=== PATIENT | female | born 1940 | race Caucasian/White ===

== ENCOUNTER 2016-10-01 05:34 | Emergency (ER) | payer MEDICARE, OTHER ==
[2016-10-01 05:39] VITALS: BP 172/95; PULSE 90; RESP 17; TEMP 98.2
[2016-10-01] MEDS ORDERED: DIPH,PERTUS(ACELL)TETVAC-LF 0.5 ML VIAL IM ONE (05:50)
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
== END 2016-10-01 06:23 | disposition home or self-care (01) ==
LOC: EC 05:34
DX: S01.01XA Laceration without foreign body of scalp, initial encounter (principal); E78.5 Hyperlipidemia, unspecified; I10 Essential (primary) hypertension; M19.90 Unspecified osteoarthritis, unspecified site; F17.200 Nicotine dependence, unspecified, uncomplicated; Z79.891 Long term (current) use of opiate analgesic; Z79.899 Other long term (current) drug therapy; Z23 Encounter for immunization; Y04.2XXA Assault by strike against or bumped into by another person, initial encounter
CPT/HCPCS: 12002; 90471; 90715; 99283

== ENCOUNTER → 2016-10-01 | Outpatient (CLI) | payer MEDICARE, OTHER ==
--- NOTE | 2016-10-01 14:20 | MR ---
EXAMINATION TYPE: MR lumbar spine wo con DATE OF EXAM: 10/01/2016 COMPARISON: 06/30/2013 HISTORY: radiculopathy lsp lumbago TECHNIQUE: T1 and T2 axial and sagittal images of the lumbar spine are submitted. FINDINGS: There is no abnormal signal seen within the visualized spinal cord or paraspinal soft tissu es. Incidental note made of gallstones. Simple appearing bilateral renal cysts are incidentally noted and there is ectasia of the distal thoracic aorta thickening or nodularity to both adrenal glands ar e also noted. At T11-T12 there is a vacuum disc with severe chronic compression fracture of T12. Area is not includ ed on the axial scanning. Does appear to be bilateral foraminal encroachment but no definite canal st enosis. At T12-L1 there is severe compression deformities of both T12 and L1 which appear chronic. There is l eft paracentral disc bulging but no canal stenosis. Moderate bilateral foraminal encroachment. No Can al stenosis. At L1-2 there is moderate compression fracture which appears chronic of L2. Circumferential disc bulg ing and facet arthropathy noted. Moderate bilateral foraminal encroachment. No Canal stenosis. At L2-3 there is severe compression chronic fracture of L3. There is broad-based central disc bulging with mild effacement of thecal sac. Facet arthropathy and ligamentum flavum hypertrophy contributes to borderline canal stenosis and moderate bilateral foraminal encroachment. At L3-4 there is mild superior endplate compression deformity appears chronic of L4. There is degener ative disc disease and more marked facet arthropathy. No Canal stenosis. Mild to moderate bilateral f oraminal encroachment. At L4-5 there is severe chronic appearing compression fracture of L5. There is more marked facet arth ropathy and ligamentum flavum hypertrophy with circumferential disc bulging. Moderate bilateral tomas inal encroachment with borderline to mild canal stenosis. At L5-S1 there is severe hypertrophic change of the ligament of flavum and there is productive facet arthropathy resulting in lateral thecal sac compression. Central disc bulging contributes to mild to moderate canal stenosis and bilateral foraminal encroachment. Lateral recess stenosis noted bilateral ly. IMPRESSION: 1. There are numerous chronic compression fractures throughout the visualized vertebral column with a reas of vacuum disc involving the thoracolumbar junction compatible severe multilevel degenerative di sc disease which appears stable from the previous exam. 2. Multilevel hypertrophic change of the facets and ligamentum flavum resulting in mild to moderate c anal stenosis at L5-S1 and borderline to mild canal stenosis L4-L5. 3. Left paracentral disc bulging T12-L1 appears stable. 4. Cholelithiasis.
== END | disposition home or self-care (01) ==
LOC: RADMRIMAIN 09:28
PROVIDERS: ATTEND Psychiatry & Neurology Neurology
DX: S32.020A Wedge compression fracture of second lumbar vertebra, initial encounter for closed fracture (principal); M48.06 Spinal stenosis, lumbar region; M51.15 Intervertebral disc disorders with radiculopathy, thoracolumbar region; M46.06 Spinal enthesopathy, lumbar region
CPT/HCPCS: 72148

== ENCOUNTER 2016-11-15 12:30 | Inpatient (IN) | payer MEDICARE, OTHER ==
[2016-11-15] MEDS ORDERED: IPRATROPIUM 0.5 MG/2.5 ML NEBU INHALATION STA (13:31)
[2016-11-15] MEDS ORDERED: ALBUTEROL NEBULIZED 2.5 MG/3 ML INHALATION STA (13:31)
[2016-11-15] MEDS ORDERED: methylPREDNISolone SOD SUCCI 125 MG/2 ML VIAL IV STA (13:31)
--- NOTE | 2016-11-15 13:36 | ED ---
General Adult HPI - General Chief complaint: Upper Respiratory Infection Stated complaint: Difficulty Breathing Time Seen by Provider: 11/15/16 13:00 Source: patient, RN notes reviewed Mode of arrival: ambulatory Limitations: no limitations - History of Present Illness Initial comments: This a 76-year-old female who presents emergency department with past medical history significant for COPD. Patient states the last couple days she's had difficulty breathing is getting progressively worse per patient states she also has a cough and positive sputum production. Patient has positive smoking history. Patient denies any chest pain or palpitations. Patient denies any fever chills. Patient states the difficulty breathing gets worse with exertion. Patient states her inhalers are not helping her. Patient denies any abdominal pain patient denies nausea vomiting diarrhea per patient denies any leg swelling or calf pain. Patient denies any recent trips or travel. Patient denies being lightheaded dizzy or having any near syncopal episodes. - Related Data Home Medications Medication Instructions Recorded Confirmed Albuterol Sulfate [Proair Hfa] 2 puff INHALATION RT-Q6H PRN 06/16/13 11/15/16 Tiotropium 18 Mcg/Puff [Spiriva] 1 puff INHALATION RT-DAILY 06/16/13 11/15/16 Hydrocodone/Acetaminophen [[place] 1 tab PO TID PRN 05/18/14 11/15/16 7.5-325] Ibuprofen [Ibuprofen] 400 mg PO TID 11/15/16 11/15/16 Metoprolol Succinate [Toprol XL] 50 mg PO HS 11/15/16 11/15/16 Modafinil [Provigil] 100 mg PO DAILY 11/15/16 11/15/16 Simvastatin [Zocor] 10 mg PO HS 11/15/16 11/15/16 Allergies Allergy/AdvReac Type Severity Reaction Status Date / Time No Known Allergies Allergy Verified 11/15/16 13:58 Review of Systems ROS Statement: Those systems with pertinent positive or pertinent negative responses have been documented in the HPI. ROS Other: All systems not noted in ROS Statement are negative. Past Medical History Past Medical History: COPD, Hyperlipidemia, Hypertension, Osteoarthritis (OA) Additional Past Medical History / Comment(s): sciatica, narcolepsy History of Any Multi-Drug Resistant Organisms: None Reported Past Surgical History: Orthopedic Surgery Past Psychological History: No Psychological Hx Reported Smoking Status: Current every day smoker Past Alcohol Use History: None Reported Past Drug Use History: None Reported General Exam - General Exam Comments Initial Comments: GENERAL: Patient is well-developed and well-nourished. Patient is nontoxic and well- hydrated and is in moderate distress. ENT: Neck is soft and supple. No significant lymphadenopathy is noted. Oropharynx is clear. Moist mucous membranes. Neck has full range of motion without eliciting any pain. EYES: The sclera were anicteric and conjunctiva were pink and moist. Extraocular movements were intact and pupils were equal round and reactive to light. Eyelids were unremarkable. PULMONARY: Patient is a very wheezing throughout diminished breath sounds throughout. CARDIOVASCULAR: There is a regular rate and rhythm without any murmurs gallops or rubs. Femoral pulses are equal bilaterally ABDOMEN: Soft and nontender with normal bowel sounds. No palpable organomegaly was noted. There is no palpable pulsatile mass. SKIN: Skin is clear with no lesions or rashes and otherwise unremarkable. NEUROLOGIC: Patient is alert and oriented x3. Cranial nerves II through XII are grossly intact. Motor and sensory are also intact. Normal speech, volume and content. Symmetrical smile. MUSCULOSKELETAL: Normal extremities with adequate strength and full range of motion. No lower extremity swelling or edema. No calf tenderness. LYMPHATICS: No significant lymphadenopathy is noted PSYCHIATRIC: Normal psychiatric evaluation. Limitations: no limitations Course Vital Signs 11/15/16 11/15/16 11/15/16 13:03 13:35 13:53 Temperature 98.1 F Pulse Rate 95 92 Respiratory 22 21 16 Rate Blood Pressure 147/77 O2 Sat by Pulse 92 L Oximetry 11/15/16 11/15/16 14:03 14:06 Temperature Pulse Rate 92 96 Respiratory 16 19 Rate Blood Pressure 150/91 O2 Sat by Pulse 99 Oximetry Medical Decision Making - Medical Decision Making EKG shows normal sinus rhythm at 71 bpm KS interval is 182 QRS is 74 Q-T intervals 374 QTC is 46 per patient's EKG shows no ST segment elevation or depression or T wave abnormalities are noted. Patient's chest x-ray shows COPD. Patient had multiple treatments and steroids in the emergency department continued to wheeze though feeling better she did not feel as though she could go home. I spoke with Dr. Eckert he agreed to admit the patient I admitted the patient I wrote admitting orders. - Lab Data Result diagrams: 11/15/16 14:00 11/15/16 14:00 Lab Results 11/15/16 11/15/16 11/15/16 Range/Units 14:00 14:00 14:00 WBC 7.4 (3.8-10.6) k/uL RBC 4.84 (3.80-5.40) m/uL Hgb 14.7 (11.4-16.0) gm/dL Hct 45.2 (34.0-46.0) % MCV 93.3 (80.0-100.0) fL MCH 30.3 (25.0-35.0) pg MCHC 32.4 (31.0-37.0) g/dL RDW 13.9 (11.5-15.5) % Plt Count 167 (150-450) k/uL Neutrophils % 73 % Lymphocytes % 18 % Monocytes % 6 % Eosinophils % 2 % Basophils % 0 % Neutrophils # 5.4 (1.3-7.7) k/uL Lymphocytes # 1.3 (1.0-4.8) k/uL Monocytes # 0.4 (0-1.0) k/uL Eosinophils # 0.2 (0-0.7) k/uL Basophils # 0.0 (0-0.2) k/uL PT (9.0-12.0) sec INR (<1.2) APTT (22.0-30.0) sec Sodium 139 (137-145) mmol/L Potassium 4.5 (3.5-5.1) mmol/L Chloride 105 (98-107) mmol/L Carbon Dioxide 26 (22-30) mmol/L Anion Gap 8 mmol/L BUN 13 (7-17) mg/dL Creatinine 0.61 (0.52-1.04) mg/dL Est GFR (MDRD) Af Amer >60 (>60 ml/min/1.73 sqM) Est GFR (MDRD) Non-Af >60 (>60 ml/min/1.73 sqM) Glucose 118 H (74-99) mg/dL Calcium 9.3 (8.4-10.2) mg/dL Magnesium 1.8 (1.6-2.3) mg/dL Total Bilirubin 0.6 (0.2-1.3) mg/dL AST 23 (14-36) U/L ALT 28 (9-52) U/L Alkaline Phosphatase 72 (38-126) U/L Total Creatine Kinase 71 (30-135) U/L CK-MB (CK-2) 2.3 (0.0-2.4) ng/mL CK-MB (CK-2) Rel Index 3.2 Troponin I <0.012 (0.000-0.034) ng/mL Total Protein 6.7 (6.3-8.2) g/dL Albumin 3.9 (3.5-5.0) g/dL 11/15/16 Range/Units 14:00 WBC (3.8-10.6) k/uL RBC (3.80-5.40) m/uL Hgb (11.4-16.0) gm/dL Hct (34.0-46.0) % MCV (80.0-100.0) fL MCH (25.0-35.0) pg MCHC (31.0-37.0) g/dL RDW (11.5-15.5) % Plt Count (150-450) k/uL Neutrophils % % Lymphocytes % % Monocytes % % Eosinophils % % Basophils % % Neutrophils # (1.3-7.7) k/uL Lymphocytes # (1.0-4.8) k/uL Monocytes # (0-1.0) k/uL Eosinophils # (0-0.7) k/uL Basophils # (0-0.2) k/uL PT 9.9 (9.0-12.0) sec INR 1.0 (<1.2) APTT 23.8 (22.0-30.0) sec Sodium (137-145) mmol/L Potassium (3.5-5.1) mmol/L Chloride (98-107) mmol/L Carbon Dioxide (22-30) mmol/L Anion Gap mmol/L BUN (7-17) mg/dL Creatinine (0.52-1.04) mg/dL Est GFR (MDRD) Af Amer (>60 ml/min/1.73 sqM) Est GFR (MDRD) Non-Af (>60 ml/min/1.73 sqM) Glucose (74-99) mg/dL Calcium (8.4-10.2) mg/dL Magnesium (1.6-2.3) mg/dL Total Bilirubin (0.2-1.3) mg/dL AST (14-36) U/L ALT (9-52) U/L Alkaline Phosphatase (38-126) U/L Total Creatine Kinase (30-135) U/L CK-MB (CK-2) (0.0-2.4) ng/mL CK-MB (CK-2) Rel Index Troponin I (0.000-0.034) ng/mL Total Protein (6.3-8.2) g/dL Albumin (3.5-5.0) g/dL Critical Care Time Critical Care Time: Yes Total Critical Care Time: 35 Disposition Clinical Impression: Acute exacerbation of chronic obstructive pulmonary disease (COPD) Disposition: ADMITTED IP TO THIS HOSP Referrals: Mat Eckert MD [Primary Care Provider] - 1-2 days Time of Disposition: 16:09
[2016-11-15 14:25] LABS: Basophils % (A) 0 %; CH 31.7; CHCM 34.1; Eosinophils # (A) 0.2 k/uL (0-0.7); Eosinophils % (A) 2 %; HCT 45.2 % (34.0-46.0); HDW 2.58; HGB 14.7 gm/dL (11.4-16.0); Luc # (Auto) 0.09; Luc % (Auto) 1; Lymphocytes # (A) 1.3 k/uL (1.0-4.8); Lymphocytes % (A) 18 %; MCH 30.3 pg (25.0-35.0); MCHC 32.4 g/dL (31.0-37.0); MCV 93.3 fL (80.0-100.0); Mean Platelet Volume 8.1; Monocytes # (A) 0.4 k/uL (0-1.0); Monocytes % (A) 6 %; Neutrophils # (A) 5.4 k/uL (1.3-7.7); Neutrophils % (A) 73 %; RBC 4.84 m/uL (3.80-5.40); RDW 13.9 % (11.5-15.5); WBC 7.4 k/uL (3.8-10.6); WBC (Perox) 7.25
[2016-11-15 14:30] LABS: ALT 28 U/L (9-52); AST 23 U/L (14-36); Alkaline Phosphatase 72 U/L (38-126); Anion Gap 8 mmol/L; Blood Urea Nitrogen 13 mg/dL (7-17); Calcium 9.3 mg/dL (8.4-10.2); Carbon Dioxide 26 mmol/L (22-30); Chloride 105 mmol/L (98-107); Glucose 118 mg/dL (74-99); Magnesium 1.8 mg/dL (1.6-2.3); Non-African American GFR(MDRD) >60 (>60 ml/min/1.73 sqM); Partial Thromboplastin Time 23.8 sec (22.0-30.0); Potassium 4.5 mmol/L (3.5-5.1); Prothrombin Time 9.9 sec (9.0-12.0); Sodium 139 mmol/L (137-145); Total Bilirubin 0.6 mg/dL (0.2-1.3); Total Protein 6.7 g/dL (6.3-8.2)
[2016-11-15 14:52] LABS: Creatine Kinase 71 U/L (30-135)
--- NOTE | 2016-11-15 14:58 | XR ---
EXAMINATION TYPE: XR chest 2V DATE OF EXAM: 11/15/2016 COMPARISON: Prior chest x-ray 05/18/2014 HISTORY: Difficulty breathing, cough TECHNIQUE: Frontal and lateral views of the chest are obtained on 3 images. FINDINGS: Patient is rotated. There may be underlying scoliosis. There are overlying cardiac leads. There is no focal air space opacity, pleural effusion, or pneumothorax seen. The cardiac silhouette size is within normal limits. The osseous structures are remarkable for multilevel osteoporotic com pression fractures, multiple vertebral bodies show loss of height, bone mineralization is reduced. Pr ominent lung volumes suggest COPD.. IMPRESSION: No acute cardiopulmonary process. Additional findings above.
[2016-11-15 15:05] LABS: Creatine Kinase MB 2.3 ng/mL (0.0-2.4); Troponin I <0.012 ng/mL (0.000-0.034)
[2016-11-15] MEDS ORDERED: ALBUTEROL INHALER 60 PUFF/8 GM INHALER INHALATION PRN (18:55)
[2016-11-15] MEDS: ATORVASTATIN 10 MG TAB PO SCH (20:00)
[2016-11-15] MEDS: HYDROcodone/APAP 7.5-325MG 1 EACH TAB PO PRN (20:00)
[2016-11-15] MEDS: METOPROLOL SUCCINATE (ER) 50 MG TAB.ER.24H PO SCH (20:00)
[2016-11-15 20:54] LABS: Glucose,Whole Blood 188 mg/dL (75-99)
[2016-11-15] MEDS: INSULIN LISPRO (humaLOG) 300 UNIT/3 ML VIAL SQ SCH (21:01)
[2016-11-15 23:09] LABS: Hemoglobin A1C 5.9 % (4.2-6.1)
[2016-11-15] MEDS: IBUPROFEN 400 MG TAB PO SCH (23:55)
[2016-11-16] MEDS: methylPREDNISolone SOD SUCCI 125 MG/2 ML VIAL IV SCH ×5 (00:18→23:34)
[2016-11-16] MEDS: HYDROcodone/APAP 7.5-325MG 1 EACH TAB PO PRN ×3 (02:08→16:53)
[2016-11-16] MEDS: IBUPROFEN 400 MG TAB PO SCH ×3 (06:29→22:39)
[2016-11-16] MEDS: IPRATROPIUM-ALBUTEROL 3 ML NEB INHALATION PRN ×3 (07:17→19:58)
[2016-11-16] MEDS: IPRATROPIUM 0.5 MG/2.5 ML NEBU INHALATION SCH ×4 (07:18→19:58)
[2016-11-16 07:27] LABS: Glucose,Whole Blood 175 mg/dL (75-99)
--- NOTE | 2016-11-16 08:29 | P.HPIM ---
History of Present Illness H&P Date: 11/16/16 Review of Systems Constitutional: Denies chills, Denies fever Eyes: denies blurred vision, denies pain Respiratory: Reports cough, Reports cough with sputum, Reports dyspnea, Reports pleurisy, Reports wheezing Gastrointestinal: Denies abdominal pain, Denies diarrhea, Denies nausea, Denies vomiting Past Medical History Past Medical History: COPD, Hyperlipidemia, Hypertension, Osteoarthritis (OA) Additional Past Medical History / Comment(s): sciatica, narcolepsy History of Any Multi-Drug Resistant Organisms: None Reported Past Surgical History: Orthopedic Surgery Past Anesthesia/Blood Transfusion Reactions: No Reported Reaction Past Psychological History: No Psychological Hx Reported Smoking Status: Current every day smoker Past Alcohol Use History: None Reported Past Drug Use History: None Reported - Past Family History Father History Unknown: Yes Mother History Unknown: Yes Medications and Allergies Home Medications Medication Instructions Recorded Confirmed Type Albuterol Sulfate [Proair Hfa] 2 puff INHALATION RT-Q6H PRN 06/16/13 11/15/16 History Tiotropium 18 Mcg/Puff [Spiriva] 1 puff INHALATION RT-DAILY 06/16/13 11/15/16 History Hydrocodone/Acetaminophen [[place] 1 tab PO TID PRN 05/18/14 11/15/16 History 7.5-325] Ibuprofen [Ibuprofen] 400 mg PO TID 11/15/16 11/15/16 History Metoprolol Succinate [Toprol XL] 50 mg PO HS 11/15/16 11/15/16 History Modafinil [Provigil] 100 mg PO DAILY 11/15/16 11/15/16 History Simvastatin [Zocor] 10 mg PO HS 11/15/16 11/15/16 History Allergies Allergy/AdvReac Type Severity Reaction Status Date / Time No Known Allergies Allergy Verified 11/15/16 13:58 Physical Exam Vitals: Vital Signs Temp Pulse Pulse Resp BP BP Pulse Ox 11/16/16 07:29 80 11/16/16 07:20 76 11/16/16 03:47 16 11/15/16 23:52 16 11/15/16 23:46 97.8 F 73 16 105/75 99 11/15/16 20:00 18 11/15/16 18:42 18 11/15/16 18:20 97.8 F 93 18 166/89 93 L 11/15/16 17:13 98.5 F 81 18 164/97 95 11/15/16 16:09 89 19 149/90 96 11/15/16 14:06 96 19 150/91 99 11/15/16 14:03 92 16 11/15/16 13:53 92 16 11/15/16 13:35 21 11/15/16 13:03 98.1 F 95 22 147/77 92 L Intake and Output 11/15/16 11/16/16 11/16/16 22:59 06:59 14:59 Other: Voiding Method Toilet Toilet Weight 61.1 kg - Constitutional General appearance: mild distress - EENT Eyes: EOMI - Neck Neck: no lymphadenopathy - Respiratory Respiratory: bilateral: wheezing, prolonged expiration - Cardiovascular Rhythm: regular Heart sounds: normal: S1, S2 - Gastrointestinal General gastrointestinal: soft, no tenderness - Psychiatric Psychiatric: A&O x's 3, appropriate affect, intact judgment & insight Results CBC & Chem 7: 11/15/16 14:00 11/15/16 14:00 Labs: Abnormal Lab Results - Last 24 Hours (Table) 11/15/16 11/15/16 11/16/16 Range/Units 14:00 20:51 07:26 Glucose 118 H (74-99) mg/dL POC Glucose (mg/dL) 188 H 175 H (75-99) mg/dL Thrombosis Risk Factor Assmnt - Choose All That Apply Any of the Below Risk Factors Present?: Yes Each Factor Represents 1 point: Serious lung disease incl. pneumonia (< 1month) Each Risk Factor Represents 2 Points: Age 61-74 years Thrombosis Risk Factor Assessment Total Risk Factor Score: 3 Thrombosis Risk Factor Assessment Level: Moderate Risk Assessment and Plan (1) Essential (primary) hypertension Status: Acute (2) Acute exacerbation of chronic obstructive pulmonary disease (COPD) Status: Acute Plan: We'll go ahead and empirically treat for chronic bronchitis/COPD. Reconcile medications. At this time, she is full code. Consult pulmonology if necessary. See orders otherwise. Dr. Galaviz's group covering for the weekend.
[2016-11-16] MEDS: INSULIN LISPRO (humaLOG) 300 UNIT/3 ML VIAL SQ SCH ×4 (09:03→21:24)
[2016-11-16] MEDS: MODAFINIL 100 MG TAB PO SCH (09:06)
[2016-11-16] MEDS ORDERED: SODIUM CHLORIDE 0.65% NASAL SPRAY 44 ML BTL NASAL PRN (11:46)
[2016-11-16 11:59] LABS: Glucose,Whole Blood 115 mg/dL (75-99)
[2016-11-16] MEDS: PROMETHAZ-COD 6.25-10 MG/5 ML 5 ML CUP PO PRN (12:28)
[2016-11-16] MEDS: NICOTINE 14MG/24HR PATCH TRANSDERM SCH (12:29)
[2016-11-16 14:59] VITALS: BMI 23.8
[2016-11-16 16:45] LABS: Glucose,Whole Blood 153 mg/dL (75-99)
[2016-11-16 20:48] LABS: Glucose,Whole Blood 183 mg/dL (75-99)
[2016-11-16] MEDS: METOPROLOL SUCCINATE (ER) 50 MG TAB.ER.24H PO SCH (21:24)
[2016-11-16] MEDS: ATORVASTATIN 10 MG TAB PO SCH (21:24)
[2016-11-17] MEDS: PROMETHAZ-COD 6.25-10 MG/5 ML 5 ML CUP PO PRN ×3 (03:11→15:12)
[2016-11-17] MEDS: HYDROcodone/APAP 7.5-325MG 1 EACH TAB PO PRN ×3 (03:13→20:42)
[2016-11-17] MEDS: methylPREDNISolone SOD SUCCI 125 MG/2 ML VIAL IV SCH ×4 (05:40→23:45)
[2016-11-17 07:07] LABS: Glucose,Whole Blood 160 mg/dL (75-99)
[2016-11-17] MEDS: IBUPROFEN 400 MG TAB PO SCH ×2 (07:29→17:45)
[2016-11-17] MEDS: NICOTINE 14MG/24HR PATCH TRANSDERM SCH (07:30)
[2016-11-17] MEDS: INSULIN LISPRO (humaLOG) 300 UNIT/3 ML VIAL SQ SCH ×4 (07:32→20:41)
[2016-11-17] MEDS: IPRATROPIUM 0.5 MG/2.5 ML NEBU INHALATION SCH ×4 (08:45→19:58)
[2016-11-17] MEDS: MODAFINIL 100 MG TAB PO SCH (10:00)
[2016-11-17 11:33] LABS: Glucose,Whole Blood 155 mg/dL (75-99)
[2016-11-17] MEDS: LEVOFLOXACIN 500MG-D5W PMX 500 MG in DEXTROSE/WATER 1 100ML.BAG IVPB SCH (15:22)
[2016-11-17] MEDS: IPRATROPIUM-ALBUTEROL 3 ML NEB INHALATION PRN ×2 (15:56→19:58)
[2016-11-17 17:16] LABS: Glucose,Whole Blood 146 mg/dL (75-99)
--- NOTE | 2016-11-17 17:25 | PN ---
PROGRESS NOTE DATE OF SERVICE: 11/17/2016 I am covering for Dr. Eckert. INTERVAL HISTORY: This 76-year-old woman who was admitted with COPD acute exacerbation also has history of hypertension. The patient is complaining of greenish sputum at this time. The most recent chest x-ray done on 11/15/2006 which was reviewed personally by me showed no acute abnormality. Multilevel osteoporotic compression fractures are noted. PAST MEDICAL HISTORY: Reviewed. REVIEW OF SYSTEMS: Cardiovascular: No angina. Respiration: As mentioned earlier. GI As mentioned earlier. : As mentioned earlier. Central nervous system: No numbness/weakness. CURRENT MEDICATIONS: Reviewed and include: 1. Colon 7.5 mg Q t.i.d. p.r.n. 2. DuoNeb q.i.d. and p.r.n. 3. Lipitor 10 mg q.h.s. 4. Motrin 400 mg daily. 5. Humalog scale. 6. Levaquin 500 mg IV daily. 7. Solu-Medrol 60 IV q.6 hours. 8. Toprol-XL 50 mg q.h.s. 9. Provigil 100 mg. 10.Habitrol 14 daily. PHYSICAL EXAM: Patient is alert, oriented x3. Pulse 67, blood pressure 135/83, , respirations 16, temperature 97.2, pulse ox 97% on 2 L. HEENT: Conjunctivae normal. Oral mucosa moist. Neck is no jugular venous distention. No carotid bruit. No lymph node enlargement. Cardiovascular system: S1, S2 muffled. Respiratory: Breath sounds diminished at the bases. Bilateral scattered rhonchi and expiratory wheezing and breathing efforts are markedly increased. ABDOMEN: Soft, nontender. Legs are no edema. No focal deficits. LABORATORY DATA: Glucose 188. ASSESSMENT: 1. Chronic obstructive pulmonary disease exacerbation, acute purulent tracheobronchitis. 2. Hypertension. 3. Osteoporosis and multilevel fractures. 4. Increased random blood sugar. 5. Hypertension. 6. Hyperlipidemia. 7. History of nicotine dependence. Continued ongoing. RECOMMENDATIONS AND DISCUSSION: Recommend continue current medications. Continue to monitor. Symptomatic treatment. Otherwise at this time I recommend continue with bronchodilators and I would recommend intensive bronchodilators at this time. Empiric antibiotics recommended. DVT prophylaxis. I would also recommend smoking cessation advised. IV steroids. Monitor blood sugars closely. Otherwise I would also recommend repeat labs. Overall prognosis is guarded because of multiple complex medical issues and further recommendations to follow. MMODL / IJN: [id number] /
[2016-11-17] MEDS: FORMOTEROL FUMARATE 20 MCG/2 ML NEBU INHALATION SCH (19:59)
[2016-11-17] MEDS: BUDESONIDE 1 MG/2 ML NEBU INHALATION SCH (19:59)
[2016-11-17] MEDS: ATORVASTATIN 10 MG TAB PO SCH (20:41)
[2016-11-17] MEDS: METOPROLOL SUCCINATE (ER) 50 MG TAB.ER.24H PO SCH (20:41)
[2016-11-17] MEDS: HEPARIN SODIUM,PORCINE 5,000 UNIT/ML 1 ML VIAL SQ SCH (20:42)
[2016-11-17 20:44] LABS: Glucose,Whole Blood 148 mg/dL (75-99)
[2016-11-18] MEDS: IBUPROFEN 400 MG TAB PO SCH ×3 (01:59→20:04)
[2016-11-18] MEDS: methylPREDNISolone SOD SUCCI 125 MG/2 ML VIAL IV SCH ×2 (06:07→18:20)
[2016-11-18] MEDS: HYDROcodone/APAP 7.5-325MG 1 EACH TAB PO PRN ×3 (06:14→23:45)
[2016-11-18 06:49] LABS: Basophils % (A) 0 %; CH 30.9; CHCM 32.7; Eosinophils % (A) 0 %; HCT 46.4 % (34.0-46.0); HDW 2.48; HGB 14.5 gm/dL (11.4-16.0); Luc # (Auto) 0.07; Luc % (Auto) 1; Lymphocytes # (A) 1.3 k/uL (1.0-4.8); Lymphocytes % (A) 11 %; MCH 29.6 pg (25.0-35.0); MCHC 31.1 g/dL (31.0-37.0); MCV 95.1 fL (80.0-100.0); Mean Platelet Volume 7.8; Monocytes # (A) 0.6 k/uL (0-1.0); Monocytes % (A) 6 %; Neutrophils # (A) 9.3 k/uL (1.3-7.7); Neutrophils % (A) 83 %; RBC 4.88 m/uL (3.80-5.40); RDW 13.4 % (11.5-15.5); WBC 11.2 k/uL (3.8-10.6); WBC (Perox) 9.54
[2016-11-18 07:06] LABS: Anion Gap 8 mmol/L; Blood Urea Nitrogen 25 mg/dL (7-17); Calcium 9.6 mg/dL (8.4-10.2); Carbon Dioxide 31 mmol/L (22-30); Chloride 100 mmol/L (98-107); Glucose 117 mg/dL (74-99); Non-African American GFR(MDRD) >60 (>60 ml/min/1.73 sqM); Potassium 4.7 mmol/L (3.5-5.1); Sodium 139 mmol/L (137-145)
[2016-11-18] MEDS: IPRATROPIUM-ALBUTEROL 3 ML NEB INHALATION PRN ×3 (07:11→19:36)
[2016-11-18] MEDS: BUDESONIDE 1 MG/2 ML NEBU INHALATION SCH ×2 (07:24→19:36)
[2016-11-18] MEDS: FORMOTEROL FUMARATE 20 MCG/2 ML NEBU INHALATION SCH ×2 (07:24→19:36)
[2016-11-18] MEDS: IPRATROPIUM 0.5 MG/2.5 ML NEBU INHALATION SCH ×4 (07:25→19:36)
[2016-11-18] MEDS: INSULIN LISPRO (humaLOG) 300 UNIT/3 ML VIAL SQ SCH ×4 (08:00→20:05)
[2016-11-18] MEDS: MODAFINIL 100 MG TAB PO SCH (08:01)
[2016-11-18] MEDS: NICOTINE 14MG/24HR PATCH TRANSDERM SCH (08:05)
[2016-11-18] MEDS: HEPARIN SODIUM,PORCINE 5,000 UNIT/ML 1 ML VIAL SQ SCH ×3 (08:05→20:05)
[2016-11-18 08:19] LABS: Glucose,Whole Blood 225 mg/dL (75-99)
[2016-11-18 11:41] LABS: Glucose,Whole Blood 121 mg/dL (75-99)
[2016-11-18] MEDS: LEVOFLOXACIN 500MG-D5W PMX 500 MG in DEXTROSE/WATER 1 100ML.BAG IVPB SCH (13:28)
[2016-11-18] MEDS: predniSONE 10 MG TAB PO SCH (16:03)
[2016-11-18 17:47] LABS: Glucose,Whole Blood 127 mg/dL (75-99)
--- NOTE | 2016-11-18 18:47 | PN ---
PROGRESS NOTE DATE OF SERVICE: 11/18/2016 I am covering for Dr. Eckert. INTERVAL HISTORY: This 76-year-old woman was admitted with COPD exacerbation is being closely monitored. Patient on bronchodilators also. The patient is reporting intolerance to steroids. No fever. Cough is reported. PHYSICAL EXAMINATION: On exam, alert, oriented x3. Pulse is 71, blood pressure 159/77, respiratory rate 17, temperature 98 degrees, pulse ox normal. HEENT: Conjunctivae normal. NECK: No jugular venous distention. CARDIOVASCULAR: S1, S2 muffled. RESPIRATORY: Breath sounds diminished in the bases. Bilateral scattered rhonchi and expiratory wheezing also present. Some crackles. Abdomen is soft, nontender. Legs are no edema. No swelling. Central nervous system: No focal deficits. LABORATORY DATA: WBC 7.2, hemoglobin 14.6. Accu-Cheks are noted. ASSESSMENT: 1. Chronic obstructive pulmonary disease acute exacerbation with acute purulent tracheobronchitis. 2. Hypertension. 3. Osteoporosis multilevel fractures. 4. Increased random blood sugar. 5. Hypertension. 6. Hyperlipidemia. 7. History of nicotine dependence. RECOMMENDATIONS AND DISCUSSION: Recommend to continue current medications, management and continue symptomatic treatment. Otherwise taper the steroids. Bronchodilators and Dr. Eckert will follow antibiotics. MMODL / IJN: [id number] /
[2016-11-18] MEDS: METOPROLOL SUCCINATE (ER) 50 MG TAB.ER.24H PO SCH (20:04)
[2016-11-18] MEDS: ATORVASTATIN 10 MG TAB PO SCH (20:04)
[2016-11-18 20:10] LABS: Glucose,Whole Blood 178 mg/dL (75-99)
[2016-11-19] MEDS: PROMETHAZ-COD 6.25-10 MG/5 ML 5 ML CUP PO PRN ×2 (02:06→07:43)
[2016-11-19] MEDS: IBUPROFEN 400 MG TAB PO SCH ×3 (04:54→15:46)
[2016-11-19 07:31] LABS: Glucose,Whole Blood 110 mg/dL (75-99)
[2016-11-19] MEDS: INSULIN LISPRO (humaLOG) 300 UNIT/3 ML VIAL SQ SCH ×2 (07:40→12:13)
--- NOTE | 2016-11-19 07:40 | P.DS ---
Providers Date of admission: 11/16/16 11:11 Attending physician: Mat Eckert Primary care physician: Mat Eckert - Discharge Diagnosis(es) (1) Essential (primary) hypertension Current Visit: Yes Status: Acute (2) Acute exacerbation of chronic obstructive pulmonary disease (COPD) Current Visit: Yes Status: Acute Hospital Course: This is a discharge summary a 76-year-old white female essentially admitted for acute exacerbation of COPD. The patient was stabilized with appropriate steroid treatment. She is voiding without difficulties and walking the halls almost close to her "baseline.". She is discharged in stable condition to follow-up with me in about 3-4 days. Patient Condition at Discharge: Stable Plan - Discharge Summary New Discharge Prescriptions: New Formoterol Fumarate [Perforomist] 20 mcg INHALATION RT-BID #60 neb Levofloxacin [Levaquin] 500 mg PO DAILY #7 tab Nicotine 14Mg/24Hr Patch [Habitrol] 1 patch TRANSDERM DAILY #30 patch predniSONE 0 mg PO DIRECTED #18 tab Continue Albuterol Sulfate [Proair Hfa] 2 puff INHALATION RT-Q6H PRN PRN Reason: Shortness Of Breath Tiotropium 18 Mcg/Puff [Spiriva] 1 puff INHALATION RT-DAILY Hydrocodone/Acetaminophen [[place] 7.5-325] 1 tab PO TID PRN PRN Reason: Pain Modafinil [Provigil] 100 mg PO DAILY Metoprolol Succinate [Toprol XL] 50 mg PO HS Ibuprofen 400 mg PO TID Simvastatin [Zocor] 10 mg PO HS Discharge Medication List Albuterol Sulfate [Proair Hfa] 2 puff INHALATION RT-Q6H PRN 06/16/13 [History] Tiotropium 18 Mcg/Puff [Spiriva] 1 puff INHALATION RT-DAILY 06/16/13 [History] Hydrocodone/Acetaminophen [[place] 7.5-325] 1 tab PO TID PRN 05/18/14 [History] Ibuprofen 400 mg PO TID 11/15/16 [History] Metoprolol Succinate [Toprol XL] 50 mg PO HS 11/15/16 [History] Modafinil [Provigil] 100 mg PO DAILY 11/15/16 [History] Simvastatin [Zocor] 10 mg PO HS 11/15/16 [History] Formoterol Fumarate [Perforomist] 20 mcg INHALATION RT-BID #60 neb 11/19/16 [Rx] Levofloxacin [Levaquin] 500 mg PO DAILY #7 tab 11/19/16 [Rx] Nicotine 14Mg/24Hr Patch [Habitrol] 1 patch TRANSDERM DAILY #30 patch 11/19/16 [ Rx] predniSONE 0 mg PO DIRECTED #18 tab 11/19/16 [Rx] Follow up Appointment(s)/Referral(s): Mat Eckert MD [Primary Care Provider] - 3 Days Patient Instructions/Handouts: COPD (Chronic Obstructive Pulmonary Disease) ( GEN)
[2016-11-19] MEDS: HEPARIN SODIUM,PORCINE 5,000 UNIT/ML 1 ML VIAL SQ SCH (07:44)
[2016-11-19] MEDS: NICOTINE 14MG/24HR PATCH TRANSDERM SCH (07:44)
[2016-11-19] MEDS: predniSONE 10 MG TAB PO SCH (07:45)
[2016-11-19] MEDS: MODAFINIL 100 MG TAB PO SCH (07:51)
[2016-11-19] MEDS: HYDROcodone/APAP 7.5-325MG 1 EACH TAB PO PRN ×2 (07:51→15:46)
[2016-11-19 08:29] LABS: Anion Gap 9 mmol/L; Blood Urea Nitrogen 19 mg/dL (7-17); Calcium 9.6 mg/dL (8.4-10.2); Carbon Dioxide 28 mmol/L (22-30); Chloride 101 mmol/L (98-107); Glucose 90 mg/dL (74-99); Non-African American GFR(MDRD) >60 (>60 ml/min/1.73 sqM); Potassium 4.6 mmol/L (3.5-5.1); Sodium 138 mmol/L (137-145)
[2016-11-19 08:31] VITALS: BP 144/81; RESP 16; TEMP 97.5
[2016-11-19 08:33] LABS: Basophils % (A) 0 %; CH 30.2; CHCM 31.7; Eosinophils % (A) 0 %; HCT 48.2 % (34.0-46.0); HDW 2.48; HGB 15.4 gm/dL (11.4-16.0); Luc # (Auto) 0.12; Luc % (Auto) 1; Lymphocytes # (A) 1.8 k/uL (1.0-4.8); Lymphocytes % (A) 21 %; MCH 30.6 pg (25.0-35.0); MCHC 31.9 g/dL (31.0-37.0); MCV 95.9 fL (80.0-100.0); Mean Platelet Volume 7.4; Monocytes # (A) 0.5 k/uL (0-1.0); Monocytes % (A) 6 %; Neutrophils # (A) 6.2 k/uL (1.3-7.7); Neutrophils % (A) 71 %; RBC 5.03 m/uL (3.80-5.40); RDW 12.8 % (11.5-15.5); WBC 8.7 k/uL (3.8-10.6); WBC (Perox) 9.08
[2016-11-19] MEDS: FORMOTEROL FUMARATE 20 MCG/2 ML NEBU INHALATION SCH ×2 (08:37→09:12)
[2016-11-19] MEDS: BUDESONIDE 1 MG/2 ML NEBU INHALATION SCH ×2 (08:37→09:12)
[2016-11-19] MEDS: IPRATROPIUM 0.5 MG/2.5 ML NEBU INHALATION SCH ×4 (08:37→16:17)
[2016-11-19 11:44] LABS: Glucose,Whole Blood 100 mg/dL (75-99)
[2016-11-19 12:35] VITALS: PULSE 74
[2016-11-19] MEDS ORDERED: LEVOFLOXACIN 500 MG TAB PO SCH (14:00)
== END 2016-11-19 16:50 | disposition home or self-care (01) | DRG 191 ==
LOC: EC 12:30 → 3OBS 16:11 → OBSVTOIN 11-16 11:11 → 5MS5E 11-16 16:40
PROVIDERS: ADMIT Family Medicine; ATTEND Family Medicine
DX: J44.1 Chronic obstructive pulmonary disease with (acute) exacerbation (principal); M80.00XA Age-related osteoporosis with current pathological fracture, unspecified site, initial encounter for fracture; I10 Essential (primary) hypertension; E78.5 Hyperlipidemia, unspecified; M19.91 Primary osteoarthritis, unspecified site; G47.419 Narcolepsy without cataplexy; F17.200 Nicotine dependence, unspecified, uncomplicated; Z79.899 Other long term (current) drug therapy
CPT/HCPCS: 36415; 71020; 80048; 80053; 82550; 82553; 83036; 83735; 84484; 85025; 85610; 85730; 87070; 87205; 93005; 94640; 94760; 96374; 99285

== ENCOUNTER 2017-03-22 09:26 | Emergency (ER) | payer MEDICARE, OTHER ==
--- NOTE | 2017-03-22 10:21 | ED ---
General Adult HPI - General Chief complaint: Upper Respiratory Infection Stated complaint: Sinus infection Time Seen by Provider: 03/22/17 10:05 Source: patient, RN notes reviewed Mode of arrival: ambulatory Limitations: no limitations - History of Present Illness Initial comments: 76-year-old female presenting with nasal congestion, sneezing, and cough. Patient has history of COPD, she states she has a baseline productive cough which is basically unchanged. She has had nasal congestion and sneezing for the past 3 days. She is currently staying at a [facility] and is concerned that she might be contagious. She denies any worsening dyspnea. Denies chest pain. Denies nausea vomiting. Denies myalgias. Denies fever or chills. - Related Data Home Medications Medication Instructions Recorded Confirmed Tiotropium 18 Mcg/Puff [Spiriva] 1 puff INHALATION RT-DAILY 06/16/13 03/22/17 Hydrocodone/Acetaminophen [[place] 1 tab PO TID PRN 05/18/14 03/22/17 7.5-325] Ibuprofen 400 mg PO TID 11/15/16 03/22/17 Metoprolol Succinate [Toprol XL] 50 mg PO HS 11/15/16 03/22/17 Modafinil [Provigil] 100 mg PO DAILY 11/15/16 03/22/17 Simvastatin [Zocor] 10 mg PO HS 11/15/16 03/22/17 Furosemide [Lasix] 40 mg PO Q48H 03/22/17 03/22/17 Potassium Chloride [Klor-Con 20] 10 meq PO Q48H 03/22/17 03/22/17 Previous Rx's Medication Instructions Recorded Albuterol Inhaler [Ventolin Hfa 1 - 2 puff INHALATION Q4HR PRN #1 03/22/17 Inhaler] inhaler Azithromycin [Zithromax Z-pack] 0 mg PO DIRECTED #6 tab 03/22/17 predniSONE 50 mg PO DAILY #5 tab 03/22/17 Allergies Allergy/AdvReac Type Severity Reaction Status Date / Time No Known Allergies Allergy Verified 03/22/17 10:10 Review of Systems ROS Statement: Those systems with pertinent positive or pertinent negative responses have been documented in the HPI. ROS Other: All systems not noted in ROS Statement are negative. Past Medical History Past Medical History: COPD, Hyperlipidemia, Hypertension, Osteoarthritis (OA) Additional Past Medical History / Comment(s): sciatica, narcolepsy History of Any Multi-Drug Resistant Organisms: None Reported Past Surgical History: Orthopedic Surgery Past Anesthesia/Blood Transfusion Reactions: No Reported Reaction Past Psychological History: No Psychological Hx Reported Smoking Status: Current every day smoker Past Alcohol Use History: None Reported Past Drug Use History: None Reported - Past Family History Father History Unknown: Yes Mother History Unknown: Yes General Exam Limitations: no limitations General appearance: alert, in no apparent distress Head exam: Present: atraumatic, normocephalic Eye exam: Present: normal appearance, PERRL ENT exam: Present: normal oropharynx, other (Bilateral nasal congestion and rhinorrhea) Neck exam: Present: normal inspection. Absent: tenderness, meningismus Respiratory exam: Present: normal lung sounds bilaterally. Absent: respiratory distress, wheezes Cardiovascular Exam: Present: regular rate, normal rhythm GI/Abdominal exam: Present: soft. Absent: distended, tenderness Extremities exam: Present: normal inspection, normal capillary refill. Absent: pedal edema Back exam: Present: normal inspection, full ROM Neurological exam: Present: alert, oriented X3, CN II-XII intact. Absent: motor sensory deficit Psychiatric exam: Present: normal affect, normal mood Skin exam: Present: warm, dry, intact. Absent: cyanosis, diaphoretic Course Vital Signs 03/22/17 09:50 Temperature 98.7 F Pulse Rate 105 H Respiratory 16 Rate Blood Pressure 139/89 O2 Sat by Pulse 95 Oximetry Medical Decision Making - Medical Decision Making 76-year-old female presenting with URI symptoms, and chronic cough consistent with COPD. Chest x-rays obtained, negative for focal pneumonia, there is hyperinflation consistent with COPD. Influenza is negative. Patient is prescribed short course of steroids, albuterol, and his azithromycin for COPD and upper respiratory tract infection. She is otherwise well-appearing, she will follow-up with her primary care physician. She will return with any worsening or changing symptoms. Disposition Clinical Impression: Sinusitis, Upper respiratory infection Disposition: HOME SELF-CARE Instructions: Sinusitis (ED), Chronic Bronchitis (ED) Prescriptions: Albuterol Inhaler [Ventolin Hfa Inhaler] 1 - 2 puff INHALATION Q4HR PRN #1 inhaler PRN Reason: Shortness Of Breath Azithromycin [Zithromax Z-pack] 0 mg PO DIRECTED #6 tab predniSONE 50 mg PO DAILY #5 tab Referrals: Mat Eckert MD [Primary Care Provider] - 1-2 days Time of Disposition: 10:47
--- NOTE | 2017-03-22 10:36 | XR ---
EXAMINATION TYPE: XR chest 2V DATE OF EXAM: 03/22/2017 COMPARISON: 11/15/2016 INDICATION: Pain saphenous TECHNIQUE: Frontal and lateral views of the chest are obtained. FINDINGS: The heart size is normal. The pulmonary vasculature is normal. The lungs are clear. There is some flattening of the diaphragms and increased AP diameter compatible some mild emphysematous change. Mild scoliosis. Multilevel mild compression deformities are present. These appear present previously. IMPRESSION: 1. No acute pulmonary process.
[2017-03-22 11:13] VITALS: BP 182/88; PULSE 90; RESP 18; TEMP 97.9
== END 2017-03-22 11:11 | disposition home or self-care (01) ==
LOC: EC 09:26
DX: J32.9 Chronic sinusitis, unspecified (principal); J06.9 Acute upper respiratory infection, unspecified; J44.9 Chronic obstructive pulmonary disease, unspecified; E78.5 Hyperlipidemia, unspecified; I10 Essential (primary) hypertension; M19.90 Unspecified osteoarthritis, unspecified site; G47.419 Narcolepsy without cataplexy; F17.200 Nicotine dependence, unspecified, uncomplicated; Z79.1 Long term (current) use of non-steroidal anti-inflammatories (NSAID); Z79.899 Other long term (current) drug therapy
CPT/HCPCS: 71046; 87502; 99283

== ENCOUNTER 2017-03-30 09:57 | Observation (INO) | payer MEDICARE, OTHER ==
[2017-03-30] MEDS ORDERED: SODIUM CHLORIDE 0.9% 1,000 ML IV STA (11:10)
[2017-03-30] MEDS ORDERED: IPRATROPIUM-ALBUTEROL 3 ML NEB INHALATION STA ×2 (11:10→16:51)
[2017-03-30] MEDS ORDERED: methylPREDNISolone SOD SUCCI 125 MG/2 ML VIAL IV STA (11:10)
--- NOTE | 2017-03-30 11:31 | ED ---
General Adult HPI - General Chief complaint: Shortness of Breath Stated complaint: hernan Time Seen by Provider: 03/30/17 10:59 Source: patient, RN notes reviewed Mode of arrival: wheelchair Limitations: no limitations - History of Present Illness Initial comments: Patient 76-year-old female who presents emergency room today with a chief complaint of increased cough congestion over the last week per she does admit to coughing hard 2 days ago felt increased pain in her back. She states is worse when she coughs and with certain movements. Patient omits that the cough congestion is not been improving. Was treated for sinus infection approximately a week ago placed on steroids and antibiotics. States no improvement. Does admit to spin production it's been green in color. Patient does admit to being a daily smoker. Denies any complaints or symptoms. Patient denies any recent fever, chills, chest pain, abdominal pain, nausea or vomiting , numbness or tingling, headaches or visual changes, or any other complaints. - Related Data Home Medications Medication Instructions Recorded Confirmed Tiotropium 18 Mcg/Puff [Spiriva] 1 puff INHALATION RT-DAILY 06/16/13 03/30/17 Hydrocodone/Acetaminophen [[place] 1 tab PO TID PRN 05/18/14 03/30/17 7.5-325] Ibuprofen 400 mg PO TID 11/15/16 03/30/17 Metoprolol Succinate [Toprol XL] 50 mg PO HS 11/15/16 03/30/17 Modafinil [Provigil] 100 mg PO DAILY 11/15/16 03/30/17 Simvastatin [Zocor] 10 mg PO HS 11/15/16 03/30/17 Furosemide [Lasix] 40 mg PO Q48H PRN 03/22/17 03/30/17 Potassium Chloride [Klor-Con 20] 10 meq PO Q48H PRN 03/22/17 03/30/17 Albuterol Inhaler [Ventolin Hfa 1 - 2 puff INHALATION RT-Q4H PRN 03/30/17 Inhaler] Allergies Allergy/AdvReac Type Severity Reaction Status Date / Time No Known Allergies Allergy Verified 03/30/17 12:32 Review of Systems ROS Statement: Those systems with pertinent positive or pertinent negative responses have been documented in the HPI. ROS Other: All systems not noted in ROS Statement are negative. Past Medical History Past Medical History: COPD, Hyperlipidemia, Hypertension, Osteoarthritis (OA) Additional Past Medical History / Comment(s): sciatica, narcolepsy History of Any Multi-Drug Resistant Organisms: None Reported Past Surgical History: Orthopedic Surgery Past Anesthesia/Blood Transfusion Reactions: No Reported Reaction Past Psychological History: No Psychological Hx Reported Smoking Status: Current every day smoker Past Alcohol Use History: None Reported Past Drug Use History: None Reported - Past Family History Father History Unknown: Yes Mother History Unknown: Yes General Exam - General Exam Comments Initial Comments: General: The patient is awake and alert, in no distress, and does not appear acutely ill. Eye: Pupils are equal, round and reactive to light, extra-ocular movements are intact. No nystagmus. There is normal conjunctiva bilaterally. No signs of icterus. Ears, nose, mouth and throat: There are moist mucous membranes and no oral lesions. Neck: The neck is supple, there is no tenderness or JVD. Cardiovascular: There is a regular rate and rhythm. No murmur, rub or gallop is appreciated. Respiratory: Decreased lung sounds bilaterally. respirations are non-labored, breath sounds are equal. No wheezes, stridor, rales, or rhonchi. Musculoskeletal: Normal ROM, no tenderness. Strength 5/5. Sensation intact. Pulses equal bilaterally 2+. Neurological: A&O x 3. CN II-XII intact, There are no obvious motor or sensory deficits. Coordination appears grossly intact. Speech is normal. Skin: Skin is warm and dry and no rashes or lesions are noted. Psychiatric: Cooperative, appropriate mood & affect, normal judgment. Limitations: no limitations Course Vital Signs 03/30/17 03/30/17 03/30/17 10:43 12:38 12:45 Temperature 98.1 F Pulse Rate 82 87 89 Respiratory 16 Rate Blood Pressure 133/78 O2 Sat by Pulse 93 L Oximetry EKG Findings - EKG Comments: EKG Findings:: EKG performed at 1135: Shows normal sinus rhythm at 79 bpm. [place] interval 182. QRS is 78. QT/QTC 362/415. No acute ST changes. Medical Decision Making - Medical Decision Making Patient's labs been reviewed unremarkable. Chest x-rays negative. Patient currently 91% on room air on reevaluation. Patient be admitted for COPD exacerbation cannot breathing treatments and steroids. - Lab Data Result diagrams: 03/30/17 11:47 03/30/17 11:47 Lab Results 03/30/17 03/30/17 03/30/17 Range/Units 11:47 11:47 11:47 WBC 8.0 (3.8-10.6) k/uL RBC 4.82 (3.80-5.40) m/uL Hgb 13.8 (11.4-16.0) gm/dL Hct 44.7 (34.0-46.0) % MCV 92.6 (80.0-100.0) fL MCH 28.7 (25.0-35.0) pg MCHC 31.0 (31.0-37.0) g/dL RDW 12.9 (11.5-15.5) % Plt Count 191 (150-450) k/uL Neutrophils % 76 % Lymphocytes % 16 % Monocytes % 4 % Eosinophils % 3 % Basophils % 0 % Neutrophils # 6.1 (1.3-7.7) k/uL Lymphocytes # 1.3 (1.0-4.8) k/uL Monocytes # 0.4 (0-1.0) k/uL Eosinophils # 0.2 (0-0.7) k/uL Basophils # 0.0 (0-0.2) k/uL PT (9.0-12.0) sec INR (<1.2) APTT (22.0-30.0) sec Sodium 137 (137-145) mmol/L Potassium 4.7 (3.5-5.1) mmol/L Chloride 102 (98-107) mmol/L Carbon Dioxide 26 (22-30) mmol/L Anion Gap 9 mmol/L BUN 20 H (7-17) mg/dL Creatinine 0.70 (0.52-1.04) mg/dL Est GFR (MDRD) Af Amer >60 (>60 ml/min/1.73 sqM) Est GFR (MDRD) Non-Af >60 (>60 ml/min/1.73 sqM) Glucose 125 H (74-99) mg/dL Calcium 9.5 (8.4-10.2) mg/dL Total Bilirubin 0.9 (0.2-1.3) mg/dL AST 22 (14-36) U/L ALT 24 (9-52) U/L Alkaline Phosphatase 69 (38-126) U/L Total Creatine Kinase 42 (30-135) U/L CK-MB (CK-2) 1.1 (0.0-2.4) ng/mL CK-MB (CK-2) Rel Index 2.6 Troponin I <0.012 (0.000-0.034) ng/mL Total Protein 6.7 (6.3-8.2) g/dL Albumin 3.9 (3.5-5.0) g/dL 03/30/17 Range/Units 11:47 WBC (3.8-10.6) k/uL RBC (3.80-5.40) m/uL Hgb (11.4-16.0) gm/dL Hct (34.0-46.0) % MCV (80.0-100.0) fL MCH (25.0-35.0) pg MCHC (31.0-37.0) g/dL RDW (11.5-15.5) % Plt Count (150-450) k/uL Neutrophils % % Lymphocytes % % Monocytes % % Eosinophils % % Basophils % % Neutrophils # (1.3-7.7) k/uL Lymphocytes # (1.0-4.8) k/uL Monocytes # (0-1.0) k/uL Eosinophils # (0-0.7) k/uL Basophils # (0-0.2) k/uL PT 9.4 (9.0-12.0) sec INR 0.9 (<1.2) APTT 22.0 (22.0-30.0) sec Sodium (137-145) mmol/L Potassium (3.5-5.1) mmol/L Chloride (98-107) mmol/L Carbon Dioxide (22-30) mmol/L Anion Gap mmol/L BUN (7-17) mg/dL Creatinine (0.52-1.04) mg/dL Est GFR (MDRD) Af Amer (>60 ml/min/1.73 sqM) Est GFR (MDRD) Non-Af (>60 ml/min/1.73 sqM) Glucose (74-99) mg/dL Calcium (8.4-10.2) mg/dL Total Bilirubin (0.2-1.3) mg/dL AST (14-36) U/L ALT (9-52) U/L Alkaline Phosphatase (38-126) U/L Total Creatine Kinase (30-135) U/L CK-MB (CK-2) (0.0-2.4) ng/mL CK-MB (CK-2) Rel Index Troponin I (0.000-0.034) ng/mL Total Protein (6.3-8.2) g/dL Albumin (3.5-5.0) g/dL Disposition Clinical Impression: COPD exacerbation Disposition: ADMITTED IP TO THIS HOSP Condition: Stable Referrals: Mat Eckert MD [Primary Care Provider] - 1-2 days Time of Disposition: 13:31
[2017-03-30 12:01] LABS: Basophils % (A) 0 %; Eosinophils # (A) 0.2 k/uL (0-0.7); Eosinophils % (A) 3 %; HCT 44.7 % (34.0-46.0); HGB 13.8 gm/dL (11.4-16.0); Lymphocytes # (A) 1.3 k/uL (1.0-4.8); Lymphocytes % (A) 16 %; MCH 28.7 pg (25.0-35.0); MCV 92.6 fL (80.0-100.0); Mean Platelet Volume 7.3; Monocytes # (A) 0.4 k/uL (0-1.0); Monocytes % (A) 4 %; Neutrophils # (A) 6.1 k/uL (1.3-7.7); Neutrophils % (A) 76 %; Platelet Count 191 k/uL (150-450); RBC 4.82 m/uL (3.80-5.40); RDW 12.9 % (11.5-15.5)
[2017-03-30 12:12] LABS: INR 0.9 (<1.2); Prothrombin Time 9.4 sec (9.0-12.0)
[2017-03-30 12:18] LABS: ALT 24 U/L (9-52); AST 22 U/L (14-36); Albumin 3.9 g/dL (3.5-5.0); Alkaline Phosphatase 69 U/L (38-126); Anion Gap 9 mmol/L; Blood Urea Nitrogen 20 mg/dL (7-17); Calcium 9.5 mg/dL (8.4-10.2); Carbon Dioxide 26 mmol/L (22-30); Chloride 102 mmol/L (98-107); Glucose 125 mg/dL (74-99); Potassium 4.7 mmol/L (3.5-5.1); Sodium 137 mmol/L (137-145); Total Bilirubin 0.9 mg/dL (0.2-1.3); Total Protein 6.7 g/dL (6.3-8.2)
[2017-03-30 12:30] LABS: Creatine Kinase 42 U/L (30-135)
--- NOTE | 2017-03-30 12:37 | XR ---
EXAMINATION TYPE: XR chest 2V DATE OF EXAM: 03/30/2017 HISTORY: difficulty breathing. REFERENCE: Previous study dated 03/22/2017. FINDINGS: The lungs are overinflated. The heart is not enlarged. The lungs are clear. Pleural spaces are clear. IMPRESSION: COPD.
[2017-03-30 12:44] LABS: Creatine Kinase MB 1.1 ng/mL (0.0-2.4); Troponin I <0.012 ng/mL (0.000-0.034)
[2017-03-30] MEDS ORDERED: IPRATROPIUM-ALBUTEROL 3 ML NEB INHALATION PRN (13:31)
[2017-03-30] MEDS ORDERED: HYDROcodone/APAP 7.5-325MG 1 EACH TAB PO ONE (13:51)
[2017-03-30] MEDS ORDERED: FUROSEMIDE 40 MG TAB PO PRN (13:51)
[2017-03-30] MEDS ORDERED: NICOTINE 21MG/24HR PATCH TRANSDERM STA (17:19)
[2017-03-30 17:28] VITALS: RESP 16
[2017-03-30] MEDS ORDERED: ACETAMINOPHEN TAB 500 MG TAB PO PRN (18:25)
[2017-03-30] MEDS ORDERED: ALPRAZolam 0.25 MG TAB PO PRN (18:25)
[2017-03-30] MEDS ORDERED: TEMAZEPAM 15 MG CAP PO PRN (18:25)
[2017-03-30] MEDS ORDERED: POTASSIUM CHLORIDE ER 10 MEQ TAB.ER.PRT PO PRN (18:26)
[2017-03-30] MEDS ORDERED: LEVOFLOXACIN 500MG-D5W PMX 500 MG in DEXTROSE/WATER 1 100ML.BAG IVPB SCH (19:00)
--- NOTE | 2017-03-30 19:07 | HP ---
HISTORY AND PHYSICAL CHIEF COMPLAINT: Shortness with cough and sputum. HISTORY OF PRESENT ILLNESS: This 76-year-old woman with a past history of COPD, hypertension, hypertension, DJD, history of sciatica, being followed by Dr. Eckert. The patient was recently admitted COPD acute exacerbation. Patient improved significantly. The patient was discharged. The patient apparently was living in a [facility] and was arranging different living arrangements at this time. Currently the patient apparently smokes occasionally and is complaining of increasing shortness of breath, increasing cough, and mucopurulent sputum and the patient came to [facility] and was admitted for further evaluation and treatment. Chest x-ray revealed chronic obstructive pulmonary disease. There is no history of fever, rigors or chills at this time. PAST MEDICAL HISTORY: COPD, hypertension, hyperlipidemia, DJD, sciatica and narcolepsy. MEDICATIONS PRIOR TO ADMISSION: Home medications are: 1. Spiriva 1 puff daily. 2. Zocor 10 mg q.h.s. 3. Klor-Con 20 mEq q.48h. 5. Toprol-XL 50 mg q.h.s. 6. Ibuprofen 400 mg t.i.d. 7. [place] 1 tab t.i.d. p.r.n. 8. Lasix 40 mg daily. 9. Ventolin inhaler 1-2 puffs q.4h p.r.n. ALLERGIES: None. FAMILY HISTORY: No history of heart disease or strokes in the family. SOCIAL HISTORY: Occasional smoking as mentioned. REVIEW OF SYSTEMS: ENT: No diminished vision. No diminished hearing. Cardiovascular: As mentioned earlier. Respiratory: As mentioned earlier. GI no nausea or vomiting. no dysuria. Nervous system: No numbness, weakness. Allergy/Immunology: No asthma or hayfever. Musculoskeletal: As mentioned earlier. Hematology/Oncology: No history of anemia. Endocrine: No history of diabetes, hypothyroidism. Constitutional: As mentioned earlier. Dermatology: Negative. Rheumatology: Negative. Psychiatric: As mentioned earlier. PHYSICAL EXAMINATION: The patient is alert and oriented times three. Pulse 72. Blood pressure 120/76, respirations 16, temperature 98.1, pulse ox 93% on room air. HEENT is conjunctivae normal. Oral mucosa moist. Neck is no jugular venous distention. No carotid bruit. No lymph node enlargement. Cardiovascular: S1-S2 muffled. No S3, no S4. Respiratory: Breath sounds diminished in the bases. Bilateral scattered rhonchi and expiratory wheezing and crackles. ABDOMEN: Soft, nontender. No mass palpable. Legs no edema and no swelling. NERVOUS SYSTEM: Higher functions as mentioned earlier, moves all 4 limbs, no focal motor or sensory deficits. Lymphatics: No lymph nodes palpable in the neck, axillae or groin. SKIN: No ulcer, rash or bleeding. LABS: CBC within normal limits and BUN is 20, influenza negative. ASSESSMENT: 1. Chronic obstructive pulmonary disease acute exacerbation with acute purulent tracheobronchitis. 2. Continued ongoing nicotine dependence. 3. Hypertension. 4. Hyperlipidemia. 5. Osteoporosis with multilevel fractures. 6. History of sciatica. 7. History of narcolepsy. RECOMMENDATIONS AND DISCUSSION: In this 76-year-old woman who presented with multiple complex medical issues, we will monitor the patient closely. Continue the current medications and management and symptomatic treatment, optimize bronchodilator treatment, empiric antibiotics. IV steroids. Closely monitor. Guarded prognosis. Further recommendations to follow. MMODL / IJN: [id number] / NED
[2017-03-30] MEDS: IPRATROPIUM-ALBUTEROL 3 ML NEB INHALATION SCH (19:12)
[2017-03-30] MEDS: SYMBICORT 160-4.5 MCG INHALER INHALATION SCH (19:12)
[2017-03-30] MEDS: NICOTINE 14MG/24HR PATCH TRANSDERM SCH (20:00)
[2017-03-30] MEDS: methylPREDNISolone SOD SUCCI 125 MG/2 ML VIAL IV SCH ×2 (20:01→23:27)
[2017-03-30] MEDS: IBUPROFEN 400 MG TAB PO SCH ×2 (20:01→23:25)
[2017-03-30] MEDS: HEPARIN SODIUM,PORCINE 5,000 UNIT/ML 1 ML VIAL SQ SCH (20:02)
[2017-03-30] MEDS ORDERED: METOPROLOL SUCCINATE (ER) 50 MG TAB.ER.24H PO SCH (21:00)
[2017-03-30] MEDS: HYDROcodone/APAP 7.5-325MG 1 EACH TAB PO PRN (23:28)
[2017-03-30] MEDS: ATORVASTATIN 10 MG TAB PO SCH (23:28)
[2017-03-31] MEDS: ATORVASTATIN 10 MG TAB PO SCH (04:25)
[2017-03-31] MEDS: IBUPROFEN 400 MG TAB PO SCH ×2 (04:28→12:25)
[2017-03-31] MEDS: methylPREDNISolone SOD SUCCI 125 MG/2 ML VIAL IV SCH ×2 (05:22→12:24)
[2017-03-31 07:19] LABS: Basophils % (A) 0 %; Eosinophils % (A) 0 %; HCT 44.2 % (34.0-46.0); HGB 13.9 gm/dL (11.4-16.0); Lymphocytes # (A) 0.6 k/uL (1.0-4.8); Lymphocytes % (A) 8 %; MCH 28.7 pg (25.0-35.0); MCHC 31.4 g/dL (31.0-37.0); MCV 91.4 fL (80.0-100.0); Mean Platelet Volume 7.4; Monocytes # (A) 0.2 k/uL (0-1.0); Monocytes % (A) 3 %; Neutrophils # (A) 6.3 k/uL (1.3-7.7); Neutrophils % (A) 89 %; Platelet Count 194 k/uL (150-450); RBC 4.84 m/uL (3.80-5.40); RDW 12.7 % (11.5-15.5); WBC 7.1 k/uL (3.8-10.6)
[2017-03-31 07:34] LABS: ALT 16 U/L (9-52); AST 17 U/L (14-36); Albumin 3.6 g/dL (3.5-5.0); Alkaline Phosphatase 65 U/L (38-126); Anion Gap 12 mmol/L; Blood Urea Nitrogen 22 mg/dL (7-17); Calcium 9.5 mg/dL (8.4-10.2); Carbon Dioxide 23 mmol/L (22-30); Chloride 103 mmol/L (98-107); Glucose 177 mg/dL (74-99); Potassium 4.5 mmol/L (3.5-5.1); Sodium 138 mmol/L (137-145); Total Bilirubin 0.4 mg/dL (0.2-1.3); Total Protein 6.3 g/dL (6.3-8.2)
[2017-03-31] MEDS: PANTOPRAZOLE 40 MG TABLET PO SCH ×2 (07:55→13:10)
[2017-03-31] MEDS: HEPARIN SODIUM,PORCINE 5,000 UNIT/ML 1 ML VIAL SQ SCH (07:55)
[2017-03-31] MEDS: NICOTINE 14MG/24HR PATCH TRANSDERM SCH (07:55)
[2017-03-31] MEDS: HYDROcodone/APAP 7.5-325MG 1 EACH TAB PO PRN ×2 (07:56→16:15)
[2017-03-31] MEDS: IPRATROPIUM-ALBUTEROL 3 ML NEB INHALATION SCH ×2 (08:24→11:50)
[2017-03-31] MEDS: SYMBICORT 160-4.5 MCG INHALER INHALATION SCH ×2 (08:25→08:26)
[2017-03-31 08:36] VITALS: PULSE 88
[2017-03-31] MEDS ORDERED: MODAFINIL 100 MG TAB PO SCH (09:00)
--- NOTE | 2017-03-31 13:33 | DS ---
DISCHARGE SUMMARY FINAL DIAGNOSES: 1. Chronic obstructive pulmonary disease acute exacerbation with acute purulent tracheobronchitis. 2. Continued ongoing nicotine dependence. 3. Hypertension. 4. Hyperlipidemia. 5. Osteoporosis, multilevel fractures. 6. History of sciatica. 7. History of narcolepsy. DISCHARGE DISPOSITION: The patient is being discharged in stable condition with guarded prognosis. HISTORY OF PRESENT ILLNESS: This 76-year-old woman with a past medical history of multiple medical problems is being followed by Dr. Eckert's in the outpatient setting, admitted with COPD acute exacerbation. Patient received IV steroids and bronchodilators. Patient improved significantly. Patient will be discharged in stable condition with guarded prognosis. The patient is also making some changes for living arrangements at this time. PHYSICAL EXAMINATION: On exam, vitals are stable. Cardiovascular: S1, S2 muffled. Respirations: A few rhonchi. Abdomen soft. Nervous system: No focal deficits. DISCHARGE ADVICE AND MEDICATIONS: 1. Diet is cardiac diet. 2. Activity limited until followup. 3. Follow up with Dr. Eckert in 1-2 days. MEDICATIONS: 1. Albuterol p.r.n. 2. Symbicort 160/4.5 two puffs b.i.d. 3. Lasix 40 mg every 48 hours p.r.n. 4. Hydrocodone p.r.n. as before. 5. Ibuprofen 400 mg p.o. t.i.d. 6. DuoNeb q.i.d. and p.r.n. 7. Levaquin 500 mg p.o. daily for 5 days. 8. Toprol-XL 50 mg q.h.s. 9. Provigil 100 mg p.o. daily. 10.Klor-Con 10 mEq p.o. q.48 hours. 11.Prednisone taper that is 40 mg daily for 3 days, 30 for 3 days, 20 for 3 days, 10 for 3 days and then stop. 12.Zocor 10 mg q.h.s. Once again, the patient is being discharged in stable condition with guarded prognosis. MMODL / IJN: [id number] /
[2017-03-31 16:04] VITALS: BP 125/77; TEMP 98.2
[2017-03-31] MEDS ORDERED: LEVOFLOXACIN 500 MG TAB PO SCH (19:00)
== END 2017-03-31 16:50 | disposition home or self-care (01) ==
LOC: EC 09:57 → 3OBS 14:04
PROVIDERS: ADMIT Family Medicine; ATTEND Family Medicine
DX: J44.1 Chronic obstructive pulmonary disease with (acute) exacerbation (principal); J20.9 Acute bronchitis, unspecified; J44.0 Chronic obstructive pulmonary disease with (acute) lower respiratory infection; F17.200 Nicotine dependence, unspecified, uncomplicated; I10 Essential (primary) hypertension; E78.5 Hyperlipidemia, unspecified; M81.0 Age-related osteoporosis without current pathological fracture; M54.30 Sciatica, unspecified side; G47.419 Narcolepsy without cataplexy; M19.90 Unspecified osteoarthritis, unspecified site; Z79.899 Other long term (current) drug therapy; Z79.1 Long term (current) use of non-steroidal anti-inflammatories (NSAID)
CPT/HCPCS: 99285; 96375 ×2; 96361 ×7; 96365; 96376; 36415; 94640 ×4; 93005; 80053 ×2; 82550; 82553; 84484; 85025 ×2; 85610; 85730; 87040; 87086; 87205; 87502; 71046; G0378 ×2; S4990 ×2; J2930; J1956; 87070

== ENCOUNTER 2017-04-08 17:29 | Emergency (ER) | payer MEDICARE, OTHER ==
[2017-04-08] MEDS ORDERED: methylPREDNISolone SOD SUCCI 125 MG/2 ML VIAL IV STA (18:06)
[2017-04-08] MEDS ORDERED: SODIUM CHLORIDE 0.9% 1,000 ML IV STA (18:06)
[2017-04-08] MEDS ORDERED: ALBUTEROL NEBULIZED 2.5 MG/3 ML INHALATION STA (18:06)
[2017-04-08] MEDS ORDERED: IPRATROPIUM 0.5 MG/2.5 ML NEBU INHALATION STA (18:06)
[2017-04-08] MEDS ORDERED: LEVOFLOXACIN 750 MG TAB PO STA (18:06)
--- NOTE | 2017-04-08 18:09 | ED ---
SOB HPI - General Chief Complaint: Shortness of Breath Stated Complaint: MARLO Time Seen by Provider: 04/08/17 17:59 Source: patient Mode of arrival: ambulatory Limitations: no limitations - History of Present Illness Initial Comments: Or less of breath for about 2-3 weeks now today she felt like she would stop breathing she denies any chest pain denies any pleuritic chest pain has some cough fever chills been spitting up lots of phlegm she smoked about 45 years. She denies any headaches no neck stiffness no chest pain no abdominal pain no frequency urgency dysuria no symptoms of TIA or CVA - Related Data Home Medications Medication Instructions Recorded Confirmed Hydrocodone/Acetaminophen [[place] 1 tab PO TID PRN 05/18/14 04/08/17 7.5-325] Ibuprofen 400 mg PO TID 11/15/16 04/08/17 Metoprolol Succinate [Toprol XL] 50 mg PO HS 11/15/16 04/08/17 Modafinil [Provigil] 100 mg PO DAILY 11/15/16 04/08/17 Simvastatin [Zocor] 10 mg PO HS 11/15/16 04/08/17 Furosemide [Lasix] 20 mg PO Q48H PRN 03/22/17 04/08/17 Potassium Chloride [Klor-Con 20] 10 meq PO Q48H PRN 03/22/17 04/08/17 Albuterol Inhaler [Ventolin Hfa 1 - 2 puff INHALATION RT-Q4H PRN 03/30/17 Inhaler] Psyllium Husk [Metamucil] 0.8 gm PO DAILY 04/08/17 04/08/17 Sodium Chloride [[place]] 1 spray EA NOSTRIL Q6H PRN 04/08/17 04/08/17 guaiFENesin-DM 100-10MG/5ML 10 ml PO Q8H PRN 04/08/17 04/08/17 [Robitussin DM] Previous Rx's Medication Instructions Recorded Budesonide-Formot 160-4.5 Mcg 2 puff INHALATION RT-BID #1 puff 03/31/17 [Symbicort 160-4.5 Mcg Inhaler] Ipratropium-Albuterol Nebulize 3 ml INHALATION RT-QID #120 03/31/17 [Duoneb 0.5 mg-3 mg/3 ml Soln] ampul.neb predniSONE 10 mg PO DIRECTED #30 tab 03/31/17 Levofloxacin [Levaquin] 500 mg PO DAILY #5 tab 04/08/17 predniSONE 50 mg PO DAILY #5 tablet 04/08/17 Allergies Allergy/AdvReac Type Severity Reaction Status Date / Time No Known Allergies Allergy Verified 04/08/17 18:19 Review of Systems ROS Statement: Those systems with pertinent positive or pertinent negative responses have been documented in the HPI. ROS Other: All systems not noted in ROS Statement are negative. Past Medical History Past Medical History: COPD, Hyperlipidemia, Hypertension, Osteoarthritis (OA) Additional Past Medical History / Comment(s): sciatica, narcolepsy, osteoporosis History of Any Multi-Drug Resistant Organisms: None Reported Past Surgical History: Orthopedic Surgery Additional Past Surgical History / Comment(s): bunion surgery Past Anesthesia/Blood Transfusion Reactions: No Reported Reaction Past Psychological History: No Psychological Hx Reported Smoking Status: Current every day smoker Past Alcohol Use History: None Reported Past Drug Use History: None Reported - Past Family History Father History Unknown: Yes Mother History Unknown: Yes General Exam - General Exam Comments Initial Comments: General: The patient is awake and alert, in no distress, and does not appear acutely ill. Skin: Skin is warm and dry and no rashes or lesions are noted. Eye: Pupils are equal, round and reactive to light, extra-ocular movements are intact; there is normal conjunctiva bilaterally. Ears, nose, mouth and throat: There are moist mucous membranes and no oral lesions. Neck: The neck is supple, there is no tenderness or JVD. Cardiovascular: There is a regular rate and rhythm. No murmur, rub or gallop is appreciated. Respiratory: To auscultation bilateral, poor air exchange bilaterally is not using any accessory muscles Gastrointestinal: Soft, non-distended, non-tender abdomen without masses or organomegaly noted. There is no rebound or guarding present. Bowel sounds are unremarkable. Back: There is no tenderness to palpation in the midline. There is no obvious deformity. Musculoskeletal: Normal ROM, no tenderness, There is no pedal edema. There is no calf tenderness or swelling. No cords were appreciated. Neurological: CN II-XII intact, Cranial nerves III through XII are intact. There are no obvious motor or sensory deficits. Coordination appears grossly intact. Speech is normal. Psychiatric: Cooperative, appropriate mood & affect, normal judgment. Limitations: no limitations Course Vital Signs 04/08/17 04/08/17 04/08/17 17:37 18:30 18:49 Temperature 98.4 F Pulse Rate 103 H 87 91 Respiratory 20 18 Rate Blood Pressure 158/88 148/86 O2 Sat by Pulse 97 98 Oximetry 04/08/17 19:12 Temperature Pulse Rate 87 Respiratory Rate Blood Pressure O2 Sat by Pulse Oximetry EKG is normal sinus rhythm medical rate is 94 ND interval is 164 QRS duration is 80 QT/QTc is 332/417 and review of this EKG does not reveal any ST elevation or ST depression she is reassessed at 191, CBC, INR, troponin normal the stretcher confirm pneumonia she feels better here in April, Medical Decision Making - Lab Data Result diagrams: 04/08/17 17:45 04/08/17 17:45 Lab Results 04/08/17 04/08/17 04/08/17 Range/Units 17:45 17:45 17:45 WBC 6.9 (3.8-10.6) k/uL RBC 4.69 (3.80-5.40) m/uL Hgb 13.7 (11.4-16.0) gm/dL Hct 42.3 (34.0-46.0) % MCV 90.2 (80.0-100.0) fL MCH 29.2 (25.0-35.0) pg MCHC 32.4 (31.0-37.0) g/dL RDW 13.2 (11.5-15.5) % Plt Count 207 (150-450) k/uL Neutrophils % 64 % Lymphocytes % 28 % Monocytes % 5 % Eosinophils % 3 % Basophils % 0 % Neutrophils # 4.4 (1.3-7.7) k/uL Lymphocytes # 1.9 (1.0-4.8) k/uL Monocytes # 0.3 (0-1.0) k/uL Eosinophils # 0.2 (0-0.7) k/uL Basophils # 0.0 (0-0.2) k/uL PT (9.0-12.0) sec INR (<1.2) APTT (22.0-30.0) sec Sodium 134 L (137-145) mmol/L Potassium 4.3 (3.5-5.1) mmol/L Chloride 97 L (98-107) mmol/L Carbon Dioxide 27 (22-30) mmol/L Anion Gap 10 mmol/L BUN 17 (7-17) mg/dL Creatinine 0.61 (0.52-1.04) mg/dL Est GFR (MDRD) Af Amer >60 (>60 ml/min/1.73 sqM) Est GFR (MDRD) Non-Af >60 (>60 ml/min/1.73 sqM) Glucose 107 H (74-99) mg/dL Calcium 9.3 (8.4-10.2) mg/dL Total Bilirubin 0.6 (0.2-1.3) mg/dL AST 20 (14-36) U/L ALT 25 (9-52) U/L Alkaline Phosphatase 57 (38-126) U/L Total Creatine Kinase 41 (30-135) U/L CK-MB (CK-2) 1.6 (0.0-2.4) ng/mL CK-MB (CK-2) Rel Index 3.9 Troponin I <0.012 (0.000-0.034) ng/mL Total Protein 6.3 (6.3-8.2) g/dL Albumin 3.8 (3.5-5.0) g/dL 04/08/17 Range/Units 17:45 WBC (3.8-10.6) k/uL RBC (3.80-5.40) m/uL Hgb (11.4-16.0) gm/dL Hct (34.0-46.0) % MCV (80.0-100.0) fL MCH (25.0-35.0) pg MCHC (31.0-37.0) g/dL RDW (11.5-15.5) % Plt Count (150-450) k/uL Neutrophils % % Lymphocytes % % Monocytes % % Eosinophils % % Basophils % % Neutrophils # (1.3-7.7) k/uL Lymphocytes # (1.0-4.8) k/uL Monocytes # (0-1.0) k/uL Eosinophils # (0-0.7) k/uL Basophils # (0-0.2) k/uL PT 9.8 (9.0-12.0) sec INR 1.0 (<1.2) APTT 21.2 L (22.0-30.0) sec Sodium (137-145) mmol/L Potassium (3.5-5.1) mmol/L Chloride (98-107) mmol/L Carbon Dioxide (22-30) mmol/L Anion Gap mmol/L BUN (7-17) mg/dL Creatinine (0.52-1.04) mg/dL Est GFR (MDRD) Af Amer (>60 ml/min/1.73 sqM) Est GFR (MDRD) Non-Af (>60 ml/min/1.73 sqM) Glucose (74-99) mg/dL Calcium (8.4-10.2) mg/dL Total Bilirubin (0.2-1.3) mg/dL AST (14-36) U/L ALT (9-52) U/L Alkaline Phosphatase (38-126) U/L Total Creatine Kinase (30-135) U/L CK-MB (CK-2) (0.0-2.4) ng/mL CK-MB (CK-2) Rel Index Troponin I (0.000-0.034) ng/mL Total Protein (6.3-8.2) g/dL Albumin (3.5-5.0) g/dL Disposition Clinical Impression: Acute exacerbation of COPD with asthma, Pneumonia Disposition: HOME SELF-CARE Condition: Good Instructions: Chronic Bronchitis (ED) Prescriptions: Levofloxacin [Levaquin] 500 mg PO DAILY #5 tab predniSONE 50 mg PO DAILY #5 tablet Referrals: Mat Eckert MD [Primary Care Provider] - 1-2 days
[2017-04-08 18:36] LABS: Basophils % (A) 0 %; Eosinophils # (A) 0.2 k/uL (0-0.7); Eosinophils % (A) 3 %; HCT 42.3 % (34.0-46.0); HGB 13.7 gm/dL (11.4-16.0); Lymphocytes # (A) 1.9 k/uL (1.0-4.8); Lymphocytes % (A) 28 %; MCH 29.2 pg (25.0-35.0); MCHC 32.4 g/dL (31.0-37.0); MCV 90.2 fL (80.0-100.0); Mean Platelet Volume 7.8; Monocytes # (A) 0.3 k/uL (0-1.0); Monocytes % (A) 5 %; Neutrophils # (A) 4.4 k/uL (1.3-7.7); Neutrophils % (A) 64 %; Platelet Count 207 k/uL (150-450); RBC 4.69 m/uL (3.80-5.40); RDW 13.2 % (11.5-15.5); WBC 6.9 k/uL (3.8-10.6)
--- NOTE | 2017-04-08 18:37 | XR ---
EXAMINATION TYPE: XR chest 2V DATE OF EXAM: 04/08/2017 COMPARISON: 03/30/2017 HISTORY: Short of breath TECHNIQUE: Frontal and lateral views of the chest are obtained. FINDINGS: Heart is normal. Lungs are clear of consolidation. There is slight increased density behin d the heart in the left lower lobe. There is no pleural effusion. There is osteopenia and anterior we dging of multiple thoracic vertebra. IMPRESSION: Possible new minimal infiltrate behind the heart in the left lower lobe compared to old exam.. Multiple thoracic mild compression fractures. No heart failure.
[2017-04-08 18:48] LABS: ALT 25 U/L (9-52); AST 20 U/L (14-36); Albumin 3.8 g/dL (3.5-5.0); Alkaline Phosphatase 57 U/L (38-126); Anion Gap 10 mmol/L; Blood Urea Nitrogen 17 mg/dL (7-17); Calcium 9.3 mg/dL (8.4-10.2); Carbon Dioxide 27 mmol/L (22-30); Chloride 97 mmol/L (98-107); Glucose 107 mg/dL (74-99); Potassium 4.3 mmol/L (3.5-5.1); Sodium 134 mmol/L (137-145); Total Bilirubin 0.6 mg/dL (0.2-1.3); Total Protein 6.3 g/dL (6.3-8.2)
[2017-04-08 18:52] LABS: Prothrombin Time 9.8 sec (9.0-12.0)
[2017-04-08 18:58] LABS: Partial Thromboplastin Time 21.2 sec (22.0-30.0)
[2017-04-08 18:59] LABS: Creatine Kinase 41 U/L (30-135)
[2017-04-08 19:12] LABS: Creatine Kinase MB 1.6 ng/mL (0.0-2.4); Troponin I <0.012 ng/mL (0.000-0.034)
[2017-04-08 19:44] VITALS: BP 122/71; PULSE 99; RESP 17; TEMP 97.9
[2017-04-08] MEDS ORDERED: HYDROcodone/APAP 5-325MG 1 EACH TAB PO STA (19:49)
== END 2017-04-08 20:21 | disposition home or self-care (01) ==
LOC: EC 17:29
DX: J44.0 Chronic obstructive pulmonary disease with (acute) lower respiratory infection (principal); J18.9 Pneumonia, unspecified organism; J44.1 Chronic obstructive pulmonary disease with (acute) exacerbation; E78.5 Hyperlipidemia, unspecified; I10 Essential (primary) hypertension; M19.90 Unspecified osteoarthritis, unspecified site; F17.200 Nicotine dependence, unspecified, uncomplicated; Z79.1 Long term (current) use of non-steroidal anti-inflammatories (NSAID); Z79.899 Other long term (current) drug therapy
CPT/HCPCS: 99285; 96374; 96361; 36415; 94645; 93005; 80053; 82550; 82553; 84484; 85025; 85610; 85730; 71046; J2930

== ENCOUNTER → 2018-04-16 | Outpatient (CLI) | payer MEDICARE, OTHER ==
--- NOTE | 2018-04-17 11:09 | MM ---
Reason for exam: screening (asymptomatic). Last mammogram was performed 5 years and 10 months ago. History: Patient is postmenopausal. Physical Findings: A clinical breast exam by your physician is recommended on an annual basis and results should be correlated with mammographic findings. MG 3D Screening Mammo W/Cad Bilateral CC and MLO view(s) were taken. Prior study comparison: June 11, 2012, left diagnostic mammogram w/CAD. December 12, 2011, bilateral digital screening mammo w/CAD. The breast tissue is extremely dense which could obscure a lesion on mammography. Benign appearing bilateral calcifications, similar to the prior. No suspicious abnormality. No significant changes when compared with prior studies. ASSESSMENT: Benign, BI-RAD 2 RECOMMENDATION: Routine screening mammogram of both breasts in 1 year.
--- NOTE | 2018-04-17 11:52 | BD ---
EXAMINATION TYPE: Axial Bone Density DATE OF EXAM: 04/16/2018 COMPARISON: 2013 CLINICAL HISTORY: osteoporosis. Postmenopausal female. Height: 5' Weight: 156 FRAX RISK QUESTIONS: History of Fracture in Adulthood: y Secondary Osteoporosis: Current Tobacco Use: y RISK FACTORS HISTORY OF: Spine Fracture: l sp When: 1980 Active: n Postmenopausal woman: y Lost more than 2 inches in height since high school: y MEDICATIONS: Additional Medications: blood pressure, cholesterol, pain, sleep disorder Additional History: EXAM MEASUREMENTS: Bone mineral densitometry was performed using the [employer]. Bone mineral density about the R hip (g/cm2): 0.711 Bone mineral density about the L hip (g/cm2): 0.670 T Score values are as follows: -----R Neck: -2.4 -----L Neck: -2.6 -----R Total: -2.9 -----L Total: -2.6 Bone mineral density has: Decreased -6.1% since study of: 07/16/2013 Bone mineral density about the L Wrist (g/cm2): 0.448 T Score values are as follows: -----Dist. R+U: -4.2 -----Prox. R+U: -3.0 -----Radius total: -3.7 IMPRESSION: Osteoporosis (T Score less than -2.5). There is increased fracture risk and therapy is usually indicated based on age. Re-Screen 1-2 years. NOTE: T-SCORE=SD OF THE YOUNG ADULT MEAN.
== END ==
LOC: RADMAMWWP 15:12
PROVIDERS: ATTEND Family Medicine
DX: Z12.31 Encounter for screening mammogram for malignant neoplasm of breast (principal); M81.0 Age-related osteoporosis without current pathological fracture
CPT/HCPCS: 77063; 77067; 77080

== ENCOUNTER → 2019-03-10 | Outpatient (CLI) | payer MEDICARE, OTHER ==
[2019-03-10 11:32] LABS: Basophils % (A) 0 %; Eosinophils # (A) 0.2 k/uL (0-0.7); Eosinophils % (A) 4 %; HCT 43.3 % (34.0-46.0); HGB 13.7 gm/dL (11.4-16.0); Lymphocytes # (A) 1.5 k/uL (1.0-4.8); Lymphocytes % (A) 27 %; MCH 28.5 pg (25.0-35.0); MCHC 31.7 g/dL (31.0-37.0); MCV 89.9 fL (80.0-100.0); Mean Platelet Volume 8.7; Monocytes # (A) 0.3 k/uL (0-1.0); Monocytes % (A) 6 %; Neutrophils # (A) 3.3 k/uL (1.3-7.7); Neutrophils % (A) 61 %; Platelet Count 207 k/uL (150-450); RBC 4.81 m/uL (3.80-5.40); RDW 13.2 % (11.5-15.5); WBC 5.5 k/uL (3.8-10.6)
[2019-03-10 18:16] LABS: BUN/Creat Ratio 28.75 Ratio (12.00-20.00); Calcium 9.2 mg/dL (8.7-10.3); Chol/HDL Ratio 3.27; LDL Cholesterol,Calculated 100.4 mg/dL (0.0-131.0); Non-African American GFR(CKD) 71.6 (60.0-200.0); Potassium 4.6 mmol/L (3.5-5.5); VLDL Calculation 24.6 mg/dL (5.00-40.00)
== END | disposition home or self-care (01) ==
LOC: LABWHC1 10:15
PROVIDERS: ATTEND Nurse Practitioner Adult Health
DX: I10 Essential (primary) hypertension (principal); J44.9 Chronic obstructive pulmonary disease, unspecified; E78.5 Hyperlipidemia, unspecified; G47.419 Narcolepsy without cataplexy
CPT/HCPCS: 36415; 80048; 80061; 82306; 84443; 85025

== ENCOUNTER 2019-08-16 23:42 | Inpatient (IN) | payer MEDICARE, OTHER ==
[2019-08-17] MEDS ORDERED: HYDROcodone/APAP 7.5-325MG 1 EACH TAB PO ONE (00:17)
--- NOTE | 2019-08-17 00:21 | ED ---
Abdominal Pain HPI - General Chief Complaint: Abdominal Pain Stated Complaint: R Sd Abdominal Pain Time Seen by Provider: 08/16/19 23:52 Source: patient Mode of arrival: wheelchair Limitations: no limitations - History of Present Illness Initial Comments: This patient is a 78-year-old woman who presents to have evaluation for right lower quadrant pain. She states this is been coming intermittently for over 2 months. She states the pain as sharp and cramping, and will last from a number of minutes to an hour. She has not noted any associated symptoms. She has had some relief with taking her home [place]. She has not noted worsening factors. She states she was seen previously and one point had been told she may have a kidney stone. MD Complaint: abdominal pain Onset/Timin -: month(s) Location: RLQ Radiation: none Severity: moderate Quality: cramping, stabbing Consistency: intermittent Improves With: medication Worsens With: nothing Associated Symptoms: denies other symptoms Treatments Prior to Arrival: prescription analgesics - Related Data Home Medications Medication Instructions Recorded Confirmed Hydrocodone/Acetaminophen [[place] 1 tab PO TID PRN 05/18/14 04/08/17 7.5-325] Ibuprofen 400 mg PO TID 11/15/16 04/08/17 Metoprolol Succinate [Toprol XL] 50 mg PO HS 11/15/16 04/08/17 Modafinil [Provigil] 100 mg PO DAILY 11/15/16 04/08/17 Simvastatin [Zocor] 10 mg PO HS 11/15/16 04/08/17 Furosemide [Lasix] 20 mg PO Q48H PRN 03/22/17 04/08/17 Potassium Chloride [Klor-Con 20] 10 meq PO Q48H PRN 03/22/17 04/08/17 Albuterol Inhaler (Mhu) [Ventolin 1 - 2 puff INHALATION RT-Q4H PRN 03/30/17 04/08/17 Hfa Inhaler (Mhu)] Psyllium Husk [Metamucil] 0.8 gm PO DAILY 04/08/17 04/08/17 Sodium Chloride [[place]] 1 spray EA NOSTRIL Q6H PRN 04/08/17 04/08/17 guaiFENesin-DM 100-10MG/5ML 10 ml PO Q8H PRN 04/08/17 04/08/17 [Robitussin DM] Previous Rx's Medication Instructions Recorded Budesonide-Formot 160-4.5 Mcg 2 puff INHALATION RT-BID #1 puff 03/31/17 [Symbicort 160-4.5 Mcg Inhaler] Ipratropium-Albuterol Nebulize 3 ml INHALATION RT-QID #120 03/31/17 [Duoneb 0.5 mg-3 mg/3 ml Soln] ampul.neb predniSONE 10 mg PO DIRECTED #30 tab 03/31/17 Levofloxacin [Levaquin] 500 mg PO DAILY #5 tab 04/08/17 predniSONE 50 mg PO DAILY #5 tablet 04/08/17 Allergies Allergy/AdvReac Type Severity Reaction Status Date / Time No Known Allergies Allergy Verified 08/16/19 23:48 Review of Systems ROS Statement: Those systems with pertinent positive or pertinent negative responses have been documented in the HPI. ROS Other: All systems not noted in ROS Statement are negative. Constitutional: Denies: fever, chills Respiratory: Denies: cough, dyspnea Cardiovascular: Denies: chest pain, palpitations, edema Gastrointestinal: Reports: as per HPI, abdominal pain. Denies: nausea, vomiting, diarrhea, constipation, melena, hematochezia Genitourinary: Denies: dysuria, frequency, hematuria Musculoskeletal: Denies: back pain Skin: Denies: rash Neurological: Denies: headache, weakness, numbness Past Medical History Past Medical History: COPD, Hyperlipidemia, Hypertension, Osteoarthritis (OA) Additional Past Medical History / Comment(s): sciatica, narcolepsy, osteoporosis History of Any Multi-Drug Resistant Organisms: None Reported Past Surgical History: Orthopedic Surgery Additional Past Surgical History / Comment(s): bunion surgery Past Anesthesia/Blood Transfusion Reactions: No Reported Reaction Past Psychological History: No Psychological Hx Reported Smoking Status: Current every day smoker Past Alcohol Use History: None Reported Past Drug Use History: Marijuana - Past Family History Father History Unknown: Yes Mother History Unknown: Yes General Exam Limitations: no limitations General appearance: alert, in no apparent distress Head exam: Present: atraumatic, normocephalic Eye exam: Present: normal appearance. Absent: scleral icterus, conjunctival injection ENT exam: Present: normal oropharynx Neck exam: Present: normal inspection Respiratory exam: Present: normal lung sounds bilaterally. Absent: respiratory distress, wheezes, rales, rhonchi, stridor Cardiovascular Exam: Present: regular rate, normal rhythm, normal heart sounds. Absent: systolic murmur, diastolic murmur, rubs, gallop GI/Abdominal exam: Present: soft, normal bowel sounds. Absent: distended, tenderness, guarding, rebound, rigid, mass, pulsatile mass, hernia Extremities exam: Present: normal inspection, normal capillary refill. Absent: pedal edema, calf tenderness Back exam: Present: normal inspection. Absent: CVA tenderness (R), CVA tenderness (L) Neurological exam: Present: alert Skin exam: Present: warm, dry, intact, normal color. Absent: rash Course Vital Signs 08/16/19 23:43 Temperature 97.6 F Pulse Rate 91 Respiratory 20 Rate Blood Pressure 154/86 O2 Sat by Pulse 95 Oximetry Medical Decision Making - Lab Data Result diagrams: 08/17/19 00:57 08/17/19 00:57 Lab Results 08/17/19 08/17/19 Range/Units 00:57 00:57 WBC 9.2 (3.8-10.6) k/uL RBC 4.51 (3.80-5.40) m/uL Hgb 12.6 (11.4-16.0) gm/dL Hct 39.1 (34.0-46.0) % MCV 86.7 (80.0-100.0) fL MCH 28.0 (25.0-35.0) pg MCHC 32.3 (31.0-37.0) g/dL RDW 14.1 (11.5-15.5) % Plt Count 321 (150-450) k/uL Neutrophils % 82 % Lymphocytes % 12 % Monocytes % 4 % Eosinophils % 1 % Basophils % 0 % Neutrophils # 7.5 (1.3-7.7) k/uL Lymphocytes # 1.1 (1.0-4.8) k/uL Monocytes # 0.4 (0-1.0) k/uL Eosinophils # 0.1 (0-0.7) k/uL Basophils # 0.0 (0-0.2) k/uL Hypochromasia Slight Sodium 136 L (137-145) mmol/L Potassium 4.5 (3.5-5.1) mmol/L Chloride 103 (98-107) mmol/L Carbon Dioxide 24 (22-30) mmol/L Anion Gap 9 mmol/L BUN 17 (7-17) mg/dL Creatinine 0.53 (0.52-1.04) mg/dL Est GFR (CKD-EPI)AfAm >90 (>60 ml/min/1.73 sqM) Est GFR (CKD-EPI)NonAf >90 (>60 ml/min/1.73 sqM) Glucose 140 H (74-99) mg/dL Calcium 9.5 (8.4-10.2) mg/dL Total Bilirubin 0.6 (0.2-1.3) mg/dL AST 24 (14-36) U/L ALT 17 (4-34) U/L Alkaline Phosphatase 107 (38-126) U/L C-Reactive Protein 56.1 H (<10.0) mg/L Total Protein 6.8 (6.3-8.2) g/dL Albumin 3.8 (3.5-5.0) g/dL Amylase 54 (30-110) U/L Lipase 56 (23-300) U/L Disposition Clinical Impression: Abdominal pain Narrative: Possible ruptured appendicitis Disposition: ADMITTED IP TO THIS [facility] Condition: Serious Instructions (If sedation given, give patient instructions): Abdominal Pain (ED) Is patient prescribed a controlled substance at d/c from ED?: No Referrals: Guillermo Jim MD [Primary Care Provider] - 1-2 days
[2019-08-17 01:09] LABS: Basophils % (A) 0 %; Eosinophils # (A) 0.1 k/uL (0-0.7); Eosinophils % (A) 1 %; HCT 39.1 % (34.0-46.0); HGB 12.6 gm/dL (11.4-16.0); Hypochromasia Slight; Lymphocytes # (A) 1.1 k/uL (1.0-4.8); Lymphocytes % (A) 12 %; MCHC 32.3 g/dL (31.0-37.0); MCV 86.7 fL (80.0-100.0); Mean Platelet Volume 7.5; Monocytes # (A) 0.4 k/uL (0-1.0); Monocytes % (A) 4 %; Neutrophils # (A) 7.5 k/uL (1.3-7.7); Neutrophils % (A) 82 %; Platelet Count 321 k/uL (150-450); RBC 4.51 m/uL (3.80-5.40); RDW 14.1 % (11.5-15.5); WBC 9.2 k/uL (3.8-10.6)
--- NOTE | 2019-08-17 01:09 | XR ---
EXAMINATION TYPE: XR KUB DATE OF EXAM: 08/17/2019 COMPARISON: NONE HISTORY: Right upper quadrant pain TECHNIQUE: 2 views upright FINDINGS: There is no sign of intestinal obstruction or pneumoperitoneum. Fecal pattern is normal. Em ng bases are clear. There are no pathologic calcifications over the kidneys. Abdominal aorta is ather omatous. There is no sign of a mass. There is gas down to the rectum. IMPRESSION: Nonacute abdomen.
[2019-08-17 01:21] LABS: ALT 17 U/L (4-34); AST 24 U/L (14-36); African American GFR (CKD) >90 (>60 ml/min/1.73 sqM); Albumin 3.8 g/dL (3.5-5.0); Alkaline Phosphatase 107 U/L (38-126); Amylase 54 U/L (30-110); Anion Gap 9 mmol/L; Blood Urea Nitrogen 17 mg/dL (7-17); C Reactive Protein 56.1 mg/L (<10.0); Calcium 9.5 mg/dL (8.4-10.2); Carbon Dioxide 24 mmol/L (22-30); Chloride 103 mmol/L (98-107); Glucose 140 mg/dL (74-99); Non-African American GFR(CKD) >90 (>60 ml/min/1.73 sqM); Potassium 4.5 mmol/L (3.5-5.1); Sodium 136 mmol/L (137-145); Total Bilirubin 0.6 mg/dL (0.2-1.3); Total Protein 6.8 g/dL (6.3-8.2)
[2019-08-17] MEDS ORDERED: LEVOFLOXACIN 750MG-D5W PMX 750 MG in DEXTROSE/WATER 1 150ML.BAG IVPB STA (02:21)
[2019-08-17] MEDS ORDERED: AMPICILLIN-SULBACTAM 3 GM in SODIUM CHLORIDE 0.9% 100 ML IVPB STA (02:21)
--- NOTE | 2019-08-17 02:37 | CT ---
EXAMINATION TYPE: CT abdomen pelvis wo con DATE OF EXAM: 08/17/2019 COMPARISON: None HISTORY: right side abd pain CT DLP: 656.7 mGycm Automated exposure control for dose reduction was used. Exam performed from the diaphragm to the floor the pelvis with no contrast. There is some mild subsegmental atelectasis lateral right lung base. There is no pleural effusion. He art size is normal. There is no pericardial effusion. Abdominal aorta is atheromatous. There are multiple calcified gallstones. Liver shows no focal defect . The bile ducts are not dilated. Spleen is intact. The stomach is intact. There is no evidence of pa ncreatic mass. Gallbladder is distended and measures 4.1 cm in diameter. There are small bilateral low density adrenal masses consistent with benign disease. Largest measures 2 cm. Kidneys have normal size and contour. There is no hydronephrosis. Ureters are not dilated. There is n o retroperitoneal adenopathy. Abdominal aorta is atheromatous. Bladder distends smoothly. There are m ultiple sigmoid diverticula. There is some free fluid in the right paracolic gutter with extensive fat stranding inferior to the c ecum. Cecum appears dilated up to 9cm. There are dilated distal loops of small bowel in the lower abd omen. Small bowel measures up to 3.5 cm in diameter. The proximal small bowel is not dilated. I see n o definite free air. Appendix is not identified. ==G area shows fat stranding. The terminal ileum at the valve measures 4 cm in diameter. There is biconcave deformity of multiple lumbar vertebra with 50% loss of height. Vertebra have juan antonio l alignment. Bony pelvis is intact. IMPRESSION: Extensive inflammatory changes in the right lower quadrant with fat stranding and fluid around the ce cum. Dilated distal small bowel. Obstructing mass not seen. This could relate to ileus. Cecum dilated up to 9 cm. No definite wall thickening. No free air. I would consider possibilities of inflammatory bowel disease, ischemic enteritis, ruptured appendix with abscess. Follow-up recommended. Cholelithiasis. No dilated ducts.
[2019-08-17] MEDS ORDERED: NALOXONE 0.4 MG/ML 1 ML VIAL IV PRN (02:50)
[2019-08-17] MEDS ORDERED: ONDANSETRON 4 MG/2 ML VIAL IVP PRN (02:50)
[2019-08-17] MEDS: SODIUM CHLORIDE 0.9% 1,000 ML IV SCH ×3 (03:21→20:04)
[2019-08-17] MEDS: FAMOTIDINE 20 MG/2 ML VIAL IV SCH ×2 (03:21→16:30)
[2019-08-17 03:50] LABS: Glucose,Whole Blood 148 mg/dL (75-99)
--- NOTE | 2019-08-17 04:50 | P.HPIM ---
History of Present Illness H&P Date: 08/17/19 The patient is a 78-year-old female with a PMH of COPD, hypertension, hyperkalemia, and tobacco abuse who presented to the ED with complaints of right-sided abdominal pain. The patient reports that her pain initially started roughly 2 months ago, and has been gradually worsening. The pain is inter mittent, occurring every 10-15 minutes, lasting 1-2 minutes at a time, 9 out of 10 in intensity, aching in nature, nonradiating, with no associated symptoms and no alleviating or exacerbating features. The patient reports taking Motrin at home to alleviate her pain. She denied fever, chills, nausea, vomiting, or diarrhea. In the emergency room, the patient underwent a CT abdomen and pelvis without contrast which revealed extensive inflammatory changes in the right lower quadrant with fluid and fat stranding with no free air, with differential as per the radiologist including ischemic enteritis, IBD, or ruptured appendicitis. Laboratory evaluation revealed a WBC count of 9.2, hemoglobin 1 2.6, platelets 321, sodium 136, potassium 4.5, BUN 17, creatinine 0.53, glucose 140, and CRP 56. As per the ED physician, case was discussed with surgeon risk and insurance consultant who recommended IV antibiotics and admission to medicine with surgery on consult. Review of Systems Pertinent positives and negatives as discussed in HPI, a complete review of systems was performed and all other systems are negative. Past Medical History Past Medical History: COPD, Hyperlipidemia, Hypertension, Osteoarthritis (OA) Additional Past Medical History / Comment(s): sciatica, narcolepsy, osteoporosis History of Any Multi-Drug Resistant Organisms: None Reported Past Surgical History: Orthopedic Surgery Additional Past Surgical History / Comment(s): bunion surgery Past Anesthesia/Blood Transfusion Reactions: No Reported Reaction Past Psychological History: No Psychological Hx Reported Smoking Status: Current every day smoker Past Alcohol Use History: None Reported Past Drug Use History: Marijuana - Past Family History Father History Unknown: Yes Mother History Unknown: Yes Medications and Allergies Home Medications Medication Instructions Recorded Confirmed Type Hydrocodone/Acetaminophen [[place] 1 tab PO TID PRN 05/18/14 04/08/17 History 7.5-325] Ibuprofen 400 mg PO TID 11/15/16 04/08/17 History Metoprolol Succinate [Toprol XL] 50 mg PO HS 11/15/16 04/08/17 History Modafinil [Provigil] 100 mg PO DAILY 11/15/16 04/08/17 History Simvastatin [Zocor] 10 mg PO HS 11/15/16 04/08/17 History Furosemide [Lasix] 20 mg PO Q48H PRN 03/22/17 04/08/17 History Potassium Chloride [Klor-Con 20] 10 meq PO Q48H PRN 03/22/17 04/08/17 History Albuterol Inhaler (Mhu) [Ventolin 1 - 2 puff INHALATION RT-Q4H PRN 03/30/17 04/08/17 History Hfa Inhaler (u)] Budesonide-Formot 160-4.5 Mcg 2 puff INHALATION RT-BID #1 puff 03/31/17 04/08/17 Rx [Symbicort 160-4.5 Mcg Inhaler] Ipratropium-Albuterol Nebulize 3 ml INHALATION RT-QID #120 03/31/17 04/08/17 Rx [Duoneb 0.5 mg-3 mg/3 ml Soln] ampul.neb predniSONE 10 mg PO DIRECTED #30 tab 03/31/17 04/08/17 Rx Levofloxacin [Levaquin] 500 mg PO DAILY #5 tab 04/08/17 Rx Psyllium Husk [Metamucil] 0.8 gm PO DAILY 04/08/17 04/08/17 History Sodium Chloride [[place]] 1 spray EA NOSTRIL Q6H PRN 04/08/17 04/08/17 History guaiFENesin-DM 100-10MG/5ML 10 ml PO Q8H PRN 04/08/17 04/08/17 History [Robitussin DM] predniSONE 50 mg PO DAILY #5 tablet 04/08/17 Rx Allergies Allergy/AdvReac Type Severity Reaction Status Date / Time No Known Allergies Allergy Verified 08/16/19 23:48 Physical Exam Vitals: Vital Signs Temp Pulse Resp BP Pulse Ox 08/16/19 23:43 97.6 F 91 20 154/86 95 Intake and Output 08/16/19 08/16/19 08/17/19 14:59 22:59 06:59 Other: Weight 71.577 kg General: non toxic, no distress, appears at stated age, overweight Derm: no unusual rashes/lesions no unusual ecchymoses, warm, dry Head: atraumatic, normocephalic, symmetric Eyes: EOMI, no lid lag, anicteric sclera, pupils equal round reactive to light ENT: Nose and ears atraumatic, no thrush, no pharyngeal erythema Neck: No thyromegaly, no cervical lymphadenopathy, trachea midline, supple Mouth: no lip lesion, mucus membranes moist Cardiovascular: S1S2 reg, no murmur, positive posterior tibial pulse bilateral, 1+ right lower extremity pitting edema, capillary refill less than 2 seconds Lungs: CTA bilateral, no rhonchi, no rales , no accessory muscle use Abdominal: soft, right lower quadrant tenderness on palpation, minimal rebound, no guarding, no appreciable organomegaly, normal bowel sounds Ext: no gross muscle atrophy, muscle strength 5 out of 5 in all 4 extremities grossly, no contractures, Neuro: CN II-XI grossly intact, light touch intact all 4 extremities, finger to nose within normal limits, Psych: Alert, oriented, appropriate affect Results CBC & Chem 7: 08/17/19 00:57 08/17/19 00:57 Labs: Abnormal Lab Results - Last 24 Hours (Table) 08/17/19 Range/Units 00:57 Sodium 136 L (137-145) mmol/L Glucose 140 H (74-99) mg/dL C-Reactive Protein 56.1 H (<10.0) mg/L Assessment and Plan Plan: Right lower quadrant abdominal pain, likely secondary to ruptured appendicitis -Unlikely IBD since patient denying diarrhea -Continue with antibiotics with Unasyn and Levaquin -Continue with IV fluids NS 125 cc/hr -Pain control with morphine when necessary -Surgery consult -Obtain EKG -Nothing by mouth for now Right lower extremity pitting edema -Patient reports is chronic, has been present for several decades -No calf tenderness noted COPD -Continue with home inhalers Hypertension -Continue with home meds Hyperglycemia -Check A1c DVT prophylaxis -Heparin subq The patient is admitted with an anticipated greater than 2 midnight stay for evaluation of RLQ abdominal pain CODE STATUS: Full Code Discussed with: Patient Anticipated discharge date: 3-[address]: Home A total of 40 minutes was spent on the care of this complex patient more than 50% of the time was spent in counseling and care coordination.
[2019-08-17] MEDS: MORPHINE SULFATE 4 MG/ML SYRINGE IV PRN ×2 (05:32→10:07)
[2019-08-17 05:39] LABS: Basophils % (A) 0 %; Eosinophils # (A) 0.1 k/uL (0-0.7); Eosinophils % (A) 1 %; HCT 37.7 % (34.0-46.0); HGB 11.7 gm/dL (11.4-16.0); Hypochromasia Moderate; Lymphocytes # (A) 0.8 k/uL (1.0-4.8); Lymphocytes % (A) 9 %; MCHC 30.9 g/dL (31.0-37.0); MCV 87.3 fL (80.0-100.0); Mean Platelet Volume 7.3; Monocytes # (A) 0.3 k/uL (0-1.0); Monocytes % (A) 4 %; Neutrophils # (A) 6.8 k/uL (1.3-7.7); Neutrophils % (A) 84 %; Platelet Count 240 k/uL (150-450); RBC 4.32 m/uL (3.80-5.40); RDW 14.3 % (11.5-15.5)
[2019-08-17 05:47] LABS: African American GFR (CKD) >90 (>60 ml/min/1.73 sqM); Anion Gap 8 mmol/L; Blood Urea Nitrogen 18 mg/dL (7-17); Calcium 8.7 mg/dL (8.4-10.2); Carbon Dioxide 22 mmol/L (22-30); Chloride 105 mmol/L (98-107); Glucose 150 mg/dL (74-99); Non-African American GFR(CKD) >90 (>60 ml/min/1.73 sqM); Potassium 4.1 mmol/L (3.5-5.1); Sodium 135 mmol/L (137-145)
[2019-08-17 06:49] LABS: Appearance,Urine Clear (Clear); Bilirubin,Urine Negative (Negative); Blood,Urine Negative (Negative); Color,Urine Yellow; Glucose,Urine (UA) Negative (Negative); Hyaline Casts,Urine 4 /lpf (0-2); Ketones,Urine Trace (Negative); Leukocyte Esterase,Urine Negative (Negative); Mucus,Urine Occasional /hpf; Nitrite,Urine Negative (Negative); PH, Urine 6.5 (5.0-8.0); Protein,Urine 1+ (Negative); RBC,Urine 9 /hpf (0-5); Specific Gravity,Urine 1.035 (1.001-1.035); Squamous Epithelial Cell,Urine 7 /hpf (0-4); WBC,Urine 1 /hpf (0-5)
[2019-08-17] MEDS: SYMBICORT 160-4.5 MCG INHALER INHALATION SCH ×2 (07:42→19:32)
[2019-08-17] MEDS: IPRATROPIUM-ALBUTEROL 3 ML NEB INHALATION SCH ×4 (07:42→19:31)
[2019-08-17] MEDS: HEPARIN SODIUM,PORCINE 5,000 UNIT/ML 1 ML VIAL SQ SCH ×3 (08:13→23:11)
[2019-08-17] MEDS: AMPICILLIN-SULBACTAM 3 GM in SODIUM CHLORIDE 0.9% 100 ML IVPB SCH ×3 (08:21→20:04)
[2019-08-17] MEDS: HYDROmorphone 0.5 MG/0.5 ML SYRINGE IVP PRN ×5 (08:21→23:12)
[2019-08-17] MEDS: IOPAMIDOL CONTRAST (ORAL USE) VIAL PO PRN ×2 (10:02→11:14)
--- NOTE | 2019-08-17 10:45 | P.GSCN ---
<Funmilayo Cowart - Last Filed: 08/17/19 10:42> History of Present Illness Consult date: 08/17/19 Reason for Consult: abdominal pain Requesting physician: Uvaldo Newman History of present illness: CHIEF COMPLAINT: Abdominal pain HISTORY OF PRESENT ILLNESS: 78-year-old female who presented to the emergency room with chief complaint of abdominal pain. General surgery was consulted for further evaluation. Patient examined at the bedside this morning with Dr. Felix. Patient is a poor historian. She states she has been having abdominal pain over the last 2-3 months. She states she has not been evaluated by her primary care physician for her abdominal pain until last week. Patient unable to recall what her physician did for her at that time. She reports her last colonoscopy was greater than 5 years ago. She reports passing flatus this morning. She reports having a bowel movement yesterday and the day before. She reports feeling bloated which has also been present for the past 2-3 months. PAST MEDICAL HISTORY: See list. PAST SURGICAL HISTORY: See list. MEDICATIONS: See list. ALLERGIES: See list. SOCIAL HISTORY: Current cigarette smoker. REVIEW OF SYSTEMS: CONSTITUTIONAL: Denies fever or chills. HEENT: Denies blurred vision, vision changes, or eye pain. Denies hemoptysis ENDOCRINE: Denies heat or cold intolerance. CARDIOVASCULAR: Denies chest pain or pressure. History of hypertension and hyperlipidemia RESPIRATORY: No shortness of breath. History of COPD GASTROINTESTINAL: See HPI for pertinent findings NEURO: Denies history of seizures. PSYCH: No depression or suicidal ideation HEMATOLOGIC: Denies bleeding disorders. LYMPHATIC: The patient denies any lumps and bumps around the neck. GENITOURINARY: Denies any blood in urine or increased urinary frequency. MUSCULOSKELETAL: Denies myalgias. Denies joint swelling. Denies decreased range of motion beyond patients baseline. SKIN: Denies pruitis. Denies rash. PHYSICAL EXAM: VITAL SIGNS: Reviewed GENERAL: Well-developed in no acute distress. HEENT: No sclera icterus. Extraocular movements grossly intact. Moist buccal mucosa. Head is atraumatic, normocephalic. Hears conversational speech. No nasal drainage. NECK: Supple without lymphadenopathy. CHEST: Non-labored respirations and equal bilateral excursions. CARDIOVASCULAR: Regular rate with regular rhythm. Palpable 2+ radial pulses. ABDOMEN: Soft. Distended. Tenderness upon palpation of right upper and lower quadrants. No peritonitis. MUSCULOSKELETAL: No clubbing or cyanosis. NEUROLOGIC: No focal or lateralizing signs. Cranial nerves II through XII grossly intact. PSYCH: Appropriate affect. Alert and oriented to person, place and time. Slightly slow to respond to questions. SKIN: Well perfused. Good skin turgor. LABORATORY DATA: WBC 8.0. Hemoglobin 11.7. Platelet count 1 and 40. Sodium 135. Potassium 4.1. BUN 18. Creatinine 0.47. Bilirubin 0.6. AST 24. ALT 17. C-reactive protein 56.1. IMAGING: CT abdomen and pelvis: Per radiology dictation-extensive inflammatory changes in the right lower quadrant with patchy stranding and fluid around the cecum. Dilated distal small bowel. Obstructing mass not seen. This could relate to ileus. Cecum dilation up to 9 cm. No definite wall thickening. No free air. Cholelithiasis. No dilated ducts. ASSESSMENT: 1. Abdominal pain x 2-3 months PLAN: -Clear liquid diet -Continue antibiotics -Repeat CT abdomen pelvis with IV and oral contrast. Further recommendations pending CT results Nurse practitioner note has been reviewed by physician. Signing provider agrees with the documented findings, assessment, and plan of care. Past Medical History Past Medical History: COPD, Hyperlipidemia, Hypertension, Osteoarthritis (OA) Additional Past Medical History / Comment(s): sciatica, narcolepsy, osteoporosis History of Any Multi-Drug Resistant Organisms: None Reported Past Surgical History: Orthopedic Surgery Additional Past Surgical History / Comment(s): bunion surgery Past Anesthesia/Blood Transfusion Reactions: No Reported Reaction Past Psychological History: No Psychological Hx Reported Smoking Status: Current every day smoker Past Alcohol Use History: None Reported Past Drug Use History: Marijuana - Past Family History Father History Unknown: Yes Mother History Unknown: Yes Medications and Allergies Home Medications Medication Instructions Recorded Confirmed Type Hydrocodone/Acetaminophen [[place] 1 tab PO TID PRN 05/18/14 08/17/19 History 7.5-325] Metoprolol Succinate [Toprol XL] 50 mg PO HS 11/15/16 08/17/19 History Simvastatin [Zocor] 10 mg PO HS 11/15/16 08/17/19 History Potassium Chloride [Klor-Con 20] 10 meq PO Q48H PRN 03/22/17 08/17/19 History Albuterol Inhaler (Mhu) [Ventolin 1 - 2 puff INHALATION RT-QID PRN 03/30/17 08/17/19 History Hfa Inhaler (Mhu)] Budesonide-Formot 160-4.5 Mcg 2 puff INHALATION RT-BID #1 puff 03/31/17 08/17/19 Rx [Symbicort 160-4.5 Mcg Inhaler] Sodium Chloride [[place]] 1 spray EA NOSTRIL Q6H PRN 04/08/17 08/17/19 History Ergocalciferol (Vitamin D2) 50,000 unit PO Q7D 08/17/19 08/17/19 History [Vitamin D2] Ibuprofen [Motrin] 600 mg PO TID 08/17/19 08/17/19 History Modafinil [Provigil] 200 mg PO DAILY 08/17/19 08/17/19 History Tiotropium 18 Mcg/Puff [Spiriva] 1 puff INHALATION RT-DAILY 08/17/19 08/17/19 History Isosorbide Mononitrate ER [Imdur] 30 mg PO DAILY 30 Days tab.er.24h 08/26/19 Rx Lisinopril [Zestril] 10 mg PO DAILY 30 Days tab 08/26/19 Rx Pantoprazole [Protonix] 40 mg PO AC-BRKFST 30 Days 08/26/19 Rx tablet. Allergies Allergy/AdvReac Type Severity Reaction Status Date / Time No Known Allergies Allergy Verified 08/17/19 09:00 Surgical - Exam Vital Signs Temp Pulse Resp BP Pulse Ox 97.6 F 91 20 154/86 95 08/16/19 23:43 08/16/19 23:43 08/16/19 23:43 08/16/19 23:43 08/16/19 23:43 Results - Labs 08/17/19 05:14 08/17/19 05:14 Abnormal Lab Results - Last 24 Hours (Table) 08/17/19 08/17/19 08/17/19 Range/Units 00:57 03:49 05:14 MCHC 30.9 L (31.0-37.0) g/dL Lymphocytes # 0.8 L (1.0-4.8) k/uL Sodium 136 L (137-145) mmol/L BUN (7-17) mg/dL Creatinine (0.52-1.04) mg/dL Glucose 140 H (74-99) mg/dL POC Glucose (mg/dL) 148 H (75-99) mg/dL C-Reactive Protein 56.1 H (<10.0) mg/L Urine Protein (Negative) Urine Ketones (Negative) Urine RBC (0-5) /hpf Ur Squamous Epith Cells (0-4) /hpf Hyaline Casts (0-2) /lpf Urine Mucus (None) /hpf 08/17/19 08/17/19 Range/Units 05:14 06:34 MCHC (31.0-37.0) g/dL Lymphocytes # (1.0-4.8) k/uL Sodium 135 L (137-145) mmol/L BUN 18 H (7-17) mg/dL Creatinine 0.47 L (0.52-1.04) mg/dL Glucose 150 H (74-99) mg/dL POC Glucose (mg/dL) (75-99) mg/dL C-Reactive Protein (<10.0) mg/L Urine Protein 1+ H (Negative) Urine Ketones Trace H (Negative) Urine RBC 9 H (0-5) /hpf Ur Squamous Epith Cells 7 H (0-4) /hpf Hyaline Casts 4 H (0-2) /lpf Urine Mucus Occasional H (None) /hpf Diabetes panel 08/17/19 08/17/19 Range/Units 00:57 05:14 Sodium 136 L 135 L (137-145) mmol/L Potassium 4.5 4.1 (3.5-5.1) mmol/L Chloride 103 105 (98-107) mmol/L Carbon Dioxide 24 22 (22-30) mmol/L BUN 17 18 H (7-17) mg/dL Creatinine 0.53 0.47 L (0.52-1.04) mg/dL Glucose 140 H 150 H (74-99) mg/dL Calcium 9.5 8.7 (8.4-10.2) mg/dL AST 24 (14-36) U/L ALT 17 (4-34) U/L Alkaline Phosphatase 107 (38-126) U/L Total Protein 6.8 (6.3-8.2) g/dL Albumin 3.8 (3.5-5.0) g/dL Calcium panel 08/17/19 08/17/19 Range/Units 00:57 05:14 Calcium 9.5 8.7 (8.4-10.2) mg/dL Albumin 3.8 (3.5-5.0) g/dL Pituitary panel 08/17/19 08/17/19 Range/Units 00:57 05:14 Sodium 136 L 135 L (137-145) mmol/L Potassium 4.5 4.1 (3.5-5.1) mmol/L Chloride 103 105 (98-107) mmol/L Carbon Dioxide 24 22 (22-30) mmol/L BUN 17 18 H (7-17) mg/dL Creatinine 0.53 0.47 L (0.52-1.04) mg/dL Glucose 140 H 150 H (74-99) mg/dL Calcium 9.5 8.7 (8.4-10.2) mg/dL Adrenal panel 08/17/19 08/17/19 Range/Units 00:57 05:14 Sodium 136 L 135 L (137-145) mmol/L Potassium 4.5 4.1 (3.5-5.1) mmol/L Chloride 103 105 (98-107) mmol/L Carbon Dioxide 24 22 (22-30) mmol/L BUN 17 18 H (7-17) mg/dL Creatinine 0.53 0.47 L (0.52-1.04) mg/dL Glucose 140 H 150 H (74-99) mg/dL Calcium 9.5 8.7 (8.4-10.2) mg/dL Total Bilirubin 0.6 (0.2-1.3) mg/dL AST 24 (14-36) U/L ALT 17 (4-34) U/L Alkaline Phosphatase 107 (38-126) U/L Total Protein 6.8 (6.3-8.2) g/dL Albumin 3.8 (3.5-5.0) g/dL <Nichelle Felix - Last Filed: 08/27/19 07:49> History of Present Illness History of present illness: Patient seen and evaluated with above. Please see additional findings below. HISTORY OF PRESENT ILLNESS: The patient is a 78 year old female who presents with chronic abdominal pain beyond 3 months. Patient reports pain grew worse in the last day or 2 came to the emergency room. She is passing flatus and having bowel movements even yesterday at least twice. She reports increased abdominal girth. Patient's last colonoscopy was over 5-10 years ago. No reports of blood in stools. No reports of constipation. She reports persistent right lower quadrant abdominal pain. No prior history of abdominal surgery such as appendectomy. PAST MEDICAL HISTORY: See list and reviewed PAST SURGICAL HISTORY: See list and reviewed MEDICATIONS: See list and reviewed ALLERGIES: See list and reviewed SOCIAL HISTORY: See list and reviewed FAMILY HISTORY: See list and reviewed REVIEW OF ORGAN SYSTEMS: CONSTITUTIONAL: No fevers or chills. EYES: Denies any trouble with vision. No glasses. HEENT: No difficulties with hearing. No nosebleeds. No difficulty swallowing. RESPIRATORY: Denies pneumonia. History of COPD and tobacco use CARDIOVASCULAR: Denies active chest pain, palpitations, or recent heart a ttacks. GASTROINTESTINAL: Denies fatty food intolerance. Denies change in bowel habits and gas bloat. GENITOURINARY: Denies any blood in urine or increased urinary frequency. NEUROLOGICAL: Denies any numbness or tingling along the distal extremities. No seizure disorders or headaches. MUSCULOSKELETAL: Has back pain, stiffness or joint arthritis. SKIN: No current skin cancer. No rash. PSYCHIATRIC: Denies current depression or suicidal thoughts. ENDOCRINE: Denies current thyroid disorders. Denies any blood sugar glucose intolerance. HEME/LYMPHATIC: Denies any lumps and bumps around the neck. No recent deep venous thrombosis. ALLERGY/IMMUNOLOGY: No immunoglobulin therapy. No immune deficiencies. BREAST: Denies current breast lumps, pain or nipple discharge. PHYSICAL EXAM: VITALS: Reviewed CONSTITUTIONAL: Well developed and in no acute distress. EYES: Conjuctivae without sclera icterus. Pupils are equally round and reactive to light. Extraocular movements grossly intact. HEAD, EARS, NOSE, THROAT: Moist buccal mucosa. Head is atraumatic, normocephalic. Hears conversational speech. No nasal drainage. NECK: Supple. No JV distention. No thyroidomegaly. RESPIRATORY: Non-labored respirations and equal bilateral excursions. No gross wheezes. CARDIOVASCULAR: Regular rate and rhythm. Extremities without moderate edema. Palpable 2+ radial pulses. ABDOMEN: Soft. Distended. No peritonitis. Tender right lower quadrant. LYMPH: No neck lymphadenopathy. MUSCULOSKELETAL: Nail and fingers with good capillary refill. No clubbing cyanosis. SKIN: Warm and well perfused with good skin turgor. NEUROLOGIC: Cranial nerves II through XII grossly intact. Sensation upper and extremities intact. No focal or lateralizing signs. PSYCH: Alert and oriented to person, place and time. Mild confusion on exam. CLINCAL LABS: Reviewed. White blood cell count normal. IMAGING: Independently reviewed. Previous computed tomography scan inadequate without oral or IV contrast limiting appropriate visualization of the right lower quadrant including of the appendix. No free air identified. No bowel obstruction identified. This is my independent interpretation. RADIOLOGY: Report reviewed with appendix not identified on CT of the abdomen and pelvis. Cecum dilated to 9 cm. Free fluid identified. ASSESSMENT: 1. Abnormal computed tomography scan right lower quadrant inflammatory changes 2. Abdominal pain, right lower quadrant 3. Inflammatory bowel disease, cannot be excluded PLAN: 1. Will repeat CT of the abdomen and pelvis with IV and oral contrast. 2. Likely findings consistent with inflammatory process however ruptured appendicitis cannot be excluded. Patient still has appendix. 3. Will obtain additional diagnostic studies. 4. Continue IV antibiotics in the interim. Thank you for this kind consultation. Surgical - Exam Vital Signs Temp Pulse Resp BP Pulse Ox 97.6 F 91 20 154/86 95 08/16/19 23:43 08/16/19 23:43 08/16/19 23:43 08/16/19 23:43 08/16/19 23:43 Results - Labs 08/26/19 05:55 08/26/19 05:55 Assessment and Plan (1) Neoplasm of cecum Current Visit: Yes Status: Acute Code(s): D49.0 - NEOPLASM OF UNSPECIFIED BEHAVIOR OF DIGESTIVE SYSTEM SNOMED Code(s): 043480873 (2) Right lower quadrant pain Current Visit: Yes Status: Acute Code(s): R10.31 - RIGHT LOWER QUADRANT PAIN SNOMED Code(s): 617238449 (3) Ventricular tachyarrhythmia Current Visit: Yes Status: Acute Code(s): I47.2 - VENTRICULAR TACHYCARDIA SNOMED Code(s): 61573813 (4) Adenoma of transverse colon Current Visit: Yes Status: Acute Code(s): D12.3 - BENIGN NEOPLASM OF TRANSVERSE COLON SNOMED Code(s): 691400459 (5) Sigmoid diverticulosis Current Visit: Yes Status: Acute Code(s): K57.30 - DVRTCLOS OF LG INT W/O PERFORATION OR ABSCESS W/O BLEEDING SNOMED Code(s): 268051234 (6) COPD exacerbation Current Visit: No Status: Acute Code(s): J44.1 - CHRONIC OBSTRUCTIVE PULMONARY DISEASE W (ACUTE) EXACERBATION SNOMED Code(s): 265057163 (7) Iron deficiency anemia Current Visit: Yes Status: Acute Code(s): D50.9 - IRON DEFICIENCY ANEMIA, UNSPECIFIED SNOMED Code(s): 09935462 (8) Ischemic cardiomyopathy Current Visit: Yes Status: Acute Code(s): I25.5 - ISCHEMIC CARDIOMYOPATHY SNOMED Code(s): 156558116
--- NOTE | 2019-08-17 12:46 | CT ---
EXAMINATION TYPE: CT abdomen pelvis w con DATE OF EXAM: 08/17/2019 COMPARISON: Prior CT 08/17/2019 and earlier time HISTORY: Pain, abn CT abd pelvis without CT DLP: 1109.1 mGycm Automated exposure control for dose reduction was used. TECHNIQUE: Helical acquisition of images from the lung bases through the pelvis have been completed. CONTRAST: Performed with Oral Contrast and with IV Contrast, patient injected with 100 mL of Isovue 300. FINDINGS: LUNG BASES: No significant change is appreciated. AORTA: No significant abnormality is appreciated. LIVER/GB: No significant abnormality is appreciated within the liver, gallbladder is distended and sh ows a luminal stone. PANCREAS: No significant abnormality is seen. SPLEEN: No significant abnormality is seen. ADRENALS: No significant table change is seen, some mild prominence, low density involving the right adrenal gland as compared to left. KIDNEYS: No significant abnormality is seen. REPRODUCTIVE ORGANS: No significant abnormality is seen BOWEL: Findings are similar. Inflammatory changes are present in the right lower quadrant, is increa sed attenuation within the mesenteric fat. The appendix shows luminal air and shows no abnormal thick ening. The terminal ileum shows a distended appearance, cecum shows a focal area of soft tissue atten uation within annular appearance, coronal image 51, axial image #41. Small bowel loops show fluid-melvin led appearance suspicion the right lower quadrant with some distention. Focus of increased attenuatio n in the mesenteric fat on axial image 49, coronal image 52 is noted, there may be some secondary inv olvement of the mesentery tumor, adhesive disease, partial obstruction. Small nodes are present withi n the mesentery the right lower quadrant. FREE AIR: No Free Air visible. ASCITES: There is some free fluid present along the right paracolic gutter, liver within the pelvis. PELVIC ADENOPATHY: None visualized. RETROPERITONEAL ADENOPATHY: No Retroperitoneal Adenopathy visible. URINARY BLADDER: No significant abnormality is seen. OSSEOUS STRUCTURES: No significant abnormality is seen. IMPRESSION: RECOMMEND ENDOSCOPIC CORRELATION, LIKELY THERE IS A MASS WITHIN THE CECUM, PROXIMAL ASCENDING COLON W ITH ADDITIONAL FINDINGS ABOVE INVOLVING THE SMALL BOWEL. CHOLELITHIASIS WITH DISTENDED GALLBLADDER, A SCITES. FINDINGS IN THE RIGHT ADRENAL GLAND MAY REPRESENT ADENOMA.. A Yellow level critical message alert has been initiated for Nichelle Felix MD via the [facility] Critical Results System on 08/17/2019 12:43 PM. This message alert has been sent to Nichelle Daniel MD via the preferences provided by the clinician for the receipt of Radiology Critical Findi ngs. Message ID [id number].
[2019-08-17 15:20] LABS: Hemoglobin A1C 6.4 % (4.0-6.0)
[2019-08-17] MEDS: METOPROLOL SUCCINATE (ER) 50 MG TAB.ER.24H PO SCH (20:20)
[2019-08-18] MEDS: SODIUM CHLORIDE 0.9% 1,000 ML IV SCH ×3 (02:32→20:29)
[2019-08-18] MEDS: AMPICILLIN-SULBACTAM 3 GM in SODIUM CHLORIDE 0.9% 100 ML IVPB SCH ×4 (02:32→20:28)
[2019-08-18] MEDS: LEVOFLOXACIN 750MG-D5W PMX 750 MG in DEXTROSE/WATER 1 150ML.BAG IVPB SCH (02:32)
[2019-08-18] MEDS: FAMOTIDINE 20 MG/2 ML VIAL IV SCH ×2 (02:33→15:42)
[2019-08-18] MEDS: HYDROmorphone 0.5 MG/0.5 ML SYRINGE IVP PRN ×5 (02:38→14:31)
[2019-08-18] MEDS: ALBUTEROL NEBULIZED 2.5 MG/3 ML INHALATION PRN (03:00)
[2019-08-18 05:25] LABS: Basophils % (A) 0 %; Eosinophils # (A) 0.1 k/uL (0-0.7); Eosinophils % (A) 2 %; HCT 32.3 % (34.0-46.0); Hypochromasia Moderate; Lymphocytes # (A) 0.9 k/uL (1.0-4.8); Lymphocytes % (A) 19 %; MCH 27.2 pg (25.0-35.0); MCHC 30.9 g/dL (31.0-37.0); MCV 88.1 fL (80.0-100.0); Mean Platelet Volume 8.3; Monocytes # (A) 0.3 k/uL (0-1.0); Monocytes % (A) 6 %; Neutrophils # (A) 3.3 k/uL (1.3-7.7); Neutrophils % (A) 71 %; Platelet Count 201 k/uL (150-450); RBC 3.67 m/uL (3.80-5.40); RDW 14.6 % (11.5-15.5); WBC 4.6 k/uL (3.8-10.6)
[2019-08-18 05:26] LABS: ALT 11 U/L (4-34); AST 17 U/L (14-36); African American GFR (CKD) >90 (>60 ml/min/1.73 sqM); Albumin 2.5 g/dL (3.5-5.0); Alkaline Phosphatase 66 U/L (38-126); Anion Gap 7 mmol/L; Blood Urea Nitrogen 12 mg/dL (7-17); Calcium 7.8 mg/dL (8.4-10.2); Carbon Dioxide 24 mmol/L (22-30); Chloride 104 mmol/L (98-107); Glucose 153 mg/dL (74-99); Non-African American GFR(CKD) >90 (>60 ml/min/1.73 sqM); Potassium 3.9 mmol/L (3.5-5.1); Sodium 135 mmol/L (137-145); Total Bilirubin 0.5 mg/dL (0.2-1.3); Total Protein 4.9 g/dL (6.3-8.2)
[2019-08-18] MEDS ORDERED: POTASSIUM CHLORIDE ER 20 MEQ TAB.ER PO SCH (08:00)
[2019-08-18] MEDS: SYMBICORT 160-4.5 MCG INHALER INHALATION SCH ×2 (08:05→20:32)
[2019-08-18] MEDS: IPRATROPIUM-ALBUTEROL 3 ML NEB INHALATION SCH ×4 (08:05→20:32)
[2019-08-18] MEDS: HEPARIN SODIUM,PORCINE 5,000 UNIT/ML 1 ML VIAL SQ SCH ×2 (08:36→15:42)
[2019-08-18] MEDS ORDERED: POLYETHYLENE GLYCOL LYTES SOLN 4,000 ML SOLN.RECON PO ONE (09:30)
--- NOTE | 2019-08-18 10:44 | P.PN ---
Subjective Progress Note Date: 08/18/19 Patient is doing slightly better today. Abdominal pain is improving. She is still having pain in the right abdomen mostly right upper quadrant. She denies any nausea. She is tolerating liquid diet with no difficulty. She is passing gas. Was having diarrhea yesterday. Objective - Vital Signs Vital signs: Vital Signs Temp 98.5 F 08/18/19 07:30 Pulse 94 08/18/19 08:17 Resp 22 08/18/19 07:30 BP 134/96 08/18/19 07:30 Pulse Ox 97 08/18/19 04:00 Intake & Output 08/17/19 08/18/19 08/18/19 18:59 06:59 18:59 Intake Total 1250 1500 1000 Output Total 500 Balance 750 1500 1000 Weight 79.5 kg Intake: IV 1250 1500 500 Sodium Chloride 0.9% 1, 1250 1500 500 000 ml @ 125 mls/hr IV . Q8H [facility] Rx#:[id number] Oral 500 Output: Urine 500 Other: Voiding Method Toilet Toilet Toilet # Voids 1 1 1 # Bowel Movements 1 1 - Exam General: The patient is awake and alert, in no distress Eye: there is normal conjunctiva bilaterally. Neck: The neck is supple, there is no JVD. Cardiovascular: Normal S1-S2, no S3-S4, no murmurs. Respiratory: Lungs clear to auscultation bilaterally Gastrointestinal: Abdomen is soft, nontender Musculoskeletal: There is no pedal edema. Neurological:. Speech is normal. Skin: Skin is warm and dry - Labs CBC & Chem 7: 08/18/19 04:09 08/18/19 04:09 Labs: Abnormal Lab Results - Last 24 Hours (Table) 08/17/19 08/18/19 08/18/19 Range/Units 05:14 04:09 04:09 RBC 3.67 L (3.80-5.40) m/uL Hgb 10.0 L D (11.4-16.0) gm/dL Hct 32.3 L (34.0-46.0) % MCHC 30.9 L (31.0-37.0) g/dL Lymphocytes # 0.9 L (1.0-4.8) k/uL Sodium 135 L (137-145) mmol/L Creatinine 0.51 L (0.52-1.04) mg/dL Glucose 153 H (74-99) mg/dL Hemoglobin A1c 6.4 H (4.0-6.0) % Calcium 7.8 L (8.4-10.2) mg/dL Total Protein 4.9 L (6.3-8.2) g/dL Albumin 2.5 L (3.5-5.0) g/dL Microbiology - Last 24 Hours (Table) 08/17/19 02:44 Blood Culture - Preliminary Blood No Growth after 24 hours Assessment and Plan Assessment: 1. Abdominal pain, exact etiology unclear. Patient had 2 computed tomography scan of the abdomen showed findings concerning for inflammatory bowel changes with a questionable cecal mass. Seen and evaluated by general surgery. Currently on antibiotic with Unasyn and Levaquin. Plan for colonoscopy in the morning. 2. Underlying COPD, with no evidence of exacerbation 3. Prediabetes, A1c 6.4. Counseled regarding lifestyle modification 4. Essential hypertension: Blood pressure within acceptable range 5. DVT prophylaxis with subcu heparin
--- NOTE | 2019-08-18 11:42 | P.PN ---
<Funmilayo Cowart - Last Filed: 08/18/19 11:38> Subjective Progress Note Date: 08/18/19 CHIEF COMPLAINT: Abdominal pain HISTORY OF PRESENT ILLNESS: Patient examined this morning at the bedside with Dr. Felix. Patient reports improvement in abdominal pain. Tolerating liquid diet. No nausea or vomiting. Reports episode of diarrhea this morning. CT scan performed yesterday reveals possible cecal mass. PHYSICAL EXAM: VITAL SIGNS: Reviewed GENERAL: Well-developed in no acute distress. HEENT: No sclera icterus. Extraocular movements grossly intact. Moist buccal mucosa. Head is atraumatic, normocephalic. Hears conversational speech. No nasal drai nage. NECK: Supple without lymphadenopathy. CHEST: Non-labored respirations and equal bilateral excursions. CARDIOVASCULAR: Regular rate with regular rhythm. Palpable 2+ radial pulses. ABDOMEN: Soft. Mild tenderness upon palpation of right upper and lower quadrants. No peritonitis. MUSCULOSKELETAL: No clubbing or cyanosis. NEUROLOGIC: No focal or lateralizing signs. Cranial nerves II through XII grossly intact. PSYCH: Appropriate affect. Alert and oriented to person, place and time. Slightly slow to respond to questions. SKIN: Well perfused. Good skin turgor. ASSESSMENT: 1. Abdominal pain x 2-3 months PLAN: -Clear liquid diet. NPO at midnight -Obtain tumor markers -2L bowel prep today -Will undergo colonoscopy tomorrow with Dr. Felix Nurse practitioner note has been reviewed by physician. Signing provider agrees with the documented findings, assessment, and plan of care. Objective - Vital Signs Vital signs: Vital Signs Temp 98.5 F 08/18/19 07:30 Pulse 94 08/18/19 11:32 Resp 22 08/18/19 07:30 BP 134/96 08/18/19 07:30 Pulse Ox 97 08/18/19 04:00 Intake & Output 08/17/19 08/18/19 08/18/19 18:59 06:59 18:59 Intake Total 1250 1500 1000 Output Total 500 Balance 750 1500 1000 Weight 79.5 kg Intake: IV 1250 1500 500 Sodium Chloride 0.9% 1, 1250 1500 500 000 ml @ 125 mls/hr IV . Q8H [facility] Rx#:[id number] Oral 500 Output: Urine 500 Other: Voiding Method Toilet Toilet Toilet # Voids 1 1 1 # Bowel Movements 1 1 - Labs CBC & Chem 7: 08/18/19 04:09 08/18/19 04:09 Labs: Abnormal Lab Results - Last 24 Hours (Table) 08/17/19 08/18/19 08/18/19 Range/Units 05:14 04:09 04:09 RBC 3.67 L (3.80-5.40) m/uL Hgb 10.0 L D (11.4-16.0) gm/dL Hct 32.3 L (34.0-46.0) % MCHC 30.9 L (31.0-37.0) g/dL Lymphocytes # 0.9 L (1.0-4.8) k/uL Sodium 135 L (137-145) mmol/L Creatinine 0.51 L (0.52-1.04) mg/dL Glucose 153 H (74-99) mg/dL Hemoglobin A1c 6.4 H (4.0-6.0) % Calcium 7.8 L (8.4-10.2) mg/dL Total Protein 4.9 L (6.3-8.2) g/dL Albumin 2.5 L (3.5-5.0) g/dL Microbiology - Last 24 Hours (Table) 08/17/19 02:44 Blood Culture - Preliminary Blood No Growth after 24 hours <Nichelle Felix - Last Filed: 08/27/19 07:55> Subjective Patient seen and evaluated with nurse practitioner. Please see additional findings. HISTORY OF PRESENT ILLNESS: The patient is a 78-year-old female who presented with persistent right lower quadrant abdominal pain ongoing for over 2-3 months. Additional diagnostic studies were obtained. She reports mild improvement of her right lower quadrant abdominal pain. She is currently being treated with IV antibiotics. She is passing flatus. ROS: No reports of vomiting. No fevers or chills. Denies chest pain. PHYSICAL EXAM: VITAL SIGNS: Reviewed CONSTITUTIONAL: Well developed and in no acute distress. EYES: Conjuctivae without sclera icterus. Extraocular movements grossly intact. HEAD, EARS, NOSE, THROAT: Moist buccal mucosa. Head is atraumatic, normocephalic. Hears conversational speech. No nasal drainage. NECK: Supple. No thyroidomegaly. RESPIRATORY: Non-labored respirations and equal bilateral excursions. CARDIOVASCULAR: Palpable 2+ radial pulses. ABDOMEN: Soft. No peritonitis. Minimal tenderness right upper quadrant. MUSCULOSKELETAL: No gross deformity of the lower extremities noted. No clubbing. No cyanosis. SKIN: Good skin turgor. Well perfused. NEUROLOGIC: Cranial nerves II through XII grossly intact. No focal or lateralizing signs. PSYCH: Appropriate affect. Alert and oriented to person, place and time. CLINICAL LABS: White blood cell count normal STUDIES: Repeat CT of the abdomen and pelvis with contrast confirms moderately dilated cecum including neoplasm involving the cecum. No free air. Presence of gallstones also identified. This is my independent interpretation. ASSESSMENT: 1. Right lower quadrant colon neoplasm PLAN: 1. Recommend additional workup with tumor markers for high suspicion of malignant neoplasm with patient's clinical history 2. Will proceed with colonoscopy for evaluation of neoplasm 3. Recommend GoLYTELY 2 L prep 4. Clear liquid diet in the interim 5. Also recommend cardiac workup for preoperative cardiac risk assessment Objective - Vital Signs Vital signs: Vital Signs Temp 98.3 F 08/27/19 04:00 Pulse 76 08/27/19 07:15 Resp 16 08/27/19 04:00 BP 114/66 08/27/19 04:00 Pulse Ox 94 L 08/27/19 06:59 Intake & Output 08/26/19 08/27/19 08/27/19 18:59 06:59 18:59 Intake Total 860 Output Total 1300 1350 Balance -440 -1350 Weight 76.5 kg 76.9 kg Intake: Oral 860 Output: Urine 1300 1350 Other: Voiding Method Toilet Toilet # Voids 1 3 # Bowel Movements 1 - Labs CBC & Chem 7: 08/26/19 05:55 08/26/19 05:55 Assessment and Plan (1) Neoplasm of cecum Current Visit: Yes Status: Acute Code(s): D49.0 - NEOPLASM OF UNSPECIFIED BEHAVIOR OF DIGESTIVE SYSTEM SNOMED Code(s): 219956947 (2) Right lower quadrant pain Current Visit: Yes Status: Acute Code(s): R10.31 - RIGHT LOWER QUADRANT PAIN SNOMED Code(s): 141665405 (3) Ventricular tachyarrhythmia Current Visit: Yes Status: Acute Code(s): I47.2 - VENTRICULAR TACHYCARDIA SNOMED Code(s): 09167220 (4) Adenoma of transverse colon Current Visit: Yes Status: Acute Code(s): D12.3 - BENIGN NEOPLASM OF TRANSVERSE COLON SNOMED Code(s): 695077149 (5) Sigmoid diverticulosis Current Visit: Yes Status: Acute Code(s): K57.30 - DVRTCLOS OF LG INT W/O PERFORATION OR ABSCESS W/O BLEEDING SNOMED Code(s): 878725535 (6) COPD exacerbation Current Visit: No Status: Acute Code(s): J44.1 - CHRONIC OBSTRUCTIVE PULMONARY DISEASE W (ACUTE) EXACERBATION SNOMED Code(s): 400589673 (7) Iron deficiency anemia Current Visit: Yes Status: Acute Code(s): D50.9 - IRON DEFICIENCY ANEMIA, UNSPECIFIED SNOMED Code(s): 59479765 (8) Ischemic cardiomyopathy Current Visit: Yes Status: Acute Code(s): I25.5 - ISCHEMIC CARDIOMYOPATHY SNOMED Code(s): 430288342
[2019-08-18] MEDS: MORPHINE SULFATE 4 MG/ML SYRINGE IV PRN ×2 (17:59→21:36)
[2019-08-18] MEDS: METOPROLOL SUCCINATE (ER) 50 MG TAB.ER.24H PO SCH (20:08)
[2019-08-18 20:31] LABS: Carcinoembryonic Antigen 2.7 ng/mL (0.0-4.9)
[2019-08-18 21:00] LABS: Cancer Antigen 19-9 16.2 U/mL (0.0-34.9)
[2019-08-18] MEDS ORDERED: NICOTINE 14MG/24HR PATCH TRANSDERM STA (21:12)
[2019-08-19] MEDS: SODIUM CHLORIDE 0.9% 1,000 ML IV SCH ×3 (03:12→18:54)
[2019-08-19] MEDS: HEPARIN SODIUM,PORCINE 5,000 UNIT/ML 1 ML VIAL SQ SCH ×3 (03:13→15:34)
[2019-08-19] MEDS: FAMOTIDINE 20 MG/2 ML VIAL IV SCH ×2 (03:13→15:34)
[2019-08-19] MEDS: AMPICILLIN-SULBACTAM 3 GM in SODIUM CHLORIDE 0.9% 100 ML IVPB SCH ×4 (03:14→20:18)
[2019-08-19] MEDS: MORPHINE SULFATE 4 MG/ML SYRINGE IV PRN ×4 (03:14→18:30)
[2019-08-19] MEDS: LEVOFLOXACIN 750MG-D5W PMX 750 MG in DEXTROSE/WATER 1 150ML.BAG IVPB SCH (03:14)
[2019-08-19] MEDS: ALBUTEROL NEBULIZED 2.5 MG/3 ML INHALATION PRN (03:19)
[2019-08-19] MEDS: IPRATROPIUM-ALBUTEROL 3 ML NEB INHALATION SCH ×4 (08:22→19:55)
[2019-08-19] MEDS: SYMBICORT 160-4.5 MCG INHALER INHALATION SCH ×2 (08:24→20:03)
[2019-08-19] MEDS ORDERED: PROPOFOL 10 MG/ML 20 ML VIAL IV ONE (11:34)
[2019-08-19] MEDS ORDERED: LIDOCAINE 1% INJ 10MG/ML (20 ML MDV) ONE (11:34)
[2019-08-19] MEDS ORDERED: Antibiotics per Pharmacy 1 EACH MISC MISCELLANE PRN (12:21)
[2019-08-19] MEDS ORDERED: metroNIDAZOLE 500 MG TAB ONE (14:31)
[2019-08-19] MEDS ORDERED: MORPHINE SULFATE 4 MG/ML SYRINGE ONE ×2 (14:31)
[2019-08-19] MEDS ORDERED: IPRATROPIUM-ALBUTEROL 3 ML NEB ONE ×3 (14:31)
[2019-08-19] MEDS ORDERED: NEOMYCIN 500 MG TAB ONE (14:31)
[2019-08-19] MEDS ORDERED: SYMBICORT 160-4.5 MCG INHALER INHALATION ONE (14:31)
--- NOTE | 2019-08-19 14:38 | P.PN ---
Subjective Progress Note Date: 08/19/19 Principal diagnosis: abdominal pain Patient is a 78 yo CF with COPD, HTN, chronic pain, and tobacco abuse who presented with complaints of right sided abdominal pain of 2 months duration. Her pain had been gradually worsening and she had seen pain management and was to have an MRI on 08/19/2019 but the pain became to severe to manage at home and she presented to the emergency department. On arrival to the ED she underwent an extensive evaluation. She was slightly hypertensive, Lab work showed an elevated CRP at 56.1 but was otherwise unremarkable. Her initial CT abdomen and pelvis showed extensive inflammatory changes in the right lower quadrant with fat stranding and fluid around the cecum, dilated distal small bowel, and dilated cecum. Concerns for a possible inflammatory bowel disease, enteritis, or ruptured appendix with abscess. She was subsequently admitted and started on IV fluids, pain medication, antibiotics. Surgery was consulted. She was able to have bowel movements and pass gas after admission. She had a repeat CT abdomen and pelvis performed on 08/16 which showed inflammatory changes in the right lower quadrant, distended terminal ileum, cecum with focal area of soft tissue attenuation, small bowel loops with fluid filled. He had some distention, possible cecal mass with some involvement in the mesentery tumor, adhesive disease, and partial obstruction. They recommended endoscopic correlation. Patient underwent bowel prep on 08/17. Colonoscopy on 08/18 showed cecal mass at the origin of the appendix. Case discussed with Dr. Coker and plan is for robotic versus open partial colectomy with removal of the mass. Patient seen and examined at bedside. She continues to have abdominal pain that is mostly in the right lower quadrant but does radiate. She is continuing to require IV pain medications ordered make her pain tolerable around the clock. She has a chronic cough which is unchanged. She states she always is productive of sputum. She denies any significant past cardiac history including prior MR coronary infarction, open heart surgery, stent placement, or known history of congestive heart failure. She doesn't feel like her abdominal distention has improved somewhat during her hospital stay. She is still able to produce gas and have bowel movements. Objective - Vital Signs Vital signs: Vital Signs Temp 98.2 F 08/19/19 07:00 Pulse 100 08/19/19 08:42 Resp 14 08/19/19 07:00 BP 152/90 08/19/19 07:00 Pulse Ox 95 08/19/19 07:00 Intake & Output 08/18/19 08/19/19 08/19/19 18:59 06:59 18:59 Intake Total 1999 2239 Balance 1999 2239 Intake: IV 1500 1999 Sodium Chloride 0.9% 1, 1500 1999 000 ml @ 125 mls/hr IV . Q8H [facility] Rx#:[id number] Oral 500 240 Other: Voiding Method Toilet Toilet # Voids 4 3 # Bowel Movements 3 - Exam General: ill appearing, mild distress due to pain, appears at stated age Derm: warm, dry Head: atraumatic, normocephalic, symmetric Eyes: EOMI, no lid lag, anicteric sclera Mouth: no lip lesion, mucus membranes moist Cardiovascular: S1S2 reg, no murmur, positive posterior tibial pulse bilateral, Lungs: CTA bilateral, no rhonchi, no rales , no accessory muscle use Abdominal: soft, + tender to palpation diffusely most severe in RLQ, no guarding, no appreciable organomegaly Ext: no gross muscle atrophy, no edema, no contractures Neuro: CN II-XI grossly intact, no focal neuro deficits Psych: Alert, oriented, appropriate affect - Labs CBC & Chem 7: 08/18/19 04:09 08/18/19 04:09 Labs: Microbiology - Last 24 Hours (Table) 08/17/19 02:44 Blood Culture - Preliminary Blood No Growth after 48 hours Assessment and Plan Assessment: 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 Felix - cardio eval with echo and CXR to see if candidate for robotic surgery - on clear liquid diet - Dilaudid not helping patient prefers morphine - IVF - once pathology is back oncology consult - continued with unasyn and levaquin COPD without exacerbation - recommend preop and post op bronchodilators - spiriva - symbicort - abuterol HTN - controlled - metoprolol Pre DM with A1C 6.4 - careful monitoring of sugary perioperative to decrease risks of delyaed wound healing and infection - Insulin sliding scale Tobacco abuse - cessation - nicotine replacement Patient requires inpatient admission for cecal mass causing partial small bowel obstruction. Risk to discharge home are numerous. However the most significant is progression to full bowel obstruction leading to worsening of her condition including possible bowel perforation. She was also on norco oral at home prior to admission and pain was not controlled on oral medications necessitating IV narcotics. DVT prophylaxis: Heparin Discussed with: Patient, Nursing, Dr. Felix Anticipated discharge: 3-[address]: Home vs SNF A total of 45 minutes was spent on the care of this complex patient more than 50% of the time was spent in counseling and care coordination.
[2019-08-19] MEDS: NEOMYCIN 500 MG TAB PO SCH ×2 (14:49→15:34)
[2019-08-19] MEDS: metroNIDAZOLE 500 MG TAB PO SCH ×2 (14:49→15:34)
[2019-08-19] MEDS ORDERED: ONDANSETRON 4 MG/2 ML VIAL IVP ONE (16:12)
--- NOTE | 2019-08-19 16:48 | XR ---
EXAMINATION TYPE: XR chest 1V portable DATE OF EXAM: 08/19/2019 COMPARISON: 04/08/2017 HISTORY: Short of breath TECHNIQUE: FINDINGS: There is some atelectasis at the lung bases. There is no heart failure. Heart size is juan antonio l. There are chest leads. Bony thorax appears intact. There are no hilar masses. IMPRESSION: Mild atelectasis at the lung bases increased compared to old exam. No heart failure. No s ign of bronchopneumonia.
--- NOTE | 2019-08-19 17:07 | P.CRDCN ---
History of Present Illness Consult date: 08/19/19 History of present illness: This is a 78-year-old female with history of COPD, hypertension and also chronic smoking who was admitted to the hospital with right-sided abdominal pain. Patient had a colonoscopy and was found to have a malignant lesion. Patient is being considered for surgery and we're asked to provide preoperative clearance. This patient gives history of diagnosis of myocardial infarction about 20 years ago. Since then patient claims she has been stable. She is chronically short of breath. She smokes. She also has pedal edema, more so on the right leg compared to the left leg. She is found to have a cecal mass with partial small bowel obstruction. They're contemplating surgery tomorrow. She is found to have episodes of nonsustained V. tach. Echo Cardigan showed septal hypokinesia with an ejection fraction about 45%. In view of impaired LV function with segmental wall motion defects and nonsustained V. tach, patient risk for surgery is high. Ideally patient to have cardiac evaluation to rule out any significant underlying ischemic heart disease. Patient may benefit from Cardec catheterization prior to surgery unless surgery is needed urgently to live bowel obstruction. We'll discuss with surgeon. Meanwhile we'll continue with beta armando therapy. We'll also check her magnesium level. If necessary, we'll start her on IV amiodarone. Review of Systems As per the chart Past Medical History Past Medical History: COPD, Hyperlipidemia, Hypertension, Osteoarthritis (OA) Additional Past Medical History / Comment(s): sciatica, narcolepsy, osteoporosis History of Any Multi-Drug Resistant Organisms: None Reported Past Surgical History: Orthopedic Surgery Additional Past Surgical History / Comment(s): bunion surgery Past Anesthesia/Blood Transfusion Reactions: No Reported Reaction Past Psychological History: No Psychological Hx Reported Smoking Status: Current every day smoker Past Alcohol Use History: None Reported Past Drug Use History: Marijuana - Past Family History Father History Unknown: Yes Mother History Unknown: Yes Medications and Allergies Home Medications Medication Instructions Recorded Confirmed Type Hydrocodone/Acetaminophen [[place] 1 tab PO TID PRN 05/18/14 08/17/19 History 7.5-325] Metoprolol Succinate [Toprol XL] 50 mg PO HS 11/15/16 08/17/19 History Simvastatin [Zocor] 10 mg PO HS 11/15/16 08/17/19 History Potassium Chloride [Klor-Con 20] 10 meq PO Q48H PRN 03/22/17 08/17/19 History Albuterol Inhaler (Mhu) [Ventolin 1 - 2 puff INHALATION RT-QID PRN 03/30/17 08/17/19 History Hfa Inhaler (Mhu)] Budesonide-Formot 160-4.5 Mcg 2 puff INHALATION RT-BID #1 puff 03/31/17 08/17/19 Rx [Symbicort 160-4.5 Mcg Inhaler] Sodium Chloride [[place]] 1 spray EA NOSTRIL Q6H PRN 04/08/17 08/17/19 History Ergocalciferol (Vitamin D2) 50,000 unit PO Q7D 08/17/19 08/17/19 History [Vitamin D2] Ibuprofen [Motrin] 600 mg PO TID 08/17/19 08/17/19 History Modafinil [Provigil] 200 mg PO DAILY 08/17/19 08/17/19 History Tiotropium 18 Mcg/Puff [Spiriva] 1 puff INHALATION RT-DAILY 08/17/19 08/17/19 History Allergies Allergy/AdvReac Type Severity Reaction Status Date / Time No Known Allergies Allergy Verified 08/17/19 09:00 Physical Exam Vitals: Vital Signs Temp Pulse Pulse Resp BP Pulse Ox 08/19/19 16:29 100 08/19/19 08:42 100 08/19/19 08:27 92 08/19/19 07:00 98.2 F 90 14 152/90 95 08/19/19 03:29 104 H 08/19/19 03:19 107 H 08/19/19 01:00 98.3 F 95 23 135/79 94 L 08/18/19 20:48 102 H 08/18/19 20:33 102 H 08/18/19 19:00 98.0 F 101 H 21 158/68 95 Intake and Output 08/19/19 08/19/19 08/19/19 06:59 14:59 22:59 Intake Total 2240 1120 Balance 2240 1120 Intake: IV 2000 1000 Sodium Chloride 0.9% 1999 1000 000 ml @ 125 mls/hr IV . Q8H [facility] Rx#:[id number] Oral 240 120 Other: Voiding Method Toilet Toilet # Voids 3 4 # Bowel Movements 3 1 GENERAL EXAM: Patient is alert and oriented and doesn't appear to be in any acute distress HEENT: Normocephalic. Normal reaction of pupils, equal size, normal range of extraocular motion. No erythema or exudates in the throat. NECK: No masses, no nuchal rigidity. CHEST: No chest wall deformity. LUNGS: Scattered rhonchi and wheezing HEART: S1 and S2 normal with no audible mumurs or gallops. Regular rhythm, femorals equal on both sides.. ABDOMEN: No hepatosplenomegaly, normal bowel sounds, no guarding or rigidity. SKIN: No rashes CENTRAL NERVOUS SYSTEM: No focal deficits. EXTREMITIES: Bilateral edema, right more than left Results 08/18/19 04:09 08/18/19 04:09 Current Medications Generic Name Dose Route Start Last Admin Trade Name Freq PRN Reason Stop Dose Admin Albuterol Sulfate 2.5 mg 08/17/19 02:55 08/19/19 03:19 Ventolin Nebulized INHALATION 2.5 mg RT-Q4H PRN Administration Shortness Of Breath Albuterol/Ipratropium 3 ml 08/17/19 08:00 08/19/19 16:29 Duoneb 0.5 Mg-3 Mg/3 Ml Soln INHALATION Not Given RT-QID [facility] Budesonide/Formoterol Fumarate 2 puff 08/17/19 08:00 08/19/19 08:24 Symbicort 160-4.5 Mcg Inhaler INHALATION 2 puff RT-BID [facility] Administration Famotidine 20 mg 08/17/19 03:00 08/19/19 15:34 Pepcid IV 20 mg Q12H [facility] Administration Heparin Sodium (Porcine) 5,000 unit 08/17/19 08:00 08/19/19 15:34 Heparin SQ 5,000 unit Q8HR [facility] Administration Hydromorphone HCl 0.5 mg 08/17/19 02:50 08/18/19 14:31 Dilaudid IVP 0.5 mg Q3HR PRN Administration Moderate Pain Sodium Chloride 1,000 mls @ 125 mls/hr 08/17/19 03:00 08/19/19 14:48 Saline 0.9% IV 125 mls/hr .Q8H [facility] Administration Ampicillin Sodium/Sulbactam 100 mls @ 200 mls/hr 08/17/19 09:00 08/19/19 15:35 Sodium 3 gm/ Sodium Chloride IVPB Not Given Q6H [facility] Levofloxacin 750 mg/ IV 150 mls @ 100 mls/hr 08/18/19 02:00 08/19/19 03:14 Solution IVPB 100 mls/hr Q24H [facility] Administration Metoprolol Succinate 50 mg 08/17/19 21:00 08/18/19 20:08 Toprol Xl PO Not Given HS [facility] Metronidazole 1,000 mg 08/19/19 13:00 08/19/19 15:34 Flagyl PO 08/20/19 00:01 1,000 mg 0000,1300,1400 [facility] Administration Morphine Sulfate 4 mg 08/17/19 02:50 08/19/19 12:54 Morphine Sulfate (Inj) IV 4 mg Q4HR PRN Administration Severe Pain Naloxone HCl 0.2 mg 08/17/19 02:50 Narcan IV Q2M PRN Opioid Reversal Neomycin Sulfate 1,000 mg 08/19/19 13:00 08/19/19 15:34 Neomycin PO 08/20/19 00:01 1,000 mg 0000,1300,1400 [facility] Administration Intake and Output 08/19/19 08/19/19 08/19/19 06:59 14:59 22:59 Intake Total 2240 1120 Balance 2240 1120 Intake: IV 2000 1000 Sodium Chloride 0.9% 1, 2000 1000 000 ml @ 125 mls/hr IV . Q8H [facility] Rx#:[id number] Oral 240 120 Other: Voiding Method Toilet Toilet # Voids 3 4 # Bowel Movements 3 1 08/18/19 04:09 08/18/19 04:09 EKG Interpretations (text) Old EKG showed sinus rhythm. Getting a new EKG Assessment and Plan (1) CAD (coronary artery disease) Current Visit: Yes Status: Acute Code(s): I25.10 - ATHSCL HEART DISEASE OF [place] CORONARY ARTERY W/O ANG PCTRS SNOMED Code(s): 77982856 (2) Acute exacerbation of chronic obstructive pulmonary disease (COPD) Current Visit: No Status: Acute Code(s): J44.1 - CHRONIC OBSTRUCTIVE PULMONARY DISEASE W (ACUTE) EXACERBATION SNOMED Code(s): 197437743 (3) Essential (primary) hypertension Current Visit: No Status: Acute Code(s): I10 - ESSENTIAL (PRIMARY) HYPERTENSION SNOMED Code(s): 16444768 (4) Nonsustained ventricular tachycardia Current Visit: Yes Status: Acute Code(s): I47.2 - VENTRICULAR TACHYCARDIA SNOMED Code(s): 539289333 Plan: Given segmental wall motion defects and nonsustained V. tach and possibly to underlying ischemic heart disease, high risk for surgery is more than average. Ideally patient to have cardiac evaluation probably with cardiac catheterization to establish underlying ischemic heart disease, unless abdominal surgery to be done emergently because of small bowel obstruction. In that case, patient will be treated with IV amiodarone and beta blockers prior to surgery.
[2019-08-19] MEDS: METOPROLOL SUCCINATE (ER) 50 MG TAB.ER.24H PO SCH (18:54)
--- NOTE | 2019-08-19 22:16 | P.PCN ---
Date of Procedure: 08/19/19 Description of Procedure: PREOPERATIVE DIAGNOSIS: Abnormal computed tomography scan for colonic neoplasm Right lower quadrant abdominal pain Family history of colon cancer POSTOPERATIVE DIAGNOSIS: Cecal neoplasm Tubular adenoma transverse colon Sigmoid diverticulosis OPERATION: Colonoscopy to the cecum Colonoscopy with multiple hot snare polypectomies SURGEON: Nichelle Felix MD. ANESTHESIA: MAC. INDICATIONS: The patient is a 78-year-old female who presents family history of malignant colon polyps and abnormal computed tomography scan of cecal neoplasm. Last colonoscopy over 10 years. Benefits and risks were described and informed consent was obtained. DESCRIPTION OF PROCEDURE: The patient had undergone Nylytely prep. She had been brought into the operating room and laid in the left lateral decubitus position. After adequate intravenous sedation, the rectum was examined with 2% lidocaine jelly. No external hemorrhoids were encountered. The rectal tone was within normal limits. No lesions were palpated in the rectal vault. An Olympus colonoscope was advanced through extremely tortuous and redundant sigmoid colon. Despite abdominal wall pressure, the entire scope was advanced to the proximal ascending colon with brief view of a neoplastic process along the base of the cecum. The limited length of the scope prohibited biopsy of the lesion. The prep was good. Sigmoid diverticulosis was encountered. Colonic polyps were found and removed with snare polypectomy. Additional polyps 2 were found along the transverse colon unable to be biopsied. No evidence of focal colitis was found. Retroflexion of the scope demonstrated grade 1 internal hemorrhoids without active bleeding or inflammation. The colon was desufflated. The patient had tolerated the procedure well. Withdrawal time was over 6 minutes. FINDINGS: Aronchick preparation quality scale 2 (1-5) No internal hemorrhoids No external hemorrhoids No arteriovenous malformations. Moderate sigmoid diverticulosis Removal of polyp: - Snare polypectomy mid transverse colon, 8 mm tubulovillous adenoma polyp. No focal colitis. RECOMMENDATIONS: 1. Computed tomography scan imaging including endoscopic imaging confirms neoplastic process along the cecum. 2. Recommend resection with right hemicolectomy 3. Recommend cardiac risk assessment prior to surgical resection
--- NOTE | 2019-08-19 22:27 | P.PN ---
Subjective Progress Note Date: 08/19/19 CHIEF COMPLAINT: Right lower quadrant abdominal pain HISTORY OF PRESENT ILLNESS: The patient is a 78-year-old female status post colonoscopy for neoplasm of the cecum. Patient was reevaluated this evening after I had ordered a cardiology consultation including echo of the heart for cardiac clearance. Per discussion with nursing, patient went into active ventricular tachyarrhythmia. She reports missing her metoprolol dose last night. She denies any immediate chest pain. Family is at bedside. Per discussion with nursing, cardiology clearance is on hold. ROS: No reports of nausea and vomiting. She had bowel movement. No fevers or chills. PHYSICAL EXAM: VITAL SIGNS: Reviewed CONSTITUTIONAL: Well developed and in no acute distress. EYES: Conjuctivae without sclera icterus. Extraocular movements grossly intact. HEAD, EARS, NOSE, THROAT: Moist buccal mucosa. Head is atraumatic, nor mocephalic. Hears conversational speech. No nasal drainage. NECK: Supple. No thyroidomegaly. RESPIRATORY: Non-labored respirations and equal bilateral excursions. CARDIOVASCULAR: Palpable 2+ radial pulses. ABDOMEN: Soft, mild tenderness right lower quadrant, pre-existing. MUSCULOSKELETAL: No gross deformity of the lower extremities noted. No clubbing. No cyanosis. SKIN: Good skin turgor. Well perfused. NEUROLOGIC: Cranial nerves II through XII grossly intact. No focal or lateralizing signs. PSYCH: Appropriate affect. Alert and oriented to person, place and time. CLINICAL LABS: White blood cell count normal down to 8.0-4.6. Hemoglobin down to 11.7-10.0. Findings consistent with moderate hyperchromasia. Hemoglobin A1c 6.4%. Tumor markers including CA-19-9 and CEA normal. Coronavirus negative. STUDIES: Chest x-ray was independently reviewed by me with questionable right pleural effusion RADIOLOGY: Report confirms atelectasis. ASSESSMENT: 1. Neoplasm, cecum PLAN: 1. Surgery is on hold secondary to acute ventricular tachyarrhythmia. 2. In the interim, iron panel studies with iron infusions as needed for symptomatic anemia 3. As no acute surgical intervention, surgery may be deferred as outpatient pending cardiology recommendations. Objective - Vital Signs Vital signs: Vital Signs Temp 98.6 F 08/19/19 20:16 Pulse 103 H 08/19/19 20:16 Resp 18 08/19/19 20:16 BP 147/80 07/08/20 20:16 Pulse Ox 97 08/19/19 20:16 Intake & Output 08/19/19 08/19/19 08/20/19 06:59 18:59 06:59 Intake Total 2240 1120 Balance 2240 1120 Intake: IV 2000 1000 Sodium Chloride 0.9% , 1999 1000 000 ml @ 125 mls/hr IV . Q8H [facility] Rx#:[id number] Oral 240 120 Other: Voiding Method Toilet Toilet # Voids 3 4 # Bowel Movements 3 1 - Labs CBC & Chem 7: 08/18/19 04:09 08/18/19 04:09 Labs: Microbiology - Last 24 Hours (Table) 08/17/19 02:44 Blood Culture - Preliminary Blood No Growth after 48 hours Assessment and Plan (1) Neoplasm of cecum Current Visit: Yes Status: Acute Code(s): D49.0 - NEOPLASM OF UNSPECIFIED BEHAVIOR OF DIGESTIVE SYSTEM SNOMED Code(s): 966836812 (2) Right lower quadrant pain Current Visit: Yes Status: Acute Code(s): R10.31 - RIGHT LOWER QUADRANT PAIN SNOMED Code(s): 810214890 (3) Ventricular tachyarrhythmia Current Visit: Yes Status: Acute Code(s): I47.2 - VENTRICULAR TACHYCARDIA SNOMED Code(s): 60000271 (4) Adenoma of transverse colon Current Visit: Yes Status: Acute Code(s): D12.3 - BENIGN NEOPLASM OF TRANSVERSE COLON SNOMED Code(s): 006399042 (5) Sigmoid diverticulosis Current Visit: Yes Status: Acute Code(s): K57.30 - DVRTCLOS OF LG INT W/O PERFORATION OR ABSCESS W/O BLEEDING SNOMED Code(s): 527874109 (6) COPD exacerbation Current Visit: No Status: Acute Code(s): J44.1 - CHRONIC OBSTRUCTIVE PULMONARY DISEASE W (ACUTE) EXACERBATION SNOMED Code(s): 183452191
[2019-08-20] MEDS ORDERED: MORPHINE SULFATE 4 MG/ML SYRINGE ONE
[2019-08-20] MEDS ORDERED: HEPARIN SODIUM,PORCINE 5,000 UNIT/ML 1 ML VIAL ONE
[2019-08-20 05:06] LABS: Basophils % (A) 1 %; Eosinophils # (A) 0.1 k/uL (0-0.7); Eosinophils % (A) 5 %; HCT 31.7 % (34.0-46.0); HGB 10.3 gm/dL (11.4-16.0); Hypochromasia Moderate; Lymphocytes # (A) 0.6 k/uL (1.0-4.8); Lymphocytes % (A) 26 %; MCHC 32.3 g/dL (31.0-37.0); MCV 86.7 fL (80.0-100.0); Mean Platelet Volume 7.3; Monocytes # (A) 0.1 k/uL (0-1.0); Monocytes % (A) 6 %; Neutrophils # (A) 1.4 k/uL (1.3-7.7); Neutrophils % (A) 60 %; Platelet Count 199 k/uL (150-450); RBC 3.66 m/uL (3.80-5.40); RDW 14.1 % (11.5-15.5); WBC 2.3 k/uL (3.8-10.6)
[2019-08-20] MEDS: LEVOFLOXACIN 750MG-D5W PMX 750 MG in DEXTROSE/WATER 1 150ML.BAG IVPB SCH (05:43)
[2019-08-20] MEDS: AMPICILLIN-SULBACTAM 3 GM in SODIUM CHLORIDE 0.9% 100 ML IVPB SCH ×4 (05:43→21:55)
[2019-08-20] MEDS: HEPARIN SODIUM,PORCINE 5,000 UNIT/ML 1 ML VIAL SQ SCH ×3 (05:43→16:41)
[2019-08-20] MEDS: FAMOTIDINE 20 MG/2 ML VIAL IV SCH ×2 (05:44→16:41)
[2019-08-20] MEDS: metroNIDAZOLE 500 MG TAB PO SCH ×4 (05:48→13:32)
[2019-08-20] MEDS: NEOMYCIN 500 MG TAB PO SCH ×4 (05:48→13:32)
[2019-08-20] MEDS: LACTATED RINGERS 1,000 ML IV SCH ×2 (05:48→18:59)
[2019-08-20] MEDS: SODIUM CHLORIDE 0.9% 1,000 ML IV SCH ×3 (05:59→12:03)
[2019-08-20 06:07] LABS: ALT 13 U/L (4-34); AST 28 U/L (14-36); African American GFR (CKD) >90 (>60 ml/min/1.73 sqM); Alkaline Phosphatase 71 U/L (38-126); Anion Gap 4 mmol/L; Blood Urea Nitrogen 2 mg/dL (7-17); Calcium 8.7 mg/dL (8.4-10.2); Carbon Dioxide 26 mmol/L (22-30); Chloride 105 mmol/L (98-107); Glucose 113 mg/dL (74-99); Magnesium 1.6 mg/dL (1.6-2.3); Non-African American GFR(CKD) >90 (>60 ml/min/1.73 sqM); Potassium 3.6 mmol/L (3.5-5.1); Sodium 135 mmol/L (137-145); Total Bilirubin 0.4 mg/dL (0.2-1.3); Total Protein 5.4 g/dL (6.3-8.2)
[2019-08-20] MEDS: SYMBICORT 160-4.5 MCG INHALER INHALATION SCH ×2 (07:02→20:18)
[2019-08-20] MEDS: IPRATROPIUM-ALBUTEROL 3 ML NEB INHALATION SCH ×4 (07:02→20:18)
[2019-08-20] MEDS ORDERED: ALPRAZolam 0.25 MG TAB PO PRN (07:20)
[2019-08-20] MEDS ORDERED: ALPRAZolam 0.5 MG TAB PO PRN ×2 (07:20→09:50)
[2019-08-20] MEDS ORDERED: NITROGLYCERIN SL TABS 0.4 MG TAB SUBLINGUAL PRN ×2 (07:20→09:50)
[2019-08-20] MEDS ORDERED: ASPIRIN 325 MG TAB PO STA ×2 (07:20→09:50)
[2019-08-20] MEDS ORDERED: ATORVASTATIN 80 MG TAB PO STA ×2 (07:20→09:50)
[2019-08-20] MEDS ORDERED: SODIUM CHLORIDE 0.9% 1,000 ML in EMPTY BAG 1 BAG IV ONE ×2 (07:20→09:50)
[2019-08-20] MEDS ORDERED: MELOXICAM 7.5 MG TAB PO ONE (08:00)
[2019-08-20] MEDS ORDERED: ALVIMOPAN 12 MG CAPSULE PO ONE (08:00)
[2019-08-20] MEDS ORDERED: ACETAMINOPHEN TAB 500 MG TAB PO ONE (08:00)
[2019-08-20] MEDS: MORPHINE SULFATE 4 MG/ML SYRINGE IV PRN ×4 (08:40→21:56)
[2019-08-20] MEDS: METOPROLOL SUCCINATE (ER) 50 MG TAB.ER.24H PO SCH (08:45)
[2019-08-20] MEDS: NICOTINE 21MG/24HR PATCH TRANSDERM SCH (09:11)
[2019-08-20] MEDS ORDERED: LIDOCAINE 1% INJ 10MG/ML (20 ML MDV) ONE (10:08)
[2019-08-20] MEDS ORDERED: VERAPAMIL 2.5 MG/ML 2 ML AMP ONE (10:08)
[2019-08-20] MEDS ORDERED: fentaNYL (PF) 50 MCG/ML 2 ML AMP ONE (10:09)
[2019-08-20] MEDS ORDERED: SODIUM CHLORIDE 0.9% 1,000 ML IV ONE (10:25)
[2019-08-20] MEDS ORDERED: MIDAZOLAM 2 MG/2 ML VIAL IV ONE (10:35)
[2019-08-20] MEDS ORDERED: fentaNYL (PF) 50 MCG/ML 2 ML AMP IV ONE (10:35)
[2019-08-20] MEDS ORDERED: LIDOCAINE 1% INJ 10MG/ML (20 ML MDV) SQ ONE (10:37)
[2019-08-20] MEDS: VERAPAMIL SYRINGE (5 MG/10 ML) INTRAARTER ONE ×2 (10:40→11:20)
[2019-08-20] MEDS ORDERED: HEPARIN SODIUM 1,000 UN/ML (10ML VL) IV ONE (10:41)
[2019-08-20] MEDS ORDERED: IOPAMIDOL-370 100ML BTL INJ ONE (11:00)
[2019-08-20] MEDS ORDERED: IOPAMIDOL-370 50ML BTL INJ ONE (11:05)
[2019-08-20] MEDS ORDERED: RX INFO: IV CONTRAST WAS GIVEN 1 EACH MISC MISCELLANE PRN (11:32)
--- NOTE | 2019-08-20 11:39 | P.CARDCATH ---
Date of Procedure: 08/20/19 Preoperative Diagnosis: Nonsustained V. tach, abnormal echo Postoperative Diagnosis: Diffuse coronary artery disease Procedure(s) Performed: Left heart cath with LV gram Description of Procedure: HISTORY: This is a 78-year-old female with history of smoking who was admitted to the hospital and was found to have cecal mass. She is going to have surgery. Pre-op echo Cardigan showed septal hypokinesia. Patient also having nons ustained V. tach. In view of her age and risk factors and echo findings, patient is advised to have a cardiac cath for definitive diagnosis CONSENT:I have discussed the risks, benefits and alternative therapies for the above-mentioned procedure and for both sedation/analgesia as well as necessary blood product administration, if indicated, as they pertain to this patient. The patient has indicated understanding and acceptance of the risks and procedures discussed. PROCEDURE: Patient was brought to the lab in a fasting state. Patient was given some IV sedation. The right wrist is infiltrated with lidocaine and right artery was entered using Seldinger technique. A 6-Prydeinig catheter was left in place and selective coronary arteriography and left ventriculography was performed. Patient tolerated the procedure well. MS bands was applied for hemostasis. No immediate complications were noted and patient was transferred to [facility] in a stable condition Conscious Sedation: Versed 1mg Fentanyl 25 g Duration 30minutes HEMODYNAMICS: The aortic pressure is 160/70. The left ventricle end-diastolic pressure is 20 SELECTIVE CORONARY ARTERIOGRAPHY: LEFT MAIN: Short and divides into left anterior descending and circumflex coronary artery THE LEFT ANTERIOR DESCENDING CORONARY ARTERY: This is a fairly caliber vessel with about 40-50% lesion involving the proximal portion and there is about 90% stenosis of the diagonal branch midportion THE LEFT CIRCUMFLEX AND IS CORONARY ARTERY:. This is a good caliber vessel with about 60% lesion proximally followed by ectatic area THE RIGHT CORONARY ARTERY: And spread vessel free of any significant focal lesions LEFT VENTRICULOGRAPHY: Revealed normal-sized cardiac silhouette with mild hypokinesis of the anteroapical area with an ejection fraction of 50% FINAL IMPRESSION: Two-vessel coronary artery disease with moderate stenosis. Critical lesion involving the first diagonal No critical lesions are noted except in the small diagonal branch. PLAN: Reviewed comes with on-call disease management nurse. Advised continuation maximum medical therapy. Patient is being cleared for surgery with the above average risk PROGNOSIS: Guarded
[2019-08-20 11:50] LABS: % Iron Saturation 13.64 (12.00-45.00)
--- NOTE | 2019-08-20 12:00 | ECHOF ---
Referral Reason:LV FUNCTION MEASUREMENTS -------- HEIGHT: 160.0 cm WEIGHT: 79.4 kg BP: IVSd: 1.6 cm (0.6 - 1.1) LVIDd: 3.6 cm (3.9 - 5.3) LVPWd: 1.2 cm (0.6 - 1.1) IVSs: 1.5 cm LVIDs: 2.8 cm LVPWs: 1.7 cm Ao Diam: 3.2 cm (2.0 - 3.7) AV Cusp: 1.2 cm (1.5 - 2.6) LA Diam: 3.8 cm (2.7 - 3.8) MV EXCURSION: 16.659 mm (> 18.000) MV EF SLOPE: 182 mm/s (70 - 150) EPSS: 1.0 cm AV maxP.61 mmHg AV meanP.57 mmHg AR PHT: 902 ms RAP: 5.00 mmHg RVSP: 17.98 mmHg FINDINGS -------- Sinus rhythm. This was a technically difficult study with suboptimal views. The left ventricular size is normal. There is moderate concentric left ventricular hypertrophy. O verall left ventricular systolic function is mild-moderately impaired with, an EF between 40 - 45 %. Mid anteroseptal LV wall motion is hypokinetic. Apical septum LV wall motion is hypokinetic. The right ventricle is normal in size. The left atrial size is normal. The right atrial size is normal. 5.0mg OF Lumason UTLIZED: 2 OR MORE WALL SEGMENTS NOT VISUALIZED. There is mild to moderate aortic valve sclerosis. There is mild aortic regurgitation. Peak/mean g radient across the Aortic Valve is 12.61mmHg / 6.57mmHg. The mitral valve leaflets are mildly thickened. Mild mitral regurgitation is present. The tricuspid valve appears structurally normal. Mild tricuspid regurgitation present. Right vent ricular systolic pressure is normal at < 35 mmHg. There is no pulmonic regurgitation present. The aortic root size is normal. IVC Not well visulized. There is no pericardial effusion. CONCLUSIONS -------- 1. There is moderate concentric left ventricular hypertrophy. 2. Overall left ventricular systolic function is mild-moderately impaired with, an EF between 40 - 45 %. 3. Mid anteroseptal LV wall motion is hypokinetic. 4. Apical septum LV wall motion is hypokinetic. 5. The left atrial size is normal. 6. 5.0mg OF Lumason UTLIZED: 2 OR MORE WALL SEGMENTS NOT VISUALIZED. 7. There is mild to moderate aortic valve sclerosis. 8. There is mild aortic regurgitation. 9. Peak/mean gradient across the Aortic Valve is 12.61mmHg / 6.57mmHg. 10. The mitral valve leaflets are mildly thickened. 11. Mild mitral regurgitation is present. 12. Mild tricuspid regurgitation present. 13. There is no pulmonic regurgitation present. 14. There is no pericardial effusion. HAND STEMMER: Daniela Madison RDCS
[2019-08-20] MEDS ORDERED: Antibiotics per Pharmacy 1 EACH MISC MISCELLANE PRN (12:22)
[2019-08-20 13:09] LABS: Basophils % (A) 1 %; Eosinophils # (A) 0.1 k/uL (0-0.7); Eosinophils % (A) 3 %; HCT 36.7 % (34.0-46.0); HGB 11.4 gm/dL (11.4-16.0); Hypochromasia Marked; Lymphocytes # (A) 0.8 k/uL (1.0-4.8); Lymphocytes % (A) 25 %; MCH 27.3 pg (25.0-35.0); MCHC 30.9 g/dL (31.0-37.0); MCV 88.4 fL (80.0-100.0); Mean Platelet Volume 7.6; Monocytes # (A) 0.2 k/uL (0-1.0); Monocytes % (A) 6 %; Neutrophils # (A) 2.1 k/uL (1.3-7.7); Neutrophils % (A) 64 %; Platelet Count 209 k/uL (150-450); RBC 4.16 m/uL (3.80-5.40); RDW 14.1 % (11.5-15.5); WBC 3.3 k/uL (3.8-10.6)
[2019-08-20 13:25] LABS: ALT 16 U/L (4-34); AST 34 U/L (14-36); African American GFR (CKD) >90 (>60 ml/min/1.73 sqM); Albumin 3.2 g/dL (3.5-5.0); Alkaline Phosphatase 77 U/L (38-126); Anion Gap 10 mmol/L; Blood Urea Nitrogen <2 mg/dL (7-17); Calcium 8.8 mg/dL (8.4-10.2); Carbon Dioxide 23 mmol/L (22-30); Chloride 106 mmol/L (98-107); Glucose 95 mg/dL (74-99); Non-African American GFR(CKD) >90 (>60 ml/min/1.73 sqM); Potassium 3.8 mmol/L (3.5-5.1); Sodium 139 mmol/L (137-145); Total Bilirubin 0.5 mg/dL (0.2-1.3); Total Protein 5.9 g/dL (6.3-8.2)
--- NOTE | 2019-08-20 14:08 | P.PN ---
Subjective Progress Note Date: 08/20/19 (delayed charting seen at 1030) Principal diagnosis: abdominal pain Patient is a 78 yo CF with COPD, HTN, chronic pain, and tobacco abuse who presented with complaints of right sided abdominal pain of 2 months duration. Her pain had been gradually worsening and she had seen pain management and was to have an MRI on 08/19/2019 but the pain became to severe to manage at home and she presented to the emergency department. On arrival to the ED she underwent an extensive evaluation. She was slightly hypertensive, Lab work showed an elevated CRP at 56.1 but was otherwise unremarkable. Her initial CT abdomen and pelvis showed extensive inflammatory changes in the right lower quadrant with fat stranding and fluid around the cecum, dilated distal small bowel, and dilated cecum. Concerns for a possible inflammatory bowel disease, enteritis, or ruptured appendix with abscess. She was subsequently admitted and started on IV fluids, pain medication, antibiotics. Surgery was consulted. She was able to have bowel movements and pass gas after admission. She had a repeat CT abdomen and pelvis performed on 08/16 which showed inflammatory changes in the right lower quadrant, distended terminal ileum, cecum with focal area of soft tissue attenuation, small bowel loops with fluid filled. He had some distention, possible cecal mass with some involvement in the mesentery tumor, adhesive disease, and partial obstruction. They recommended endoscopic correlation. Patient underwent bowel prep on 08/17. Colonoscopy on 08/18 showed cecal mass at the origin of the appendix. Case d iscussed with Dr. Coker and plan is for robotic versus open partial colectomy with removal of the mass. Patient underwent echo on 08/19/2019 which showed a depressed ejection fraction of 45%. She also had an episode of nonsustained V. tach. She subsequently underwent cardiac catheterization on 08/19 which demonstrated a 40-50% lesion involving the LAD, and a 60% lesion involving the left circumflex, there is a 90% stenosis of the diagonal branch midportion of the LAD. Case was discussed with interventional cardiology who recommended maximizing medical therapy and clearance for surgery with elevated risk. Patient seen and examined at bedside. She is very upset about having have a cardiac cath. She feels that we are delaying her surgery. She currently denies any chest pain, shortness of breath, or nausea. She complains of lower extremity edema and states it's because she has been on fluids and we have been holding her furosemide. Initially Lasix was not on her home medications but she does have a pill bottle which shows that she has been prescribed 40 mg daily. Objective - Vital Signs Vital signs: Vital Signs Temp 97.8 F 08/20/19 04:00 Pulse 114 H 08/20/19 08:00 Resp 18 08/20/19 08:00 BP 143/90 08/20/19 08:00 Pulse Ox 93 L 08/20/19 08:00 Intake & Output 08/19/19 08/20/19 08/20/19 18:59 06:59 18:59 Intake Total 1120 100 Balance 1120 100 Intake: IV 1000 100 Sodium Chloride 0.9% 1, 1000 000 ml @ 125 mls/hr IV . Q8H [facility] Rx#:[id number] Oral 120 Other: Voiding Method Toilet # Voids 4 2 # Bowel Movements 1 - Exam General: ill appearing, mild distress due to pain, appears at stated age Derm: warm, dry Head: atraumatic, normocephalic, symmetric Eyes: EOMI, no lid lag, anicteric sclera Mouth: no lip lesion, mucus membranes moist Cardiovascular: S1S2 reg, no murmur, positive posterior tibial pulse bilateral, Lungs: CTA bilateral, no rhonchi, no rales , no accessory muscle use Abdominal: soft, + tender to palpation diffusely most severe in RLQ, no guarding, no appreciable organomegaly Ext: no gross muscle atrophy, no edema, no contractures Neuro: CN II-XI grossly intact, no focal neuro deficits Psych: Alert, oriented, upset and angry - Labs CBC & Chem 7: 08/20/19 12:42 08/20/19 12:42 Labs: Abnormal Lab Results - Last 24 Hours (Table) 08/20/19 08/20/19 08/20/19 Range/Units 04:34 04:34 04:34 WBC 2.3 L (3.8-10.6) k/uL RBC 3.66 L (3.80-5.40) m/uL Hgb 10.3 L (11.4-16.0) gm/dL Hct 31.7 L (34.0-46.0) % MCHC (31.0-37.0) g/dL Lymphocytes # 0.6 L (1.0-4.8) k/uL Sodium 135 L (137-145) mmol/L BUN 2 L (7-17) mg/dL Creatinine 0.49 L (0.52-1.04) mg/dL Glucose 113 H (74-99) mg/dL Iron 33 L (50-170) ug/dL Total Protein 5.4 L (6.3-8.2) g/dL Albumin 3.0 L (3.5-5.0) g/dL 08/20/19 08/20/19 Range/Units 12:42 12:42 WBC 3.3 L (3.8-10.6) k/uL RBC (3.80-5.40) m/uL Hgb (11.4-16.0) gm/dL Hct (34.0-46.0) % MCHC 30.9 L (31.0-37.0) g/dL Lymphocytes # 0.8 L (1.0-4.8) k/uL Sodium (137-145) mmol/L BUN <2 L (7-17) mg/dL Creatinine 0.49 L (0.52-1.04) mg/dL Glucose (74-99) mg/dL Iron (50-170) ug/dL Total Protein 5.9 L (6.3-8.2) g/dL Albumin 3.2 L (3.5-5.0) g/dL Microbiology - Last 24 Hours (Table) 08/17/19 02:44 Blood Culture - Preliminary Blood No Growth after 72 hours Assessment and Plan Assessment: 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 and intractable abdominal pain - s/p colonoscopy and plan is for surgical resection on 08/20 case - cardio recs for indication of high risk, but no name to further delay surgery - on clear liquid diet -Morphine - IVF decreased secondary to lower extremity edema - once pathology is back oncology consult - continued with unasyn and flagyl 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% -Cardiology recommendations appreciated -Continue with beta armando -Plan will be to start OSCAR inhibitor after surgery as patient has recent contrast dye exposure -Decrease IV fluids, initiation of Lasix postoperatively Coronary artery disease -Status post cath -Cardiology recommendations appreciated -Maximized medical therapy with beta armando, aspirin, and Lipitor COPD without exacerbation - recommend preop and post op bronchodilators - spiriva - symbicort - abuterol HTN - controlled - metoprolol Pre DM with A1C 6.4 - careful monitoring of sugary perioperative to decrease risks of delayed wound healing and infection - Insulin sliding scale Tobacco abuse - cessation - nicotine replacement DVT prophylaxis: Heparin Discussed with: Patient, Nursing, Anticipated discharge: 3-[address]: Home vs SNF A total of 45 minutes was spent on the care of this complex patient more than 50% of the time was spent in counseling and care coordination.
[2019-08-20 14:18] LABS: Magnesium 1.6 mg/dL (1.6-2.3); Phosphorus 3.1 mg/dL (2.5-4.5)
--- NOTE | 2019-08-20 14:27 | P.PN ---
Subjective Progress Note Date: 08/20/19 CHIEF COMPLAINT: Right lower quadrant abdominal pain HISTORY OF PRESENT ILLNESS: The patient is a 78-year-old female who presented with right lower quadrant abdominal pain. Diagnostic studies including computed tomography scan demonstrated questionable neoplasm along the cecum. Colonoscopy was performed yesterday with finding of neoplastic process of the appendix. She also had ventricular tachycardia arrhythmia which prompted cardiac catheterization completed earlier today. Patient is on amiodarone. She reports a right lower quadrant and down pain has improved. ROS: No reports of nausea and vomiting. No fevers or chills. PHYSICAL EXAM: VITAL SIGNS: Reviewed CONSTITUTIONAL: Well developed and in no acute distress. EYES: Conjuctivae without sclera icterus. Extraocular movements grossly intact. HEAD, EARS, NOSE, THROAT: Moist buccal mucosa. Head is atraumatic, normocephalic. Hears conversational speech. No nasal drainage. NECK: Supple. No thyroidomegaly. RESPIRATORY: Non-labored respirations and equal bilateral excursions. CARDIOVASCULAR: Palpable 2+ radial pulses. ABDOMEN: Soft, tenderness right lower quadrant, improved. MUSCULOSKELETAL: No gross deformity of the lower extremities noted. No clubbing. No cyanosis. SKIN: Good skin turgor. Well perfused. NEUROLOGIC: Cranial nerves II through XII grossly intact. No focal or lateralizing signs. PSYCH: Appropriate affect. Alert and oriented to person, place and time. CLINICAL LABS: White blood cell count normal. Iron is low. STUDIES: Chest x-ray was independently reviewed by me with questionable right pl eural effusion CARDIAC: Heart catheterization demonstrates no acute stenotic lesions requiring stenting. Ejection fraction diminished at 45% ASSESSMENT: 1. Neoplasm, cecum 2. Ischemic cardiomyopathy PLAN: 1. Will proceed with a heart healthy diet. 2. Augmentin nutrition in the interim including with iron infusion for low iron. 3. Per discussion with the nurse, cardiology note confirms patient agreeable with elevated cardiac arrest to proceed with surgery. 4. Will proceed with surgical intervention anticipated for Saturday, robotic right hemicolectomy 5. Enhance colon recovery program initiated Objective - Vital Signs Vital signs: Vital Signs Temp 97.8 F 08/20/19 04:00 Pulse 84 08/20/19 14:00 Resp 17 08/20/19 14:00 BP 137/75 08/20/19 14:00 Pulse Ox 93 L 08/20/19 08:00 Intake & Output 08/19/19 08/20/19 08/20/19 18:59 06:59 18:59 Intake Total 1120 100 Balance 1120 100 Weight 78.2 kg Intake: IV 1000 100 Sodium Chloride 0.9% 1, 1000 000 ml @ 125 mls/hr IV . Q8H [facility] Rx#:[id number] Oral 120 Other: Voiding Method Toilet # Voids 4 2 # Bowel Movements 1 - Labs CBC & Chem 7: 08/20/19 12:42 08/20/19 12:42 Labs: Abnormal Lab Results - Last 24 Hours (Table) 08/20/19 08/20/19 08/20/19 Range/Units 04:34 04:34 04:34 WBC 2.3 L (3.8-10.6) k/uL RBC 3.66 L (3.80-5.40) m/uL Hgb 10.3 L (11.4-16.0) gm/dL Hct 31.7 L (34.0-46.0) % MCHC (31.0-37.0) g/dL Lymphocytes # 0.6 L (1.0-4.8) k/uL Sodium 135 L (137-145) mmol/L BUN 2 L (7-17) mg/dL Creatinine 0.49 L (0.52-1.04) mg/dL Glucose 113 H (74-99) mg/dL Iron 33 L (50-170) ug/dL Total Protein 5.4 L (6.3-8.2) g/dL Albumin 3.0 L (3.5-5.0) g/dL 08/20/19 08/20/19 Range/Units 12:42 12:42 WBC 3.3 L (3.8-10.6) k/uL RBC (3.80-5.40) m/uL Hgb (11.4-16.0) gm/dL Hct (34.0-46.0) % MCHC 30.9 L (31.0-37.0) g/dL Lymphocytes # 0.8 L (1.0-4.8) k/uL Sodium (137-145) mmol/L BUN <2 L (7-17) mg/dL Creatinine 0.49 L (0.52-1.04) mg/dL Glucose (74-99) mg/dL Iron (50-170) ug/dL Total Protein 5.9 L (6.3-8.2) g/dL Albumin 3.2 L (3.5-5.0) g/dL Microbiology - Last 24 Hours (Table) 08/17/19 02:44 Blood Culture - Preliminary Blood No Growth after 72 hours Assessment and Plan (1) Neoplasm of cecum Current Visit: Yes Status: Acute Code(s): D49.0 - NEOPLASM OF UNSPECIFIED BEHAVIOR OF DIGESTIVE SYSTEM SNOMED Code(s): 155760960 (2) Right lower quadrant pain Current Visit: Yes Status: Acute Code(s): R10.31 - RIGHT LOWER QUADRANT PAIN SNOMED Code(s): 494701120 (3) Ventricular tachyarrhythmia Current Visit: Yes Status: Acute Code(s): I47.2 - VENTRICULAR TACHYCARDIA SNOMED Code(s): 30611034 (4) Adenoma of transverse colon Current Visit: Yes Status: Acute Code(s): D12.3 - BENIGN NEOPLASM OF TRANSVERSE COLON SNOMED Code(s): 638554992 (5) Sigmoid diverticulosis Current Visit: Yes Status: Acute Code(s): K57.30 - DVRTCLOS OF LG INT W/O PERFORATION OR ABSCESS W/O BLEEDING SNOMED Code(s): 375619503 (6) COPD exacerbation Current Visit: No Status: Acute Code(s): J44.1 - CHRONIC OBSTRUCTIVE PULMONARY DISEASE W (ACUTE) EXACERBATION SNOMED Code(s): 224816351
[2019-08-20] MEDS: SODIUM FERRIC GLUCONAT-SUCROSE 125 MG in SODIUM CHLORIDE 0.9% 100 ML IVPB SCH (15:33)
[2019-08-20] MEDS ORDERED: Magnesium Replacement Protocol 1 EACH MISC MISCELLANE PRN (15:47)
[2019-08-20] MEDS ORDERED: Potassium Replacement Protocol 1 EACH MISC MISCELLANE PRN (15:47)
[2019-08-20] MEDS ORDERED: POTASSIUM CHLORIDE ER 20 MEQ TAB.ER PO SCH (16:00)
[2019-08-20] MEDS: MAGNESIUM SULFATE-D5W PMX 1 GM in DEXTROSE/WATER 1 100ML.BAG IVPB SCH ×2 (16:40→20:31)
[2019-08-21] MEDS: HEPARIN SODIUM,PORCINE 5,000 UNIT/ML 1 ML VIAL SQ SCH ×3 (00:38→14:37)
[2019-08-21] MEDS: MORPHINE SULFATE 4 MG/ML SYRINGE IV PRN ×5 (01:02→20:32)
[2019-08-21] MEDS: FAMOTIDINE 20 MG/2 ML VIAL IV SCH (03:14)
[2019-08-21] MEDS: AMPICILLIN-SULBACTAM 3 GM in SODIUM CHLORIDE 0.9% 100 ML IVPB SCH ×4 (03:14→20:31)
[2019-08-21] MEDS ORDERED: metroNIDAZOLE-NS PMX 500 MG in SALINE 1 100ML.BAG IVPB ONE (05:00)
[2019-08-21 05:15] LABS: African American GFR (CKD) >90 (>60 ml/min/1.73 sqM); Anion Gap 8 mmol/L; Blood Urea Nitrogen 4 mg/dL (7-17); Calcium 8.7 mg/dL (8.4-10.2); Carbon Dioxide 24 mmol/L (22-30); Chloride 104 mmol/L (98-107); Glucose 120 mg/dL (74-99); Non-African American GFR(CKD) >90 (>60 ml/min/1.73 sqM); Potassium 3.8 mmol/L (3.5-5.1); Sodium 136 mmol/L (137-145)
[2019-08-21] MEDS: SYMBICORT 160-4.5 MCG INHALER INHALATION SCH ×2 (08:19→20:06)
[2019-08-21] MEDS: IPRATROPIUM-ALBUTEROL 3 ML NEB INHALATION SCH ×4 (08:19→20:06)
[2019-08-21] MEDS: METOPROLOL SUCCINATE (ER) 50 MG TAB.ER.24H PO SCH (09:21)
[2019-08-21] MEDS: ISOSORBIDE MONONITRATE ER 30 MG TAB.ER.24H PO SCH (09:21)
[2019-08-21] MEDS: NICOTINE 21MG/24HR PATCH TRANSDERM SCH (09:21)
[2019-08-21] MEDS: SODIUM FERRIC GLUCONAT-SUCROSE 125 MG in SODIUM CHLORIDE 0.9% 100 ML IVPB SCH (09:48)
--- NOTE | 2019-08-21 12:51 | P.PN ---
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 She reports right lower quadrant abdominal pain has improved with initiation of IV antibiotics. During hospitalization, patient had a run of ventricular tachyarrhythmia and had a cardiac catheterization with findings of depressed fraction is over 45%. Patient is tolerating diet. Laboratory work confirms iron deficiency anemia. Patient is a chronic tobacco user. ROS: No reports of nausea and vomiting. No fevers or chills. PHYSICAL EXAM: VITAL SIGNS: Reviewed CONSTITUTIONAL: Well developed and in no acute distress. EYES: Conjuctivae without sclera icterus. Extraocular movements grossly intact. HEAD, EARS, NOSE, THROAT: Moist buccal mucosa. Head is atraumatic, n ormocephalic. Hears conversational speech. No nasal drainage. NECK: Supple. No thyroidomegaly. RESPIRATORY: Non-labored respirations and equal bilateral excursions. CARDIOVASCULAR: Palpable 2+ radial pulses. ABDOMEN: Soft, no peritonitis. Mild tenderness right lower quadrant. MUSCULOSKELETAL: No gross deformity of the lower extremities noted. No clubbing. No cyanosis. SKIN: Good skin turgor. Well perfused. NEUROLOGIC: Cranial nerves II through XII grossly intact. No focal or lateraliz ing signs. PSYCH: Appropriate affect. Alert and oriented to person, place and time. CLINICAL LABS: White blood cell count low 3.3. Hemoglobin 11.4. ASSESSMENT: 1. Neoplasm, cecum 2. Ischemic cardiomyopathy PLAN: 1. Continue heart healthy diet to optimize nutrition. 2. Ensure between meals to augment nutrition due to prolonged inadequate protein intake status 3. Iron infusions ordered for low iron and preoperative management of anemia 4. Recommend robotic colectomy, anticipated for Saturday Objective - Vital Signs Vital signs: Vital Signs Temp 97.6 F 08/21/19 00:00 Pulse 96 08/21/19 08:38 Resp 19 08/21/19 08:00 BP 146/93 08/21/19 08:00 Pulse Ox 95 08/21/19 08:00 Intake & Output 08/20/19 08/21/19 08/21/19 18:59 06:59 18:59 Intake Total 500 600 200 Output Total 700 0 500 Balance -200 600 -300 Weight 78.2 kg 78.2 kg Intake: IV 500 50 200 Sodium Chloride 0.9% 1, 400 50 200 000 ml @ 125 mls/hr IV . Q8H ROSSY Rx#:[id number] Intake, IV Titration 550 Amount Ampicillin-Sulbactam 3 gm 200 In Sodium Chloride 0.9% 100 ml @ 200 mls/hr IVPB Q6H ROS[facility] Rx#:[id number] Magnesium Sulfate-D5w Pmx 100 1 gm In Dextrose/Water 1 100ml.bag @ 100 mls/hr IVPB Q1H [facility] Rx#: [id number] Sodium Chloride 0.9% 1, 250 000 ml @ 50 mls/hr IV . Q20H ROSSY Rx#:[id number] Output: Urine 700 0 500 Other: Voiding Method Toilet Toilet Toilet # Voids 3 - Labs CBC & Chem 7: 08/20/19 12:42 08/21/19 04:15 Labs: Abnormal Lab Results - Last 24 Hours (Table) 08/20/19 08/20/19 08/21/19 Range/Units 12:42 12:42 04:15 WBC 3.3 L (3.8-10.6) k/uL MCHC 30.9 L (31.0-37.0) g/dL Lymphocytes # 0.8 L (1.0-4.8) k/uL Sodium 136 L (137-145) mmol/L BUN <2 L 4 L (7-17) mg/dL Creatinine 0.49 L (0.52-1.04) mg/dL Glucose 120 H (74-99) mg/dL Total Protein 5.9 L (6.3-8.2) g/dL Albumin 3.2 L (3.5-5.0) g/dL Microbiology - Last 24 Hours (Table) 08/17/19 02:44 Blood Culture - Preliminary Blood No Growth after 96 hours Assessment and Plan (1) Neoplasm of cecum Current Visit: Yes Status: Acute Code(s): D49.0 - NEOPLASM OF UNSPECIFIED BEHAVIOR OF DIGESTIVE SYSTEM SNOMED Code(s): 617122200 (2) Right lower quadrant pain Current Visit: Yes Status: Acute Code(s): R10.31 - RIGHT LOWER QUADRANT PAIN SNOMED Code(s): 478770851 (3) Ventricular tachyarrhythmia Current Visit: Yes Status: Acute Code(s): I47.2 - VENTRICULAR TACHYCARDIA SNOMED Code(s): 89584855 (4) Adenoma of transverse colon Current Visit: Yes Status: Acute Code(s): D12.3 - BENIGN NEOPLASM OF TRANSVERSE COLON SNOMED Code(s): 809297018 (5) Sigmoid diverticulosis Current Visit: Yes Status: Acute Code(s): K57.30 - DVRTCLOS OF LG INT W/O PERFORATION OR ABSCESS W/O BLEEDING SNOMED Code(s): 071844718 (6) COPD exacerbation Current Visit: No Status: Acute Code(s): J44.1 - CHRONIC OBSTRUCTIVE PUL MONARY DISEASE W (ACUTE) EXACERBATION SNOMED Code(s): 114807307 (7) Iron deficiency anemia Current Visit: Yes Status: Acute Code(s): D50.9 - IRON DEFICIENCY ANEMIA, UNSPECIFIED SNOMED Code(s): 06307642 (8) Ischemic cardiomyopathy Current Visit: Yes Status: Acute Code(s): I25.5 - ISCHEMIC CARDIOMYOPATHY SNOMED Code(s): 433827060
[2019-08-21] MEDS: FUROSEMIDE 40 MG TAB PO SCH (14:36)
[2019-08-21] MEDS: lisinopriL 10 MG TAB PO SCH (14:37)
--- NOTE | 2019-08-21 14:58 | P.PN ---
Subjective Progress Note Date: 08/21/19 This 78-year-old female is admitted to hospital with abdominal discomfort. Found to have malignancy of the cecal area. Patient is scheduled to have surgery on Saturday. Patient was seen for cardiac evaluation and was found to have an ejection fraction of 45% with septal hypokinesia on the echocardiogram. Had episodes of nonsustained V. tach. Cardiac catheterization revealed moderate to severe disease involving the circumflex and mild to moderate disease along the LAD and a critical lesion involving the small diagonal. Patient is advised maximum medical therapy and was cleared for surgery with antibiotic risk. Patient is not having any chest pain or shortness of breath. Her puncture site in the right wrist is healing well without any hematoma. We'll continue with beta blockers, nitrates and may use amiodarone during perioperative period. Patient will be started on olesya inhibitors eventually. Follow-up as an outpatient Objective - Vital Signs Vital signs: Vital Signs Temp 97.6 F 08/21/19 00:00 Pulse 96 08/21/19 08:38 Resp 19 08/21/19 08:00 BP 146/93 08/21/19 08:00 Pulse Ox 95 08/21/19 08:00 Intake & Output 08/20/19 08/21/19 08/21/19 18:59 06:59 18:59 Intake Total 500 600 200 Output Total 700 0 500 Balance -200 600 -300 Weight 78.2 kg 78.2 kg Intake: IV 500 50 200 Sodium Chloride 0.9% 1, 400 50 200 000 ml @ 125 mls/hr IV . Q8H ROS[facility] Rx#:[id number] Intake, IV Titration 550 Amount Ampicillin-Sulbactam 3 gm 200 In Sodium Chloride 0.9% 100 ml @ 200 mls/hr IVPB Q6H [facility] Rx#:[id number] Magnesium Sulfate-D5w Pmx 100 1 gm In Dextrose/Water 1 100ml.bag @ 100 mls/hr IVPB Q1H [facility] Rx#: [id number] Sodium Chloride 0.9% 1, 250 000 ml @ 50 mls/hr IV . Q20H ROS[facility] Rx#:[id number] Output: Urine 700 0 500 Other: Voiding Method Toilet Toilet Toilet # Voids 3 - Exam GENERAL EXAM: Patient is alert and oriented and doesn't appear to be in any acute distress HEENT: Normocephalic. Normal reaction of pupils, equal size, normal range of extraocular motion. No erythema or exudates in the throat. NECK: No masses, no nuchal rigidity. CHEST: No chest wall deformity. LUNGS: Equal air entry with no crackles or wheeze. HEART: S1 and S2 normal with no audible mumurs or gallops. Regular rhythm, femorals equal on both sides.. ABDOMEN: No hepatosplenomegaly, normal bowel sounds, no guarding or rigidity. SKIN: No rashes CENTRAL NERVOUS SYSTEM: No focal deficits. EXTREMITIES: No cyanosis, clubbing or edema. PUNCTURE SITE: Soft with preserved pulse, right radial - Labs CBC & Chem 7: 08/20/19 12:42 08/21/19 04:15 Labs: Abnormal Lab Results - Last 24 Hours (Table) 08/21/19 Range/Units 04:15 Sodium 136 L (137-145) mmol/L BUN 4 L (7-17) mg/dL Glucose 120 H (74-99) mg/dL Microbiology - Last 24 Hours (Table) 08/17/19 02:44 Blood Culture - Preliminary Blood No Growth after 96 hours Assessment and Plan (1) CAD (coronary artery disease) Current Visit: Yes Status: Acute Code(s): I25.10 - ATHSCL HEART DISEASE OF [place] CORONARY ARTERY W/O ANG PCTRS SNOMED Code(s): 05499986 (2) Acute exacerbation of chronic obstructive pulmonary disease (COPD) Current Visit: No Status: Acute Code(s): J44.1 - CHRONIC OBSTRUCTIVE PULMONARY DISEASE W (ACUTE) EXACERBATION SNOMED Code(s): 561041820 (3) Essential (primary) hypertension Current Visit: No Status: Acute Code(s): I10 - ESSENTIAL (PRIMARY) HYPERTENSION SNOMED Code(s): 89423735 (4) Nonsustained ventricular tachycardia Current Visit: Yes Status: Acute Code(s): I47.2 - VENTRICULAR TACHYCARDIA SNOMED Code(s): 975695984 Plan: Continue current medical therapy. Cleared for surgery. Follow-up as an outpatient
--- NOTE | 2019-08-21 15:16 | P.PN ---
Subjective Progress Note Date: 08/21/19 (delayed charting seen at 1215) Principal diagnosis: abdominal pain Patient is a 78 yo CF with COPD, HTN, chronic pain, and tobacco abuse who presented with complaints of right sided abdominal pain of 2 months duration. Her pain had been gradually worsening and she had seen pain management and was to have an MRI on 08/19/2019 but the pain became to severe to manage at home and she presented to the emergency department. On arrival to the ED she underwent an extensive evaluation. She was slightly hypertensive, Lab work showed an elevated CRP at 56.1 but was otherwise unremarkable. Her initial CT abdomen and pelvis showed extensive inflammatory changes in the right lower quadrant with fat stranding and fluid around the cecum, dilated distal small bowel, and dilated cecum. Concerns for a possible inflammatory bowel disease, enteritis, or ruptured appendix with abscess. She was subsequently admitted and started on IV fluids, pain medication, antibiotics. Surgery was consulted. She was able to have bowel movements and pass gas after admission. She had a repeat CT abdomen and pelvis performed on 08/16 which showed inflammatory changes in the right lower quadrant, distended terminal ileum, cecum with focal area of soft tissue attenuation, small bowel loops with fluid filled. He had some distention, possible cecal mass with some involvement in the mesentery tumor, adhesive disease, and partial obstruction. They recommended endoscopic correlation. Patient underwent bowel prep on 08/17. Colonoscopy on 08/18 showed cecal mass at the origin of the appendix. Case d iscussed with Dr. Coker and plan is for robotic versus open partial colectomy with removal of the mass. Patient underwent echo on 08/19/2019 which showed a depressed ejection fraction of 45%. She also had an episode of nonsustained V. tach. She subsequently underwent cardiac catheterization on 08/19 which demonstrated a 40-50% lesion involving the LAD, and a 60% lesion involving the left circumflex, there is a 90% stenosis of the diagonal branch midportion of the LAD. Interventional cardiology who recommended maximizing medical therapy and clearance for surgery with elevated risk. Patient seen and examined at bedside. No chest pain, SOB, or nausea. Cough is better. Having significant nicotine cravings. Swelling worse than baseline. Tolerating diet. Objective - Vital Signs Vital signs: Vital Signs Temp 97.6 F 08/21/19 00:00 Pulse 96 08/21/19 08:38 Resp 19 08/21/19 08:00 BP 146/93 08/21/19 08:00 Pulse Ox 95 08/21/19 08:00 Intake & Output 08/20/19 08/21/19 08/21/19 18:59 06:59 18:59 Intake Total 500 600 200 Output Total 700 0 500 Balance -200 600 -300 Weight 78.2 kg 78.2 kg Intake: IV 500 50 200 Sodium Chloride 0.9% 1, 400 50 200 000 ml @ 125 mls/hr IV . Q8H [facility] Rx#:[id number] Intake, IV Titration 550 Amount Ampicillin-Sulbactam 3 gm 200 In Sodium Chloride 0.9% 100 ml @ 200 mls/hr IVPB Q6H [facility] Rx#:[id number] Magnesium Sulfate-D5w Pmx 100 1 gm In Dextrose/Water 1 100ml.bag @ 100 mls/hr IVPB Q1H [facility] Rx#: [id number] Sodium Chloride 0.9% 1, 250 000 ml @ 50 mls/hr IV . Q20H [facility] Rx#:[id number] Output: Urine 700 0 500 Other: Voiding Method Toilet Toilet Toilet # Voids 3 - Exam General: ill appearing, no distress , appears at stated age Derm: warm, dry Head: atraumatic, normocephalic, symmetric Eyes: EOMI, no lid lag, anicteric sclera Mouth: no lip lesion, mucus membranes moist Cardiovascular: S1S2 reg, no murmur, positive posterior tibial pulse bilateral, Lungs: Course bs bilateral , no accessory muscle use Abdominal: soft, nontender to palpation, no guarding, no appreciable organomegaly Ext: no gross muscle atrophy, 2+ edema, no contractures Neuro: CN II-XI grossly intact, no focal neuro deficits Psych: Alert, oriented, appropriate affect - Labs CBC & Chem 7: 08/20/19 12:42 08/21/19 04:15 Labs: Abnormal Lab Results - Last 24 Hours (Table) 08/21/19 Range/Units 04:15 Sodium 136 L (137-145) mmol/L BUN 4 L (7-17) mg/dL Glucose 120 H (74-99) mg/dL Microbiology - Last 24 Hours (Table) 08/17/19 02:44 Blood Culture - Preliminary Blood No Growth after 96 hours Assessment and Plan Assessment: 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 and intractable abdominal pain - s/p colonoscopy and plan is for surgical resection on 08/23 case - cardio recs for indication of high risk, but no name to further delay surgery - heart healthy diet - Morphine - IVF stopped as tolerating diet - once pathology is back oncology consult - continued with unasyn Newly 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% -Cardiology recommendations appreciated -Continue with beta armando, add ACEI and resume home Lasix with edema Coronary artery disease -Status post cath -Cardiology recommendations appreciated -Maximized medical therapy with beta armando, aspirin, Imdur and Lipitor COPD without exacerbation - recommend preop and post op bronchodilators - spiriva - symbicort - abuterol HTN - controlled - metoprolol Pre DM with A1C 6.4 - careful monitoring of sugary perioperative to decrease risks of delayed wound healing and infection - Insulin sliding scale Tobacco abuse - cessation - nicotine replacement DVT prophylaxis: Heparin Discussed with: Patient, Nursing, Anticipated discharge: 3-[address]: Home vs SNF A total of 30 minutes was spent on the care of this complex patient more than 50% of the time was spent in counseling and care coordination.
[2019-08-21] MEDS: LACTATED RINGERS 1,000 ML IV SCH (17:35)
[2019-08-21] MEDS: FAMOTIDINE 20 MG TAB PO SCH (20:31)
[2019-08-22] MEDS: MORPHINE SULFATE 4 MG/ML SYRINGE IV PRN ×5 (00:31→21:19)
[2019-08-22] MEDS: HEPARIN SODIUM,PORCINE 5,000 UNIT/ML 1 ML VIAL SQ SCH ×3 (00:31→16:24)
[2019-08-22] MEDS: AMPICILLIN-SULBACTAM 3 GM in SODIUM CHLORIDE 0.9% 100 ML IVPB SCH ×4 (02:17→23:24)
[2019-08-22 06:32] LABS: HCT 31.7 % (34.0-46.0); HGB 10.1 gm/dL (11.4-16.0); Hypochromasia Moderate; MCHC 31.9 g/dL (31.0-37.0); MCV 87.7 fL (80.0-100.0); Mean Platelet Volume 7.5; Platelet Count 219 k/uL (150-450); RBC 3.61 m/uL (3.80-5.40); RDW 14.9 % (11.5-15.5); WBC 3.5 k/uL (3.8-10.6)
[2019-08-22 06:33] LABS: African American GFR (CKD) >90 (>60 ml/min/1.73 sqM); Anion Gap 4 mmol/L; Blood Urea Nitrogen 9 mg/dL (7-17); Calcium 8.6 mg/dL (8.4-10.2); Carbon Dioxide 27 mmol/L (22-30); Chloride 103 mmol/L (98-107); Glucose 119 mg/dL (74-99); Magnesium 1.6 mg/dL (1.6-2.3); Non-African American GFR(CKD) 87 (>60 ml/min/1.73 sqM); Phosphorus 3.8 mg/dL (2.5-4.5); Potassium 3.9 mmol/L (3.5-5.1); Sodium 134 mmol/L (137-145)
[2019-08-22] MEDS ORDERED: POTASSIUM CHLORIDE ER 20 MEQ TAB.ER PO SCH (08:00)
[2019-08-22] MEDS: IPRATROPIUM-ALBUTEROL 3 ML NEB INHALATION SCH ×4 (08:21→19:30)
[2019-08-22] MEDS: SYMBICORT 160-4.5 MCG INHALER INHALATION SCH ×2 (08:22→19:31)
[2019-08-22] MEDS: FAMOTIDINE 20 MG TAB PO SCH ×2 (08:37→23:25)
[2019-08-22] MEDS: lisinopriL 10 MG TAB PO SCH (08:37)
[2019-08-22] MEDS: ISOSORBIDE MONONITRATE ER 30 MG TAB.ER.24H PO SCH (08:37)
[2019-08-22] MEDS: METOPROLOL SUCCINATE (ER) 50 MG TAB.ER.24H PO SCH (08:37)
[2019-08-22] MEDS: FUROSEMIDE 40 MG TAB PO SCH (08:37)
[2019-08-22] MEDS: NICOTINE 21MG/24HR PATCH TRANSDERM SCH (08:39)
[2019-08-22] MEDS: MAGNESIUM SULFATE-D5W PMX 1 GM in DEXTROSE/WATER 1 100ML.BAG IVPB SCH ×2 (08:39→08:40)
[2019-08-22] MEDS: SODIUM FERRIC GLUCONAT-SUCROSE 125 MG in SODIUM CHLORIDE 0.9% 100 ML IVPB SCH (08:40)
[2019-08-22] MEDS: FUROSEMIDE 10 MG/ML 4 ML VIAL IV SCH ×2 (11:26→23:25)
[2019-08-22] MEDS: SODIUM CHLORIDE 0.9% 1,000 ML IV SCH (12:41)
--- NOTE | 2019-08-22 13:16 | P.PN ---
Subjective Progress Note Date: 08/22/19 Principal diagnosis: Right colon mass Patient transferred out of the ICU. Doing well today. White blood cell count 3.5, hemoglobin 10.1. Patient tolerating regular diet today. Objective - Vital Signs Vital signs: Vital Signs Temp 98.4 F 08/22/19 08:00 Pulse 88 08/22/19 11:49 Resp 24 08/22/19 08:00 BP 131/87 08/22/19 08:00 Pulse Ox 96 08/22/19 08:00 Intake & Output 08/21/19 08/22/19 08/22/19 18:59 06:59 18:59 Intake Total 200 440 840 Output Total 500 Balance -300 440 840 Weight 78.2 kg 78.9 kg Intake: IV 200 Sodium Chloride 0.9% 1, 200 000 ml @ 125 mls/hr IV . Q8H [facility] Rx#:[id number] Intake, IV Titration 200 600 Amount Ampicillin-Sulbactam 3 gm 200 100 In Sodium Chloride 0.9% 100 ml @ 200 mls/hr IVPB Q6H [facility] Rx#:[id number] Magnesium Sulfate-D5w Pmx 100 1 gm In Dextrose/Water 1 100ml.bag @ 100 mls/hr IVPB Q1H [facility] Rx#: [id number] Sodium Chloride 0.9% 1, 300 000 ml @ 50 mls/hr IV . Q20H [facility] Rx#:[id number] Sodium Ferric Gluconat- 100 Sucrose 125 mg In Sodium Chloride 0.9% 100 ml @ 100 mls/hr IVPB DAILY [facility] Rx#:[id number] Oral 240 240 Output: Urine 500 Other: Voiding Method Toilet Toilet Toilet # Voids 1 2 1 # Bowel Movements 1 - Exam Abdomen: Soft, nontender, nondistended - Labs CBC & Chem 7: 08/22/19 05:52 08/22/19 05:52 Labs: Abnormal Lab Results - Last 24 Hours (Table) 08/22/19 08/22/19 Range/Units 05:52 05:52 WBC 3.5 L (3.8-10.6) k/uL RBC 3.61 L (3.80-5.40) m/uL Hgb 10.1 L (11.4-16.0) gm/dL Hct 31.7 L (34.0-46.0) % Sodium 134 L (137-145) mmol/L Glucose 119 H (74-99) mg/dL Microbiology - Last 24 Hours (Table) 08/17/19 02:44 Blood Culture - Preliminary Blood No Growth after 120 hours Assessment and Plan (1) Right lower quadrant pain Narrative/Plan: 78-year-old female with suspected neoplasm right colon. Begin clear liquids tomorrow. Begin bowel prep tomorrow. Tentative plans for right colectomy Saturday. Current Visit: Yes Status: Acute Code(s): R10.31 - RIGHT LOWER QUADRANT PAIN SNOMED Code(s): 890619189
--- NOTE | 2019-08-22 15:31 | P.PN ---
Subjective Progress Note Date: 08/22/19 (delayed charting seen at 1015) Principal diagnosis: abdominal pain Patient is a 78 yo CF with COPD, HTN, chronic pain, and tobacco abuse who presented with complaints of right sided abdominal pain of 2 months duration. Her pain had been gradually worsening and she had seen pain management and was to have an MRI on 08/19/2019 but the pain became to severe to manage at home and she presented to the emergency department. On arrival to the ED she underwent an extensive evaluation. She was slightly hypertensive, Lab work showed an elevated CRP at 56.1 but was otherwise unremarkable. Her initial CT abdomen and pelvis showed extensive inflammatory changes in the right lower quadrant with fat stranding and fluid around the cecum, dilated distal small bowel, and dilated cecum. Concerns for a possible inflammatory bowel disease, enteritis, or ruptured appendix with abscess. She was subsequently admitted and started on IV fluids, pain medication, antibiotics. Surgery was consulted. She was able to have bowel movements and pass gas after admission. She had a repeat CT abdomen and pelvis performed on 08/16 which showed inflammatory changes in the right lower quadrant, distended terminal ileum, cecum with focal area of soft tissue attenuation, small bowel loops with fluid filled. He had some distention, possible cecal mass with some involvement in the mesentery tumor, adhesive disease, and partial obstruction. They recommended endoscopic correlation. Patient underwent bowel prep on 08/17. Colonoscopy on 08/18 showed cecal mass at the origin of the appendix. Case d iscussed with Dr. Coker and plan is for robotic versus open partial colectomy with removal of the mass. Patient underwent echo on 08/19/2019 which showed a depressed ejection fraction of 45%. She also had an episode of nonsustained V. tach. She subsequently underwent cardiac catheterization on 08/19 which demonstrated a 40-50% lesion involving the LAD, and a 60% lesion involving the left circumflex, there is a 90% stenosis of the diagonal branch midportion of the LAD. Interventional cardiology who recommended maximizing medical therapy and clearance for surgery with elevated risk. Patient seen and examined at bedside. No chest pain, SOB, + edema b/l LE not improved from yesterday. NO N?V but increased abdominal pain from yesterday. Objective - Vital Signs Vital signs: Vital Signs Temp 98.4 F 08/22/19 08:00 Pulse 96 08/22/19 15:23 Resp 24 08/22/19 08:00 BP 131/87 08/22/19 08:00 Pulse Ox 96 08/22/19 08:00 Intake & Output 08/21/19 08/22/19 08/22/19 18:59 06:59 18:59 Intake Total 200 440 840 Output Total 500 Balance -300 440 840 Weight 78.2 kg 78.9 kg Intake: IV 200 Sodium Chloride 0.9% 1, 200 000 ml @ 125 mls/hr IV . Q8H ROS[facility] Rx#:[id number] Intake, IV Titration 200 600 Amount Ampicillin-Sulbactam 3 gm 200 100 In Sodium Chloride 0.9% 100 ml @ 200 mls/hr IVPB Q6H [facility] Rx#:[id number] Magnesium Sulfate-D5w Pmx 100 1 gm In Dextrose/Water 1 100ml.bag @ 100 mls/hr IVPB Q1H [facility] Rx#: [id number] Sodium Chloride 0.9% 1, 300 000 ml @ 50 mls/hr IV . Q20H ROS[facility] Rx#:[id number] Sodium Ferric Gluconat- 100 Sucrose 125 mg In Sodium Chloride 0.9% 100 ml @ 100 mls/hr IVPB DAILY ROS[facility] Rx#:[id number] Oral 240 240 Output: Urine 500 Other: Voiding Method Toilet Toilet Toilet # Voids 1 2 1 # Bowel Movements 1 - Exam General: ill appearing, no distress , appears at stated age Derm: warm, dry Head: atraumatic, normocephalic, symmetric Eyes: EOMI, no lid lag, anicteric sclera Mouth: no lip lesion, mucus membranes moist Cardiovascular: S1S2 reg, no murmur, positive posterior tibial pulse bilateral, Lungs: Course bs bilateral , no accessory muscle use Abdominal: soft, +tender to palpation RLQ, no guarding, no appreciable organomegaly Ext: no gross muscle atrophy, 2+ edema, no contractures Neuro: CN II-XI grossly intact, no focal neuro deficits Psych: Alert, oriented, appropriate affect - Labs CBC & Chem 7: 08/22/19 05:52 08/22/19 05:52 Labs: Abnormal Lab Results - Last 24 Hours (Table) 08/22/19 08/22/19 Range/Units 05:52 05:52 WBC 3.5 L (3.8-10.6) k/uL RBC 3.61 L (3.80-5.40) m/uL Hgb 10.1 L (11.4-16.0) gm/dL Hct 31.7 L (34.0-46.0) % Sodium 134 L (137-145) mmol/L Glucose 119 H (74-99) mg/dL Microbiology - Last 24 Hours (Table) 08/17/19 02:44 Blood Culture - Preliminary Blood No Growth after 120 hours Assessment and Plan Assessment: 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 and intractable abdominal pain - s/p colonoscopy and plan is for right sided robotic hemicolectomy on 08/23 - cardio recs for indication of high risk, but no name to further delay surgery - heart healthy diet - Morphine - once pathology is back possible need for oncology consult - continued with unasyn, preop ABX ordered by surgery Newly 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% -Cardiology recommendations appreciated -Continue with beta armando, ACEI, change to IV lasix to optimize fluid status. Coronary artery disease -Status post cath -Cardiology recommendations appreciated -Maximized medical therapy with beta armando, aspirin, Imdur and Lipitor COPD without exacerbation - recommend preop and post op bronchodilators - spiriva - symbicort - abuterol HTN - controlled - metoprolol Pre DM with A1C 6.4 - careful monitoring of sugary perioperative to decrease risks of delayed wound healing and infection - Insulin sliding scale Tobacco abuse - cessation - nicotine replacement DVT prophylaxis: Heparin Discussed with: Patient, Nursing, Anticipated discharge: 4-[address]: Home vs SNF A total of 30 minutes was spent on the care of this complex patient more than 50% of the time was spent in counseling and care coordination.
[2019-08-22] MEDS: LACTATED RINGERS 1,000 ML IV SCH ×2 (16:24→23:25)
[2019-08-22] MEDS: metroNIDAZOLE 500 MG TAB PO SCH (17:43)
[2019-08-22] MEDS: NEOMYCIN 500 MG TAB PO SCH (17:43)
[2019-08-22] MEDS ORDERED: MIDAZOLAM 2 MG/2 ML VIAL IV PRN (20:50)
[2019-08-22] MEDS ORDERED: DEXAMETHASONE SOD PHOSPHATE 10 MG/ML 1 ML VIAL IV ONE (20:50)
[2019-08-22] MEDS ORDERED: HYDROmorphone 0.5 MG/0.5 ML SYRINGE IVP PRN (20:50)
[2019-08-23] MEDS: HEPARIN SODIUM,PORCINE 5,000 UNIT/ML 1 ML VIAL SQ SCH ×3 (00:30→16:10)
[2019-08-23] MEDS: MORPHINE SULFATE 4 MG/ML SYRINGE IV PRN ×5 (02:19→21:36)
[2019-08-23] MEDS: AMPICILLIN-SULBACTAM 3 GM in SODIUM CHLORIDE 0.9% 100 ML IVPB SCH ×4 (03:15→21:33)
[2019-08-23 06:26] LABS: HCT 36.8 % (34.0-46.0); HGB 11.1 gm/dL (11.4-16.0); Hypochromasia Moderate; MCH 26.5 pg (25.0-35.0); MCHC 30.2 g/dL (31.0-37.0); MCV 87.8 fL (80.0-100.0); Mean Platelet Volume 7.7; Platelet Count 231 k/uL (150-450); RBC 4.19 m/uL (3.80-5.40); RDW 15.2 % (11.5-15.5); WBC 5.8 k/uL (3.8-10.6)
[2019-08-23 06:44] LABS: African American GFR (CKD) >90 (>60 ml/min/1.73 sqM); Anion Gap 8 mmol/L; Blood Urea Nitrogen 13 mg/dL (7-17); Calcium 9.2 mg/dL (8.4-10.2); Carbon Dioxide 28 mmol/L (22-30); Chloride 100 mmol/L (98-107); Glucose 167 mg/dL (74-99); Magnesium 1.8 mg/dL (1.6-2.3); Non-African American GFR(CKD) 88 (>60 ml/min/1.73 sqM); Potassium 4.5 mmol/L (3.5-5.1); Sodium 136 mmol/L (137-145)
[2019-08-23] MEDS: IPRATROPIUM-ALBUTEROL 3 ML NEB INHALATION SCH ×4 (08:29→20:48)
[2019-08-23] MEDS: SYMBICORT 160-4.5 MCG INHALER INHALATION SCH ×2 (08:29→20:48)
[2019-08-23] MEDS: LACTATED RINGERS 1,000 ML IV SCH ×2 (08:50→21:34)
[2019-08-23] MEDS: ISOSORBIDE MONONITRATE ER 30 MG TAB.ER.24H PO SCH (09:01)
[2019-08-23] MEDS: FUROSEMIDE 10 MG/ML 4 ML VIAL IV SCH ×2 (09:01→21:35)
[2019-08-23] MEDS: FAMOTIDINE 20 MG TAB PO SCH ×2 (09:01→21:35)
[2019-08-23] MEDS: METOPROLOL SUCCINATE (ER) 50 MG TAB.ER.24H PO SCH (09:01)
[2019-08-23] MEDS: lisinopriL 10 MG TAB PO SCH (09:02)
[2019-08-23] MEDS: NICOTINE 21MG/24HR PATCH TRANSDERM SCH (09:02)
--- NOTE | 2019-08-23 10:36 | P.PN ---
Subjective Progress Note Date: 08/23/19 Principal diagnosis: Right colon mass Patient doing well today. No significant right-sided pain at this time. White blood cell count normal at 5.8. Hemoglobin 11.1. Patient was cleared by cardiology. Objective - Vital Signs Vital signs: Vital Signs Temp 97.7 F 08/23/19 04:00 Pulse 92 08/23/19 08:43 Resp 18 08/23/19 04:00 BP 109/76 08/23/19 04:00 Pulse Ox 93 L 08/23/19 04:00 Intake & Output 08/22/19 08/23/19 08/23/19 18:59 06:59 18:59 Intake Total 840 1200 180 Output Total 1400 Balance 840 1200 -1220 Weight 77.6 kg Intake: Intake, IV Titration 600 Amount Ampicillin-Sulbactam 3 gm 100 In Sodium Chloride 0.9% 100 ml @ 200 mls/hr IVPB Q6H [facility] Rx#:[id number] Magnesium Sulfate-D5w Pmx 100 1 gm In Dextrose/Water 1 100ml.bag @ 100 mls/hr IVPB Q1H [facility] Rx#: [id number] Sodium Chloride 0.9% 1, 300 000 ml @ 50 mls/hr IV . Q20H ROSSY Rx#:[id number] Sodium Ferric Gluconat- 100 Sucrose 125 mg In Sodium Chloride 0.9% 100 ml @ 100 mls/hr IVPB DAILY ROSSY Rx#:[id number] Oral 240 1200 180 Output: Urine 1400 Other: Voiding Method Toilet Toilet # Voids 3 # Bowel Movements 1 1 - Exam Abdomen: Soft, nontender, nondistended - Labs CBC & Chem 7: 08/23/19 05:35 08/23/19 05:35 Labs: Abnormal Lab Results - Last 24 Hours (Table) 08/23/19 08/23/19 Range/Units 05:35 05:35 Hgb 11.1 L (11.4-16.0) gm/dL MCHC 30.2 L (31.0-37.0) g/dL Sodium 136 L (137-145) mmol/L Glucose 167 H (74-99) mg/dL Microbiology - Last 24 Hours (Table) 08/17/19 02:44 Blood Culture - Final Blood No Growth after 144 hours Assessment and Plan (1) Right lower quadrant pain Narrative/Plan: Patient doing well today. Will prep for robotic right colectomy tomorrow. Beginning bowel prep soon. Current Visit: Yes Status: Acute Code(s): R10.31 - RIGHT LOWER QUADRANT PAIN SNOMED Code(s): 904376976
[2019-08-23] MEDS ORDERED: PEG 3350-NA SULF,BICARB,CL/KCL 4,000 ML BOTTLE PO ONE (11:00)
[2019-08-23] MEDS: NEOMYCIN 500 MG TAB PO SCH ×2 (13:01→15:13)
[2019-08-23] MEDS: metroNIDAZOLE 500 MG TAB PO SCH ×2 (13:01→15:13)
--- NOTE | 2019-08-23 15:02 | P.PN ---
Subjective Progress Note Date: 08/23/19 (delayed cahrting seen at 1200) Principal diagnosis: abdominal pain Patient is a 78 yo CF with COPD, HTN, chronic pain, and tobacco abuse who presented with complaints of right sided abdominal pain of 2 months duration. Her pain had been gradually worsening and she had seen pain management and was to have an MRI on 08/19/2019 but the pain became to severe to manage at home and she presented to the emergency department. On arrival to the ED she underwent an extensive evaluation. She was slightly hypertensive, Lab work showed an elevated CRP at 56.1 but was otherwise unremarkable. Her initial CT abdomen and pelvis showed extensive inflammatory changes in the right lower quadrant with fat stranding and fluid around the cecum, dilated distal small bowel, and dilated cecum. Concerns for a possible inflammatory bowel disease, enteritis, or ruptured appendix with abscess. She was subsequently admitted and started on IV fluids, pain medication, antibiotics. Surgery was consulted. She was able to have bowel movements and pass gas after admission. She had a repeat CT abdomen and pelvis performed on 08/16 which showed inflammatory changes in the right lower quadrant, distended terminal ileum, cecum with focal area of soft tissue attenuation, small bowel loops with fluid filled. He had some distention, possible cecal mass with some involvement in the mesentery tumor, adhesive disease, and partial obstruction. They recommended endoscopic correlation. Patient underwent bowel prep on 08/17. Colonoscopy on 08/18 showed cecal mass at the origin of the appendix. Case d iscussed with Dr. Coker and plan is for robotic versus open partial colectomy with removal of the mass. Patient underwent echo on 08/19/2019 which showed a depressed ejection fraction of 45%. She also had an episode of nonsustained V. tach. She subsequently underwent cardiac catheterization on 08/19 which demonstrated a 40-50% lesion involving the LAD, and a 60% lesion involving the left circumflex, there is a 90% stenosis of the diagonal branch midportion of the LAD. Interventional cardiology who recommended maximizing medical therapy and clearance for surgery with elevated risk. Patient seen and examined at bedside. Feeling better today. Lower extremity edema is improved. No nausea, vomiting, chest pain, or shortness of breath. Objective - Vital Signs Vital signs: Vital Signs Temp 98.7 F 08/23/19 08:00 Pulse 96 08/23/19 13:03 Resp 18 08/23/19 08:00 BP 120/76 08/23/19 08:00 Pulse Ox 92 L 08/23/19 08:00 Intake & Output 08/22/19 08/23/19 08/23/19 18:59 06:59 18:59 Intake Total 840 1200 360 Output Total 1400 Balance 840 1200 -1040 Weight 77.6 kg Intake: Intake, IV Titration 600 Amount Ampicillin-Sulbactam 3 gm 100 In Sodium Chloride 0.9% 100 ml @ 200 mls/hr IVPB Q6H [facility] Rx#:[id number] Magnesium Sulfate-D5w Pmx 100 1 gm In Dextrose/Water 1 100ml.bag @ 100 mls/hr IVPB Q1H [facility] Rx#: [id number] Sodium Chloride 0.9% 1, 300 000 ml @ 50 mls/hr IV . Q20H [facility] Rx#:[id number] Sodium Ferric Gluconat- 100 Sucrose 125 mg In Sodium Chloride 0.9% 100 ml @ 100 mls/hr IVPB DAILY [facility] Rx#:[id number] Oral 240 1200 360 Output: Urine 1400 Other: Voiding Method Toilet Toilet Toilet # Voids 3 1 # Bowel Movements 1 0 - Exam General: ill appearing, no distress , appears at stated age Derm: warm, dry Head: atraumatic, normocephalic, symmetric Eyes: EOMI, no lid lag, anicteric sclera Mouth: no lip lesion, mucus membranes moist Cardiovascular: S1S2 reg, no murmur, positive posterior tibial pulse bilateral, Lungs: Course bs bilateral , no accessory muscle use Abdominal: soft, nontender to palpation, no guarding, no appreciable organomegaly Ext: no gross muscle atrophy, 1+ edema, no contractures Neuro: CN II-XI grossly intact, no focal neuro deficits Psych: Alert, oriented, appropriate affect - Labs CBC & Chem 7: 08/23/19 05:35 08/23/19 05:35 Labs: Abnormal Lab Results - Last 24 Hours (Table) 08/23/19 08/23/19 Range/Units 05:35 05:35 Hgb 11.1 L (11.4-16.0) gm/dL MCHC 30.2 L (31.0-37.0) g/dL Sodium 136 L (137-145) mmol/L Glucose 167 H (74-99) mg/dL Microbiology - Last 24 Hours (Table) 08/17/19 02:44 Blood Culture - Final Blood No Growth after 144 hours Assessment and Plan Assessment: 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 Coronary artery disease -Status post cath -Cardiology recommendations appreciated -Maximized medical therapy with beta armando, aspirin, Imdur and Lipitor COPD without exacerbation - recommend preop and post op bronchodilators - spiriva - symbicort - abuterol HTN - controlled - metoprolol Pre DM with A1C 6.4 - careful monitoring of sugary perioperative to decrease risks of delayed wound healing and infection - Insulin sliding scale Tobacco abuse - cessation - nicotine replacement DVT prophylaxis: Heparin Discussed with: Patient, Nursing, Anticipated discharge: 4-[address]: Home vs SNF A total of 30 minutes was spent on the care of this complex patient more than 5 0% of the time was spent in counseling and care coordination.
[2019-08-24] MEDS: metroNIDAZOLE 500 MG TAB PO SCH (00:08)
[2019-08-24] MEDS: LACTATED RINGERS 1,000 ML IV SCH (00:09)
[2019-08-24] MEDS: HEPARIN SODIUM,PORCINE 5,000 UNIT/ML 1 ML VIAL SQ SCH ×3 (00:09→20:50)
[2019-08-24] MEDS: NEOMYCIN 500 MG TAB PO SCH (00:09)
[2019-08-24] MEDS: MORPHINE SULFATE 4 MG/ML SYRINGE IV PRN ×4 (01:38→21:04)
[2019-08-24] MEDS: AMPICILLIN-SULBACTAM 3 GM in SODIUM CHLORIDE 0.9% 100 ML IVPB SCH ×2 (03:30→16:43)
[2019-08-24] MEDS: SYMBICORT 160-4.5 MCG INHALER INHALATION SCH ×2 (07:37→20:47)
[2019-08-24] MEDS: IPRATROPIUM-ALBUTEROL 3 ML NEB INHALATION SCH ×4 (07:38→20:47)
[2019-08-24 07:54] LABS: HCT 35.8 % (34.0-46.0); HGB 11.4 gm/dL (11.4-16.0); Hypochromasia Slight; MCH 27.5 pg (25.0-35.0); MCHC 31.8 g/dL (31.0-37.0); MCV 86.5 fL (80.0-100.0); Mean Platelet Volume 7.8; Platelet Count 244 k/uL (150-450); RBC 4.14 m/uL (3.80-5.40); RDW 15.5 % (11.5-15.5); WBC 6.1 k/uL (3.8-10.6)
[2019-08-24] MEDS ORDERED: ALVIMOPAN 12 MG CAPSULE PO ONE (08:00)
[2019-08-24] MEDS ORDERED: MELOXICAM 7.5 MG TAB PO ONE (08:00)
[2019-08-24] MEDS ORDERED: metroNIDAZOLE-NS PMX 500 MG in SALINE 1 100ML.BAG IVPB ONE (08:00)
[2019-08-24] MEDS ORDERED: Antibiotics per Pharmacy 1 EACH MISC MISCELLANE PRN (08:00)
[2019-08-24] MEDS ORDERED: ACETAMINOPHEN TAB 500 MG TAB PO ONE (08:00)
[2019-08-24 08:03] LABS: African American GFR (CKD) >90 (>60 ml/min/1.73 sqM); Anion Gap 12 mmol/L; Blood Urea Nitrogen 11 mg/dL (7-17); Calcium 9.4 mg/dL (8.4-10.2); Carbon Dioxide 31 mmol/L (22-30); Chloride 93 mmol/L (98-107); Glucose 91 mg/dL (74-99); Magnesium 1.6 mg/dL (1.6-2.3); Non-African American GFR(CKD) 88 (>60 ml/min/1.73 sqM); Potassium 3.8 mmol/L (3.5-5.1); Sodium 136 mmol/L (137-145)
[2019-08-24] MEDS: FAMOTIDINE 20 MG TAB PO SCH ×2 (09:14→21:24)
[2019-08-24] MEDS: ISOSORBIDE MONONITRATE ER 30 MG TAB.ER.24H PO SCH (09:14)
[2019-08-24] MEDS: lisinopriL 10 MG TAB PO SCH (09:14)
[2019-08-24] MEDS: METOPROLOL SUCCINATE (ER) 50 MG TAB.ER.24H PO SCH (09:14)
[2019-08-24] MEDS: MAGNESIUM SULFATE-D5W PMX 1 GM in DEXTROSE/WATER 1 100ML.BAG IVPB SCH ×2 (10:57→22:21)
--- NOTE | 2019-08-24 11:35 | P.PN ---
Subjective Progress Note Date: 08/24/19 Principal diagnosis: abdominal pain Patient is a 78 yo CF with COPD, HTN, chronic pain, and tobacco abuse who presented with complaints of right sided abdominal pain of 2 months duration. Her pain had been gradually worsening and she had seen pain management and was to have an MRI on 08/19/2019 but the pain became to severe to manage at home and she presented to the emergency department. On arrival to the ED she underwent an extensive evaluation. She was slightly hypertensive, Lab work showed an elevated CRP at 56.1 but was otherwise unremarkable. Her initial CT abdomen and pelvis showed extensive inflammatory changes in the right lower quadrant with fat stranding and fluid around the cecum, dilated distal small bowel, and dilated cecum. Concerns for a possible inflammatory bowel disease, enteritis, or ruptured appendix with abscess. She was subsequently admitted and started on IV fluids, pain medication, antibiotics. Surgery was consulted. She was able to have bowel movements and pass gas after admission. She had a repeat CT abdomen and pelvis performed on 08/16 which showed inflammatory changes in the right lower quadrant, distended terminal ileum, cecum with focal area of soft tissue attenuation, small bowel loops with fluid filled. He had some distention, possible cecal mass with some involvement in the mesentery tumor, adhesive disease, and partial obstruction. They recommended endoscopic correlation. Patient underwent bowel prep on 08/17. Colonoscopy on 08/18 showed cecal mass at the origin of the appendix. Case discussed with Dr. Coker and plan was for robotic versus open partial colectomy with removal of the mass. Patient underwent echo on 08/19/2019 which showed a depressed ejection fraction of 45%. She also had an episode of nonsustained V. tach. She subsequently underwent cardiac catheterization on 08/19 which demonstrated a 40-50% lesion involving the LAD, and a 60% lesion involving the left circumflex, there is a 90% stenosis of the diagonal branch midportion of the LAD. Interventional cardiology recommended maximizing medical therapy and clearance for surgery with elevated risk. She will undergo robtoic right sided hemicolectomy on 08/23. Patient seen and examined at bedside. No chest pain, SOB, nausea, edema is better, states that she is tired today as she was up all night using the rest room. Objective - Vital Signs Vital signs: Vital Signs Temp 97.1 F L 08/24/19 08:00 Pulse 95 08/24/19 08:00 Resp 17 08/24/19 08:00 BP 144/85 08/24/19 08:00 Pulse Ox 93 L 08/24/19 08:00 Intake & Output 08/23/19 08/24/19 08/24/19 18:59 06:59 18:59 Intake Total 360 Output Total 2100 Balance -1740 Weight 78.6 kg Intake: Oral 360 Output: Urine 2100 Other: Voiding Method Toilet Toilet # Voids 0 1 # Bowel Movements 0 2 - Exam General: ill appearing, no distress , appears at stated age Derm: warm, dry Head: atraumatic, normocephalic, symmetric Eyes: EOMI, no lid lag, anicteric sclera Mouth: no lip lesion, mucus membranes moist Cardiovascular: S1S2 reg, no murmur, positive posterior tibial pulse bilateral, Lungs: Course bs bilateral , no accessory muscle use Abdominal: soft, nontender to palpation, no guarding, no appreciable organomeg arcenio Ext: no gross muscle atrophy, trace edema, no contractures Neuro: CN II-XI grossly intact, no focal neuro deficits Psych: Alert, oriented, appropriate affect - Labs CBC & Chem 7: 08/24/19 06:46 08/24/19 06:46 Labs: Abnormal Lab Results - Last 24 Hours (Table) 08/24/19 Range/Units 06:46 Sodium 136 L (137-145) mmol/L Chloride 93 L (98-107) mmol/L Carbon Dioxide 31 H (22-30) mmol/L Assessment and Plan Assessment: 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 and intractable abdominal pain - s/p colonoscopy and plan is for right sided robotic hemicolectomy today - cardio recs for indication of high risk, but no name to further delay surgery - Morphine - Tubular adenoma per path from colonoscopy - Completed ABX Newly 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% -Cardiology recommendations appreciated -Continue with beta armando, ACEI - off IV lasix and likely resume in AM depending on volume status Coronary artery disease -Status post cath -Cardiology recommendations appreciated -Maximized medical therapy with beta armando, aspirin, Imdur and Lipitor COPD without exacerbation - recommend preop and post op bronchodilators - spiriva - symbicort - abuterol HTN - controlled - metoprolol Pre DM with A1C 6.4 - careful monitoring during perioperative period to decrease risks of delayed wound healing and infection - Insulin sliding scale Tobacco abuse - cessation - nicotine replacement DVT prophylaxis: Heparin Discussed with: Patient, Nursing, Anticipated discharge: 3-[address]: Home vs SNF A total of 30 minutes was spent on the care of this complex patient more than 50% of the time was spent in counseling and care coordination.
[2019-08-24] MEDS ORDERED: IV FLUID CONTINUATION 1,000 ML IV ONE (11:59)
[2019-08-24] MEDS ORDERED: ONDANSETRON 4 MG/2 ML VIAL ONE ×2 (12:09→14:09)
[2019-08-24] MEDS ORDERED: DEXAMETHASONE SOD PHOSPHATE 10 MG/ML 1 ML VIAL IV ONE (12:09)
[2019-08-24] MEDS ORDERED: ONDANSETRON 4 MG/2 ML VIAL IVP ONE (12:11)
[2019-08-24] MEDS ORDERED: MIDAZOLAM 2 MG/2 ML VIAL IVP ONE (12:40)
[2019-08-24] MEDS ORDERED: METOPROLOL TARTRATE 5 MG/5 ML VIAL IVP ONE (14:09)
[2019-08-24] MEDS ORDERED: MIDAZOLAM 2 MG/2 ML VIAL ONE (14:09)
[2019-08-24] MEDS ORDERED: hydrALAZINE HCL 20 MG/ML 1 ML VIAL ONE (14:09)
[2019-08-24] MEDS ORDERED: HYDROmorphone (PF) 1 MG/ML ONE (14:09)
[2019-08-24] MEDS ORDERED: fentaNYL (PF) 50 MCG/ML 2 ML AMP ONE (14:09)
[2019-08-24] MEDS ORDERED: PROPOFOL 10 MG/ML 20 ML VIAL IV ONE (14:09)
[2019-08-24] MEDS ORDERED: SUCCINYLCHOLINE CHLORIDE 100 MG/5 ML SYR IV ONE (14:09)
[2019-08-24] MEDS ORDERED: GLYCOPYRROLATE 0.2 MG/ML 2 ML VIAL ONE (14:09)
[2019-08-24] MEDS ORDERED: NEOSTIGMINE 1 MG/ML 10 ML VIAL ONE (14:09)
[2019-08-24] MEDS ORDERED: ROCURONIUM BROMIDE 10 MG/ML 5 ML VIAL IV ONE (14:09)
[2019-08-24] MEDS ORDERED: LIDOCAINE 1% INJ 10MG/ML (20 ML MDV) ONE (14:09)
[2019-08-24] MEDS ORDERED: LACTATED RINGERS 1,000 ML IV ONE ×2 (14:30→17:30)
[2019-08-24] MEDS ORDERED: LIDOCAINE 1%-EPI 1:100,000 20 ML VIAL SQ ONE (14:46)
[2019-08-24] MEDS: NICOTINE 21MG/24HR PATCH TRANSDERM SCH (20:50)
[2019-08-24] MEDS ORDERED: ONDANSETRON 4 MG/2 ML VIAL IVP PRN (21:45)
--- NOTE | 2019-08-24 21:53 | P.OP ---
Date of Procedure: 08/24/19 Description of Procedure: SURGEON: CORAL HANSEN MD Preoperative Diagnosis: 1. Cecal mass with abnormal abdominal CT 2. Chronic iron deficiency anemia 3. Obesity due to excess calories, BMI 30.0 4. Tobacco abuse disorder 5. Chronic obstructive pulmonary disease 6. Hyperlipidemia 7. Ischemic cardiomyopathy with previous myocardial infarction 8. Pre-existing nonsustained ventricular tachycardia 9. Diffuse coronary artery disease 10. Right lower quadrant abdominal pain 11. Chronic pain syndrome 12. Gastroesophageal reflux disease 13. Osteoporosis 14. 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 Cecal mass with abnormal abdominal CT 2. Chronic iron deficiency anemia 3. Obesity due to excess calories, BMI 30.0 4. Tobacco abuse disorder 5. Chronic obstructive pulmonary disease 6. Hyperlipidemia 7. Ischemic cardiomyopathy with previous myocardial infarction 8. Pre-existing nonsustained ventricular tachycardia 9. Diffuse coronary artery disease 10. Right lower quadrant abdominal pain 11. Chronic pain syndrome 12. Gastroesophageal reflux disease 13. Osteoporosis 14. 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 Robot-assisted daVinci Xi laparoscopic extended right hemicolectomy Anesthesia: GETA, local Estimated Blood Loss (ml): 30 Condition: stable SPECIMENS REMOVED: terminal ileum and extended right colon en bloc. COMPLICATIONS: None. Disposition: floor Operative Findings: 1. Retroperitoneal invasion of tumor, right pelvis 2. Moderate redundancy of hepatic flexure 3. More than 6 cm border obtained for resection 4. Appendix is unremarkable 5. No peritoneal metastases identified 6. Extended right hemicolectomy to mid transverse colon 7. Extended right hemicolectomy, posterior cecal mass, densely adherent and calcified neoplasm over 5 cm in size INDICATIONS: The patient is a 78-year-old female who presents with abnormal computed tomography scan of neoplasm involving the cecum. Colonoscopy performed demonstrated likely neoplasm involving the cecum. Tobacco cessation and counseling including pre-existing dietary education were reviewed. Surgical intervention with colon resection was described in detail. Benefits and risks, including infection, open surgery possibility for additional surgery was discussed at length. Informed consent was obtained. All questions of the patient and family were answered. DESCRIPTION: Earlier the patient had undergone a bowel prep using the enhanced colon recovery program. No epidural was used. The patient was transferred to the operating room and placed in supine position. After general anesthetic, a olmedo catheter was placed. The abdomen was then prepped and draped in standard sterile fashion as Ioban was placed along the abdomen to minimize any contamination of skin floor. After a timeout protocol was performed, attention was then brought to the left upper quadrant whereby a 0 degree 5 mm laparoscopic trocar entry was performed. The abdominal cavity was entered and insufflated to 15 mmHg pressure, which was tolerated well. Diagnostic laparoscopy demonstrated no injury to bowel, viscera or mesentery. The liver was unremarkable. No peritoneal studding was identified. Grossly, no abnormality was found of the small bowel or anterior surface of the colon. Next trochars were placed along the left lateral abdomen. An robotic 8-mm trocar to the left lower abdomen. A 12 mm port was placed along the left lower quadrant. Another 8-mm port along the left upper quadrant. Ports were placed 8 cm apart from each other including 15-20 cm away from the target anatomy of the right pelvis. The 5-mm port was exchanged for a 12 mm robotic port. The patient was then placed in Trendelenburg position, at least 16, with the right side up 8. The robotic da Christianne XI system was primed and docked from the left side of the patient. Using atraumatic graspers and vessel sealer, the robotic system was docked and primed as described. Instruments were interchanged by the res habilitation assistant including scissors, needle taxi truck driver, robotic stapler and vessel sealer. Next, attention was brought to identify the cecum. A stay suture using 0 silk was placed along the anterior serosa of the along the terminal ileum. The terminal ileum and ascending colon mesentery was mobilized using a vessel sealer whereby the colon was marked and tagged. Moderately redundant hepatic flexure was identified. At the cecum posteriorly, densely adherent mass was found to the retroperitoneum. The colon was prepared for resection along the mid transverse colon including her for resection along the terminal ileum. Using robot stapler 60 mm white load, the distal ileum was divided 8 centimeters proximal to the ileocecal valve. The mesentery of the ascending colon was mobilized towards the midline using a vessel sealer. Secondary to the highly redundant hepatic flexure and ascending colon, the right colon was mobilized to the mid transverse colon and prepared for resection. The colon was divided using 60 mm blue loads. The rest of the colon mesentery was mobilized using vessel sealer including using blunt dissection. The ascending colon was mobilized from proximal to distal with the meeting point of the hepatic flexure. The vascular pedicle of the ileocolic artery was controlled using vessel sealer. Densely adherent calcified tumor was found involving the ileocolic pedicle where dissection was performed with great care to resect the tumor from the retroperitoneum. Careful dissection using vessel sealer was performed for over 1 hours to minimize bleeding and control all vessels. The mid transverse colon and distal ileum was brought in a side to side antiperistaltic anastomotic fashion after placing interrupted sutures along the proposed lucio-lumen using 3-0 silk. A colotomy and enterotomy was prepared along both limbs along the antimesenteric border. Next, 60 mm blue stapler loads were fired to create the lucio-lumen. The lucio-lumen was reapproximated using 3-0 silk followed by 60 mm blue load for closure of the enterostomy. All needles were removed from the abdominal cavity. The robot was undocked. I re-scrubbed into the case. Via the 12 mm port of the left upper quadrant, the right colon was removed after widening the skin incision to 3-cm. All sponges were removed from the abdominal cavity. The specimen was removed using 15 mm Endo Catch bag without spillage. The fascial defect was oversewn using 0 Vicryl and Erik Bocanegra including Joy and 0 Vicryl. Next all pneumoperitoneum was evacuated from the abdominal cavity. The 8-mm trocar sites were reapproximated using 4-0 Monocryl in an interrupted subcuticular fashion. Local anesthetic was infiltrated to all wounds for postop analgesia. All incisions were also cleansed with diluted hydrogen peroxide. Liquid glue was applied to the rest of the skin incisions. The patient had tolerated the procedure well. The patient was extubated successfully. Intraoperative photos were reviewed with the patient's family who were overall pleased with the level of care. The patient was transferred to the postanesthesia care unit in stable condition.
[2019-08-25] MEDS: LACTATED RINGERS 1,000 ML IV SCH ×3 (00:45→20:31)
[2019-08-25] MEDS: KETOROLAC 30 MG/ML 1 ML VIAL IVP SCH ×5 (00:46→20:40)
[2019-08-25] MEDS: ACETAMINOPHEN TAB 325 MG TAB PO SCH ×5 (00:51→23:47)
[2019-08-25] MEDS: MORPHINE SULFATE 4 MG/ML SYRINGE IV PRN (03:50)
[2019-08-25] MEDS: HYDROmorphone 0.5 MG/0.5 ML SYRINGE IVP PRN ×6 (06:16→23:49)
[2019-08-25 07:01] LABS: HCT 34.9 % (34.0-46.0); HGB 10.9 gm/dL (11.4-16.0); Hypochromasia Slight; MCH 27.1 pg (25.0-35.0); MCHC 31.2 g/dL (31.0-37.0); Mean Platelet Volume 7.7; Platelet Count 259 k/uL (150-450); RBC 4.01 m/uL (3.80-5.40); WBC 7.4 k/uL (3.8-10.6)
[2019-08-25 07:13] LABS: African American GFR (CKD) >90 (>60 ml/min/1.73 sqM); Anion Gap 5 mmol/L; Blood Urea Nitrogen 12 mg/dL (7-17); Calcium 8.3 mg/dL (8.4-10.2); Carbon Dioxide 26 mmol/L (22-30); Chloride 102 mmol/L (98-107); Glucose 108 mg/dL (74-99); Magnesium 1.9 mg/dL (1.6-2.3); Non-African American GFR(CKD) 88 (>60 ml/min/1.73 sqM); Phosphorus 5.3 mg/dL (2.5-4.5); Potassium 4.3 mmol/L (3.5-5.1); Sodium 133 mmol/L (137-145)
[2019-08-25] MEDS: IPRATROPIUM-ALBUTEROL 3 ML NEB INHALATION SCH ×4 (07:39→19:41)
[2019-08-25] MEDS: SYMBICORT 160-4.5 MCG INHALER INHALATION SCH ×2 (07:59→19:41)
[2019-08-25] MEDS ORDERED: PANTOPRAZOLE 40 MG/10 ML VIAL IV SCH (09:00)
[2019-08-25] MEDS: NICOTINE 21MG/24HR PATCH TRANSDERM SCH (10:09)
[2019-08-25] MEDS: ISOSORBIDE MONONITRATE ER 30 MG TAB.ER.24H PO SCH (10:10)
[2019-08-25] MEDS: lisinopriL 10 MG TAB PO SCH (10:10)
[2019-08-25] MEDS: FAMOTIDINE 20 MG TAB PO SCH ×2 (10:11→20:06)
[2019-08-25] MEDS: DOCUSATE 100 MG CAP PO SCH ×2 (10:11→20:06)
[2019-08-25] MEDS: HEPARIN SODIUM,PORCINE 5,000 UNIT/ML 1 ML VIAL SQ SCH ×2 (10:11→20:06)
[2019-08-25] MEDS: METOPROLOL SUCCINATE (ER) 50 MG TAB.ER.24H PO SCH (10:11)
--- NOTE | 2019-08-25 10:43 | P.PN ---
<Funmilayo Cowart - Last Filed: 08/25/19 10:38> Subjective Progress Note Date: 08/25/19 CHIEF COMPLAINT: Abdominal pain HISTORY OF PRESENT ILLNESS: Patient is status post robotic right hemicolectomy. Postop day #1. Patient examined this morning at the bedside with Dr. Felix. Patient reports her pain is tolerable. She is tolerating a liquid diet. Denies nausea or vomiting. Olmedo intact with clear yellow urine. WBC 7.4. Hemoglobin 10.9. Vital signs are stable. She is afebrile. PHYSICAL EXAM: VITAL SIGNS: Reviewed GENERAL: Well-developed in no acute distress. HEENT: No sclera icterus. Extraocular movements grossly intact. Moist buccal mucosa. Head is atraumatic, normocephalic. Hears conversational speech. No nasal drainage. NECK: Supple without lymphadenopathy. CHEST: Non-labored respirations and equal bilateral excursions. CARDIOVASCULAR: Regular rate with regular rhythm. Palpable 2+ radial pulses. ABDOMEN: Soft. Nondistended. Incisions clean dry intact. MUSCULOSKELETAL: No clubbing or cyanosis. NEUROLOGIC: No focal or lateralizing signs. Cranial nerves II through XII grossly intact. PSYCH: Appropriate affect. Alert and oriented to person, place and time. Slightly slow to respond to questions. SKIN: Well perfused. Good skin turgor. ASSESSMENT: 1. Abdominal pain x 2 months 2. Cecal mass PLAN: -Advance diet to full liquids -Discontinue olmedo catheter -Pain control. Toradol scheduled. May resume home [place]. -Incentive spirometer -Activity as tolerated -Anticipate discharge home tomorrow Nurse practitioner note has been reviewed by physician. Signing provider agrees with the documented findings, assessment, and plan of care. Objective - Vital Signs Vital signs: Vital Signs Temp 98.3 F 08/25/19 04:00 Pulse 86 08/25/19 07:55 Resp 18 08/25/19 04:00 BP 128/80 08/25/19 04:00 Pulse Ox 95 08/25/19 04:00 Intake & Output 08/24/19 08/25/19 08/25/19 18:59 06:59 18:59 Intake Total 2049 0 Output Total 925 Balance 2049 - Weight 77 kg Intake: IV 2049 0 Output: Urine 875 Estimated Blood Loss 50 Other: Voiding Method Indwelling Catheter # Voids 2 # Bowel Movements 5 - Labs CBC & Chem 7: 08/25/19 06:28 08/25/19 06:28 Labs: Abnormal Lab Results - Last 24 Hours (Table) 08/25/19 08/25/19 Range/Units 06:28 06:28 Hgb 10.9 L (11.4-16.0) gm/dL RDW 16.0 H (11.5-15.5) % Sodium 133 L (137-145) mmol/L Glucose 108 H (74-99) mg/dL Calcium 8.3 L (8.4-10.2) mg/dL Phosphorus 5.3 H (2.5-4.5) mg/dL <Nichelle Felix - Last Filed: 08/27/19 07:57> Subjective Patient seen and evaluated with nurse practitioner above. Additional findings include she is doing extremely well following her surgery. Intraoperative features including high likelihood of colon malignant neoplasm reviewed. Patient reports that she lives alone. Recommend evaluation for home health care services. Otherwise clinically doing well. We'll advance diet. Objective - Vital Signs Vital signs: Vital Signs Temp 98.3 F 08/27/19 04:00 Pulse 76 08/27/19 07:15 Resp 16 08/27/19 04:00 BP 114/66 08/27/19 04:00 Pulse Ox 94 L 08/27/19 06:59 Intake & Output 08/26/19 08/27/19 08/27/19 18:59 06:59 18:59 Intake Total 860 Output Total 1300 1350 Balance -440 -1350 Weight 76.5 kg 76.9 kg Intake: Oral 860 Output: Urine 1300 1350 Other: Voiding Method Toilet Toilet # Voids 1 3 # Bowel Movements 1 - Labs CBC & Chem 7: 08/26/19 05:55 08/26/19 05:55 Assessment and Plan (1) Neoplasm of cecum Current Visit: Yes Status: Acute Code(s): D49.0 - NEOPLASM OF UNSPECIFIED BEHAVIOR OF DIGESTIVE SYSTEM SNOMED Code(s): 613948903 (2) Right lower quadrant pain Current Visit: Yes Status: Acute Code(s): R10.31 - RIGHT LOWER QUADRANT PAIN SNOMED Code(s): 832244582 (3) Ventricular tachyarrhythmia Current Visit: Yes Status: Acute Code(s): I47.2 - VENTRICULAR TACHYCARDIA SNOMED Code(s): 64130154 (4) Adenoma of transverse colon Current Visit: Yes Status: Acute Code(s): D12.3 - BENIGN NEOPLASM OF TRANSVERSE COLON SNOMED Code(s): 507377760 (5) Sigmoid diverticulosis Current Visit: Yes Status: Acute Code(s): K57.30 - DVRTCLOS OF LG INT W/O PERFORATION OR ABSCESS W/O BLEEDING SNOMED Code(s): 502638598 (6) COPD exacerbation Current Visit: No Status: Acute Code(s): J44.1 - CHRONIC OBSTRUCTIVE PULMONARY DISEASE W (ACUTE) EXACERBATION SNOMED Code(s): 259718571 (7) Iron deficiency anemia Current Visit: Yes Status: Acute Code(s): D50.9 - IRON DEFICIENCY ANEMIA, UNSPECIFIED SNOMED Code(s): 45289534 (8) Ischemic cardiomyopathy Current Visit: Yes Status: Acute Code(s): I25.5 - ISCHEMIC CARDIOMYOPATHY SNOMED Code(s): 087569191
--- NOTE | 2019-08-25 17:39 | P.PN ---
Subjective Progress Note Date: 08/25/19 (delayed charting seen t 1130) Principal diagnosis: abdominal pain Patient is a 78 yo CF with COPD, HTN, chronic pain, and tobacco abuse who presented with complaints of right sided abdominal pain of 2 months duration. Her pain had been gradually worsening and she had seen pain management and was to have an MRI on 08/19/2019 but the pain became to severe to manage at home and she presented to the emergency department. On arrival to the ED she underwent an extensive evaluation. She was slightly hypertensive, Lab work showed an elevated CRP at 56.1 but was otherwise unremarkable. Her initial CT abdomen and pelvis showed extensive inflammatory changes in the right lower quadrant with fat stranding and fluid around the cecum, dilated distal small bowel, and dilated cecum. Concerns for a possible inflammatory bowel disease, enteritis, or ruptured appendix with abscess. She was subsequently admitted and started on IV fluids, pain medication, antibiotics. Surgery was consulted. She was able to have bowel movements and pass gas after admission. She had a repeat CT abdomen and pelvis performed on 08/16 which showed inflammatory changes in the right lower quadrant, distended terminal ileum, cecum with focal area of soft tissue attenuation, small bowel loops with fluid filled. He had some distention, possible cecal mass with some involvement in the mesentery tumor, adhesive disease, and partial obstruction. They recommended endoscopic correlation. Patient underwent bowel prep on 08/17. Colonoscopy on 08/18 showed cecal mass at the origin of the appendix. Case di scussed with Dr. Coker and plan was for robotic versus open partial colectomy with removal of the mass. Patient underwent echo on 08/19/2019 which showed a depressed ejection fraction of 45%. She also had an episode of nonsustained V. tach. She subsequently underwent cardiac catheterization on 08/19 which demonstrated a 40-50% lesion involving the LAD, and a 60% lesion involving the left circumflex, there is a 90% stenosis of the diagonal branch midportion of the LAD. Interventional cardiology recommended maximizing medical therapy and clearance for surgery with elevated risk. She underwent robtoic right sided hemicolectomy on 08/23 without complications. Patient seen and examined at bedside. No nausea or vomiting, tolerating her clear liquid diet, still not passing flatus, no chest pain or shortness of breath, edema better than her baseline. Objective - Vital Signs Vital signs: Vital Signs Temp 98.6 F 08/25/19 08:00 Pulse 88 08/25/19 15:45 Resp 19 08/25/19 12:00 BP 100/61 08/25/19 12:00 Pulse Ox 92 L 08/25/19 12:00 Intake & Output 08/24/19 08/25/19 08/25/19 18:59 06:59 18:59 Intake Total 2049 0 Output Total 925 300 Balance 2049 -925 -300 Weight 77 kg Intake: IV 2049 0 Output: Urine 875 300 Estimated Blood Loss 50 Other: Voiding Method Indwelling Catheter Indwelling Catheter # Voids 2 # Bowel Movements 5 - Exam General: ill appearing, no distress , appears at stated age Derm: warm, dry Head: atraumatic, normocephalic, symmetric Eyes: EOMI, no lid lag, anicteric sclera Mouth: no lip lesion, mucus membranes moist Cardiovascular: S1S2 reg, no murmur, positive posterior tibial pulse bilateral, Lungs: Course bs bilateral , no accessory muscle use Abdominal: soft, nontender to palpation, no guarding, no appreciable organomegaly Ext: no gross muscle atrophy, no edema, no contractures Neuro: CN II-XI grossly intact, no focal neuro deficits Psych: Alert, oriented, appropriate affect - Labs CBC & Chem 7: 08/25/19 06:28 08/25/19 06:28 Labs: Abnormal Lab Results - Last 24 Hours (Table) 08/25/19 08/25/19 Range/Units 06:28 06:28 Hgb 10.9 L (11.4-16.0) gm/dL RDW 16.0 H (11.5-15.5) % Sodium 133 L (137-145) mmol/L Glucose 108 H (74-99) mg/dL Calcium 8.3 L (8.4-10.2) mg/dL Phosphorus 5.3 H (2.5-4.5) mg/dL Assessment and Plan Assessment: 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 and intractable abdominal pain - s/p colonoscopy and right sided robotic hemicolectomypreformed 08/23 - cardio recs for indication of high risk, but no name to further delay surgery - Morphine - Tubular adenoma per path from colonoscopy, await surgical path - Completed ABX - tolerated clear liquid diet will try fulls for lunch Newly 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% -Cardiology recommendations appreciated -Continue with beta armando, ACEI - off IV lasix and resume once significant PO intake or change in volume status Coronary artery disease -Status post cath -Cardiology recommendations appreciated -Maximized medical therapy with beta armando, aspirin, Imdur and Lipitor - follow-up with cardio as outpatient COPD without exacerbation - recommend preop and post op bronchodilators - spiriva - symbicort - abuterol HTN - controlled - metoprolol Pre DM with A1C 6.4 - careful monitoring during perioperative period to decrease risks of delayed wound healing and infection - Insulin sliding scale - home with diet modification Tobacco abuse - cessation - nicotine replacement DVT prophylaxis: Heparin Discussed with: Patient, Nursing, Anticipated discharge: in AM Anticipated discharge place: Home with home health and tele health if cleared by PT A total of 30 minutes was spent on the care of this complex patient more than 50% of the time was spent in counseling and care coordination.
[2019-08-25] MEDS: ALPRAZolam 0.25 MG TAB PO PRN (21:44)
[2019-08-26] MEDS: KETOROLAC 30 MG/ML 1 ML VIAL IVP SCH ×4 (04:10→17:54)
[2019-08-26] MEDS: HYDROmorphone 0.5 MG/0.5 ML SYRINGE IVP PRN ×4 (04:11→20:08)
[2019-08-26] MEDS: PANTOPRAZOLE 40 MG TABLET PO SCH (06:19)
[2019-08-26] MEDS: ACETAMINOPHEN TAB 325 MG TAB PO SCH ×2 (06:19→17:55)
[2019-08-26 06:55] LABS: African American GFR (CKD) >90 (>60 ml/min/1.73 sqM); Anion Gap 4 mmol/L; Blood Urea Nitrogen 11 mg/dL (7-17); Calcium 7.8 mg/dL (8.4-10.2); Carbon Dioxide 27 mmol/L (22-30); Chloride 99 mmol/L (98-107); Glucose 91 mg/dL (74-99); Magnesium 1.7 mg/dL (1.6-2.3); Non-African American GFR(CKD) 89 (>60 ml/min/1.73 sqM); Potassium 3.7 mmol/L (3.5-5.1); Sodium 130 mmol/L (137-145)
[2019-08-26 06:57] LABS: Anisocytosis Slight; HCT 28.4 % (34.0-46.0); Hypochromasia Slight; MCH 27.6 pg (25.0-35.0); MCHC 31.9 g/dL (31.0-37.0); MCV 86.6 fL (80.0-100.0); Mean Platelet Volume 7.9; Platelet Count 177 k/uL (150-450); RBC 3.28 m/uL (3.80-5.40); RDW 16.3 % (11.5-15.5); WBC 4.2 k/uL (3.8-10.6)
[2019-08-26 07:14] LABS: HGB 9.1 gm/dL (11.4-16.0)
[2019-08-26] MEDS: SYMBICORT 160-4.5 MCG INHALER INHALATION SCH ×2 (08:20→20:03)
[2019-08-26] MEDS: IPRATROPIUM-ALBUTEROL 3 ML NEB INHALATION SCH ×4 (08:20→20:03)
[2019-08-26] MEDS ORDERED: MAGNESIUM SULFATE-D5W PMX 1 GM in DEXTROSE/WATER 1 100ML.BAG IVPB ONE (08:39)
[2019-08-26] MEDS ORDERED: ALVIMOPAN 12 MG CAPSULE PO SCH (09:15)
[2019-08-26] MEDS: lisinopriL 10 MG TAB PO SCH (09:42)
[2019-08-26] MEDS: FAMOTIDINE 20 MG TAB PO SCH ×2 (09:42→20:08)
[2019-08-26] MEDS: ISOSORBIDE MONONITRATE ER 30 MG TAB.ER.24H PO SCH (09:42)
[2019-08-26] MEDS: POTASSIUM CHLORIDE ER 20 MEQ TAB.ER PO SCH ×2 (09:42→12:39)
[2019-08-26] MEDS: HYDROcodone/APAP 7.5-325MG 1 EACH TAB PO PRN ×2 (09:42→17:51)
[2019-08-26] MEDS: DOCUSATE 100 MG CAP PO SCH ×2 (09:42→20:07)
[2019-08-26] MEDS: METOPROLOL SUCCINATE (ER) 50 MG TAB.ER.24H PO SCH (09:42)
[2019-08-26] MEDS: HEPARIN SODIUM,PORCINE 5,000 UNIT/ML 1 ML VIAL SQ SCH ×2 (09:43→20:07)
[2019-08-26] MEDS: NICOTINE 21MG/24HR PATCH TRANSDERM SCH (09:43)
--- NOTE | 2019-08-26 09:57 | P.DS ---
Providers Date of admission: 08/17/19 02:54 Attending physician: Lucio Read MD Consults: 08/17/19 02:50 Consult Physician Stat Consulting Provider: Nichelle Felix Consult Reason/Comments: Abdominal pain. Possible ruptured appendicitis. Do you want consulting provider notified?: Already Contacted 08/19/19 13:27 Consult Physician Urgent Consulting Provider: Primitivo Sawant Consult Reason/Comments: cardiac clearance for OR Do you want consulting provider notified?: Yes 08/19/19 16:52 Consult Physician Routine Consulting Provider: Gela Edwards Consult Reason/Comments: cardiac clarance for OR Do you want consulting provider notified?: Yes, Notify in am 08/25/19 18:53 Consult Physician Routine Consulting Provider: Gela Edwards Consult Reason/Comments: NSVT Do you want consulting provider notified?: Yes Primary care physician: [facility] Course: Patient is a 78 yo CF with COPD, HTN, chronic pain, and tobacco abuse who presented with complaints of right sided abdominal pain of 2 months duration. Her pain had been gradually worsening and she had seen pain management and was to have an MRI on 08/19/2019 but the pain became to severe to manage at home and she presented to the emergency department. On arrival to the ED she underwent an extensive evaluation. She was slightly hypertensive, Lab work showed an elevated CRP at 56.1 but was otherwise unremarkable. Her initial CT abdomen and pelvis showed extensive inflammatory changes in the right lower quadrant with fat stranding and fluid around the cecum, dilated distal small bowel, and dilated cecum. Concerns for a possible inflammatory bowel disease, enteritis, or ruptured appendix with abscess. She was subsequently admitted and started on IV fluids, pain medication, antibiotics. Surgery was consulted. She was able to have bowel movements and pass gas after admission. She had a repeat CT abdomen and pelvis performed on 08/16 which showed inflammatory changes in the right lower quadrant, distended terminal ileum, cecum with focal area of soft tissue attenuation, small bowel loops with fluid filled. He had some distention, possible cecal mass with some involvement in the mesentery tumor, adhesive disease, and partial obstruction. They recommended endoscopic correlation. Patient underwent bowel prep on 08/17. Colonoscopy on 08/18 showed cecal mass at the origin of the appendix. Case dis cussed with Dr. Coker and plan was for robotic versus open partial colectomy with removal of the mass. Patient underwent echo on 08/19/2019 which showed a depressed ejection fraction of 45%. She also had an episode of nonsustained V. tach. She subsequently underwent cardiac catheterization on 08/19 which demonstrated a 40-50% lesion involving the LAD, and a 60% lesion involving the left circumflex, there is a 90% stenosis of the diagonal branch midportion of the LAD. Interventional cardiology recommended maximizing medical therapy and clearance for surgery with elevated risk. She underwent robtoic right sided hemicolectomy on 08/23 without complications. She continued to improve. Diet continued to be advanced. She was able to tolerated full liquid diet , to advance to ada prior to dc . She has mild hyponatremia , multifactorial. medications prescribed , she will follow up as out pt Patient Condition at Discharge: Good Plan - Discharge Summary Discharge Rx Participant: Yes New Discharge Prescriptions: New Isosorbide Mononitrate ER [Imdur] 30 mg PO DAILY 30 Days tab.er.24h Pantoprazole [Protonix] 40 mg PO AC-BRKFST 30 Days tablet. Lisinopril [Zestril] 10 mg PO DAILY 30 Days tab Continue Hydrocodone/Acetaminophen [[place] 7.5-325] 1 tab PO TID PRN PRN Reason: Pain Metoprolol Succinate [Toprol XL] 50 mg PO HS Simvastatin [Zocor] 10 mg PO HS Potassium Chloride [Klor-Con 20] 10 meq PO Q48H PRN PRN Reason: Edema Albuterol Inhaler (Mhu) [Ventolin Hfa Inhaler (Mhu)] 1 - 2 puff INHALATION RT-QID PRN PRN Reason: Shortness Of Breath Budesonide-Formot 160-4.5 Mcg [Symbicort 160-4.5 Mcg Inhaler] 2 puff INHALATION RT-BID #1 puff Sodium Chloride [[place]] 1 spray EA NOSTRIL Q6H PRN PRN Reason: Nasal Congestion Tiotropium 18 Mcg/Puff [Spiriva] 1 puff INHALATION RT-DAILY Modafinil [Provigil] 200 mg PO DAILY Ibuprofen [Motrin] 600 mg PO TID Ergocalciferol (Vitamin D2) [Vitamin D2] 50,000 unit PO Q7D Discharge Medication List Hydrocodone/Acetaminophen [[place] 7.5-325] 1 tab PO TID PRN 05/18/14 [History] Metoprolol Succinate [Toprol XL] 50 mg PO HS 11/15/16 [History] Simvastatin [Zocor] 10 mg PO HS 11/15/16 [History] Potassium Chloride [Klor-Con 20] 10 meq PO Q48H PRN 03/22/17 [History] Albuterol Inhaler (Mhu) [Ventolin Hfa Inhaler (Mhu)] 1 - 2 puff INHALATION RT- QID PRN 03/30/17 [History] Budesonide-Formot 160-4.5 Mcg [Symbicort 160-4.5 Mcg Inhaler] 2 puff INHALATION RT-BID #1 puff 03/31/17 [Rx] Sodium Chloride [[place]] 1 spray EA NOSTRIL Q6H PRN 04/08/17 [History] Ergocalciferol (Vitamin D2) [Vitamin D2] 50,000 unit PO Q7D 08/17/19 [History] Ibuprofen [Motrin] 600 mg PO TID 08/17/19 [History] Modafinil [Provigil] 200 mg PO DAILY 08/17/19 [History] Tiotropium 18 Mcg/Puff [Spiriva] 1 puff INHALATION RT-DAILY 08/17/19 [History] Isosorbide Mononitrate ER [Imdur] 30 mg PO DAILY 30 Days tab.er.24h 08/26/19 [Rx] Lisinopril [Zestril] 10 mg PO DAILY 30 Days tab 08/26/19 [Rx] Pantoprazole [Protonix] 40 mg PO AC-BRKFST 30 Days tablet. 08/26/19 [Rx] Follow up Appointment(s)/Referral(s): Nichelle Felix MD [STAFF PHYSICIAN] - 1 Week Guillermo Jim MD [Primary Care Provider] - 1-2 days Gela Edwards MD [STAFF PHYSICIAN] - 2 Weeks Patient Instructions/Handouts: Abdominal Pain (ED) Discharge Disposition: HOME SELF-CARE
[2019-08-26 10:10] VITALS: BMI 29.8
--- NOTE | 2019-08-26 11:02 | P.PN ---
Subjective Progress Note Date: 08/26/19 Patient is a 78 yo CF with COPD, HTN, chronic pain, and tobacco abuse who presented with complaints of right sided abdominal pain of 2 months duration. Her pain had been gradually worsening and she had seen pain management and was to have an MRI on 08/19/2019 but the pain became to severe to manage at home and she presented to the emergency department. On arrival to the ED she underwent an extensive evaluation. She was slightly hypertensive, Lab work showed an elevated CRP at 56.1 but was otherwise unremarkable. Her initial CT abdomen and pelvis showed extensive inflammatory changes in the right lower quadrant with fat stranding and fluid around the cecum, dilated distal small bowel, and dilated cecum. Concerns for a possible inflammatory bowel disease, enteritis, or ruptured appendix with abscess. She was subsequently admitted and started on IV fluids, pain medication, antibiotics. Surgery was consulted. She was able to have bowel movements and pass gas after admission. She had a repeat CT abdomen and pelvis performed on 08/16 which showed inflammatory changes in the right lower quadrant, distended terminal ileum, cecum with focal area of soft tissue attenuation, small bowel loops with fluid filled. He had some distention, possible cecal mass with some involvement in the mesentery tumor, adhesive disease, and partial obstruction. They recommended endoscopic correlation. Patient underwent bowel prep on 08/17. Colonoscopy on 08/18 showed cecal mass at the origin of the appendix. Case discussed with Dr. Coker and plan was for robotic versus open partial colectomy with removal of the mass. Patient underwent echo on 08/19/2019 which showed a depressed ejection fraction of 45%. She also had an episode of nonsustained V. tach. She subsequently underwent cardiac catheterization on 08/19 which demonstrated a 40-50% lesion involving the LAD, and a 60% lesion involving the left circumflex, there is a 90% stenosis of the diagonal branch midportion of the LAD. Interventional cardiology recommended maximizing medical therapy and clearance for surgery with elevated risk. She underwent robtoic right sided hemicolectomy on 08/23 without complications. Patient seen and examined at bedside. No nausea or vomiting, still not passing flatus, no chest pain or shortness of breath, does not appear to be in distress. Objective - Vital Signs Vital signs: Vital Signs Temp 98.3 F 08/26/19 04:00 Pulse 78 08/26/19 08:31 Resp 17 08/26/19 04:00 BP 105/64 08/26/19 04:00 Pulse Ox 92 L 08/26/19 04:00 Intake & Output 08/25/19 08/26/19 08/26/19 18:59 06:59 18:59 Intake Total 200 Output Total 300 300 Balance -300 -300 200 Weight 76.5 kg 76.5 kg Intake: Oral 200 Output: Urine 300 300 Other: Voiding Method Indwelling Catheter Toilet # Voids 1 - Exam General: no distress , appears at stated age Derm: warm, dry Head: atraumatic, normocephalic, symmetric Eyes: EOMI, no lid lag, anicteric sclera Mouth: no lip lesion Cardiovascular: S1S2 reg, no murmur, positive posterior tibial pulse bilateral, Lungs: Course bs bilateral , no accessory muscle use Abdominal: soft, nontender to palpation, no guarding Ext: no gross muscle atrophy, no edema, no contractures Neuro: CN II-XI grossly intact, no focal neuro deficits Psych: Alert, oriented, appropriate affect - Labs CBC & Chem 7: 08/26/19 05:55 08/26/19 05:55 Labs: Abnormal Lab Results - Last 24 Hours (Table) 08/26/19 08/26/19 Range/Units 05:55 05:55 RBC 3.28 L (3.80-5.40) m/uL Hgb 9.1 L D (11.4-16.0) gm/dL Hct 28.4 L (34.0-46.0) % RDW 16.3 H (11.5-15.5) % Sodium 130 L (137-145) mmol/L Calcium 7.8 L (8.4-10.2) mg/dL Assessment and Plan Plan: Assessment: 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 and intractable abdominal pain - s/p colonoscopy and right sided robotic hemicolectomypreformed 08/23 - cardio recs for indication of high risk - Morphine - Tubular adenoma per path from colonoscopy, await surgical path - Completed ABX - tolerated diet - appreciate surgery input, recommended keeping patient 1 more day for further monitoring Newly 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% -Cardiology recommendations appreciated -Continue with beta armando, ACEI - off IV lasix , diuretics as indicated Coronary artery disease -Status post cath -Cardiology recommendations appreciated -Maximized medical therapy with beta armando, aspirin, Imdur and Lipitor - follow-up with cardio as outpatient COPD without exacerbation -bronchodilators as indicated - spiriva - symbicort - abuterol HTN - controlled - metoprolol Pre DM with A1C 6.4 - careful monitoring during perioperative period to decrease risks of delayed wound healing and infection - Insulin sliding scale - home with diet modification Tobacco abuse - cessation - nicotine replacement DVT prophylaxis: Heparin Discussed with: Patient, Nursing, Anticipated discharge: Home in 1-[address]: Home with home health and [facility] if cleared by PT
--- NOTE | 2019-08-26 11:03 | P.PN ---
<Funmilayo Cowart - Last Filed: 08/26/19 10:58> Subjective Progress Note Date: 08/26/19 CHIEF COMPLAINT: Abdominal pain HISTORY OF PRESENT ILLNESS: Patient is status post robotic right hemicolectomy. Postop day #2. Patient examined this morning at the bedside with Dr. Felix. Patient reports her pain is tolerable. However she is asking for "a little something extra to help with pain". She is tolerating full liquid diet. Denies nausea or vomiting. She is not passing flatus. Vital signs are stable. She is afebrile. PHYSICAL EXAM: VITAL SIGNS: Reviewed GENERAL: Well-developed in no acute distress. HEENT: No sclera icterus. Extraocular movements grossly intact. Moist buccal mucosa. Head is atraumatic, normocephalic. Hears conversational speech. No nasal drainage. NECK: Supple without lymphadenopathy. CHEST: Non-labored respirations and equal bilateral excursions. CARDIOVASCULAR: Regular rate with regular rhythm. Palpable 2+ radial pulses. ABDOMEN: Soft. Nondistended. Incisions clean dry intact. MUSCULOSKELETAL: No clubbing or cyanosis. NEUROLOGIC: No focal or lateralizing signs. Cranial nerves II through XII grossly intact. PSYCH: Appropriate affect. Alert and oriented to person, place and time. Slightly slow to respond to questions. SKIN: Well perfused. Good skin turgor. ASSESSMENT: 1. Abdominal pain x 2 months 2. Cecal mass PLAN: -Continue full liquid diet -Pain control. Toradol scheduled. Continue home dose of [place]. Add Neurontin. -Incentive spirometer -Activity as tolerated -Recommend holding discharge until patient begins passing flatus. Nurse practitioner note has been reviewed by physician. Signing provider agrees with the documented findings, assessment, and plan of care. Objective - Vital Signs Vital signs: Vital Signs Temp 98.3 F 08/26/19 04:00 Pulse 78 08/26/19 08:31 Resp 17 08/26/19 04:00 BP 105/64 08/26/19 04:00 Pulse Ox 92 L 08/26/19 04:00 Intake & Output 08/25/19 08/26/19 08/26/19 18:59 06:59 18:59 Intake Total 200 Output Total 300 300 Balance -300 -300 200 Weight 76.5 kg 76.5 kg Intake: Oral 200 Output: Urine 300 300 Other: Voiding Method Indwelling Catheter Toilet # Voids 1 - Labs CBC & Chem 7: 08/26/19 05:55 08/26/19 05:55 Labs: Abnormal Lab Results - Last 24 Hours (Table) 08/26/19 08/26/19 Range/Units 05:55 05:55 RBC 3.28 L (3.80-5.40) m/uL Hgb 9.1 L D (11.4-16.0) gm/dL Hct 28.4 L (34.0-46.0) % RDW 16.3 H (11.5-15.5) % Sodium 130 L (137-145) mmol/L Calcium 7.8 L (8.4-10.2) mg/dL <Nichelle Felix N - Last Filed: 08/27/19 07:59> Subjective The patient was seen and evaluated with nurse practitioner. Agree with above. Additionally, patient has history of chronic narcotic use for pain. Analgesics outside of opiates advised. Trial of Neurontin 300 mg 3 times a day for acute pain started. Patient has history of pre-existing ventricular tachyarrhythmia and recommend cardiac assessment prior to discharge. Additionally, as patient lives alone, recommend bowel function with flatus or bowel movements prior to discharge. Objective - Vital Signs Vital signs: Vital Signs Temp 98.3 F 08/27/19 04:00 Pulse 76 08/27/19 07: Resp 08/27/19 04:00 BP 114/66 08/27/19 04:00 Pulse Ox 94 L 08/27/19 06:59 Intake & Output 08/26/19 08/27/19 08/27/19 18:59 06:59 18:59 Intake Total 860 Output Total 1300 1350 Balance -440 -1350 Weight 76.5 kg 76.9 kg Intake: Oral 860 Output: Urine 1300 1350 Other: Voiding Method Toilet Toilet # Voids 1 3 # Bowel Movements 1 - Labs CBC & Chem 7: 08/26/19 05:55 08/26/19 05:55 Assessment and Plan (1) Neoplasm of cecum Current Visit: Yes Status: Acute Code(s): D49.0 - NEOPLASM OF UNSPECIFIED BEHAVIOR OF DIGESTIVE SYSTEM SNOMED Code(s): 055112428 (2) Right lower quadrant pain Current Visit: Yes Status: Acute Code(s): R10.31 - RIGHT LOWER QUADRANT PAIN SNOMED Code(s): 569575990 (3) Ventricular tachyarrhythmia Current Visit: Yes Status: Acute Code(s): I47.2 - VENTRICULAR TACHYCARDIA SNOMED Code(s): 79555670 (4) Adenoma of transverse colon Current Visit: Yes Status: Acute Code(s): D12.3 - BENIGN NEOPLASM OF TRANSVERSE COLON SNOMED Code(s): 152622202 (5) Sigmoid diverticulosis Current Visit: Yes Status: Acute Code(s): K57.30 - DVRTCLOS OF LG INT W/O PERFORATION OR ABSCESS W/O BLEEDING SNOMED Code(s): 533839442 (6) COPD exacerbation Current Visit: No Status: Acute Code(s): J44.1 - CHRONIC OBSTRUCTIVE PULMONARY DISEASE W (ACUTE) EXACERBATION SNOMED Code(s): 389620108 (7) Iron deficiency anemia Current Visit: Yes Status: Acute Code(s): D50.9 - IRON DEFICIENCY ANEMIA, UNSPECIFIED SNOMED Code(s): 82291441 (8) Ischemic cardiomyopathy Current Visit: Yes Status: Acute Code(s): I25.5 - ISCHEMIC CARDIOMYOPATHY SNOMED Code(s): 019230632
--- NOTE | 2019-08-26 14:08 | PN ---
PROGRESS NOTE Mrs Romo has developed short 3-beat runs of PVCs. She is doing well otherwise. She is status post colon surgery, progressing slowly. Her magnesium is low. Potassium is low. I am supplementing magnesium and potassium and continue beta blockers and gradual increase in activity. No other intervention. Vitals are stable, no JVD. S1-S2 heard normally, short systolic murmur noted. Lungs reveal diminished air entry. Abdomen and lower extremity exam unchanged. Plan is to complement potassium, magnesium. Continue current medical regimen including beta blockers and upon discharge she will follow up with Dr. Edwards. MMODL / IJN: [id number] /
[2019-08-26] MEDS: GABAPENTIN 300 MG CAP PO SCH ×2 (17:52→21:59)
[2019-08-26] MEDS: LACTATED RINGERS 1,000 ML IV SCH (17:56)
--- NOTE | 2019-08-26 20:26 | P.PN ---
Progress Note - Text Progress Note Date: 08/26/19 Patient seen and evaluated this evening. She reports passing flatus and having bowel movements this evening. She does live alone. She reports support from neighbors and friends. At this point, patient stable for discharge tomorrow with assistance. Follow up in the office in 2 weeks also reviewed.
[2019-08-26] MEDS ORDERED: ATORVASTATIN 10 MG TAB PO SCH (21:00)
[2019-08-27] MEDS: ALPRAZolam 0.25 MG TAB PO PRN (00:24)
[2019-08-27] MEDS: HYDROcodone/APAP 7.5-325MG 1 EACH TAB PO PRN ×3 (00:24→15:48)
[2019-08-27] MEDS: ACETAMINOPHEN TAB 325 MG TAB PO SCH ×4 (03:02→12:21)
[2019-08-27] MEDS: HYDROmorphone 0.5 MG/0.5 ML SYRINGE IVP PRN (04:37)
[2019-08-27] MEDS: LACTATED RINGERS 1,000 ML IV SCH (06:33)
[2019-08-27] MEDS: PANTOPRAZOLE 40 MG TABLET PO SCH (06:37)
[2019-08-27] MEDS: IPRATROPIUM-ALBUTEROL 3 ML NEB INHALATION SCH ×3 (06:59→15:29)
[2019-08-27] MEDS: SYMBICORT 160-4.5 MCG INHALER INHALATION SCH (06:59)
[2019-08-27 08:01] LABS: ALT 17 U/L (4-34); AST 24 U/L (14-36); African American GFR (CKD) >90 (>60 ml/min/1.73 sqM); Albumin 2.8 g/dL (3.5-5.0); Alkaline Phosphatase 61 U/L (38-126); Anion Gap 4 mmol/L; Blood Urea Nitrogen 10 mg/dL (7-17); Calcium 8.2 mg/dL (8.4-10.2); Carbon Dioxide 27 mmol/L (22-30); Chloride 104 mmol/L (98-107); Glucose 94 mg/dL (74-99); Non-African American GFR(CKD) 89 (>60 ml/min/1.73 sqM); Potassium 4.4 mmol/L (3.5-5.1); Sodium 135 mmol/L (137-145); Total Bilirubin 0.4 mg/dL (0.2-1.3); Total Protein 5.2 g/dL (6.3-8.2)
[2019-08-27] MEDS: METOPROLOL SUCCINATE (ER) 50 MG TAB.ER.24H PO SCH (08:14)
[2019-08-27] MEDS: lisinopriL 10 MG TAB PO SCH (08:14)
[2019-08-27] MEDS: FAMOTIDINE 20 MG TAB PO SCH (08:14)
[2019-08-27] MEDS: ISOSORBIDE MONONITRATE ER 30 MG TAB.ER.24H PO SCH (08:14)
[2019-08-27] MEDS: GABAPENTIN 300 MG CAP PO SCH ×2 (08:14→15:48)
[2019-08-27] MEDS: HEPARIN SODIUM,PORCINE 5,000 UNIT/ML 1 ML VIAL SQ SCH (08:15)
[2019-08-27 08:39] LABS: Anisocytosis Slight; Basophils % (A) 1 %; Eosinophils # (A) 0.2 k/uL (0-0.7); Eosinophils % (A) 4 %; HCT 31.7 % (34.0-46.0); HGB 10.1 gm/dL (11.4-16.0); Hypochromasia Slight; Lymphocytes # (A) 0.9 k/uL (1.0-4.8); Lymphocytes % (A) 21 %; MCH 27.9 pg (25.0-35.0); MCHC 31.7 g/dL (31.0-37.0); MCV 88.1 fL (80.0-100.0); Mean Platelet Volume 8.2; Monocytes # (A) 0.3 k/uL (0-1.0); Monocytes % (A) 7 %; Neutrophils # (A) 3.1 k/uL (1.3-7.7); Neutrophils % (A) 68 %; Platelet Count 188 k/uL (150-450); RDW 16.2 % (11.5-15.5); WBC 4.6 k/uL (3.8-10.6)
[2019-08-27 10:48] VITALS: BP 116/78; RESP 18; TEMP 98.2
--- NOTE | 2019-08-27 11:11 | P.PN ---
Subjective Progress Note Date: 08/27/19 CHIEF COMPLAINT: Abdominal pain HISTORY OF PRESENT ILLNESS: Patient is status post robotic right hemicolectomy. Postop day #3. Patient examined this morning at the bedside with Dr. Felix. Patient reports her pain is tolerable. She is tolerating diet. Denies nausea or vomiting. She reports passing flatus and having a bowel movement. Vital signs are stable. She is afebrile. PHYSICAL EXAM: VITAL SIGNS: Reviewed GENERAL: Well-developed in no acute distress. HEENT: No sclera icterus. Extraocular movements grossly intact. Moist buccal mucosa. Head is atraumatic, normocephalic. Hears conversational speech. No nasal drainage. NECK: Supple without lymphadenopathy. CHEST: Non-labored respirations and equal bilateral excursions. CARDIOVASCULAR: Regular rate with regular rhythm. Palpable 2+ radial pulses. ABDOMEN: Soft. Nondistended. Incisions clean dry intact. MUSCULOSKELETAL: No clubbing or cyanosis. NEUROLOGIC: No focal or lateralizing signs. Cranial nerves II through XII grossly intact. PSYCH: Appropriate affect. Alert and oriented to person, place and time. SKIN: Well perfused. Good skin turgor. ASSESSMENT: 1. Abdominal pain x 2 months 2. Cecal mass PLAN: Continue diet as tolerated Pain control Patient is cleared for discharge from a surgical standpoint. Patient to follow- up with Dr. Felix outpatient. Nurse practitioner note has been reviewed by physician. Signing provider agrees with the documented findings, assessment, and plan of care. Objective - Vital Signs Vital signs: Vital Signs Temp 98.2 F 08/27/19 08:00 Pulse 78 08/27/19 11:04 Resp 18 08/27/19 08:00 BP 116/78 08/27/19 08:00 Pulse Ox 93 L 08/27/19 08:00 Intake & Output 08/26/19 08/27/19 08/27/19 18:59 06:59 18:59 Intake Total 860 120 Output Total 1300 1350 Balance -440 -1350 120 Weight 76.5 kg 76.9 kg Intake: Oral 860 120 Output: Urine 1300 1350 Other: Voiding Method Toilet Toilet Toilet # Voids 1 3 0 # Bowel Movements 1 - Labs CBC & Chem 7: 08/27/19 06:55 08/27/19 06:55 Labs: Abnormal Lab Results - Last 24 Hours (Table) 08/27/19 08/27/19 Range/Units 06:55 06:55 RBC 3.60 L (3.80-5.40) m/uL Hgb 10.1 L (11.4-16.0) gm/dL Hct 31.7 L (34.0-46.0) % RDW 16.2 H (11.5-15.5) % Lymphocytes # 0.9 L (1.0-4.8) k/uL Sodium 135 L (137-145) mmol/L Calcium 8.2 L (8.4-10.2) mg/dL Total Protein 5.2 L (6.3-8.2) g/dL Albumin 2.8 L (3.5-5.0) g/dL
[2019-08-27] MEDS: NICOTINE 21MG/24HR PATCH TRANSDERM SCH (12:11)
[2019-08-27] MEDS: DOCUSATE 100 MG CAP PO SCH (12:21)
[2019-08-27 15:41] VITALS: PULSE 74
--- NOTE | 2019-08-27 16:43 | P.DS ---
Providers Date of admission: 08/17/19 02:54 Expected date of discharge: 08/27/19 Attending physician: Lucio Read MD Consults: 08/17/19 02:50 Consult Physician Stat Consulting Provider: Nichelle Felix Consult Reason/Comments: Abdominal pain. Possible ruptured appendicitis. Do you want consulting provider notified?: Already Contacted 08/19/19 13:27 Consult Physician Urgent Consulting Provider: Primitivo Sawant Consult Reason/Comments: cardiac clearance for OR Do you want consulting provider notified?: Yes 08/19/19 16:52 Consult Physician Routine Consulting Provider: Gela Edwards Consult Reason/Comments: cardiac clarance for OR Do you want consulting provider notified?: Yes, Notify in am 08/25/19 18:53 Consult Physician Routine Consulting Provider: Gela Edwards Consult Reason/Comments: NSVT Do you want consulting provider notified?: Yes Primary care physician: [place] Hospital Course: Discharge Diagnosis: Cecal mass s/p robotic hemicolectomy on 08/23 with initial path tublar adenoma from colonscopy, final path pending. Intractable abdominal pain Partial small bowel obstruction Newly discovered systolic cardiomyopathy with ef 45% Significant coronary artery disease COPD without exacerbation HTN Pre DM A1C 6. Tobacco abuse Non sustained V tach Hospital Course: Patient is a 78 yo CF with COPD, HTN, chronic pain, and tobacco abuse who presented with complaints of right sided abdominal pain of 2 months duration. Her pain had been gradually worsening and she had seen pain management and was to have an MRI on 08/19/2019 but the pain became to severe to manage at home and she presented to the emergency department. On arrival to the ED she underwent an extensive evaluation. She was slightly hypertensive, Lab work showed an elevated CRP at 56.1 but was otherwise unremarkable. Her initial CT abdomen and pelvis showed extensive inflammatory changes in the right lower quadrant with fat stranding and fluid around the cecum, dilated distal small bowel, and dilated cecum. Concerns for a possible inflammatory bowel disease, enteritis, or ruptured appendix with abscess. She was subsequently admitted and started on IV fluids, pain medication, antibiotics. Surgery was consulted. She was able to have bowel movements and pass gas after admission. She had a repeat CT abdomen and pelvis performed on 08/16 which showed inflammatory changes in the right lower quadrant, distended terminal ileum, cecum with focal area of soft tissue attenuation, small bowel loops with fluid filled. He had some distention, possible cecal mass with some involvement in the mesentery tumor, adhesive disease, and partial obstruction. They recommended endoscopic correlation. Patient underwent bowel prep on 08/17. Colonoscopy on 08/18 showed cecal mass at the origin of the appendix. Case discussed with Dr. Coker and plan was for robotic versus open partial colectomy with removal of the mass. Patient underwent echo on 08/19/2019 which showed a depressed ejection fraction of 45%. She also had an episode of nonsustained V. tach. She subsequently underwent cardiac catheterization on 08/19 which demonstrated a 40-50% lesion involving the LAD, and a 60% lesion involving the left circumflex, there is a 90% stenosis of the diagonal branch midportion of the LAD. Interventional cardiology recommended maximizing medical therapy and clearance for surgery with elevated risk. She underwent robtoic right sided hemicolectomy on 08/23 without complications. By the morning on 08/26 she was vinicius erating her diet and had 3 small bowel movements. She was determined stable for discharge. She'll follow up with Dr. Coker in 2-3 weeks and Delroy Nguyen NP at Dr. Jim's office in 3-4 days. Given an RX for gabapentin and norco 10 and will follow-up with her established pain management [facility] for further recs. Patient seen and examined at bedside. Doing well, 3 bowel movements overnight. No chest pain, SOB or nausea. Okay with home health care. Vital signs reviewed and stable. General: non toxic, no distress, appears at stated age Derm: warm, dry Head: atraumatic, normocephalic, symmetric Eyes: EOMI, no lid lag, anicteric sclera Mouth: no lip lesion, mucus membranes moist Cardiovascular: S1S2 reg, no murmur, positive posterior tibial pulse bilateral, Lungs: Course bs bilateral, no rhonchi, no rales , no accessory muscle use Abdominal: soft, nontender to palpation, no guarding, no appreciable organomegaly Ext: no gross muscle atrophy, no edema, no contractures Neuro: CN II-XI grossly intact, no focal neuro deficits Psych: Alert, oriented, appropriate affect A total of 45 minutes of time were spent preparing this complex discharge summary . Patient Condition at Discharge: Good Plan - Discharge Summary Discharge Rx Participant: Yes New Discharge Prescriptions: New Gabapentin [Neurontin] 300 mg PO TID #45 cap Isosorbide Mononitrate ER [Imdur] 30 mg PO DAILY #30 tab.er.24h HYDROcodone/APAP 10-325MG [Mobile 10-325] 1 tab PO Q6HR PRN 7 Days #28 tab PRN Reason: Pain Lisinopril [Zestril] 10 mg PO DAILY #30 tab Continue Metoprolol Succinate [Toprol XL] 50 mg PO HS Simvastatin [Zocor] 10 mg PO HS Potassium Chloride [Klor-Con 20] 10 meq PO Q48H PRN PRN Reason: Edema Albuterol Inhaler (Mhu) [Ventolin Hfa Inhaler (u)] 1 - 2 puff INHALATION RT-QID PRN PRN Reason: Shortness Of Breath Budesonide-Formot 160-4.5 Mcg [Symbicort 160-4.5 Mcg Inhaler] 2 puff INHALATION RT-BID #1 puff Sodium Chloride [[place]] 1 spray EA NOSTRIL Q6H PRN PRN Reason: Nasal Congestion Tiotropium 18 Mcg/Puff [Spiriva] 1 puff INHALATION RT-DAILY Modafinil [Provigil] 200 mg PO DAILY Ergocalciferol (Vitamin D2) [Vitamin D2] 50,000 unit PO Q7D Discontinued Hydrocodone/Acetaminophen [Mobile 7.5-325] 1 tab PO TID PRN PRN Reason: Pain Ibuprofen [Motrin] 600 mg PO TID Discharge Medication List Metoprolol Succinate [Toprol XL] 50 mg PO HS 11/15/16 [History] Simvastatin [Zocor] 10 mg PO HS 11/15/16 [History] Potassium Chloride [Klor-Con 20] 10 meq PO Q48H PRN 03/22/17 [History] Albuterol Inhaler (Mhu) [Ventolin Hfa Inhaler (u)] 1 - 2 puff INHALATION RT- QID PRN 03/30/17 [History] Budesonide-Formot 160-4.5 Mcg [Symbicort 160-4.5 Mcg Inhaler] 2 puff INHALATION RT-BID #1 puff 03/31/17 [Rx] Sodium Chloride [[place]] 1 spray EA NOSTRIL Q6H PRN 04/08/17 [History] Ergocalciferol (Vitamin D2) [Vitamin D2] 50,000 unit PO Q7D 08/17/19 [History] Modafinil [Provigil] 200 mg PO DAILY 08/17/19 [History] Tiotropium 18 Mcg/Puff [Spiriva] 1 puff INHALATION RT-DAILY 08/17/19 [History] Gabapentin [Neurontin] 300 mg PO TID #45 cap 08/27/19 [Rx] HYDROcodone/APAP 10-325MG [Mobile 10-325] 1 tab PO Q6HR PRN 7 Days #28 tab 08/27/19 [Rx] Isosorbide Mononitrate ER [Imdur] 30 mg PO DAILY #30 tab.er.24h 08/27/19 [Rx] Lisinopril [Zestril] 10 mg PO DAILY #30 tab 08/27/19 [Rx] Follow up Appointment(s)/Referral(s): Nichelle Felix MD [STAFF PHYSICIAN] - 09/10/19 Guillermo Jim MD [Primary Care Provider] - 09/01/19 2:45 pm (SATURDAY (WITH DELROY)) Gela Edwards MD [STAFF PHYSICIAN] - 2 Weeks (Offices will call with an appointment date and time. ) Patient Instructions/Handouts: Left Heart Catheterization (IP), Colectomy (DC), Laparoscopic Bowel Resection (DC), Abdominal Pain (ED), Colectomy Diet (DC) Activity/Diet/Wound Care/Special Instructions: Wear abdominal binder at all times except for showering No lifting over 4 pounds in 4 weeks until Sep 23June shower. No bath tub soaks for 2 weeks until September 06. Diet as tolerated. Use Tylenol and ibuprofen scheduled for the next 24-48 hours for best pain relief. Use ice along incisions for the today to prevent swelling. Discharge Disposition: HOME WITH HOME HEALTH SERVICES
--- NOTE | 2019-09-02 14:31 | CDI ---
Documentation Clarification Form Date: 09/02/19 From: Betty Durbin Phone: If you have a question about this query, please contact Autumn Moore, Corrective And Manual Arts Therapist at [phone] between 8am and 5pm. Admit Date: 08/17/19 Discharge Date:08/27/19 Patient Name: Tracey Romo Visit Number: [id number] ATTENTION: The Clinical Documentation Specialists (CDI) and [facility] Coding Staff appreciate your assistance in clarifying documentation. Please respond to the clarification below the line at the bottom and electronically sign. The CDI & [facility] Coding staff will review the response and follow-up if needed. Please note: Queries are made part of the Legal Health Record. If you have any questions, please contact the author of this message via ITS. Dear Dr. 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 Documentation states: Cecal mass with initial path of tubular adenoma from colonoscopy, final path pending. Patient history/risk factors: Family history of colon cancer, cecal mass Clinical Indicators: Abdominal pain, abnormal CT scan for colonic neoplasm Treatment: Right hemicolectomy In your professional opinion, do you agree with the pathology report specifying cecal mass as invasive moderately to poorly differentiated colonic adenocarcinoma? Yes No Other (please specify) Unable to determine Yes, however not available at the time of discharge patient discharged on 08/26 and path came back 08/30 [facility]
== END 2019-08-27 18:39 | disposition home health service (06) | DRG 330 ==
LOC: EC 23:42 → 2SICU 08-17 02:54 → 3SCARD 08-22 10:23
PROVIDERS: ADMIT Internal Medicine; ATTEND Internal Medicine
PROC: 0DBL8ZX Excision of Transverse Colon, Via Natural or Artificial Opening Endoscopic, Diagnostic (ICD-10-PCS; 2019-08-19)
PROC: B2151ZZ Fluoroscopy of Left Heart using Low Osmolar Contrast (ICD-10-PCS; 2019-08-20)
PROC: B2111ZZ Fluoroscopy of Multiple Coronary Arteries using Low Osmolar Contrast (ICD-10-PCS; 2019-08-20)
PROC: 4A023N7 Measurement of Cardiac Sampling and Pressure, Left Heart, Percutaneous Approach (ICD-10-PCS; 2019-08-20)
PROC: 0DBL4ZZ Excision of Transverse Colon, Percutaneous Endoscopic Approach (ICD-10-PCS; principal; 2019-08-24 12:20)
PROC: 8E0W4CZ Robotic Assisted Procedure of Trunk Region, Percutaneous Endoscopic Approach (ICD-10-PCS; principal; 2019-08-24 12:20)
PROC: 0DTF4ZZ Resection of Right Large Intestine, Percutaneous Endoscopic Approach (ICD-10-PCS; principal; 2019-08-24 12:20)
DX: C18.0 Malignant neoplasm of cecum (principal); E87.1 Hypo-osmolality and hyponatremia; I47.2 Ventricular tachycardia; K56.690 Other partial intestinal obstruction; D12.3 Benign neoplasm of transverse colon; D50.9 Iron deficiency anemia, unspecified; E66.09 Other obesity due to excess calories; E78.5 Hyperlipidemia, unspecified; F17.210 Nicotine dependence, cigarettes, uncomplicated; G47.419 Narcolepsy without cataplexy; G89.4 Chronic pain syndrome; I10 Essential (primary) hypertension; I25.10 Atherosclerotic heart disease of native coronary artery without angina pectoris; I25.2 Old myocardial infarction; I25.5 Ischemic cardiomyopathy; I49.3 Ventricular premature depolarization; J44.9 Chronic obstructive pulmonary disease, unspecified; K21.9 Gastro-esophageal reflux disease without esophagitis; Z20.828 Contact with and (suspected) exposure to other viral communicable diseases; K57.30 Diverticulosis of large intestine without perforation or abscess without bleeding; M81.0 Age-related osteoporosis without current pathological fracture; R73.03 Prediabetes; M19.90 Unspecified osteoarthritis, unspecified site; R01.1 Cardiac murmur, unspecified; R73.9 Hyperglycemia, unspecified; R79.82 Elevated C-reactive protein (CRP); M54.30 Sciatica, unspecified side; R60.9 Edema, unspecified; R05 Cough; Z68.30 Body mass index [BMI] 30.0-30.9, adult; Z79.51 Long term (current) use of inhaled steroids; Z79.899 Other long term (current) drug therapy; Z80.0 Family history of malignant neoplasm of digestive organs
CPT/HCPCS: 36415; 45385; 71045; 74018; 74176; 74177; 80048; 80053; 81001; 82150; 82378; 82728; 83036; 83540; 83550; 83690; 83735; 83880; 84100; 85025; 85027; 86140; 86301; 86850; 86900; 86901; 87040; 88305; 88309; 88341; 88342; 93306; 93458; 94640; 94760; 96365; 96368; 96375; 99285

== ENCOUNTER → 2019-10-23 | Outpatient (CLI) | payer MEDICARE, OTHER ==
--- NOTE | 2019-10-26 06:28 | PE ---
EXAMINATION TYPE: PET CT fusion skull to thigh DATE OF EXAM: 10/23/2019 COMPARISON: CT abdomen and pelvis August 17, 2019. HISTORY: Colorectal cancer initial staging study. Abnormal colonoscopy with subsequent surgical excision or partial colectomy August 24, 2019. TECHNIQUE: Following the intravenous administration of 8.2 mCi of F-18 FDG, whole body images are pe rformed from the skull base to the midthigh. Images are reviewed on the computer in the coronal, axi al, and sagittal planes. Reconstructed rotating images are created on independent workstation and re viewed on the computer. A noncontrast CT is performed in conjunction with the PET scan. SCAN: Initial Scan FINDINGS: SKULL BASE AND NECK: No areas of suspicious hypermetabolic uptake. CHEST, MEDIASTINUM, AND HILAR REGION: No areas of suspicious hypermetabolic uptake. ABDOMEN AND PELVIS: Normal excretion is seen. No areas of suspicious hypermetabolic uptake. OSSEOUS STRUCTURES: No areas of suspicious hypermetabolic uptake. OTHER CT: [place] calcified plaque left greater than right carotid bulb level. Mild to moderate underlying emphysematous change greatest in the upper lungs bilaterally. Three-vesse l fairly severe coronary artery calcification. Dependent calcified gallstones. Surgical changes from right-sided partial colectomy near axial image 165. Distal colonic diverticula. Fat stranding with mild uptake corresponds to soft tissue infection and/or scarring from recent intra-abdominal surgery left mid abdomen in axial image 160. Mild hazines s and fat stranding right lower quadrant axial image 178 without definitive adenopathy or suspicious hypermetabolic uptake. Probable subcentimeter lymph nodes. Few scattered pelvic phleboliths. Facet arthropathy lower lumbar spine. Osseous structures somewhat demineralized. Exaggerated kyphosis with multilevel mild to moderate height loss throughout the thoracolumbar spine. IMPRESSION: Postsurgical changes to the colon are present. No areas of suspicious hypermetabolic upt suzy to suggest residual or metastatic malignancy. Mild fat stranding and subcentimeter nodularity rig ht mid to lower abdomen should be closely followed with repeat CT in 3-6 months time.
== END | disposition home or self-care (01) ==
LOC: RADPETMAIN 10:33
PROVIDERS: ATTEND Internal Medicine Hematology & Oncology
DX: C18.0 Malignant neoplasm of cecum (principal); Z98.890 Other specified postprocedural states
CPT/HCPCS: 78815; A9552

== ENCOUNTER 2020-04-29 12:18 | Emergency (ER) | payer MEDICARE, OTHER ==
[2020-04-29] MEDS ORDERED: HYDROmorphone 0.5 MG/0.5 ML SYRINGE IVP STA (13:08)
--- NOTE | 2020-04-29 13:11 | ED ---
General Adult HPI - General Chief complaint: Back Pain/Injury Stated complaint: Back Pain Time Seen by Provider: 04/29/20 12:20 Source: patient, EMS, RN notes reviewed, old records reviewed Mode of arrival: EMS Limitations: no limitations - History of Present Illness Initial comments: This is a 79-year-old female presents emergency department stating she has chronic back pain. Patient states the pain was so bad today she was unable to get up and walk across room. Patient states she took a [place] Motrin and Flexeril at 11:00 at her regular time. Patient states the pain now is almost clearly back to its baseline. Patient states she has had no injury recently she's had no numbness or weakness. Patient denies any fever or chills. Patient denies any abdominal pain or chest pain. - Related Data Home Medications Medication Instructions Recorded Confirmed Metoprolol Succinate [Toprol XL] 50 mg PO DAILY 11/15/16 04/29/20 Simvastatin [Zocor] 10 mg PO HS 11/15/16 04/29/20 Potassium Chloride [Klor-Con 20] 20 meq PO Q48H 03/22/17 04/29/20 Ergocalciferol (Vitamin D2) 50,000 unit PO TH 08/17/19 04/29/20 [Vitamin D2 (50,000 Iu)] Tiotropium 18 Mcg/Puff [Spiriva] 1 puff INHALATION RT-DAILY 08/17/19 04/29/20 modafiniL [Provigil] 200 mg PO DAILY 08/17/19 04/29/20 Albuterol Nebulized [Ventolin 2.5 mg INHALATION RT-QID PRN 04/29/20 04/29/20 Nebulized] Albuterol Sulfate [Ventolin HFA] 2 puff INHALATION RT-Q4H PRN 04/29/20 04/29/20 Cyclobenzaprine [Flexeril] 5 mg PO BID 04/29/20 04/29/20 Docusate Sodium [Dok] 100 mg PO DAILY 04/29/20 04/29/20 Furosemide [Lasix] 40 mg PO Q48H 04/29/20 04/29/20 HYDROcodone/APAP 10-325MG [[place] 1 tab PO TID 04/29/20 04/29/20 10-325] Ibuprofen [Motrin] 600 mg PO Q6H PRN 04/29/20 04/29/20 Allergies Allergy/AdvReac Type Severity Reaction Status Date / Time No Known Allergies Allergy Verified 04/29/20 13:27 Review of Systems ROS Statement: Those systems with pertinent positive or pertinent negative responses have been documented in the HPI. ROS Other: All systems not noted in ROS Statement are negative. Past Medical History Past Medical History: COPD, Hyperlipidemia, Hypertension, Osteoarthritis (OA) Additional Past Medical History / Comment(s): sciatica, narcolepsy, osteoporosis History of Any Multi-Drug Resistant Organisms: None Reported Past Surgical History: Orthopedic Surgery Additional Past Surgical History / Comment(s): bunion surgery Past Anesthesia/Blood Transfusion Reactions: No Reported Reaction Past Psychological History: No Psychological Hx Reported Smoking Status: Current every day smoker Past Alcohol Use History: None Reported Past Drug Use History: Marijuana - Past Family History Father History Unknown: Yes Mother History Unknown: Yes General Exam - General Exam Comments Initial Comments: GENERAL: Patient is well-developed and well-nourished. Patient is nontoxic and well- hydrated and is in no acute distress. Patient was sleeping when I interviewed her head to a while a to speak to me. Patient was able to get up on the stretcher swing her feet around sit up and take off her jacket and they're sweater. ENT: Neck is soft and supple. No significant lymphadenopathy is noted. Oropharynx is clear. Moist mucous membranes. Neck has full range of motion without eliciting any pain. EYES: The sclera were anicteric and conjunctiva were pink and moist. Extraocular movements were intact and pupils were equal round and reactive to light. Eyelids were unremarkable. PULMONARY: Unlabored respirations. Good breath sounds bilaterally. No audible rales rhonchi or wheezing was noted. CARDIOVASCULAR: There is a regular rate and rhythm without any murmurs gallops or rubs. ABDOMEN: Soft and nontender with normal bowel sounds. SKIN: Skin is clear with no lesions or rashes and otherwise unremarkable. NEUROLOGIC: Patient is alert and oriented x3. Cranial nerves II through XII are grossly intact. Motor and sensory are also intact. Normal speech, volume and content. Symmetrical smile. MUSCULOSKELETAL: Normal extremities with adequate strength and full range of motion. She has some minimal tenderness in the lumbar region on palpation LYMPHATICS: No significant lymphadenopathy is noted PSYCHIATRIC: Normal psychiatric evaluation. Limitations: no limitations Course Vital Signs 04/29/20 12:21 Temperature 97.9 F Pulse Rate 111 H Respiratory 19 Rate Blood Pressure 166/103 O2 Sat by Pulse 93 L Oximetry Medical Decision Making - Medical Decision Making Lumbosacral spine x-ray shows no acute findings Disposition Clinical Impression: Chronic back pain Disposition: HOME SELF-CARE Condition: Good Instructions (If sedation given, give patient instructions): Chronic Back Pain (DC) Is patient prescribed a controlled substance at d/c from ED?: No Referrals: Nicole Nguyen NPC [Primary Care Provider] - 1-2 days Time of Disposition: 14:35
--- NOTE | 2020-04-29 14:29 | XR ---
EXAMINATION TYPE: XR lumbar spine 2 or 3V DATE OF EXAM: 04/29/2020 CLINICAL HISTORY: Chronic back pain increasing in severity today. TECHNIQUE: Frontal and lateral images of the lumbar spine are obtained. COMPARISON: CT abdomen and pelvis August 17, 2019 FINDINGS: Osseous structures are markedly demineralized which is noted to lower radiographic sensitiv ity for evaluation of fine anatomic detail particularly also including large body habitus. Persistent multilevel compression type fracture deformities ranging from mild at L4 level to moderate to advanc ed at all additional levels. Alignment fairly stable. Moderate to severe atherosclerotic calcificatio n redemonstrated. IMPRESSION: As above.
[2020-04-29 15:15] VITALS: BP 128/78; PULSE 100; RESP 16; TEMP 98
== END 2020-04-29 15:14 | disposition home or self-care (01) ==
LOC: EC 12:18
DX: M54.9 Dorsalgia, unspecified (principal); G89.29 Other chronic pain; J44.9 Chronic obstructive pulmonary disease, unspecified; E78.5 Hyperlipidemia, unspecified; I10 Essential (primary) hypertension; M19.90 Unspecified osteoarthritis, unspecified site; F17.200 Nicotine dependence, unspecified, uncomplicated; Z79.51 Long term (current) use of inhaled steroids; Z79.899 Other long term (current) drug therapy
CPT/HCPCS: 72100; 99284; 96374; J1170

== ENCOUNTER → 2021-01-03 | Outpatient (CLI) | payer MEDICARE, OTHER ==
[2021-01-04 00:02] LABS: African American GFR (CKD) 96.2 (60.0-200.0); Blood Urea Nitrogen 15.1 mg/dL (9.0-27.0)
== END | disposition home or self-care (01) ==
LOC: LABWHC1 14:15
PROVIDERS: ATTEND Physician Assistant
DX: C18.9 Malignant neoplasm of colon, unspecified (principal)
CPT/HCPCS: 36415; 82565; 84520

== ENCOUNTER → 2021-04-17 | Outpatient (CLI) | payer MEDICARE, OTHER ==
--- NOTE | 2021-04-17 15:54 | BD ---
EXAMINATION TYPE: Axial Bone Density DATE OF EXAM: 04/17/2021 COMPARISON: 04.16.2018 CLINICAL HISTORY: 80 YR OLD FEMALE......ICD-10 CODE: Z13.820 OSTEOPOROSIS SCREENING Height: 58 Weight: 135 FRAX RISK QUESTIONS: Glucocorticoids (More than 3mos): YES (Ex: prednisone, prednisolone, methylprednisolone, dexamethasone, and hydrocortisone). History of Fracture in Adulthood: YES Current Tobacco Use: YES RISK FACTORS HISTORY OF: YES, RIBS AND T- SPINE STATES PATIENT, LUMBAR, 1981 Family History of Osteoporosis: YES, POSSIBLE GRANDMOTHER Postmenopausal woman: YES, IN HER EARLY 50s Lost more than 2 inches in height since high school: YES Frequent falls: UNSTEADY Hyperparathyroidism: NO Adrenal Insufficiency: NO MEDICATIONS: Prednisone or other steroids: YES, PROAIR AND SYMBICORT, FOR COPD How Lon YRS Thyroid Medications: YES, IN THE PAST BUT NOTHING NOW Osteoporosis Medications: YES, MAX AMT OF ALL GIVEN, IN THE PAST Additional Medications: BP MEDS, STATIN FOR CHOLESTEROL, REFLUX MEDS, HX OF CHEMO, FOR COLON CANCER, VIT D AND CALCIUM, ON AND OFF, STEROIDS FOR COPD Additional History: HYPERTENSION, CHOLESTEROL, REFLUX, HX OF COLON CA, COPD, EXAM MEASUREMENTS: Bone mineral densitometry was performed using the [employer] System. SPINAL FX, L/S SPINE NOT SCANNED Bone mineral density about the R hip (g/cm2): 0.566 Bone mineral density about the L hip (g/cm2): 0.563 T Score values are as follows: -----R Neck: -3.2 -----L Neck: -3.6 -----R Total: -3.5 -----L Total: -3.5 Bone mineral density has: Decreased -14.3% since study of: 04.16.2018 FRAX%s: THERE IS A 67.1% CHANCE FOR A MAJOR OSTEOPOROTIC FX AND A 53.0% CHANCE FOR HER HIPS....... PROBABILITY FOR FX IN 10 YRS TIME Bone mineral density about the L Wrist (g/cm2): 0.563 T Score values are as follows: -----Dist. R+U: -3.6 -----Prox. R+U: -4.5 -----Radius total: -3.5 Bone mineral density has: Decreased -5.4% since study of: 04.16.2018 IMPRESSION: Osteoporosis (T Score less than -2.5). There is increased fracture risk and therapy is usually indicated based on age. Re-Screen 1-2 years. NOTE: T-SCORE=SD OF THE YOUNG ADULT MEAN.
== END | disposition home or self-care (01) ==
LOC: RADBDWWP 12:24
PROVIDERS: ATTEND Internal Medicine
DX: M81.0 Age-related osteoporosis without current pathological fracture (principal); Z78.0 Asymptomatic menopausal state
CPT/HCPCS: 77080

== ENCOUNTER 2021-08-25 12:51 | Emergency (ER) | payer MEDICARE, OTHER ==
[2021-08-25 13:04] VITALS: RESP 20; TEMP 98.7
[2021-08-25] MEDS ORDERED: LABETALOL 5 MG/ML VIAL MDV IVP STA ×2 (13:09→15:25)
[2021-08-25] MEDS ORDERED: hydroCHLOROthiazide 25 MG TAB PO STA (13:10)
--- NOTE | 2021-08-25 13:12 | ED ---
General Adult HPI - General Chief complaint: Recheck/Abnormal Lab/Rx Stated complaint: Hypertention Time Seen by Provider: 08/25/21 12:57 Source: patient, EMS, RN notes reviewed Mode of arrival: EMS Limitations: no limitations - History of Present Illness Initial comments: Patient is a pleasant 80-year-old female presenting to the emergency department with concerns with high blood pressure. Patient has been off her medication for the past week. Patient states she ran out of it. Patient states she feels fine and has no complaints. Patient was at her doctor's office with blood pressure 180/120 and is advised come the emergency department. No chest pain. No weakness. - Related Data Home Medications Medication Instructions Recorded Confirmed Simvastatin [Zocor] 10 mg PO HS 11/15/16 08/25/21 Potassium Chloride [Klor-Con 20] 20 meq PO Q48H 03/22/17 08/25/21 modafiniL [Provigil] 200 mg PO DAILY 08/17/19 08/25/21 HYDROcodone/APAP 10-325MG [[place] 1 tab PO TID PRN 04/29/20 08/25/21 10-325] Ibuprofen [Motrin] 600 mg PO Q6H PRN 04/29/20 08/25/21 Budesonide-Formot 160-4.5 Mcg 2 puff INHALATION RT-BID 08/25/21 08/25/21 [Symbicort 160-4.5 Mcg Inhaler] Cholecalciferol [Vitamin D3 (25 50 mcg PO DAILY 08/25/21 08/25/21 Mcg = 1000 Iu)] Previous Rx's Medication Instructions Recorded Metoprolol Lorenzo/Hydrochlorothiaz 1 tab PO DAILY #10 tab 08/25/21 [Dutoprol 50-12.5 mg Tablet] Allergies Allergy/AdvReac Type Severity Reaction Status Date / Time No Known Allergies Allergy Verified 08/25/21 14:13 Review of Systems ROS Statement: Those systems with pertinent positive or pertinent negative responses have been documented in the HPI. ROS Other: All systems not noted in ROS Statement are negative. Constitutional: Denies: fever Eyes: Denies: eye pain ENT: Denies: ear pain Respiratory: Denies: cough Cardiovascular: Denies: chest pain, palpitations Endocrine: Denies: fatigue Gastrointestinal: Denies: abdominal pain, vomiting Genitourinary: Denies: dysuria Musculoskeletal: Denies: back pain Skin: Denies: rash Neurological: Denies: headache, weakness, confusion, vertigo Past Medical History Past Medical History: COPD, Hyperlipidemia, Hypertension, Osteoarthritis (OA) Additional Past Medical History / Comment(s): sciatica, narcolepsy, osteoporosis History of Any Multi-Drug Resistant Organisms: None Reported Past Surgical History: Orthopedic Surgery Additional Past Surgical History / Comment(s): bunion surgery Past Anesthesia/Blood Transfusion Reactions: No Reported Reaction Past Psychological History: No Psychological Hx Reported Smoking Status: Current every day smoker Past Alcohol Use History: None Reported Past Drug Use History: Marijuana - Past Family History Father History Unknown: Yes Mother History Unknown: Yes General Exam Limitations: no limitations General appearance: alert, in no apparent distress Head exam: Present: normocephalic Eye exam: Present: normal appearance, PERRL, EOMI ENT exam: Present: normal oropharynx Neck exam: Present: normal inspection Respiratory exam: Present: normal lung sounds bilaterally Cardiovascular Exam: Present: regular rate, normal rhythm GI/Abdominal exam: Present: soft. Absent: distended, tenderness Extremities exam: Present: normal inspection Neurological exam: Present: alert, oriented X3, CN II-XII intact. Absent: motor sensory deficit Expanded Neurological exam: Present: protecting the airway Patient oriented to: Present: person, place, time Speech: Present: fluid speech Cranial nerves: EOM's Intact: Normal Motor strength exam: RUE: 5, LUE: 5, RLE: 5, LLE: 5 Eye Response: (4) open spontaneously Motor Response: (6) obeys commands Verbal Response: (5) oriented Psychiatric exam: Present: normal affect, normal mood Skin exam: Present: normal color Course Vital Signs 08/25/21 08/25/21 08/25/21 12:58 13:00 13:30 Temperature 98.7 F Pulse Rate 96 97 98 Respiratory 20 20 18 Rate Blood Pressure 189/119 189/119 173/120 O2 Sat by Pulse 93 L 93 L 92 L Oximetry 08/25/21 08/25/21 08/25/21 14:00 14:30 15:00 Temperature Pulse Rate 88 90 Respiratory 20 20 Rate Blood Pressure 173/120 173/120 173/120 O2 Sat by Pulse 91 L 93 L Oximetry EKG Findings - EKG Comments: EKG Findings:: Sinus rhythm at 90. NV 182. QRS 88. QT 358. QTC 406. Left axis. LVH. No acute ST change. Medical Decision Making - Medical Decision Making He should reevaluated and remained symptom-free. Blood pressure 139/82. - Lab Data Result diagrams: 08/25/21 13:38 08/25/21 13:38 Lab Results 08/25/21 08/25/21 08/25/21 Range/Units 13:38 13:38 15:35 WBC 4.8 (3.8-10.6) k/uL RBC 4.72 (3.80-5.40) m/uL Hgb 13.9 (11.4-16.0) gm/dL Hct 43.7 (34.0-46.0) % MCV 92.6 (80.0-100.0) fL MCH 29.5 (25.0-35.0) pg MCHC 31.8 (31.0-37.0) g/dL RDW 14.1 (11.5-15.5) % Plt Count 153 (150-450) k/uL MPV 8.8 Neutrophils % 73 % Lymphocytes % 19 % Monocytes % 5 % Eosinophils % 2 % Basophils % 1 % Neutrophils # 3.5 (1.3-7.7) k/uL Lymphocytes # 0.9 L (1.0-4.8) k/uL Monocytes # 0.2 (0-1.0) k/uL Eosinophils # 0.1 (0-0.7) k/uL Basophils # 0.0 (0-0.2) k/uL Sodium 135 L (137-145) mmol/L Potassium 4.1 (3.5-5.1) mmol/L Chloride 104 (98-107) mmol/L Carbon Dioxide 27 (22-30) mmol/L Anion Gap 4 mmol/L BUN 15 (7-17) mg/dL Creatinine 0.54 (0.52-1.04) mg/dL Est GFR (CKD-EPI)AfAm >90 (>60 ml/min/1.73 sqM) Est GFR (CKD-EPI)NonAf >90 (>60 ml/min/1.73 sqM) Glucose 101 H (74-99) mg/dL Calcium 8.7 (8.4-10.2) mg/dL Total Bilirubin 0.7 (0.2-1.3) mg/dL AST 24 (14-36) U/L ALT 10 (4-34) U/L Alkaline Phosphatase 72 (38-126) U/L Total Protein 6.9 (6.3-8.2) g/dL Albumin 4.1 (3.5-5.0) g/dL Urine Color Light Yellow Urine Appearance Cloudy H (Clear) Urine pH 6.5 (5.0-8.0) Ur Specific [place] 1.012 (1.001-1.035) Urine Protein Negative (Negative) Urine Glucose (UA) Negative (Negative) Urine Ketones Negative (Negative) Urine Blood Negative (Negative) Urine Nitrite Negative (Negative) Urine Bilirubin Negative (Negative) Urine Urobilinogen <2.0 (<2.0) mg/dL Ur Leukocyte Esterase Negative (Negative) Urine RBC <1 (0-5) /hpf Urine WBC 1 (0-5) /hpf Ur Squamous Epith Cells 8 H (0-4) /hpf Urine Bacteria Occasional H (None) /hpf Urine Mucus Rare H (None) /hpf - Radiology Data Radiology results: image reviewed (X-ray shows chronic changes without acute process) Disposition Clinical Impression: Hypertension Disposition: HOME SELF-CARE Condition: Stable Instructions (If sedation given, give patient instructions): Hypertension (ED) Additional Instructions: Have prescription filled at your pharmacy and start tomorrow. Please follow-up with her primary care physician Saturday and have prescription refilled. Return for uncontrolled blood pressure, pain, weakness, worsening or change in symptoms or other concerns. Prescriptions: Metoprolol Lorenzo/Hydrochlorothiaz [Dutoprol 50-12.5 mg Tablet] 1 tab PO DAILY #10 tab Is patient prescribed a controlled substance at d/c from ED?: No Referrals: Madhav Betancur [Primary Care Provider] - 1-2 days Time of Disposition: 17:03
[2021-08-25 13:46] LABS: Basophils % (A) 1 %; Eosinophils # (A) 0.1 k/uL (0-0.7); Eosinophils % (A) 2 %; HCT 43.7 % (34.0-46.0); HGB 13.9 gm/dL (11.4-16.0); Lymphocytes # (A) 0.9 k/uL (1.0-4.8); Lymphocytes % (A) 19 %; MCH 29.5 pg (25.0-35.0); MCHC 31.8 g/dL (31.0-37.0); MCV 92.6 fL (80.0-100.0); Mean Platelet Volume 8.8; Monocytes # (A) 0.2 k/uL (0-1.0); Monocytes % (A) 5 %; Neutrophils # (A) 3.5 k/uL (1.3-7.7); Neutrophils % (A) 73 %; Platelet Count 153 k/uL (150-450); RBC 4.72 m/uL (3.80-5.40); RDW 14.1 % (11.5-15.5); WBC 4.8 k/uL (3.8-10.6)
[2021-08-25 13:56] LABS: ALT 10 U/L (4-34); AST 24 U/L (14-36); African American GFR (CKD) >90 (>60 ml/min/1.73 sqM); Albumin 4.1 g/dL (3.5-5.0); Alkaline Phosphatase 72 U/L (38-126); Anion Gap 4 mmol/L; Blood Urea Nitrogen 15 mg/dL (7-17); Calcium 8.7 mg/dL (8.4-10.2); Carbon Dioxide 27 mmol/L (22-30); Chloride 104 mmol/L (98-107); Glucose 101 mg/dL (74-99); Non-African American GFR(CKD) >90 (>60 ml/min/1.73 sqM); Potassium 4.1 mmol/L (3.5-5.1); Sodium 135 mmol/L (137-145); Total Bilirubin 0.7 mg/dL (0.2-1.3); Total Protein 6.9 g/dL (6.3-8.2)
--- NOTE | 2021-08-25 14:38 | XR ---
EXAMINATION TYPE: XR chest 2V DATE OF EXAM: 08/25/2021 COMPARISON: Chest x-ray August 19, 2019 HISTORY: Hypertension TECHNIQUE: Frontal and lateral views of the chest are obtained. FINDINGS: Background chronic emphysematous change redemonstrated. There is no focal air space opacity , pleural effusion, or pneumothorax seen. The cardiac silhouette size remains enlarged. The osseou s structures are demineralized. Exaggerated thoracic kyphosis is seen. Multilevel compression type fr acture deformities throughout the thoracic spine are present presumed chronic in age. Correlate clini hugo. IMPRESSION: Chronic changes and cardiomegaly without acute pulmonary process.
[2021-08-25 15:50] LABS: Appearance,Urine Cloudy (Clear); Bacteria,Urine Occasional /hpf; Bilirubin,Urine Negative (Negative); Blood,Urine Negative (Negative); Color,Urine Light Yellow; Glucose,Urine (UA) Negative (Negative); Ketones,Urine Negative (Negative); Leukocyte Esterase,Urine Negative (Negative); Mucus,Urine Rare /hpf; Nitrite,Urine Negative (Negative); PH, Urine 6.5 (5.0-8.0); Protein,Urine Negative (Negative); RBC,Urine <1 /hpf (0-5); Specific Gravity,Urine 1.012 (1.001-1.035); Squamous Epithelial Cell,Urine 8 /hpf (0-4); Urobilinogen,Urine <2.0 mg/dL (<2.0); WBC,Urine 1 /hpf (0-5)
[2021-08-25 17:22] VITALS: BP 145/90; PULSE 93
== END 2021-08-25 17:37 | disposition home or self-care (01) ==
LOC: EC 12:51
DX: I10 Essential (primary) hypertension (principal); E78.5 Hyperlipidemia, unspecified; J44.9 Chronic obstructive pulmonary disease, unspecified; F17.200 Nicotine dependence, unspecified, uncomplicated
CPT/HCPCS: 36415; 71046; 80053; 81001; 85025; 93005; 96374; 96375; 99284

== ENCOUNTER → 2022-06-28 | Outpatient (CLI) | payer MEDICARE, OTHER ==
--- NOTE | 2022-06-28 15:04 | P.SLEEP ---
History of Present Illness DATE: 06/28/2022 CONSULTATION/NEW PATIENT EVALUATION HISTORY OF PRESENT ILLNESS/SLEEP-WAKE EVALUATION: 81-year-old lady had been evaluated in the sleep center for possible obstructive sleep apnea hypopnea syndrome and narcolepsy. Patient has history of narcolepsy diagnosed 54 years ago in another institution. Last sleep study patient had an 2000. She was told about sleep apnea that time. Results of previous sleep study is not available. SLEEP SCHEDULE: Patient doesn't have a regular sleep schedule, she may stain two-bedroom for the whole day take naps on and off. FALLING ASLEEP: [].At the same time no significant problems with falling asleep. Patient has TV set and bedroom. DURING SLEEP: Patient denied snoring. She wakes up from sleep 3 times with up to 3 episodes of nocturia. Positive history of hypnogogical hallucinations, sleep paralysis, and possibly cataplexy. DURING THE DAY/WAKE STATE: Patient has significant sleepiness during the day. She takes up to 6 naps a day. [place] sleepiness scale is and extremely high range of 21.[]. PAST MEDICAL HISTORY: Hypertension, hyperlipidemia, sciatica nerve problems, COPD, colon CA, osteoporosis. PAST SURGICAL HISTORY: Colon resection for cancer in 2019, foot surgery, of twins. MEDICATIONS: [address], metoprolol, lisinopril, simvastatin, furosemide, Ventolin, spiriva. SOCIAL HISTORY: Positive for smoking for 63 years up to 2 packs a day presently about half pack a day, patient is using marijuana too, no alcohol consumption. FAMILY HISTORY: Diabetes, mental illness. REVIEW OF SYSTEMS: Significant excessive daytime sleepiness, multiple awakenings from sleep. No fevers. No double vision. No recent chest pain. No shortness of breath. No abdominal pain. No bleeding episodes. No blood in urine. No seizure episodes. PHYSICAL EXAMINATION: GENERAL: A pleasant patient without any distress. VITAL SIGNS: BP 126/77 , HR 96 , RR 12 , weight 135 pounds, height for foot 11 inches, body mass index 26.2, oxygen saturation at room air 91%, temperature 97.0 . HEENT: PERRLA, EOMI. Evaluation of oropharynx showed tongue protrudes midline, low position of soft palate Mallampati 4. NECK: Supple. No JVD. Thyroid is not palpable. 14.5 inches in circumference. LUNGS: Clear to percussion and to auscultation. Good air exchange. No wheezing or rhonchi. HEART: S1, S2 regular. No murmurs, gallops or rubs. ABDOMEN: Soft and nontender. Bowel sounds are present. No organomegaly appreciated. EXTREMITIES: No clubbing or cyanosis. DRIVER/MERCHANDISER: Awake, alert, and oriented x3. Cranial nerves 2 to 7 intact. There is no fasciculation or atrophy noted. No focal deficits observed. ASSESSMENT: 1. Multiple awakenings from sleep, extremely low position of soft palate, possible obstructive sleep apnea hypopnea syndrome. 2. 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 Results of previous sleep studies are not available. 3. COPD. History of smoking for more than 100 pack years, patient continued to smoke. Borderline level of oxygen 91 in the sitting position without physical activity. 4. Hypertension. 5 sciatica nerve problems. 6 . History of colon cancer status post the resection 2019. 7. History of restless leg symptoms. 8. History of osteoporosis. 9 . Kiphosis. PLAN: 1. Home sleep apnea test as a first step. 2. Falling phlegm after reading sleep study 3. Preferable position during sleep on the side. 4. No driving if patient feels any sleepiness. Patient is aware of civil and criminal liability for unsafe driving. 5. Sleep hygiene with regular sleep time for at least 7.5-8 hours. 6. Watching weight. 7. Patient will need to multiple sleep latency test after respiratory issue will be under control. Thank you very much for referring this patient for consultation. Sincerely, Jin Abdullahi MD, PhD, FAASM. Diplomat of [place] [employer], Sleep Medicine Board by [place] [employer] [place] [employer] Legal Intern[facility] [place] Past Medical History Past Medical History: COPD, Hyperlipidemia, Hypertension, Osteoarthritis (OA) Additional Past Medical History / Comment(s): sciatica, narcolepsy, osteoporosis History of Any Multi-Drug Resistant Organisms: None Reported Past Surgical History: Orthopedic Surgery Additional Past Surgical History / Comment(s): bunion surgery Past Anesthesia/Blood Transfusion Reactions: No Reported Reaction Past Psychological History: No Psychological Hx Reported Smoking Status: Current every day smoker Past Alcohol Use History: None Reported Past Drug Use History: Marijuana - Past Family History Father History Unknown: Yes Mother History Unknown: Yes Medications and Allergies Home Medications Medication Instructions Recorded Confirmed Type Simvastatin [Zocor] 10 mg PO HS 11/15/16 08/25/21 History Potassium Chloride [Klor-Con 20] 20 meq PO Q48H 03/22/17 08/25/21 History modafiniL [Provigil] 200 mg PO DAILY 08/17/19 08/25/21 History HYDROcodone/APAP 10-325MG [[place] 1 tab PO TID PRN 04/29/20 08/25/21 History 10-325] Ibuprofen [Motrin] 600 mg PO Q6H PRN 04/29/20 08/25/21 History Budesonide-Formot 160-4.5 Mcg 2 puff INHALATION RT-BID 08/25/21 08/25/21 History [Symbicort 160-4.5 Mcg Inhaler] Cholecalciferol [Vitamin D3 (25 50 mcg PO DAILY 08/25/21 08/25/21 History Mcg = 1000 Iu)] Metoprolol Lorenzo/Hydrochlorothiaz 1 tab PO DAILY #10 tab 08/25/21 Rx [Dutoprol 50-12.5 mg Tablet] Allergies Allergy/AdvReac Type Severity Reaction Status Date / Time No Known Allergies Allergy Verified 08/25/21 14:13 Sleep Note - Sleep Note Sleep Note: Temperature: Pulse Rate: Respiratory Rate: Blood Pressure: SpO2: Height: Weight: BMI: Neck Circumference:
== END ==
LOC: SLEEP 13:43
PROVIDERS: ATTEND Internal Medicine
DX: G47.33 Obstructive sleep apnea (adult) (pediatric) (principal); G47.419 Narcolepsy without cataplexy; J44.9 Chronic obstructive pulmonary disease, unspecified; I10 Essential (primary) hypertension; Z98.890 Other specified postprocedural states; M85.80 Other specified disorders of bone density and structure, unspecified site; M54.40 Lumbago with sciatica, unspecified side; F17.200 Nicotine dependence, unspecified, uncomplicated
CPT/HCPCS: 99211

== ENCOUNTER → 2023-07-04 | Outpatient (CLI) | payer MEDICARE, OTHER ==
--- NOTE | 2023-07-04 13:45 | P.PROGSL ---
Subjective DATE: [] FOLLOW UP VISIT. Patient returned to sleep center for follow-up visit. I saw patient for consultation in June 2022 and recommended sleep study, but for different reasons patient was not able to do it. Patient continued to have multiple awakenings from sleep every 2 hours and she feels extremely sleepy during the day. [place] sleepiness scale is 22. Patient may take several naps during the day. MEDICATIONS: Please see below During physical exam: GENERAL: A pleasant patient without any distress. VITAL SIGNS: Please see below, weight 124 pounds, BMI 24.6. HEENT: PERRLA, EOMI. extremely low position of soft palate, Mallampati 4 NECK: Supple. No JVD. LUNGS: Good air exchange. No wheezing or rhonchi. Kiphosis HEART: S1, S2 regular. ABDOMEN: Soft and nontender. EXTREMITIES: No clubbing or cyanosis. MANAGER BALANCE: Awake, alert, and oriented x3. No focal deficit. Impressions: 1. Multiple awakenings from sleep every 2 hours, extremely low position of soft palate Mallampati 4. Possible obstructive sleep apnea hypopnea syndrome. Positive history of sleep apnea in the past. 2. Extremely significant sleepiness with [place] Sleepiness Scale 22 and history of narcolepsy according to patient in the past. 3. COPD, patient continues to smoke total of more than 100 pack years. 4. Hypertension. 5. History of sciatica nerve problems. 6. Status post colon resection for cancer in 2019. 7. Kiphosis. 8. History of osteoporosis. 9. History of restless leg symptoms. Plan: 1. Polysomnography for evaluation of patient breathing during sleep. 2. Sleep hygiene with regular time in bed for at least 8 hours. 3. Following plan after reading sleep study. If sleep study will be negative for obstructive sleep apnea hypopnea syndrome, patient will need multiple sleep latency test. 4. Precautions related to driving. No driving if feel any sleepiness. Patient is aware about civil and criminal liability for unsafe driving, promised to follow recommendations. 5. Smoking cessation program. Thank you very much for allowing me to participate in the management of your patient. Jin Abdullahi MD, PhD, FAASM. Diplomat of [place] [employer], Sleep Medicine Board by [place] [employer] Professor Of Social Work of [facility] Objective - Vital Signs Vital Signs: Vital Signs Temp 98.2 F 07/04/23 13:13 Pulse 88 07/04/23 13:13 Resp 16 07/04/23 13:13 BP 135/80 07/04/23 13:13 Pulse Ox 95 07/04/23 13:13 FiO2 Intake & Output 07/03/23 07/04/23 07/04/23 18:59 06:59 18:59 Weight 56.245 kg Home Medications: Home Medications Medication Instructions Recorded Confirmed Type Simvastatin [Zocor] 10 mg PO HS 11/15/16 07/04/23 History Potassium Chloride [Klor-Con 20] 20 meq PO Q48H 03/22/17 07/04/23 History modafiniL [Provigil] 200 mg PO DAILY 08/17/19 08/25/21 History HYDROcodone/APAP 10-325MG [[place] 1 tab PO TID PRN 04/29/20 07/04/23 History 10-325] Ibuprofen [Motrin] 600 mg PO Q6H PRN 04/29/20 08/25/21 History Budesonide-Formot 160-4.5 Mcg 2 puff INHALATION RT-BID 08/25/21 08/25/21 History [Symbicort 160-4.5 Mcg Inhaler] Cholecalciferol [Vitamin D3 (25 50 mcg PO DAILY 08/25/21 08/25/21 History Mcg = 1000 Iu)] Metoprolol Lorenzo/Hydrochlorothiaz 1 tab PO DAILY #10 tab 08/25/21 07/04/23 Rx [Dutoprol 50-12.5 mg Tablet] Albuterol Inhaler [Ventolin Hfa 90 mcg INHALATION DIRECTED PRN 07/04/23 07/04/23 History Inhaler] MDD 90 Albuterol Nebulized [Ventolin 2.5 mg INHALATION Q4H 07/04/23 07/04/23 History Nebulized] Furosemide [Lasix] 40 mg PO DAILY 07/04/23 07/04/23 History Tiotropium 18 Mcg/Puff [Spiriva] 18 mcg INHALATION DAILY 07/04/23 07/04/23 History lisinopriL [Zestril] 10 mg PO DAILY 07/04/23 07/04/23 History
[2023-07-04 14:08] VITALS: BP 135/80; PULSE 88; RESP 16; TEMP 98.2
== END ==
LOC: 3 N SLEEP 13:04
PROVIDERS: ATTEND Internal Medicine
DX: G47.10 Hypersomnia, unspecified (principal); J44.9 Chronic obstructive pulmonary disease, unspecified; I10 Essential (primary) hypertension; M40.209 Unspecified kyphosis, site unspecified; F17.210 Nicotine dependence, cigarettes, uncomplicated; Z90.49 Acquired absence of other specified parts of digestive tract; Z87.39 Personal history of other diseases of the musculoskeletal system and connective tissue; Z85.038 Personal history of other malignant neoplasm of large intestine; Z79.899 Other long term (current) drug therapy; Z79.51 Long term (current) use of inhaled steroids
CPT/HCPCS: 99212

== ENCOUNTER 2023-08-01 19:26 | Outpatient (CLI) | payer MEDICARE, OTHER ==
--- NOTE | 2023-08-14 13:38 | P.PCN ---
Description of Procedure: POLYSOMNOGRAPHY REPORT PROCEDURE(S)/DATE(S): Polysomnography 08/01/2023 CLINICAL: Patient has been seen in the sleep center for evaluation of obstructive sleep apnea-hypopnea syndrome. Please see my consultation. Sleep study has been done for evaluation of patient breathing during the sleep. PROCEDURE: The standard montage for clinical polysomnography included the electroencephalogram, the electrooculogram, the mentalis surface electromyography and Lead II cardiography. The respiratory battery consisted of measurements of nasal/buccal air flow, pressure transducer measurements from nose, thoracic and/or abdominal effort and intercostal surface electromyography. Video monitoring has been done to check for any parasomnia events. Nocturnal oxyhemoglobin saturations were obtained by finger oximetry. Step-petit titration with positive airway pressure was utilized to control the respiratory events, if necessary. RESULTS: During the diagnostic sleep study sleep efficiency was significantly decreased to 60.1%. Latency to sleep onset was normal 11.0 min. Sleep architecture showed stage NI was short 1.1%, Delta sleep was absent 0%, REM sleep was close to border 19.5%. Respiratory channel showed 0 obstructive apneas, 0 mixed apneas, 0 central apneas, 32 hypopneas with lowest oxygen level 84%. Total apnea hypopnea index was 6.3. Heart rate was in the range between 88 and 101, average 94. EMG showed 108.4 periodic limb movements per hour with 2.0 micro-arousals per hour. IMPRESSIONS: 1. Mild obstructive sleep apnea hypopnea syndrome. 2. Extremely severe periodic limb movements have been documented. Please see other impressions from consultation PLAN: 1. The patient will have AutoPAP treatment for correction of respiratory abnormalities during the sleep. 2. Watching weight. 3. Sleep hygiene with regular time in bed for at least 7-1/2 hours. 4. No driving if feeling sleepiness. 5. Please check iron profile including ferritin level. Low level of iron may increase the risk for periodic limb movements. 6. I will see patient for follow-up visit to evaluate clinical response on treatment, compliance with treatment and [place] adjustments related to mask fitting pressure and humidification. If necessary we may consider medication to prevent periodic limb movements. Thank you very much for allowing me to participate in the management of your patient. Sincerely, Jin Abdullahi MD, PhD, FAASM. Diplomat of [place] [employer] Medicine, Sleep Medicine Board by [place] [employer] School Cleaner of [facility] [place] cc: Dedrick Abreu MD
== END 2023-08-02 06:26 | disposition home or self-care (01) ==
LOC: 3 N SLEEP 19:26
PROVIDERS: ATTEND Internal Medicine
DX: G47.33 Obstructive sleep apnea (adult) (pediatric) (principal); G47.61 Periodic limb movement disorder; J44.9 Chronic obstructive pulmonary disease, unspecified; F17.200 Nicotine dependence, unspecified, uncomplicated; Z79.899 Other long term (current) drug therapy; Z79.51 Long term (current) use of inhaled steroids
CPT/HCPCS: 95810

== ENCOUNTER → 2023-08-21 | Outpatient (CLI) | payer MEDICARE, OTHER ==
[2023-08-21 16:48] VITALS: BP 112/76; PULSE 96; RESP 12; TEMP 98
--- NOTE | 2023-08-21 18:31 | P.PROGSL ---
Subjective DATE: 08/21/2023 FOLLOW UP VISIT. Patient returned to sleep center for follow-up visit discussed results of sleep study and following plan. I discussed results of sleep study with patient in details. Polysomnogram showed mild obstructive sleep apnea hypopnea syndrome and extremely severe periodic limb movements.. Limb movements have been present but without significant amount of micro arousals. Patient continued to feel sleepiness during the day. Patient has history of narcolepsy. [place] Sleepiness Scale in the range of 22. MEDICATIONS: Please see below During physical exam: GENERAL: A pleasant patient without any distress. VITAL SIGNS: Please see below. HEENT: PERRLA, EOMI. NECK: Supple. No JVD. LUNGS: Clear to percussion and to auscultation. Good air exchange. No wheezing or rhonchi. HEART: S1, S2 regular. ABDOMEN: Soft and nontender. EXTREMITIES: No clubbing or cyanosis. LOCKSTITCH BACK MAKER: Awake, alert, and oriented x3. No focal deficit. Impressions: 1. Mild obstructive sleep apnea hypopnea syndrome. 2. Severe periodic limb movements 108.4 times per hour with only 2 microarousals per hour. 3. History of narcolepsy. 4. COPD, patient continues to smoke for more than 100 pack years. 5. Hypertension. 6. Status post colon resection for cancer in 2019. 7. History of sciatica nerve problems. 8. Kyphosis. 9. History of osteoporosis. 10 history of restless leg symptoms Plan: 1. Patient will be started on treatment with AutoPap and should use equipment every night for the whole night. 2. Please check iron profile including ferritin level, low level of iron may increase risk for periodic limb movements and restless leg symptoms. 3. I will see patient in 30 days after starting using CPAP to evaluate clinical response on treatment compliance with treatment and [place] adjustments related to mask fitting pressure and humidification. 4. Following plan after checking response on CPAP therapy. Most probably patient will need multiple sleep latency test for objective fibrillation sleepiness at the present time. 5. Precautions related to driving. No driving if feel any sleepiness. According to patient she does not drive. Thank you very much for allowing me to participate in the management of your patient. Jin Abdullahi MD, PhD, FAASM. Diplomat of [place] [employer], Sleep Medicine Board by [place] [employer] Certified Medical Biller of [facility] [place] cc: Sil Mendoza MD Objective - Vital Signs Vital Signs: Vital Signs Temp 98 F 08/21/23 16:45 Pulse 96 08/21/23 16:45 Resp 12 08/21/23 16:45 BP 112/76 08/21/23 16:45 Pulse Ox 95 08/21/23 16:45 FiO2 Intake & Output 08/20/23 08/21/23 08/21/23 18:59 06:59 18:59 Weight 54.885 kg Home Medications: Home Medications Medication Instructions Recorded Confirmed Type Simvastatin [Zocor] 10 mg PO HS 11/15/16 08/21/23 History Potassium Chloride [Klor-Con 20] 20 meq PO Q48H 03/22/17 08/21/23 History modafiniL [Provigil] 200 mg PO DAILY 08/17/19 08/21/23 History HYDROcodone/APAP 10-325MG [[place] 1 tab PO TID PRN 04/29/20 08/21/23 History 10-325] Ibuprofen [Motrin] 600 mg PO Q6H PRN 04/29/20 08/21/23 History Budesonide-Formot 160-4.5 Mcg 2 puff INHALATION RT-BID 08/25/21 08/21/23 History [Symbicort 160-4.5 Mcg Inhaler] Cholecalciferol [Vitamin D3 (25 50 mcg PO DAILY 08/25/21 08/21/23 History Mcg = 1000 Iu)] Metoprolol [place]/Hydrochlorothiaz 1 tab PO DAILY #10 tab 08/25/21 08/21/23 Rx [Dutoprol 50-12.5 mg Tablet] Albuterol Inhaler [Ventolin Hfa 90 mcg INHALATION DIRECTED PRN 07/04/23 08/21/23 History Inhaler] MDD 90 Albuterol Nebulized [Ventolin 2.5 mg INHALATION Q4H 07/04/23 08/21/23 History Nebulized] Furosemide [Lasix] 40 mg PO DAILY 07/04/23 08/21/23 History Tiotropium 18 Mcg/Puff [Spiriva] 18 mcg INHALATION DAILY 07/04/23 08/21/23 History lisinopriL [Zestril] 10 mg PO DAILY 07/04/23 08/21/23 History
== END ==
LOC: 3 N SLEEP 15:56
PROVIDERS: ATTEND Internal Medicine
DX: G47.33 Obstructive sleep apnea (adult) (pediatric) (principal); G47.61 Periodic limb movement disorder; J44.9 Chronic obstructive pulmonary disease, unspecified; I10 Essential (primary) hypertension; M40.209 Unspecified kyphosis, site unspecified; F17.210 Nicotine dependence, cigarettes, uncomplicated; Z86.59 Personal history of other mental and behavioral disorders; Z98.890 Other specified postprocedural states; Z85.038 Personal history of other malignant neoplasm of large intestine; Z87.39 Personal history of other diseases of the musculoskeletal system and connective tissue; Z79.899 Other long term (current) drug therapy; Z79.51 Long term (current) use of inhaled steroids
CPT/HCPCS: 99212

== ENCOUNTER → 2023-08-26 | Outpatient (CLI) | payer MEDICARE, OTHER ==
[2023-08-26 13:21] LABS: African American GFR (CKD) 87 (>60 ml/min/1.73 sqM); Blood Urea Nitrogen 21 mg/dL (7-17); Non-African American GFR(CKD) 76 (>60 ml/min/1.73 sqM)
--- NOTE | 2023-08-26 14:23 | CT ---
EXAMINATION TYPE: CT abdomen pelvis w con DATE OF EXAM: 08/26/2023 COMPARISON: None HISTORY: abdominal pain and swelling x [address] DLP: 404 mGycm CONTRAST: CT scan of the abdomen and pelvis is performed with Oral Contrast and with IV Contrast, patient injec miya with 100 cc mL of Isovue 300. FINDINGS: LUNG BASES-: No visible nodule. No infiltrate. LIVER/GB: No calcified gallstones. No space occupying hepatic lesion. Biliary tree is of normal ca liber. PANCREAS: No inflammation. No distinct mass. SPLEEN: No splenic enlargement. No lesion seen. ADRENALS: No nodule. No thickening. KIDNEYS/BLADDER: No hydronephrosis. No nephrolithiasis. No distinct renal mass. Urinary bladder g rossly unremarkable. BOWEL: There are approximately 3 right lower quadrant intra-abdominal masses seen the largest measuri ng 4.4 cm with 2 smaller nodules measuring 2.2 and 1.4 cm. Intrarenal calcifications are seen within the larger right-sided mass. No additional masses are seen with absolute certainty. Findings are felt to reflect malignancy until proven otherwise. Small and large bowel are of normal caliber. Sigmoid d iverticulosis. Partial right hemicolectomy changes. GENITAL ORGANS: No gross abnormality. LYMPH NODES: No greater than 1cm abdominal or pelvic lymph nodes are appreciated. AORTA: No significant abnormality. OSSEOUS STRUCTURES: Multiple compression fractures involving the lower thoracic all the lumbar segmen ts are likely related osteoporosis. OTHER: No significant additional abnormality is seen. IMPRESSION: 1. There are approximately 3 right lower quadrant intra-abdominal masses seen the largest measuring 4 .4 cm with 2 smaller nodules measuring 2.2 and 1.4 cm. Intrarenal calcifications are seen within the larger right-sided mass. Findings are felt to reflect malignancy until proven otherwise.
== END | disposition home or self-care (01) ==
LOC: RADCTMAIN 12:22
PROVIDERS: ATTEND Family Medicine
DX: N28.89 Other specified disorders of kidney and ureter (principal); R19.00 Intra-abdominal and pelvic swelling, mass and lump, unspecified site
CPT/HCPCS: 82565; 84520; 74177; 36415; Q9967

== ENCOUNTER 2023-09-13 07:46 | Day surgery (SDC) | payer MEDICARE, OTHER ==
[2023-09-13] MEDS: ALPRAZolam 0.25 MG TAB PO STA (08:47)
[2023-09-13 08:57] VITALS: RESP 16; TEMP 98.2
[2023-09-13 10:02] VITALS: BP 107/68; PULSE 94
--- NOTE | 2023-09-13 10:19 | US ---
EXAMINATION TYPE: US biopsy abd/retroperi mass DATE OF EXAM: 09/13/2023 10:04 AM CLINICAL INDICATION:Female, 82 years old with history of ABD MASS; , COMPARISON: 08/26/2023 ATTENDING: Dr. Johan Babin PROCEDURE: Informed consent was obtained. The risks and benefits of the procedure were discussed with the patien t. The site was marked. Timeout procedure was performed Ultrasound imaging demonstrates right abdominal wall mass The patient was prepped, draped in the usual sterile fashion, and locally anesthetized with 1% lidoca ine. 2 x 18-gauge core needle biopsies were obtained.. Samples were sent to the pathology department for further analysis. Patient tolerated the procedure without incident and was sent home in stable condition. IMPRESSION: Successful ultrasound guided core biopsy samples sent for analysis.
== END 2023-09-13 10:03 | disposition home or self-care (01) ==
LOC: RADPROMAIN 07:46
PROVIDERS: ATTEND Internal Medicine Hematology & Oncology
DX: C18.9 Malignant neoplasm of colon, unspecified (principal)
CPT/HCPCS: 49180; 88305; 88341; 88342

== ENCOUNTER → 2023-09-20 | Outpatient (CLI) | payer MEDICARE, OTHER ==
--- NOTE | 2023-10-18 12:42 | PE ---
Patient: Tracey Romo Ordering Physician: Unknown, Unknown ID: [id number] Phone, Pager: Phone: N/A Pager: N/A : [phone] Age/Gender: 82Y, F Primary Location: N/A Procedure: PETCT SKULL TO THIGH St y Date: 09/20/2023 2:03:08 PM EXAMINATION TYPE: PET CT fusion skull to thigh DATE OF EXAM: 10/03/2023 CLINICAL INDICATION: Colorectal cancer TECHNIQUE: Following the intravenous administration of 11.80 mCi of F-18 FDG, whole body images are performed from the skull base to the midthigh. Images are reviewed on the computer in the coronal, axial, and sagittal planes. Reconstructed rotating images are created on independent workstation and reviewed on the computer. A non-contrast CT is performed in conjunction with the PET scan. Glucose level 107 mg/dL CT DLP: 283 mGycm, Automated exposure control for dose reduction was used. COMPARISON: CT 08/26/2023, PET/CT 10/23/2019, MRI: None FINDINGS: Mediastinal SUV mean is 1.8. Hepatic parenchyma SUV mean is 2.4. SKULL BASE AND NECK: No suspicious radiotracer activity. CHEST, MEDIASTINUM, AND HILAR REGION: * Right perihilar mass max SUV 26.34 measuring at least 21 x 26 mm. ABDOMEN AND PELVIS: * Lymph node with uptake Near the natasha of the diaphragm near the aortic hiatus measuring 20 mm in sh ort axis and SUV 28.38 * Right abdominal mass measuring 30 x 33 mm max SUV 31.2. * multiple smaller masses also present just deep to the abdominal musculature example) 24 mm Max SUV 29.4 * Right inguinal lymph node with max SUV 20.4 measuring 8 mm in short axis. MUSCULOSKELETAL STRUCTURES: * L5 left transverse process intense uptake max SUV 20.9. OTHER CT: Lesion. Colonic diverticulosis. Atherosclerotic arterial vasculature. Cholelithiasis. Coron jeny artery atherosclerosis. IMPRESSION: Right perihilar mass, right abdominal wall mass, intra-abdominal masses just deep to this abdominal m ass and a aortic hiatus lymph node and at least one osseous mass within L5 transverse process on the left. All compatible with malignancy.
== END | disposition home or self-care (01) ==
LOC: RADPETMAIN 12:20
PROVIDERS: ATTEND Internal Medicine Hematology & Oncology
DX: C18.0 Malignant neoplasm of cecum (principal); R91.8 Other nonspecific abnormal finding of lung field
CPT/HCPCS: 78815; A9552

== ENCOUNTER 2023-10-30 07:07 | Day surgery (SDC) | payer MEDICARE, OTHER ==
[2023-10-25 08:53] VITALS: BMI 23.4
[~2023-10-30 07:07] MED LIST: HYDROmorphone 0.5 MG/0.5 ML SYRINGE IVP PRN; Pre Op ABX Message 1 EACH MISC MISCELLANE ONE; fentaNYL (PF) 50 MCG/ML 2 ML AMP IV PRN
[2023-10-30] MEDS: IV FLUID CONTINUATION 1,000 ML IV ONE (08:57)
[2023-10-30] MEDS: ACETAMINOPHEN TAB 500 MG TAB PO PRN (09:15)
[2023-10-30] MEDS: ONDANSETRON 4 MG/2 ML VIAL IVP ONE (09:17)
[2023-10-30] MEDS: LACTATED RINGERS 1,000 ML IV SCH (09:17)
[2023-10-30] MEDS: DEXAMETHASONE SOD PHOSPHATE 4 MG/ML 1 ML VIAL IV ONE (09:18)
[2023-10-30] MEDS: HEPARIN SODIUM,PORCINE 5,000 UNIT/ML 1 ML VIAL SQ PRN (09:31)
[2023-10-30] MEDS: MIDAZOLAM 2 MG/2 ML VIAL IV ONE (10:42)
--- NOTE | 2023-10-30 10:43 | P.GSHP ---
History of Present Illness H&P Date: 10/30/23 Chief Complaint: Colon cancer 82-year-old female here for Port-A-Cath placement. Patient is starting chemotherapy next week for colon cancer. She has not had a port previously. Past Medical History Past Medical History: Cancer, COPD, Hyperlipidemia, Hypertension, Myocardial Infarction (NC), Osteoarthritis (OA) Additional Past Medical History / Comment(s): sciatica, narcolepsy, osteoporosis, colon cancer, non sustained vtach, LE edema Last Myocardial Infarction Date:: 1999 History of Any Multi-Drug Resistant Organisms: None Reported Past Surgical History: Bowel Resection, Section, Heart Catheterization, Orthopedic Surgery Additional Past Surgical History / Comment(s): bunionectomy Past Anesthesia/Blood Transfusion Reactions: No Reported Reaction Past Psychological History: No Psychological Hx Reported Smoking Status: Current every day smoker Past Alcohol Use History: None Reported Past Drug Use History: Marijuana Additional Drug Use History / Comment(s): instructed to refrain from use within 24 hrs of the procedure - Past Family History Father History Unknown: Yes Mother History Unknown: Yes Medications and Allergies Home Medications Medication Instructions Recorded Confirmed Type Simvastatin [Zocor] 10 mg PO HS 11/15/16 10/30/23 History Potassium Chloride [Klor-Con 20] 10 meq PO DAILY 03/22/17 10/30/23 History HYDROcodone/APAP 10-325MG [Smith 1 tab PO TID PRN 04/29/20 10/30/23 History 10-325] Albuterol Nebulized [Ventolin 2.5 mg INHALATION Q4H PRN 07/04/23 10/30/23 History Nebulized] lisinopriL [Zestril] 10 mg PO HS 07/04/23 10/30/23 History Acetaminophen [Tylenol Extra 500 mg PO Q6H PRN 10/25/23 10/30/23 History Strength] Furosemide [Lasix] 20 mg PO DAILY 10/25/23 10/30/23 History Metoprolol Succinate [Metoprolol 25 mg PO HS 10/25/23 10/30/23 History Succinate ER] Tiotropium 18 Mcg/Puff [Spiriva] 1 puff INHALATION DAILY 10/25/23 10/30/23 History Allergies Allergy/AdvReac Type Severity Reaction Status Date / Time No Known Allergies Allergy Verified 10/30/23 08:50 Surgical - Exam Vital Signs Temp Pulse Resp BP Pulse Ox 97.3 F L 94 18 110/74 95 10/30/23 09:00 10/30/23 09:00 10/30/23 09:00 10/30/23 09:00 10/30/23 09:00 Physical exam: General: Well-developed, well-nourished HEENT: Normocephalic, sclerae nonicteric Abdomen: Nontender, nondistended Extremities: No edema Neuro: Alert and oriented Assessment and Plan (1) Colon cancer Narrative/Plan: Will proceed with Port-A-Cath placement at this time. Risks of bleeding, infection, DVT, pneumothorax, catheter malfunction, anesthesia related complications were discussed. The patient understands and wishes to proceed. Current Visit: Yes Status: Acute Code(s): C18.9 - MALIGNANT NEOPLASM OF COLON, UNSPECIFIED SNOMED Code(s): 494229862
[2023-10-30] MEDS ORDERED: ceFAZolin 1 GM/50 ML BAG (PMX) ONE (10:50)
[2023-10-30] MEDS ORDERED: LIDOCAINE 1% INJ 10MG/ML (20 ML MDV) ONE (10:50)
[2023-10-30] MEDS ORDERED: fentaNYL (PF) 50 MCG/ML 2 ML AMP ONE (10:50)
[2023-10-30] MEDS ORDERED: PHENYLEPHRINE 10 MG/ML VIAL ONE (10:50)
[2023-10-30] MEDS ORDERED: PROPOFOL 10 MG/ML 20 ML VIAL IV ONE (10:50)
[2023-10-30] MEDS: SODIUM CHLORIDE 0.9% 50 ML with ceFAZolin 1,000 MG IV ONE (11:15)
[2023-10-30] MEDS: LIDOCAINE 1% INJ 10MG/ML (20 ML MDV) SQ ONE (11:16)
[2023-10-30] MEDS ORDERED: NALOXONE 0.4 MG/ML 1 ML VIAL IV PRN (11:33)
[2023-10-30] MEDS ORDERED: HYDROcodone/APAP 5-325MG 1 EACH TAB PO PRN (11:33)
[2023-10-30] MEDS ORDERED: ACETAMINOPHEN TAB 325 MG TAB PO PRN (11:33)
--- NOTE | 2023-10-30 11:35 | P.OP ---
Date of Procedure: 10/30/23 Procedure(s) Performed: PREOPERATIVE DIAGNOSIS: Colon cancer POSTOPERATIVE DIAGNOSIS: Same PROCEDURE: Port-A-Cath placement with fluoroscopic and ultrasound guidance SURGEON: Dolores EBL: 5 cc ANESTHESIA: General COMPLICATIONS: None OPERATIVE PROCEDURE: Patient was brought and placed on the operative table in the supine position. The patient was placed under general anesthesia at that time. The chest and neck were prepped and draped in usual sterile fashion. The ultrasound probe was used to identify the location of the right internal jugular vein. The skin was localized with lidocaine. The Seldinger needle was advanced into the IJ under ultrasound guidance. The wire was advanced through the needle under fluoroscopic guidance into the superior vena cava. A port pocket was created in the right infraclavicular location. The catheter was tunneled from the wire entrance site to the port pocket. The port was then connected to the catheter. The dilator introducer was threaded over the guidewire. The guidewire and dilator were then removed. The catheter was advanced through the introducer and introducer was then removed. The tip was seen to be in the right atrial junction via fluoroscopy. A picture of the radiograph showing the tip of the catheter was taken. Port was flushed with both saline and a Hep-Lock solution. There was good flow both in and out of the port. The port was sutured in underlying tissues using 3-0 silk sutures. The subcutaneous tissues were reapproximated using 3-0 Vicryl sutures and the skin at both locations using 4-0 Monocryl sutures. Skin glue and sterile dressings then applied. DISPOSITION: Stable to recovery room
[2023-10-30 11:49] VITALS: TEMP 97.9
--- NOTE | 2023-10-30 12:45 | XR ---
EXAMINATION TYPE: XR chest 1V confirm line [facility] DATE OF EXAM: 10/30/2023 COMPARISON: 08/25/2021 INDICATION: Catheter placement TECHNIQUE: Single frontal view of the chest is obtained. FINDINGS: The heart size is normal. The pulmonary vasculature is normal. The lungs are clear. There is placement of a port on the right with the tip in the distal superior vena cava region. No pn eumothorax is evident. IMPRESSION: 1. No pneumothorax postcatheter placement, tip in the superior vena cava region [facility], , 10/30/2023 12:43 PM
[2023-10-30 13:03] VITALS: RESP 18
[2023-10-30 13:39] VITALS: BP 126/76; PULSE 92
--- NOTE | 2023-11-13 18:23 | FL ---
EXAMINATION TYPE: FL guided central line placemt DATE OF EXAM: 10/30/2023 11:32 AM COMPARISON: Pre Operative Images if available both CT/MRI or plain film CLINICAL INDICATION: Female, 83 years old with history of PORTACATH INSERTION; TECHNIQUE: FL guided central line placemt, multiple fluoroscopic images provided for procedure. Total fluoroscopy time: 5 seconds Total submitted images to PACS: 1 DAP: 0.1990 mGym2 Gycm2 uGym2 cGycm2 or equivalent. FINDINGS: Fluoroscopic imaging for Port-A-Cath insertion no evidence for pneumothorax. Multilevel degeneration changes of the spine. IMPRESSION: 1. No evidence for intraoperative complication. 2. Please see the operative/procedural note for further details. [facility], , 11/13/2023 6:21 PM
== END 2023-10-30 14:02 | disposition home or self-care (01) ==
LOC: OR 07:07
PROVIDERS: ATTEND Surgery
DX: C18.9 Malignant neoplasm of colon, unspecified (principal); J44.9 Chronic obstructive pulmonary disease, unspecified; I25.2 Old myocardial infarction; M19.90 Unspecified osteoarthritis, unspecified site; M81.0 Age-related osteoporosis without current pathological fracture; I10 Essential (primary) hypertension; E78.5 Hyperlipidemia, unspecified; F17.200 Nicotine dependence, unspecified, uncomplicated; Z79.899 Other long term (current) drug therapy
CPT/HCPCS: 77001; 36561; C1788; J2250; J1644; J1100; J2405; J0690 ×2; J2001; J3010; J1642; J2704; J2371

== ENCOUNTER → 2024-01-03 | Outpatient (CLI) | payer MEDICARE, OTHER ==
[2024-01-03 14:31] LABS: African American GFR (CKD) 89 (>60 ml/min/1.73 sqM); Blood Urea Nitrogen 23 mg/dL (7-17); Non-African American GFR(CKD) 77 (>60 ml/min/1.73 sqM)
--- NOTE | 2024-01-05 02:46 | CT ---
EXAMINATION TYPE: CT ChestAbdPelvis w con CT DLP: 574.3 mGycm, Automated exposure control for dose reduction was used. DATE OF EXAM: 01/03/2024 3:41 PM COMPARISON: PET CT 10/18/2023, 10/23/2019, CT abdomen and pelvis 08/26/2023 CLINICAL INDICATION:Female, 83 years old with history of C18.0 COLON CANCER; PHH, Generalized abdomin al pain y2tlodri. Hx of colon cancer. Technique: Multiple axial images of the chest, abdomen, and pelvis were obtained following the intrav enous administration of 100 mL Isovue-300. Oral contrast was administered. Two-dimensional coronal an d sagittal reconstructions were obtained. Findings: CHEST: LUNGS/ PLEURA: No pleural effusion or pneumothorax. Minimal atelectatic change within the right lower lobe. Mild centrilobular emphysematous changes. No clinically significant pulmonary nodule. AIRWAY: Patent and unremarkable.. HEART: Size within normal limits.No pericardial effusion. Moderate coronary artery calcifications. MEDIASTINUM: Enlarged metastatic right hilar lymph node measuring up to 1.4 cm redemonstrated and dem onstrates FDG activity in prior PET/CT. Grossly stable size prior exam. VASCULATURE: Stable ascending thoracic aortic aneurysm measured 4.0 cm. Atherosclerotic calcificatio n of the aorta and its branches. Dilated main pulmonary artery measuring up to 3.8 cm which can be se en with pulmonary arterial hypertension. No central filling defect within the pulmonary arteries. Rig ht chest wall IJ approach Mediport catheter distal tip terminating in the low SVC. At least moderate stenosis involving the proximal left subclavian artery secondary to calcified plaque. MUSCULOSKELETAL: Multilevel central compression deformities are redemonstrated involving almost entir e thoracic spine from T3 down. Multilevel degenerative disc disease. Remote healed right-sided rib fr actures. No aggressive osseous lesion. Right shoulder arthropathy. SOFT TISSUES/LYMPH NODES: Unremarkable. LOWER NECK: No significant findings. ABDOMEN: ABDOMEN LIVER: Mildly enlarged liver measures 16.6 cm in the CC dimension. No focal lesion identified. GALLBLADDER AND BILE DUCTS: Contracted gallbladder with gas filled gallstone. No biliary duct dilatat ion. PANCREAS: Unremarkable. SPLEEN: Top end of normal size spleen measuring 14.1 cm in CC dimension. ADRENAL GLANDS: Unremarkable. KIDNEYS AND URETERS: No evidence of hydronephrosis or renal calculus. The kidneys enhance symmetrical ly. Contrast is demonstrated within both collecting systems on delayed phase. PELVIS BLADDER: Unremarkable REPRODUCTIVE: Unremarkable. ABDOMEN & PELVIS STOMACH AND BOWEL: Stomach and duodenum are unremarkable. Postsurgical changes from right hemicolecto my. Enteric contrast reaches the transverse colon. No evidence of bowel obstruction. PERITONEUM: No evidence of pneumoperitoneum or free fluid. Redemonstration of a least 3 distinct hete rogenous enhancing masses within the right lower quadrant near the bowel anastomotic site measuring 4 .7, 2.8 and 2.1 cm respectively (series 3, image 25). The largest previously measured up to 3.3 cm. T hese demonstrated FDG activity on prior PET/CT. VASCULATURE: Moderate atherosclerotic calcifications are present throughout the abdominal aorta and i ts branches. No abdominal aortic aneurysm. Moderate stenosis origin left renal artery secondary to ca lcified plaque. There is occlusion of the visualized right superficial femoral artery just after its origin again from CT 08/26/2023. MUSCULOSKELETAL: Multilevel compression deformities involving thoracic lumbar spine involving the L1- L5 vertebral bodies. Multilevel degenerative disc disease. Osteoarthritic changes of the right hip. D iffuse bone demineralization. Redemonstration abnormal heterogenous sclerotic destructive lesion invo lving the left lateral L5 vertebral body extending into the transverse process which demonstrated FDG activity in prior PET/CT. Demonstrates more expanded appearance with increase sclerosis from prior e xam. LYMPH NODES: Redemonstration of enlarged right external iliac chain lymph node measuring up to 1.2 cm which demonstrates FDG activity (series 3, image 86). Previously measured 0.8 cm. Additional right p claudette-aortic 2.0 cm FDG avid lymph node redemonstrated (series 3, image 54). Grossly stable size to juan antonio or PET/CT. SOFT TISSUE/ABDOMINAL WALL: Unremarkable IMPRESSION: 1. Redemonstration of known metastatic FDG avid right hilar lymph node, right lower quadrant metasta tic abdominal masses, metastatic periaortic and right iliac chain lymph nodes, and left lateral L5 ve rtebral body and transverse process metastasis. The right lower quadrant masses, right iliac chain ly mph node, and L5 possibly metastasis are larger in size from prior examination. The remaining metasta ses appear grossly stable. 2. Extensive multilevel central compression deformities of the thoracic lumbar spine redemonstrated. 3. 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 4. Mild hepatomegaly. 5. Cholelithiasis. 6. Mild COPD changes. 7. Stable ascending thoracic aortic aneurysm measuring up to 4.0 cm. [facility], , 01/05/2024 2:44 AM
== END | disposition home or self-care (01) ==
LOC: RADCTMAIN 13:22
PROVIDERS: ATTEND Internal Medicine
DX: J44.9 Chronic obstructive pulmonary disease, unspecified (principal); I71.21 Aneurysm of the ascending aorta, without rupture; C18.0 Malignant neoplasm of cecum; C18.9 Malignant neoplasm of colon, unspecified; C79.51 Secondary malignant neoplasm of bone; R19.03 Right lower quadrant abdominal swelling, mass and lump; M48.54XA Collapsed vertebra, not elsewhere classified, thoracic region, initial encounter for fracture; R16.0 Hepatomegaly, not elsewhere classified; K80.20 Calculus of gallbladder without cholecystitis without obstruction
CPT/HCPCS: 82565; 84520; 71260; 74177; 36415; Q9967

== ENCOUNTER 2024-05-14 15:48 | Observation (INO) | payer MEDICARE ==
--- NOTE | 2024-05-14 16:39 | ED ---
SOB HPI - General Chief Complaint: Shortness of Breath Stated Complaint: SOB, Swollen Feet Time Seen by Provider: 05/14/24 15:59 Source: patient, family Mode of arrival: wheelchair Limitations: no limitations - History of Present Illness Initial Comments: 83-year-old female with past medical history of metastatic colon cancer who presents to the emergency department reporting lower extremity swelling and difficulty breathing. Patient states that she has chronic shortness of breath. She does have a history of COPD and the cancer is known to be metastatic to the lung. She denies any overt worsening of her shortness of breath but does admit to bilateral lower extremity swelling which has been getting worse. She is so weak she cannot stand. She does have colon cancer and was on chemotherapy. Her last treatment was in March and she told her oncologist that she was not going to do any more. Patient has accepted the fact that her cancer is terminal. Family at bedside is requesting hospice or palliative consult. She was told by her oncologist that she had less than 6 months to live. She denies any chest pain. She denies having fevers or productive cough. No history of DVT or PE. No nausea or vomiting. No other alleviating, precipitating modifying factors patient - Related Data Home Medications Medication Instructions Recorded Confirmed Simvastatin [Zocor] 10 mg PO HS 11/15/16 05/14/24 Potassium Chloride [Klor-Con 20] 20 meq PO Q48H 03/22/17 05/14/24 HYDROcodone/APAP 10-325MG [Mcdowell 1 tab PO TID PRN 04/29/20 05/14/24 10-325] Albuterol Nebulized [Ventolin 2.5 mg INHALATION RT-Q6H PRN 07/04/23 05/14/24 Nebulized] lisinopriL [Zestril] 10 mg PO DAILY 07/04/23 05/14/24 Tiotropium 18 Mcg/Puff [Spiriva] 1 puff INHALATION RT-DAILY 10/25/23 05/14/24 Albuterol Inhaler [Ventolin Hfa 2 puff INHALATION RT-Q4H PRN 05/14/24 05/14/24 Inhaler] Budesonide/Formoterol Fumarate 2 puff INHALATION RT-BID 05/14/24 05/14/24 [Symbicort 160-4.5 Mcg Inhaler] Furosemide [Lasix] 40 mg PO Q48H 05/14/24 05/14/24 Lidocaine-Prilocaine Cream [Emla 1 applic TOPICAL DAILY PRN 05/14/24 05/14/24 Cream 2.5%/2.5%] Metoprolol Succinate (ER) [Toprol 50 mg PO DAILY 05/14/24 05/14/24 XL] Ondansetron Odt [Zofran ODT] 4 - 8 mg PO Q4HR PRN MDD 32mg 05/14/24 05/14/24 Prochlorperazine Maleate 10 mg PO Q6H PRN 05/14/24 05/14/24 modafiniL [Provigil] 200 mg PO DAILY 05/14/24 05/14/24 Allergies Allergy/AdvReac Type Severity Reaction Status Date / Time No Known Allergies Allergy Verified 05/14/24 17:38 Review of Systems ROS Statement: Those systems with pertinent positive or pertinent negative responses have been documented in the HPI. ROS Other: All systems not noted in ROS Statement are negative. Past Medical History Past Medical History: Cancer, COPD, Hyperlipidemia, Hypertension, Myocardial Infarction (IL), Osteoarthritis (OA) Additional Past Medical History / Comment(s): sciatica, narcolepsy, osteoporosis, colon cancer, non sustained vtach, LE edema Last Myocardial Infarction Date:: 1999 History of Any Multi-Drug Resistant Organisms: None Reported Past Surgical History: Bowel Resection, Section, Heart Catheterization, Orthopedic Surgery Additional Past Surgical History / Comment(s): bunionectomy Past Anesthesia/Blood Transfusion Reactions: No Reported Reaction Past Psychological History: No Psychological Hx Reported Smoking Status: Current every day smoker Past Alcohol Use History: None Reported Past Drug Use History: Marijuana - Past Family History Father History Unknown: Yes Mother History Unknown: Yes General Exam Limitations: no limitations General appearance: alert, in no apparent distress Head exam: Present: atraumatic, normocephalic, normal inspection Eye exam: Present: normal appearance, PERRL, EOMI. Absent: scleral icterus, conjunctival injection, periorbital swelling ENT exam: Present: normal exam, mucous membranes moist Neck exam: Present: normal inspection. Absent: tenderness, meningismus, lymphadenopathy Respiratory exam: Present: wheezes, other (coarse breath sounds). Absent: respiratory distress, rales, rhonchi, stridor Cardiovascular Exam: Present: normal rhythm, tachycardia, normal heart sounds. Absent: systolic murmur, diastolic murmur, rubs, gallop, clicks GI/Abdominal exam: Present: soft, normal bowel sounds. Absent: distended, tenderness, guarding, rebound, rigid Extremities exam: Present: normal inspection, full ROM, normal capillary refill. Absent: tenderness, pedal edema, joint swelling, calf tenderness Back exam: Present: normal inspection Neurological exam: Present: alert, oriented X3, CN II-XII intact Psychiatric exam: Present: normal affect, normal mood Skin exam: Present: warm, dry, intact, normal color. Absent: rash Course Vital Signs 05/14/24 05/14/24 05/14/24 15:50 16:22 18:12 Temperature 98.3 F 98.7 F 98.4 F Pulse Rate 122 H 111 H 109 H Respiratory 20 18 16 Rate Blood Pressure 89/59 93/62 93/68 O2 Sat by Pulse 93 L 91 L 94 L Oximetry 05/14/24 05/14/24 18:44 20:32 Temperature 98.3 F Pulse Rate 112 H 112 H Respiratory 16 22 Rate Blood Pressure 113/72 100/66 O2 Sat by Pulse 96 95 Oximetry Medical Decision Making - Medical Decision Making Was pt. sent in by a medical professional or institution ([facility], GRUBBER, urgent care, hospital, or prison...) When possible be specific @ -No Did you speak to anyone other than the patient for history (EMS, parent, family, police, friend...)? What history was obtained from this source @ -spoke with family for history Did you review nursing and triage notes (agree or disagree)? Why? @ -I reviewed and agree with nursing and triage notes Were old charts reviewed (outside hosp., previous admission, EMS record, old EKG, old radiological studies, urgent care reports/EKG's, prison records)? Report findings @ -I reviewed the PET scan from March Differential Diagnosis (chest pain, altered mental status, abdominal pain women, abdominal pain men, vaginal bleeding, weakness, fever, dyspnea, syncope, headache, dizziness, GI bleed, back pain, seizure, CVA, palpatations, mental health, musculoskeletal)? @ -Differential Weakness: Hypoglycemia, shock, sepsis, hyponatremia, anemia, infection, IL, ETOH, adverse medicine reaction, overdose, stroke, this is not meant to be an all-inclusive list. EKG interpreted by me (3pts min.). @ -Yes and demonstrates sinus tachycardia with a rate of 114. HI interval 175. QRS 70. QTc of 352. No acute ST segment elevations or depressions X-rays interpreted by me (1pt min.). @ -Yes which demonstrates metastatic cancer versus multifocal pneumonia CT interpreted by me (1pt min.). @ -None done U/S interpreted by me (1pt. min.). @ -None done What testing was considered but not performed or refused? (CT, X-rays, U/S, labs)? Why? @ -None What meds were considered but not given or refused? Why? @ -None Did you discuss the management of the patient with other professionals (professionals i.e. , PA, GRUBBER, lab, RT, psych nurse, social media campaign manager, deck hand, teacher, v/stol landing signal officer, case checker)? Give summary @ -Spoke with Dr. Amado for admission metastatic colon cancer Was smoking cessation discussed for >3mins.? @ -No Was critical care preformed (if so, how long)? @ -No Were there social determinants of health that impacted care today? How? ( Homelessness, low income, unemployed, alcoholism, drug addiction, transportation, low edu. Level, literacy, decrease access to med. care, skilled nursing, rehab)? @ -No Was there de-escalation of care discussed even if they declined (Discuss DNR or withdrawal of care, Hospice)? DNR status @ -No What co-morbidities impacted this encounter? (DM, HTN, Smoking, COPD, CAD, Cancer, CVA, ARF, Chemo, Hep., AIDS, mental health diagnosis, sleep apnea, morbid obesity)? @ -Metastatic colon cancer Was patient admitted / discharged? Hospital course, mention meds given and route, prescriptions, significant lab abnormalities, going to OR and other pertinent info. @ - Upon arrival the patient seen and evaluated in bed 11. Thorough history and physical exam was performed. Patient does express her wishes to go pa lliative care versus hospice from the beginning. She does allow me to conduct laboratory studies and imaging to evaluate her condition. Laboratory studies reveal a significantly elevated sodium level which is repeated and found to be within normal range. I did complete a chest x-ray which demonstrates multifocal pneumonia versus cancer. I did discuss this with the patient. Patient feels as if it is a cancer because she denies any type of productive cough or fevers to me. I did discuss the treatment options. She continues to request hospice. I do not have case management at this time. I will admit the patient with a hospice consult. I spoke with Dr. Curry for the admission who did accept the admission Undiagnosed new problem with uncertain prognosis? @ -No Drug Therapy requiring intensive monitoring for toxicity (Heparin, Nitro, Insulin, Cardizem)? @ -No Were any procedures done? @ -No Diagnosis/symptom? @ -Generalized weakness, acute respiratory insufficiency on chronic respiratory failure, acute exacerbation of COPD, possible pneumonia, stage IV colon cancer not currently on any treatment Acute, or Chronic, or Acute on Chronic? @ -Acute Uncomplicated (without systemic symptoms) or Complicated (systemic symptoms)? @ -Complicated Side effects of treatment? @ -No Exacerbation, Progression, or Severe Exacerbation? @ -No Poses a threat to life or bodily function? How? (Chest pain, USA, IL, pneumonia, PE, COPD, DKA, ARF, appy, cholecystitis, CVA, Diverticulitis, Homicidal, Suicidal, threat to staff... and all critical care pts) @ -Yes this patient does plan to succumb to her diagnosis - Lab Data Result diagrams: 05/15/24 04:49 05/15/24 04:49 Lab Results 05/14/24 05/14/24 05/14/24 Range/Units 16:42 18:07 18:07 WBC 7.8 (3.8-10.6) k/uL RBC 3.93 (3.80-5.40) m/uL Hgb 11.8 (11.4-16.0) gm/dL Hct 37.6 (34.0-46.0) % MCV 95.6 (80.0-100.0) fL MCH 29.9 (25.0-35.0) pg MCHC 31.3 (31.0-37.0) g/dL RDW 17.5 H (11.5-15.5) % Plt Count 115 L (150-450) k/uL MPV 8.2 Neutrophils % 87 % Lymphocytes % 7 % Monocytes % 4 % Eosinophils % 0 % Basophils % 0 % Neutrophils # 6.8 (1.3-7.7) k/uL Lymphocytes # 0.6 L (1.0-4.8) k/uL Monocytes # 0.4 (0-1.0) k/uL Eosinophils # 0.0 (0-0.7) k/uL Basophils # 0.0 (0-0.2) k/uL Hypochromasia Marked Anisocytosis Slight Macrocytosis Slight PT 12.9 H (10.0-12.5) sec INR 1.2 H (<1.2) APTT 22.4 (22.0-30.0) sec Sodium (137-145) mmol/L Potassium (3.5-5.1) mmol/L Chloride (98-107) mmol/L Carbon Dioxide (22-30) mmol/L Anion Gap mmol/L BUN (7-17) mg/dL Creatinine (0.52-1.04) mg/dL Est GFR (CKD-EPI)AfAm (>60 ml/min/1.73 sqM) Est GFR (CKD-EPI)NonAf (>60 ml/min/1.73 sqM) Glucose (74-99) mg/dL Plasma Lactic Acid Rfancisco (0.7-2.0) mmol/L Calcium (8.4-10.2) mg/dL Magnesium (1.6-2.3) mg/dL Total Bilirubin (0.2-1.3) mg/dL AST (14-36) U/L ALT (4-34) U/L Alkaline Phosphatase (38-126) U/L Troponin I (0.000-0.034) ng/mL NT-Pro-B Natriuret Pep pg/mL Total Protein (6.3-8.2) g/dL Albumin (3.5-5.0) g/dL Influenza Type A (PCR) Not Detected (Not Detectd) Influenza Type B (PCR) Not Detected (Not Detectd) RSV (PCR) Not Detected (Not Detectd) SARS-CoV-2 (PCR) Not Detected (Not Detectd) 05/14/24 05/14/24 05/14/24 Range/Units 18:07 18:07 18:07 WBC (3.8-10.6) k/uL RBC (3.80-5.40) m/uL Hgb (11.4-16.0) gm/dL Hct (34.0-46.0) % MCV (80.0-100.0) fL MCH (25.0-35.0) pg MCHC (31.0-37.0) g/dL RDW (11.5-15.5) % Plt Count (150-450) k/uL MPV Neutrophils % % Lymphocytes % % Monocytes % % Eosinophils % % Basophils % % Neutrophils # (1.3-7.7) k/uL Lymphocytes # (1.0-4.8) k/uL Monocytes # (0-1.0) k/uL Eosinophils # (0-0.7) k/uL Basophils # (0-0.2) k/uL Hypochromasia Anisocytosis Macrocytosis PT (10.0-12.5) sec INR (<1.2) APTT (22.0-30.0) sec Sodium >250 H* (137-145) mmol/L Potassium 4.4 (3.5-5.1) mmol/L Chloride 106 (98-107) mmol/L Carbon Dioxide 24 (22-30) mmol/L Anion Gap 120 mmol/L BUN 44 H (7-17) mg/dL Creatinine 0.91 (0.52-1.04) mg/dL Est GFR (CKD-EPI)AfAm 68 (>60 ml/min/1.73 sqM) Est GFR (CKD-EPI)NonAf 59 (>60 ml/min/1.73 sqM) Glucose 112 H (74-99) mg/dL Plasma Lactic Acid Francisco 1.9 (0.7-2.0) mmol/L Calcium 8.6 (8.4-10.2) mg/dL Magnesium 1.7 (1.6-2.3) mg/dL Total Bilirubin 0.7 (0.2-1.3) mg/dL AST 25 (14-36) U/L ALT 9 (4-34) U/L Alkaline Phosphatase 148 H (38-126) U/L Troponin I <0.012 (0.000-0.034) ng/mL NT-Pro-B Natriuret Pep 1260 pg/mL Total Protein 6.2 L (6.3-8.2) g/dL Albumin 2.9 L (3.5-5.0) g/dL Influenza Type A (PCR) (Not Detectd) Influenza Type B (PCR) (Not Detectd) RSV (PCR) (Not Detectd) SARS-CoV-2 (PCR) (Not Detectd) 05/14/24 Range/Units 19:20 WBC (3.8-10.6) k/uL RBC (3.80-5.40) m/uL Hgb (11.4-16.0) gm/dL Hct (34.0-46.0) % MCV (80.0-100.0) fL MCH (25.0-35.0) pg MCHC (31.0-37.0) g/dL RDW (11.5-15.5) % Plt Count (150-450) k/uL MPV Neutrophils % % Lymphocytes % % Monocytes % % Eosinophils % % Basophils % % Neutrophils # (1.3-7.7) k/uL Lymphocytes # (1.0-4.8) k/uL Monocytes # (0-1.0) k/uL Eosinophils # (0-0.7) k/uL Basophils # (0-0.2) k/uL Hypochromasia Anisocytosis Macrocytosis PT (10.0-12.5) sec INR (<1.2) APTT (22.0-30.0) sec Sodium 138 (137-145) mmol/L Potassium (3.5-5.1) mmol/L Chloride (98-107) mmol/L Carbon Dioxide (22-30) mmol/L Anion Gap mmol/L BUN (7-17) mg/dL Creatinine (0.52-1.04) mg/dL Est GFR (CKD-EPI)AfAm (>60 ml/min/1.73 sqM) Est GFR (CKD-EPI)NonAf (>60 ml/min/1.73 sqM) Glucose (74-99) mg/dL Plasma Lactic Acid Francisco (0.7-2.0) mmol/L Calcium (8.4-10.2) mg/dL Magnesium (1.6-2.3) mg/dL Total Bilirubin (0.2-1.3) mg/dL AST (14-36) U/L ALT (4-34) U/L Alkaline Phosphatase (38-126) U/L Troponin I (0.000-0.034) ng/mL NT-Pro-B Natriuret Pep pg/mL Total Protein (6.3-8.2) g/dL Albumin (3.5-5.0) g/dL Influenza Type A (PCR) (Not Detectd) Influenza Type B (PCR) (Not Detectd) RSV (PCR) (Not Detectd) SARS-CoV-2 (PCR) (Not Detectd) Disposition Clinical Impression: Colon cancer, Bilateral lower extremity edema Disposition: ADMITTED IP TO THIS HOSP Condition: Undetermined Is patient prescribed a controlled substance at d/c from ED?: No Time of Disposition: 19:49 Decision to Admit Reason: Admit from EC Decision Date: 05/14/24 Decision Time: 19:49
[2024-05-14 17:27] LABS: Influenza A Not Detected (Not Detectd); Influenza B Not Detected (Not Detectd); RSV Not Detected (Not Detectd)
[2024-05-14 18:24] LABS: Anisocytosis Slight; Basophils % (A) 0 %; Eosinophils % (A) 0 %; HCT 37.6 % (34.0-46.0); HGB 11.8 gm/dL (11.4-16.0); Hypochromasia Marked; Lymphocytes # (A) 0.6 k/uL (1.0-4.8); Lymphocytes % (A) 7 %; MCH 29.9 pg (25.0-35.0); MCHC 31.3 g/dL (31.0-37.0); MCV 95.6 fL (80.0-100.0); Macrocytosis Slight; Mean Platelet Volume 8.2; Monocytes # (A) 0.4 k/uL (0-1.0); Monocytes % (A) 4 %; Neutrophils # (A) 6.8 k/uL (1.3-7.7); Neutrophils % (A) 87 %; Platelet Count 115 k/uL (150-450); RBC 3.93 m/uL (3.80-5.40); RDW 17.5 % (11.5-15.5); WBC 7.8 k/uL (3.8-10.6)
[2024-05-14 18:40] LABS: ALT 9 U/L (4-34); AST 25 U/L (14-36); African American GFR (CKD) 68 (>60 ml/min/1.73 sqM); Albumin 2.9 g/dL (3.5-5.0); Alkaline Phosphatase 148 U/L (38-126); Blood Urea Nitrogen 44 mg/dL (7-17); Calcium 8.6 mg/dL (8.4-10.2); Carbon Dioxide 24 mmol/L (22-30); Chloride 106 mmol/L (98-107); Glucose 112 mg/dL (74-99); Magnesium 1.7 mg/dL (1.6-2.3); Non-African American GFR(CKD) 59 (>60 ml/min/1.73 sqM); Potassium 4.4 mmol/L (3.5-5.1); Total Bilirubin 0.7 mg/dL (0.2-1.3); Total Protein 6.2 g/dL (6.3-8.2)
--- NOTE | 2024-05-14 18:42 | XR ---
EXAMINATION TYPE: XR chest 2V DATE OF EXAM: 05/14/2024 6:35 PM COMPARISON: Chest radiographs from 10/30/2023, CT chest abdomen and pelvis 03/30/2024 TECHNIQUE: XR chest 2V Frontal and lateral views of the chest. CLINICAL INDICATION:Female, 83 years old with history of difficulty breathing; FINDINGS: Patient is rotated which limits evaluation. Lungs/Pleura: Hyperinflation. No pneumothorax or pleural effusion. Reticular nodular opacities within the bilateral lateral upper lungs with patchy airspace opacity within the bilateral lower lobes. Pulmonary vascularity: Unremarkable. Heart/mediastinum: Cardiomediastinal silhouette is stable. Similar prominence of the bilateral ernesto from prior exam. Musculoskeletal: Multiple level degenerative disc disease changes seen throughout the spine. Multilev el compression deformities of the visualized thoracolumbar spine redemonstrated. Other findings: None Lines/Tubes: Redemonstration of right anterior chest wall Mediport catheter with distal tip terminating at the sup erior cavoatrial junction. IMPRESSION: Background COPD changes with increasing bilateral upper lung reticular nodular opacities and bilatera l lower lung patchy airspace opacities. Findings concerning for multifocal pneumonia and/or progressi on of metastatic disease. Consider further evaluation with CT chest as clinically indicated. [facility], , 05/14/2024 6:40 PM
[2024-05-14 18:48] LABS: NT-Pro-B-Type Natriuretic Pept 1260 pg/mL
[2024-05-14 18:49] LABS: INR 1.2 (<1.2); Partial Thromboplastin Time 22.4 sec (22.0-30.0); Prothrombin Time 12.9 sec (10.0-12.5)
[2024-05-14 19:00] LABS: Anion Gap 120 mmol/L; Sodium >250 mmol/L (137-145)
[2024-05-14] MEDS ORDERED: PROCHLORPERAZINE 10 MG TAB PO PRN (19:46)
[2024-05-14] MEDS ORDERED: ALBUTEROL NEBULIZED 2.5 MG/3 ML INHALATION PRN (19:46)
[2024-05-14] MEDS ORDERED: NALOXONE 0.4 MG/ML 1 ML VIAL IV PRN (19:49)
[2024-05-14] MEDS: HYDROcodone/APAP 10-325MG 1 EACH TAB PO PRN (19:53)
[2024-05-14] MEDS: SYMBICORT 160-4.5 MCG INHALER INHALATION SCH (21:56)
[2024-05-14] MEDS: ATORVASTATIN 10 MG TAB PO SCH (22:29)
[2024-05-14] MEDS: ACETAMINOPHEN TAB 325 MG TAB PO PRN (22:44)
[2024-05-15 08:29] LABS: BUN/Creat Ratio 45.12 Ratio (12.00-20.00); Blood Urea Nitrogen 36.1 mg/dL (9.0-27.0); Calcium 8.2 mg/dL (8.7-10.3); Carbon Dioxide 24.2 mmol/L (21.6-31.8); Chloride 106 mmol/L (96-109); Glucose 109 mg/dL (70-110); Potassium 4.6 mmol/L (3.5-5.5); Sodium 138 mmol/L (135-145)
[2024-05-15] MEDS: TIOTROPIUM 2.5 MCG INHALER INHALATION SCH (08:32)
[2024-05-15 08:46] LABS: Basophils # (A) 0.02 X 10*3/uL (0.00-0.10); Basophils % (A) 0.3 %; Eosinophils # (A) 0.01 X 10*3/uL (0.04-0.35); Eosinophils % (A) 0.1 %; HCT 32.4 % (37.2-46.3); HGB 9.8 g/dL (12.0-15.0); MCH 30.3 pg (27.0-32.0); MCHC 30.2 g/dL (32.0-37.0); MCV 100.3 FL (80.0-97.0); Mean Platelet Volume 10.9 FL (9.5-12.2); Monocytes # (A) 0.43 X 10*3/uL (0.20-1.00); NRBC Per 100 WBC 0 X 10*3/uL (0.00-0.01); Neutrophils # (A) 6.08 X 10*3/uL (1.80-7.70); Neutrophils % (A) 85.3 %; Platelet Count 107 X 10*3/uL (140-440); RBC 3.23 X 10*6/uL (4.10-5.20); RDW 18.3 % (11.5-14.5); WBC 7.13 X 10*3/uL (4.50-10.00)
[2024-05-15] MEDS: AZITHROMYCIN 500 MG TAB PO SCH (09:48)
--- NOTE | 2024-05-15 09:53 | US ---
EXAMINATION TYPE: US venous doppler duplex LE BI DATE OF EXAM: 05/15/2024 7:36 AM COMPARISON: NONE CLINICAL INDICATION: Female, 83 years old with history of leg swelling; No hx of DVT. Leg swelling. TECHNIQUE: The lower extremity deep venous system is examined utilizing real time linear array sonog janine with graded compression, color doppler sonography, and spectral doppler. SIDE PERFORMED: Bilateral FINDINGS: VESSELS IMAGED: Common Femoral Vein Deep Femoral Vein Greater Saphenous Vein * Femoral Vein Popliteal Vein Small Saphenous Vein * Proximal Calf Veins (* superficial vessels) Right Leg: No evidence of DVT. Great amount of plaque incidentally noted in femoral artery when taking venous compression images. PTVs and peroneal veins were obscured due to great amount of edema. Left Leg: Thick lopez versus chronic thrombus along CFV vessel wall? CFV appears to compress incompl etely. Color flow seen throughout. PTVs and peroneal veins were obscured due to great amount of edema. . IMPRESSION: Suboptimal study without acute DVT in the right lower extremity. There is evidence of partial occlusi ve or chronic DVT in the visualized portion of the left lower extremity noted. [facility], , 05/15/2024 9:51 AM
--- NOTE | 2024-05-15 13:26 | P.HPIM ---
History of Present Illness H&P Date: 05/15/24 Patient is a 83-year-old female with a history of COPD not on home oxygen, metastatic colon cancer status post chemotherapy, hypertension, hyperlipidemia presents to the ER with concerns for bilateral leg swelling and shortness of breath which has been getting worse for the last 1 week or so. Patient was diagnosed with colon cancer about 5 years ago and underwent resection of the mass by Dr. Dennis. Patient did not follow-up with oncology as well as general surgery until last year. Since then she has been following Dr. Norwood at [facility] and was started on chemotherapy. Patient stopped chemotherapy in March 2024 because of the side effects such as weight loss, poor appetite and generalized weakness. Her most recent CT abdomen pelvis on 03/30/2024 shows there is increasing size of the right lower quadrant metastatic abdominal mass and right iliac chain lymph node which is consistent with the progression of the disease. Additionally there is increased size and more sclerotic appearance of the left L5 metastatic soft tissue mass. Patient understands that she is dealing with a terminal illness and would like to pursue hospice care. Additionally, she has been endorsing mildly productive cough with greenish colored sputum since 1 week with mild shortness of breath which he says is chronic but has definitely got worse recently. Patient denies any chest pain, nausea, vomiting, fever, chills diarrhea, constipation. Laboratory evaluation in the ED shows WBC 7.8, hemoglobin 11.8, platelet count of 115, sodium 138, potassium 4.4, BUN 44, creatinine 0.91, alkaline phosphatase 148, troponin I less than 0.02, NT proBNP 1260, albumin 2.9. Viral serology for influenza type A, type B, RSV and COVID-19 is negative. Chest x-ray in the ER shows COPD changes with increasing bilateral upper lung particular nodular opacities and bilateral lower lung patchy airspace opacities. Findings concerning for multifocal pneumonia and/or progression of the metastatic disease. Venous Doppler ultrasound shows evidence of partial occlusive or chronic DVT in the left lower extremity. EKG shows sinus tachycardia with ventricular rate 114 bpm, NH interval 175, QRS duration 70 ms, QTc 352. Poor R wave progression noted. Nonspecific ST-T wave changes noted. Review of systems: Pertinent positives and negatives as discussed in HPI, a complete review of systems was performed and all other systems are negative. Social history: Patient is a current smoker Physical examination: Vital signs reviewed General: non toxic, no distress, appears at stated age, underweight, cachectic appearing Derm: no unusual rashes/lesions, warm Head: atraumatic, normocephalic, symmetric Eyes: EOMI, no lid lag, anicteric sclera, pupils equal round reactive to light ENT: Nose and ears atraumatic Neck: No cervical lymphadenopathy, trachea midline, supple Mouth: no lip lesion, mucus membranes moist Cardiovascular: S1S2 reg, no murmur, positive dorsalis pedis pulse bilateral, no edema Lungs: Decreased breath sounds bilaterally with mild crackles noted. Abdominal: There is slight tenderness upon palpation with hard mass noted on the umbilical and right lower quadrant, bowel sounds positive Ext: muscle strength 5 out of 5 in all 4 extremities grossly, no gross muscle atrophy, no contractures, Neuro: CN II-XI grossly intact, no gross focal neuro deficits Psych: Alert, oriented, appropriate affect Assessment/Plan: This is a Patient is a 83-year-old female with a history of COPD not on home oxygen, metastatic colon cancer status post chemotherapy, hypertension, hyperlipidemia presents to the ER with concerns for bilateral leg swelling and shortness of breath which has been getting worse for the last 1 week. Case was discussed with the Emergency Room provider and decision was made to admit the patient for COPD exacerbation and hospice care. Labs and images: Laboratory evaluation in the ED shows WBC 7.8, hemoglobin 11.8, platelet count of 115, sodium 138, potassium 4.4, BUN 44, creatinine 0.91, alkaline phosphatase 148, troponin I less than 0.02, NT proBNP 1260, albumin 2.9. Viral serology for influenza type A, type B, RSV and COVID-19 is negative. Chest x-ray in the ER shows COPD changes with increasing bilateral upper lung particular nodular opacities and bilateral lower lung patchy airspace opacities. Findings concerning for multifocal pneumonia and/or progression of the metastatic disease. Venous Doppler ultrasound shows evidence of partial occlusive or chron ic DVT in the left lower extremity. EKG shows sinus tachycardia with ventricular rate 114 bpm, NH interval 175, QRS duration 70 ms, QTc 352. Poor R wave progression noted. Nonspecific ST-T wave changes noted. Active: #COPD exacerbation #Suspected community-acquired pneumonia #Acute hypoxemic respiratory failure secondary to above #Metastatic colon cancer Blood culture, sputum culture Initiate ceftriaxone IVPB 2 g every 24 hours and azithromycin 500 mg p.o. once daily DuoNebs as scheduled [id number] Prednisone 40 mg once daily Oxygen therapy as needed Continue monitor CBC Consult hospice care Consult oncology #DVT in the left lower extremity in the setting of malignancy Venous Doppler ultrasound finding as above Start patient on heparin 5000 units subcu every 8-hour #Elevated alkaline phosphatase Likely in the setting of malignancy Continue to monitor Chronic conditions: Hyperlipidemia Resume Lipitor 10 mg p.o. at bedtime DVT prophylaxis: Subcu heparin GI prophylaxis: None F: Replete as needed E: Replete as needed N: Heart healthy diet A: Ambulatory at baseline The patient is admitted with an anticipated less than than 2 midnight stay for evaluation of COPD exacerbation CODE STATUS: No code Discussed with: Patient Anticipated discharge place: Pending clinical course Dictation was produced using [employer] dictation software. Please excuse any grammatical, word or spelling errors. Past Medical History Past Medical History: Cancer, COPD, Hyperlipidemia, Hypertension, Myocardial Infarction ([place]), Osteoarthritis (OA) Additional Past Medical History / Comment(s): sciatica, narcolepsy, osteoporosis, colon cancer, non sustained vtach, LE edema Last Myocardial Infarction Date:: 1999 History of Any Multi-Drug Resistant Organisms: None Reported Past Surgical History: Bowel Resection, Section, Heart Catheterization, Orthopedic Surgery Additional Past Surgical History / Comment(s): bunionectomy Past Anesthesia/Blood Transfusion Reactions: No Reported Reaction Past Psychological History: No Psychological Hx Reported Smoking Status: Current every day smoker Past Alcohol Use History: None Reported Past Drug Use History: Marijuana Additional Drug Use History / Comment(s): instructed to refrain from use within 24 hrs of the procedure - Past Family History Father History Unknown: Yes Mother History Unknown: Yes Medications and Allergies Home Medications Medication Instructions Recorded Confirmed Type Simvastatin [Zocor] 10 mg PO HS 11/15/16 05/14/24 History Potassium Chloride [Klor-Con 20] 20 meq PO Q48H 03/22/17 05/14/24 History HYDROcodone/APAP 10-325MG [[place] 1 tab PO TID PRN 04/29/20 05/14/24 History 10-325] Albuterol Nebulized [Ventolin 2.5 mg INHALATION RT-Q6H PRN 07/04/23 05/14/24 History Nebulized] lisinopriL [Zestril] 10 mg PO DAILY 07/04/23 05/14/24 History Tiotropium 18 Mcg/Puff [Spiriva] 1 puff INHALATION RT-DAILY 10/25/23 05/14/24 History Albuterol Inhaler [Ventolin Hfa 2 puff INHALATION RT-Q4H PRN 05/14/24 05/14/24 History Inhaler] Budesonide/Formoterol Fumarate 2 puff INHALATION RT-BID 05/14/24 05/14/24 History [Symbicort 160-4.5 Mcg Inhaler] Furosemide [Lasix] 40 mg PO Q48H 05/14/24 05/14/24 History Lidocaine-Prilocaine Cream [Emla 1 applic TOPICAL DAILY PRN 05/14/24 05/14/24 History Cream 2.5%/2.5%] Metoprolol Succinate (ER) [Toprol 50 mg PO DAILY 05/14/24 05/14/24 History Xl] Ondansetron Odt [Zofran Odt] 4 - 8 mg PO Q4HR PRN MDD 32mg 05/14/24 05/14/24 History Prochlorperazine Maleate 10 mg PO Q6H PRN 05/14/24 05/14/24 History modafiniL [Provigil] 200 mg PO DAILY 05/14/24 05/14/24 History Allergies Allergy/AdvReac Type Severity Reaction Status Date / Time No Known Allergies Allergy Verified 05/14/24 17:38 Physical Exam Vitals: Vital Signs Temp Pulse Pulse Resp BP BP Pulse Ox 05/15/24 07:00 98.1 F 58 L 16 116/76 94 L 05/15/24 01:48 97.9 F 106 H 12 94/60 96 05/14/24 22:44 97.5 F L 116 H 16 99/62 92 L 05/14/24 20:32 112 H 22 100/66 95 05/14/24 18:44 98.3 F 112 H 16 113/72 96 05/14/24 18:12 98.4 F 109 H 16 93/68 94 L 05/14/24 16:22 98.7 F 111 H 18 93/62 91 L 05/14/24 15:50 98.3 F 122 H 20 89/59 93 L Intake and Output 05/14/24 05/15/24 05/15/24 22:59 06:59 14:59 Intake Total 240 Balance 240 Intake: Oral 240 Other: Voiding Method Toilet Bedside Commode # Voids 1 Weight 49.895 kg Results CBC & Chem 7: 05/15/24 04:49 05/15/24 04:49 Labs: Abnormal Lab Results - Last 24 Hours (Table) 05/14/24 05/14/24 05/14/24 Range/Units 18:07 18:07 18:07 RBC (4.10-5.20) X 10*6/uL Hgb (12.0-15.0) g/dL Hct (37.2-46.3) % MCV (80.0-97.0) FL MCHC (32.0-37.0) g/dL RDW 17.5 H (11.5-15.5) % Plt Count 115 L (150-450) k/uL Immature Gran # (0.00-0.04) X 10*3/uL Lymphocytes # 0.6 L (1.0-4.8) k/uL Eosinophils # (0.04-0.35) X 10*3/uL PT 12.9 H (10.0-12.5) sec INR 1.2 H (<1.2) Sodium >250 H* (137-145) mmol/L BUN 44 H (7-17) mg/dL BUN/Creatinine Ratio (12.00-20.00) Ratio Glucose 112 H (74-99) mg/dL Calcium (8.7-10.3) mg/dL Alkaline Phosphatase 148 H (38-126) U/L Total Protein 6.2 L (6.3-8.2) g/dL Albumin 2.9 L (3.5-5.0) g/dL 05/15/24 05/15/24 Range/Units 04:49 04:49 RBC 3.23 L (4.10-5.20) X 10*6/uL Hgb 9.8 L (12.0-15.0) g/dL Hct 32.4 L (37.2-46.3) % MCV 100.3 H (80.0-97.0) FL MCHC 30.2 L (32.0-37.0) g/dL RDW 18.3 H (11.5-15.5) % Plt Count 107 L (150-450) k/uL Immature Gran # 0.09 H (0.00-0.04) X 10*3/uL Lymphocytes # 0.50 L (1.0-4.8) k/uL Eosinophils # 0.01 L (0.04-0.35) X 10*3/uL PT (10.0-12.5) sec INR (<1.2) Sodium (137-145) mmol/L BUN 36.1 H (7-17) mg/dL BUN/Creatinine Ratio 45.12 H (12.00-20.00) Ratio Glucose (74-99) mg/dL Calcium 8.2 L (8.7-10.3) mg/dL Alkaline Phosphatase (38-126) U/L Total Protein (6.3-8.2) g/dL Albumin (3.5-5.0) g/dL Thrombosis Risk Factor Assmnt - Choose All That Apply Any of the Below Risk Factors Present?: Yes Each Factor Represents 1 point: Swollen legs (current) Other Risk Factors: Yes Each Risk Factor Represents 2 Points: Malignancy Each Risk Factor Represents 3 Points: Age 75 years or older Thrombosis Risk Factor Assessment Total Risk Factor Score: 6 Thrombosis Risk Factor Assessment Level: High Risk
[2024-05-15 14:04] VITALS: BMI 21.4
[2024-05-15] MEDS: HEPARIN SODIUM,PORCINE 5,000 UNIT/ML 1 ML VIAL SQ SCH (15:09)
[2024-05-15] MEDS: predniSONE 20 MG TAB PO SCH (17:21)
[2024-05-15] MEDS: ONDANSETRON 4 MG/2 ML VIAL IVP PRN (17:25)
--- NOTE | 2024-05-15 19:52 | P.CONS ---
History of Present Illness - Reason for Consult Consult date: 05/15/24 metastatic colon cancer Requesting physician: Emir Abdi - Chief Complaint MARLO, leg swelling - History of Present Illness Ms. Romo is an 83-year-old woman with a past medical history significant for stage II colon cancer status post right hemicolectomy in August 2019 and received approximately 1 month of adjuvant Xeloda who presented for evaluation of recurrent colon cancer. CT abdomen/pelvis with contrast on 08/26/2023 noted 3 right lower quadrant intra-abdominal masses with the largest measuring 4.4 cm along with 2 smaller nodules measuring 2.2 cm and 1.4 cm. No additional masses were seen with no lesions in the small or large bowel with partial right he micolectomy changes. Biopsy of the largest lesion on 09/13/2023 was consistent with poorly differentiated non-small cell carcinoma consistent with poorly differentiated colon adenocarcinoma. PET/CT on 10/03/2023 noted FDG avid intra-abdominal wall lesions in the right abdomen, right perihilar mass, L5 transverse process metastases, right inguinal lymph node. 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 NGS re vealed IDH 2 mutation with no BRAF/KRAS/NRAS mutation and microsatellite stable disease. She initiated cycle 1 of FOLFOX on 11/06/2023 and completed received cycle 12 on 04/07/2024. Restaging CT scans on 03/30/2024 noted increase in size and the largest right abdominal wall lesion to 5.9 cm from 4.7 cm in addition to increased right external iliac lymphadenopathy and more prominent L5 sclerotic lesion concerning for progressive disease. Following discussion on her last visit, she initially was interested in trying FOLFIRI chemotherapy, but upon further discussion patient decided to pursue hospice. Telephone conversation with hospice occurred on 05/01/2024 with upcoming consultation in person. Patient has since met with [facility] and [facility]. Patient presented to the emergency room with complaints of difficulty in breathing and bilateral lower extremity swelling. Upon admit chest x-ray showed background COPD changes with increasing bilateral upper lung reticular nodular opacities and bilateral lower lung patchy airspace opacities. Patient has been started on IV antibiotics for suspected pneumonia. Bilateral lower extremity Dopplers showed suboptimal study without acute DVT in the right lower extremity. Evidence of partial occlusive or chronic DVT in the visualized portion of the left lower extremity. Labs reviewed, WBC 7.1, hemoglobin 9.8, platelets 107,000. BUN 44, creatinine 0.91, GFR 59. Troponin negative. BNP 1260. Review of Systems 10 point ROS is negative except as stated in the HPI Past Medical History Past Medical History: Cancer, COPD, Hyperlipidemia, Hypertension, Myocardial Infarction ([place]), Osteoarthritis (OA) Additional Past Medical History / Comment(s): sciatica, narcolepsy, osteoporosis, colon cancer, non sustained vtach, LE edema Last Myocardial Infarction Date:: 1999 History of Any Multi-Drug Resistant Organisms: None Reported Past Surgical History: Bowel Resection, Section, Heart Catheterization, Orthopedic Surgery Additional Past Surgical History / Comment(s): bunionectomy Past Anesthesia/Blood Transfusion Reactions: No Reported Reaction Past Psychological History: No Psychological Hx Reported Smoking Status: Current every day smoker Past Alcohol Use History: None Reported Past Drug Use History: Marijuana Additional Drug Use History / Comment(s): instructed to refrain from use within 24 hrs of the procedure - Past Family History Father History Unknown: Yes Mother History Unknown: Yes Medications and Allergies Home Medications Medication Instructions Recorded Confirmed Type Simvastatin [Zocor] 10 mg PO HS 11/15/16 05/14/24 History Potassium Chloride [Klor-Con 20] 20 meq PO Q48H 03/22/17 05/14/24 History HYDROcodone/APAP 10-325MG [[place] 1 tab PO TID PRN 04/29/20 05/14/24 History 10-325] Albuterol Nebulized [Ventolin 2.5 mg INHALATION RT-Q6H PRN 07/04/23 05/14/24 History Nebulized] lisinopriL [Zestril] 10 mg PO DAILY 07/04/23 05/14/24 History Tiotropium 18 Mcg/Puff [Spiriva] 1 puff INHALATION RT-DAILY 10/25/23 05/14/24 History Albuterol Inhaler [Ventolin Hfa 2 puff INHALATION RT-Q4H PRN 05/14/24 05/14/24 History Inhaler] Budesonide/Formoterol Fumarate 2 puff INHALATION RT-BID 05/14/24 05/14/24 History [Symbicort 160-4.5 Mcg Inhaler] Furosemide [Lasix] 40 mg PO Q48H 05/14/24 05/14/24 History Lidocaine-Prilocaine Cream [Emla 1 applic TOPICAL DAILY PRN 05/14/24 05/14/24 History Cream 2.5%/2.5%] Metoprolol Succinate (ER) [Toprol 50 mg PO DAILY 05/14/24 05/14/24 History Xl] Ondansetron Odt [Zofran Odt] 4 - 8 mg PO Q4HR PRN MDD 32mg 05/14/24 05/14/24 History Prochlorperazine Maleate 10 mg PO Q6H PRN 05/14/24 05/14/24 History modafiniL [Provigil] 200 mg PO DAILY 05/14/24 05/14/24 History Allergies Allergy/AdvReac Type Severity Reaction Status Date / Time No Known Allergies Allergy Verified 05/14/24 17:38 Physical Exam Vitals: Vital Signs Temp Pulse Pulse Resp BP BP Pulse Ox 05/15/24 11:47 98.1 F 114 H 17 94/65 94 L 05/15/24 07:00 98.1 F 58 L 16 116/76 94 L 05/15/24 01:48 97.9 F 106 H 12 94/60 96 05/14/24 22:44 97.5 F L 116 H 16 99/62 92 L 05/14/24 20:32 112 H 22 100/66 95 05/14/24 18:44 98.3 F 112 H 16 113/72 96 05/14/24 18:12 98.4 F 109 H 16 93/68 94 L Intake and Output 05/15/24 05/15/24 05/15/24 06:59 14:59 22:59 Intake Total 240 240 Balance 240 240 Intake: Oral 240 240 Other: Voiding Method Toilet Toilet Bedside Commode Bedside Commode # Voids 1 Weight 49.895 kg - Constitutional General appearance: average body habitus, no acute distress - EENT Eyes: EOMI ENT: hearing grossly normal - Respiratory breathing mildly labored - Cardiovascular skin warm and dry - Integumentary Integumentary: no cyanotic - Neurologic Neurologic: CNII-XII intact - Psychiatric Psychiatric: A&O x's 3 Results CBC & Chem 7: 05/15/24 04:49 05/15/24 04:49 Labs: Abnormal Lab Results - Last 24 Hours (Table) 05/14/24 05/14/24 05/14/24 Range/Units 18:07 18:07 18:07 RBC (4.10-5.20) X 10*6/uL Hgb (12.0-15.0) g/dL Hct (37.2-46.3) % MCV (80.0-97.0) FL MCHC (32.0-37.0) g/dL RDW 17.5 H (11.5-15.5) % Plt Count 115 L (150-450) k/uL Immature Gran # (0.00-0.04) X 10*3/uL Lymphocytes # 0.6 L (1.0-4.8) k/uL Eosinophils # (0.04-0.35) X 10*3/uL PT 12.9 H (10.0-12.5) sec INR 1.2 H (<1.2) Sodium >250 H* (137-145) mmol/L BUN 44 H (7-17) mg/dL BUN/Creatinine Ratio (12.00-20.00) Ratio Glucose 112 H (74-99) mg/dL Calcium (8.7-10.3) mg/dL Alkaline Phosphatase 148 H (38-126) U/L Total Protein 6.2 L (6.3-8.2) g/dL Albumin 2.9 L (3.5-5.0) g/dL 05/15/24 05/15/24 Range/Units 04:49 04:49 RBC 3.23 L (4.10-5.20) X 10*6/uL Hgb 9.8 L (12.0-15.0) g/dL Hct 32.4 L (37.2-46.3) % MCV 100.3 H (80.0-97.0) FL MCHC 30.2 L (32.0-37.0) g/dL RDW 18.3 H (11.5-15.5) % Plt Count 107 L (150-450) k/uL Immature Gran # 0.09 H (0.00-0.04) X 10*3/uL Lymphocytes # 0.50 L (1.0-4.8) k/uL Eosinophils # 0.01 L (0.04-0.35) X 10*3/uL PT (10.0-12.5) sec INR (<1.2) Sodium (137-145) mmol/L BUN 36.1 H (7-17) mg/dL BUN/Creatinine Ratio 45.12 H (12.00-20.00) Ratio Glucose (74-99) mg/dL Calcium 8.2 L (8.7-10.3) mg/dL Alkaline Phosphatase (38-126) U/L Total Protein (6.3-8.2) g/dL Albumin (3.5-5.0) g/dL Abdominal x-ray: report reviewed Venous US: report reviewed Assessment and Plan (1) Bilateral lower extremity edema Current Visit: Yes Status: Acute Code(s): R60.0 - LOCALIZED EDEMA SNOMED Code(s): 577176029 (2) Colon cancer Current Visit: Yes Status: Acute Code(s): C18.9 - MALIGNANT NEOPLASM OF COLON, UNSPECIFIED SNOMED Code(s): 076358291 Plan: MARLO, leg edema: Patient presented to the emergency room with complaints of difficulty in breathing and bilateral lower extremity swelling. -Upon admit chest x-ray showed background COPD changes with increasing bilateral upper lung reticular nodular opacities and bilateral lower lung patchy airspace opacities. Patient has been started on IV antibiotics for suspected pneumonia. -Bilateral lower extremity Dopplers showed suboptimal study without acute DVT in the right lower extremity. Evidence of partial occlusive or chronic DVT in the visualized portion of the left lower extremity. -Vascular surgery consulted to review venous dopplers to determine if acute DVT is noted and if anticoagulation is necessary Metastatic colon adenocarcinoma: -Oncology history as dictated in the HPI -Completed 12 cycles of FOLFOX on 04/07/2024. Restaging CT scans on 03/30/2024 noted increase in size and the largest right abdominal wall lesion to 5.9 cm from 4.7 cm in addition to increased right external iliac lymphadenopathy and more prominent L5 sclerotic lesion concerning for progressive disease. -Following discussion on her last visit, she initially was interested in trying FOLFIRI chemotherapy, but upon further discussion patient decided to pursue hospice. Telephone conversation with hospice occurred on 05/01/2024 with upcoming consultation in person. Patient has since met with [facility] and plans to go [facility]. Discussed with pt we remain available if she has further questions/concerns or w ants to further discuss treatment options in the future Doctor attests: I performed a history and physical examination of this patient, developed impression and plan of care. Discussed with dictator. I agree with dictators note, documented as a scribe.
[2024-05-15 20:10] LABS: Glucose,Whole Blood 139 mg/dL (70-110)
[2024-05-16 07:42] VITALS: BP 91/61; RESP 17; TEMP 98.2
[2024-05-16] MEDS: IPRATROPIUM-ALBUTEROL 3 ML NEB INHALATION PRN (09:03)
[2024-05-16 09:19] VITALS: PULSE 72
--- NOTE | 2024-05-16 09:59 | P.DS ---
Providers Date of admission: 05/14/24 19:51 Attending physician: Judy Galaviz Consults: 05/15/24 09:36 Consult Physician Routine Consulting Provider: Kev Wood Consult Reason/Comments: colon ca mets lungs Do you want consulting provider notified?: Yes 05/15/24 19:37 Consult Physician Routine Consulting Provider: Lissa Donahue Consult Reason/Comments: questionable DVT LLE, need for anticoagulation? Do you want consulting provider notified?: Yes Primary care physician: Sil [facility] Course: Discharge Diagnosis: #Metastatic colon cancer #COPD exacerbation #Suspected community-acquired pneumonia #Acute hypoxemic respiratory failure secondary above #Chronic DVT in the left lower extremity Hospital Course: Patient is a 83-year-old female with a history of COPD not on home oxygen, metastatic colon cancer status post chemotherapy, hypertension, hyperlipidemia presents to the ER with concerns for bilateral leg swelling and shortness of breath which has been getting worse for the last 1 week or so. Patient was diagnosed with colon cancer about 5 years ago and underwent resection of the mass by Dr. Dennis. Patient did not follow-up with oncology as well as general surgery until last year. Since then she has been following Dr. Norwood at [facility] and was started on chemotherapy. Patient stopped chemotherapy in March 2024 because of the side effects such as weight loss, poor appetite and generalized weakness. Her most recent CT abdomen pelvis on 03/30/2024 shows there is increasing size of the right lower quadrant metastatic abdominal mass and right iliac chain lymph node which is consistent with the progression of the disease. Additionally there is increased size and more sclerotic appearance of the left L5 metastatic soft tissue mass. Patient understands that she is dealing with a terminal illness and would like to pursue hospice care. Additionally, she has been endorsing mildly productive cough with greenish colored sputum since 1 week with mild shortness of breath which he says is chronic but has definitely got worse recently. Patient denies any chest pain, nausea, vomiting, fever, chills diarrhea, constipation. Laboratory evaluation in the ED shows WBC 7.8, hemoglobin 11.8, platelet count of 115, sodium 138, potassium 4.4, BUN 44, creatinine 0.91, alkaline phosphatase 148, troponin I less than 0.02, NT proBNP 1260, albumin 2.9. Viral serology for influenza type A, type B, RSV and COVID-19 is negative. Chest x-ray in the ER shows COPD changes with increasing bilateral upper lung particular nodular opacities and bilateral lower lung patchy airspace opacities. Findings concerning for multifocal pneumonia and/or progression of the metastatic disease. Venous Doppler ultrasound shows evidence of partial occlusive or chronic DVT in the left lower extremity. EKG shows sinus tachycardia with ventricular rate 114 bpm, MT interval 175, QRS duration 70 ms, QTc 352. Poor R wave progression noted. Nonspecific ST-T wave changes noted. Patient agrees and understands that she has a terminal illness secondary to metastatic colon cancer and would want to pursue comfort care. Therefore, after having extensive discussion with patient she decided to pursue hospice care at [facility]. Oncology was consulted and they are in full agreement with the plans. Discharge disposition: [facility] Vital signs reviewed General: non toxic, no distress, appears at stated age, underweight, cachectic appearing Derm: no unusual rashes/lesions, warm Head: atraumatic, normocephalic, symmetric Eyes: EOMI, no lid lag, anicteric sclera, pupils equal round reactive to light ENT: Nose and ears atraumatic Neck: No cervical lymphadenopathy, trachea midline, supple Mouth: no lip lesion, mucus membranes moist Cardiovascular: S1S2 reg, no murmur, positive dorsalis pedis pulse bilateral, no edema Lungs: Decreased breath sounds bilaterally with mild crackles noted. Abdominal: There is slight tenderness upon palpation with hard mass noted on the umbilical and right lower quadrant, bowel sounds positive, no olmedo Ext: muscle strength 5 out of 5 in all 4 extremities grossly, no gross muscle atrophy, no contractures, Neuro: CN II-XI grossly intact, no gross focal neuro deficits Psych: Alert, oriented, appropriate affect Dictation was produced using [employer] dictation software. Please excuse any grammatical, word or spelling errors. Attestation I have seen and examined this patient with my resident , discussed the same with the resident/DOMENICO, and agree with the dictator's assessment and plan as written Dr. Marv adan Patient Condition at Discharge: Undetermined Plan - Discharge Summary Discharge Rx Participant: No New Discharge Prescriptions: Continue Simvastatin [Zocor] 10 mg PO HS Potassium Chloride [Klor-Con 20] 20 meq PO Q48H HYDROcodone/APAP 10-325MG [Carlisle 10-325] 1 tab PO TID PRN PRN Reason: Pain Albuterol Nebulized [Ventolin Nebulized] 2.5 mg INHALATION RT-Q6H PRN PRN Reason: Shortness Of Breath lisinopriL [Zestril] 10 mg PO DAILY Prochlorperazine Maleate 10 mg PO Q6H PRN PRN Reason: Nausea Tiotropium 18 Mcg/Puff [Spiriva] 1 puff INHALATION RT-DAILY Albuterol Inhaler [Ventolin Hfa Inhaler] 2 puff INHALATION RT-Q4H PRN PRN Reason: Shortness Of Breath Budesonide/Formoterol Fumarate [Symbicort 160-4.5 Mcg Inhaler] 2 puff INHALATION RT-BID Furosemide [Lasix] 40 mg PO Q48H Lidocaine-Prilocaine Cream [Emla Cream 2.5%/2.5%] 1 applic TOPICAL DAILY PRN PRN Reason: port access Metoprolol Succinate (ER) [Toprol XL] 50 mg PO DAILY modafiniL [Provigil] 200 mg PO DAILY Ondansetron Odt [Zofran ODT] 4 - 8 mg PO Q4HR PRN MDD 32mg PRN Reason: Nausea Discharge Medication List Simvastatin [Zocor] 10 mg PO HS 11/15/16 [History] Potassium Chloride [Klor-Con 20] 20 meq PO Q48H 03/22/17 [History] HYDROcodone/APAP 10-325MG [Carlisle 10-325] 1 tab PO TID PRN 04/29/20 [History] Albuterol Nebulized [Ventolin Nebulized] 2.5 mg INHALATION RT-Q6H PRN 07/04/23 [History] lisinopriL [Zestril] 10 mg PO DAILY 07/04/23 [History] Tiotropium 18 Mcg/Puff [Spiriva] 1 puff INHALATION RT-DAILY 10/25/23 [History] Albuterol Inhaler [Ventolin Hfa Inhaler] 2 puff INHALATION RT-Q4H PRN 05/14/24 [History] Budesonide/Formoterol Fumarate [Symbicort 160-4.5 Mcg Inhaler] 2 puff INHALATION RT-BID 05/14/24 [History] Furosemide [Lasix] 40 mg PO Q48H 05/14/24 [History] Lidocaine-Prilocaine Cream [Emla Cream 2.5%/2.5%] 1 applic TOPICAL DAILY PRN 05/14/24 [History] Metoprolol Succinate (ER) [Toprol XL] 50 mg PO DAILY 05/14/24 [History] Ondansetron Odt [Zofran ODT] 4 - 8 mg PO Q4HR PRN MDD 32mg 05/14/24 [History] Prochlorperazine Maleate 10 mg PO Q6H PRN 05/14/24 [History] modafiniL [Provigil] 200 mg PO DAILY 05/14/24 [History] Follow up Appointment(s)/Referral(s): Sil Mendoza MD [Primary Care Provider] - 1-2 days Discharge Disposition: DISCH TO [facility]
== END 2024-05-16 11:19 | disposition hospice, inpatient (51) ==
LOC: EC 15:48 → 5NMEDONC 19:51
PROVIDERS: ADMIT Hospitalist; ATTEND Hospitalist
DX: I82.502 Chronic embolism and thrombosis of unspecified deep veins of left lower extremity (principal); C18.9 Malignant neoplasm of colon, unspecified; C79.2 Secondary malignant neoplasm of skin; C77.5 Secondary and unspecified malignant neoplasm of intrapelvic lymph nodes; C79.51 Secondary malignant neoplasm of bone; J44.1 Chronic obstructive pulmonary disease with (acute) exacerbation; J96.01 Acute respiratory failure with hypoxia; R74.8 Abnormal levels of other serum enzymes; E78.5 Hyperlipidemia, unspecified; I10 Essential (primary) hypertension; I25.2 Old myocardial infarction; F17.200 Nicotine dependence, unspecified, uncomplicated; Z90.49 Acquired absence of other specified parts of digestive tract; Z79.51 Long term (current) use of inhaled steroids; Z79.899 Other long term (current) drug therapy
CPT/HCPCS: 96365; 96372 ×2; 96375; 99285; 36415; 94640 ×4; 94760; 93005; 83880; 80053; 80048; 83605; 83735; 84295; 84484; 85025 ×2; 85610; 85730; 87070; 87205; 87636; 71046; 93970; G0378 ×3; J1644 ×2; J2405; J0696 ×2; J7512 ×2